=== PATIENT | male | born 1935 | race Caucasian/White ===

== ENCOUNTER → 2020-01-05 11:29 | Outpatient (BNV) | payer MEDICARE, SELFPAY | PROVIDERS: PCP Internal Medicine; Visit Provider Internal Medicine | DX: Z85.048 Personal history of other malignant neoplasm of rectum, rectosigmoid junction, and anus (principal) | CPT/HCPCS: 99212; 99213; 99214; G2211 ==

== ENCOUNTER 2020-01-20 10:00 | Outpatient (REF) | payer MEDICARE, SELFPAY ==
--- NOTE | 2020-01-13 11:00 | MHC.HEMONC ---
[facility] @ [phone]( spoke w Yogi Nassar). Sig: Drink 1 full bottle before bed on Saturday, 01/18, and drink the 2nd bottle on Friday 01/[address] scan, to be completed by 9am. This was per Lamont in the CT Department. Pt has CT of Abd/Pelvis and CT of Chest scheduled on Saturday01/20/20 at 10 am. Pt has been notified of Rx completed, prep instructions and appt time. He agrees to this plan of care.
--- NOTE | 2020-01-20 10:02 | CT_ITS ---
EXAMINATION: CT CHEST, ABDOMEN AND PELVIS WITH IV CONTRAST CLINICAL INFORMATION: Rectal cancer. Surveillance. COMPARISON: Previous chest CT scan most recent November 2016, chest x-ray November 2018 and abdominal and pelvic CT scans most recent December 2018 TECHNIQUE: Axial images through the chest, abdomen and pelvis following oral and 85 mL Omnipaque 350 intravenous contrast. Patient dose 9 4 6 mgy/cm. This CT examination was performed using dose optimization techniques as appropriate, variously including the following: *Automated exposure control *Adjustment of mA and/or kV according to patient size (this includes techniques or standardized protocols for targeted exams where dose is matched to indication/reason for exam; i.e. extremities or head) *Use of iterative reconstruction technique FINDINGS: Chest: There is evidence of mild paraseptal emphysema. There is a 3 mm calcified left upper lobe nodule axial image 59 series 5 this is stable. There are small clustered peribronchial nodules and increased interstitial markings in the peripheral or subpleural right lower lobe, for example axial image 325 series 5, that is stable. No new pulmonary nodules are seen. There is a right thyroid nodule that is stable. There are no enlarged hilar or mediastinal lymph nodes. The heart does not appear enlarged. There is no coronary artery calcification. There is no pericardial effusion. The thoracic aorta is normal in caliber. There is no pleural effusion or pleural thickening. No chest wall mass or enlarged axillary lymph nodes are seen. Abdomen and pelvis: There are calcifications in the liver and spleen suggestive of old granulomatous disease. No focal lesion is seen. There the gallbladder is normal. There is no biliary duct dilatation. The pancreas is unremarkable. The adrenal glands are unremarkable. The right kidney is normal appearing. There is new moderate left hydronephrosis and left ureteral dilatation down to the bladder. The bladder wall appears slightly thickened and trabeculated. There is increased soft tissue in the presacral space. This appears unchanged from previous exams. There is a left lower quadrant colostomy. There is diverticulosis of the colon. Small and large bowel is otherwise unremarkable. The appendix is unremarkable. The stomach is unremarkable. No ascites or adenopathy is seen. There is evidence of atherosclerotic disease. No aneurysm is seen. There are old right lower rib fractures. There are degenerative changes of the spine. There are degenerative changes of the hip joints. There are degenerative changes at the left shoulder joint. CT/CT abdomen pelvis w con IMPRESSION: Chest: Small stable pulmonary nodules. Stable right thyroid nodule. No evidence of metastatic disease. Abdomen and pelvis: Evidence of old granulomatous disease in the liver and spleen. New moderate left hydronephrosis and ureteral dilatation. No stone or mass seen. Slightly thickened trabeculated bladder wall. Stable postsurgical changes in the presacral space. Left lower quadrant colostomy. Diverticulosis.
[2020-01-20] MEDS: iohexoL 350 MG/ML 100 ML INFUS..BTL 85 ML IV (10:58)
[2020-01-20] MEDS: Barium Sulfate Oral (Berry) 450 ML ORAL.SUSP 900 ML PO (11:00)
== END 2020-01-20 10:01 | disposition home or self-care (01) ==
LOC: HO.CT 10:00
PROVIDERS: PCP Internal Medicine; Visit Provider Internal Medicine
DX: C20 Malignant neoplasm of rectum (principal)
CPT/HCPCS: 71260; 74177; Q9967

== ENCOUNTER → 2020-08-24 09:44 | Outpatient (BNVA) | payer MEDICARE, SELFPAY | PROVIDERS: PCP Internal Medicine; Visit Provider Urology | DX: R33.9 Retention of urine, unspecified (principal) | CPT/HCPCS: 51798; 99212 ==

== ENCOUNTER 2020-11-19 09:35 | Outpatient (REF) | payer MEDICARE, SELFPAY ==
[2020-11-19 10:09] LABS: MANUAL DIFF FLAG NO
[2020-11-19 10:41] LABS: Basophils Absolute Auto 0.1 X10*3/uL (0.0-0.2); Eosinophils Absolute Auto 0.3 X10*3/uL (0.0-0.4); Eosinophils Percent Auto 4.1 % (0-4); Hematocrit 44.5 % (42-52); Hemoglobin 14.3 g/dl (14.0-18.0); Imm Gran Abs Auto 0.02 X10*3/uL (0.00-0.03); Imm Gran Pct Auto 0.3 % (0.0-0.4); Lymphocytes Absolute Auto 1.6 X10*3/uL (1.2-4.9); Lymphocytes Percent Auto 22.3 % (20-40); Mean Corpuscular HGB Conc 32.1 g/dl (31.0-36.0); Mean Corpuscular Hemoglobin 29.2 pg (27.0-33.0); Mean Corpuscular Volume 90.8 fL (80-98); Mean Platelet Volume 10.4 fL (9.4-12.4); Monocytes Absolute Auto 0.6 X10*3/uL (0.1-1.2); Monocytes Percent Auto 8.6 % (2-11); Neutrophils Absolute Auto 4.7 X10*3/uL (2.0-8.3); Neutrophils Percent Auto 63.7 % (45-73); Platelet Count 284 X10*3/uL (160-400); Red Cell Distribution Width 13.2 % (11.0-16.0); White Blood Count 7.4 X10*3/uL (4.8-10.8)
[2020-11-19 10:42] LABS: Alanine Aminotransferase 12 U/L (0-40); Albumin Level 4.4 g/dL (3.5-5.0); Alkaline Phosphatase 77 U/L (39-117); Anion Gap 15 (12-20); Aspartate Amino Transferase 14 U/L (5-37); Bilirubin Total 0.8 mg/dL (0.0-1.0); Blood Urea Nitrogen 21 mg/dL (9-16); Calcium 9.3 mg/dL (8.4-10.2); Carbon Dioxide 25 mmol/L (22-29); Chloride 105 mmol/L (96-108); Cholesterol 162 mg/dL; Estimated Glomerular Filt Rate > 60; Glucose Random 108 mg/dL (60-115); HDL Cholesterol 33 mg/dL; LDL Cholesterol Calculated 102 mg/dl; Potassium 4.1 mmol/L (3.3-5.1); Sodium 141 mmol/L (135-145); Total Protein 7.6 g/dL (6.5-8.0); Triglycerides 139 mg/dL
[2020-11-19 11:04] LABS: Prostate Specific Antigen 0.41 ng/mL (<0.05-4.0); Thyroid Stimulating Hormone 1.36 uIU/mL (0.32-4.0)
== END 2020-11-19 09:36 | disposition home or self-care (01) ==
LOC: HO.LAB 09:35
PROVIDERS: PCP Internal Medicine; Visit Provider Internal Medicine
DX: Z00.00 Encounter for general adult medical examination without abnormal findings (principal); Z12.5 Encounter for screening for malignant neoplasm of prostate; E78.00 Pure hypercholesterolemia, unspecified; I10 Essential (primary) hypertension; N40.1 Benign prostatic hyperplasia with lower urinary tract symptoms; Z93.3 Colostomy status
CPT/HCPCS: 36415; 80053; 80061; 84153; 84443; 85025

== ENCOUNTER 2021-01-31 12:41 | Outpatient (REF) | payer MEDICARE, SELFPAY ==
--- NOTE | ~2021-01-31 | CT_ITS ---
EXAMINATION: CT ABDOMEN AND PELVIS WITH CONTRAST CLINICAL INFORMATION: Rectal cancer. Increased bloody discharge COMPARISON: Previous CT of the abdomen and pelvis most recent December 2019 TECHNIQUE: Multidetector volumetric images were obtained from the superior aspect of the liver through the pubic symphysis following administration 85 mL of Omnipaque 350 intravenous contrast. Sagittal and coronal reformatted images were obtained on the technologist's workstation. Oral contrast: Yes This CT examination was performed using dose optimization techniques as appropriate, variously including the following: *Automated exposure control *Adjustment of mA and/or kV according to patient size (this includes techniques or standardized protocols for targeted exams where dose is matched to indication/reason for exam; i.e. extremities or head) *Use of iterative reconstruction technique DLP: 537 mGy-cm FINDINGS: LUNG BASES: The visualized lung bases are unremarkable. LIVER, GALLBLADDER, AND BILIARY TREE: The liver is normal in size, shape, and attenuation. There are small calcifications in the liver that are stable and probably related to old granulomatous disease. No other focal hepatic lesion or biliary ductal dilatation is present. The gallbladder is unremarkable with no evidence of radiopaque gallstones, gallbladder wall thickening, or obvious pericholecystic inflammatory changes. PANCREAS: Unremarkable. SPLEEN: There are small calcifications in the spleen probably related to old granulomatous disease that are stable. ADRENAL GLANDS: Unremarkable. KIDNEYS AND URETERS: There is left hydronephrosis and left ureteral dilatation down to the bladder. This is unchanged from previous exam. The kidneys are otherwise unremarkable. BLADDER: Unremarkable. GASTROINTESTINAL TRACT: There is a left lower quadrant and colostomy. There is diverticulosis of the colon. There is stool the colon suggestive of constipation. Small and large bowel is otherwise unremarkable. The appendix is unremarkable. The stomach is unremarkable. There is increased soft tissue seen in the presacral space. This is inseparable from the prostate gland. This has a new low-attenuation cystic area with thick irregular enhancing wall. This area measures 2 x 3 cm. Differential would include necrotic tumor and abscess. ABDOMINAL WALL: No significant hernia is appreciated. LYMPH NODES: Normal. VASCULAR: There is evidence of atherosclerotic disease. No aneurysm is seen. PELVIC VISCERA: The soft tissue mass in the presacral space in the region of the rectum is inseparable from the prostate gland. 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 There are degenerative changes of the spine. There or old bilateral rib fractures. CT/CT abdomen pelvis w con IMPRESSION: Interval increase in abnormal soft tissue in the presacral space and new 2 x 3 cm cystic area with thick irregular enhancing wall. Differential would include necrotic tumor and abscess. Left lower quadrant end colostomy. Diverticulosis and constipation. Severe left hydronephrosis similar to previous exam. Numerous small liver and spleen calcifications probably related to old granulomatous disease. Fleischner guidelines were followed.
[2021-01-31] MEDS: iohexoL 350 MG/ML 100 ML INFUS..BTL IV (15:18)
[2021-01-31] MEDS: Barium Sulfate Oral (Vanilla) 450 ML ORAL.SUSP 900 ML PO (15:19)
== END 2021-01-31 12:42 | disposition home or self-care (01) ==
LOC: HO.CT 12:41
PROVIDERS: PCP Internal Medicine; Visit Provider Internal Medicine
DX: C20 Malignant neoplasm of rectum (principal)
CPT/HCPCS: 74177; Q9967

== ENCOUNTER → 2021-02-01 15:51 | Outpatient (BNVA) | payer MEDICARE, SELFPAY | PROVIDERS: PCP Internal Medicine; Visit Provider Surgery | DX: M79.89 Other specified soft tissue disorders (principal) | CPT/HCPCS: 99202 ==

== ENCOUNTER → 2021-04-06 11:39 | Outpatient (BNVA) | payer MEDICARE, SELFPAY | PROVIDERS: PCP Internal Medicine; Visit Provider Urology | DX: R33.9 Retention of urine, unspecified (principal); N31.9 Neuromuscular dysfunction of bladder, unspecified | CPT/HCPCS: 51798; 99212 ==

== ENCOUNTER 2021-05-15 12:07 | Day surgery (SDC) | payer MEDICARE, SELFPAY ==
--- NOTE | ~2021-05-15 | CT_ITS ---
PROCEDURE: CT GUIDED ASPIRATION, FINE NEEDLE, WITH IMAGE GUIDANCE CLINICAL INFORMATION: Rectal cancer. Presacral soft tissue mass. COMPARISON: Previous CT of the abdomen and pelvis January 2021 TECHNIQUE: Procedure and risks and benefits including bleeding and infection were discussed with the patient and informed consent was obtained. The patient was positioned in the left decubitus position. Limited axial images through the pelvis were performed. The left buttock was prepped and draped in the usual sterile fashion. The skin and soft tissues were anesthetized with 1% lidocaine plain. Using a coaxial system, access to the abnormal soft tissue in the presacral space was obtained. The small central cystic area was targeted. Two 22-gauge FNA specimens were obtained. Scant bloody fluid was aspirated. Specimen was sent for cytology and microbiology studies. The patient received Versed 0.5 mg and fentanyl 25 mcg intravenously during the procedure. Total sedation time was [address] examination was performed using dose optimization techniques as appropriate, variously including the following: *Automated exposure control *Adjustment of mA and/or kV according to patient size (this includes techniques or standardized protocols for targeted exams where dose is matched to indication/reason for exam; i.e. extremities or head) *Use of iterative reconstruction technique DLP: 152 mGy-cm FINDINGS: There is abnormal soft tissue in the presacral space. This contains a small central cystic low-attenuation area. This is similar to the 01/31/[address]/CT guided FNA IMPRESSION: CT-guided presacral soft tissue mass fine-needle aspiration.
[2021-05-15 12:29] VITALS: BMI 25.1
[2021-05-15 12:45] LABS: MANUAL DIFF FLAG NO
[2021-05-15 13:00] LABS: INTERNATIONAL NORM RATIO 1.1 (0.9-1.1); Prothrombin Time 12.5 SEC (9.9-13.0)
[2021-05-15 13:08] LABS: Basophils Absolute Auto 0.1 X10*3/uL (0.0-0.2); Basophils Percent Auto 0.6 % (0-2); Eosinophils Absolute Auto 0.1 X10*3/uL (0.0-0.4); Hematocrit 41.5 % (42.0-52.0); Imm Gran Abs Auto 0.03 X10*3/uL (0.00-0.03); Imm Gran Pct Auto 0.3 % (0.0-0.4); Lymphocytes Absolute Auto 1.4 X10*3/uL (1.2-4.9); Lymphocytes Percent Auto 14.2 % (20-40); Mean Corpuscular HGB Conc 31.3 g/dl (31.0-36.0); Mean Corpuscular Hemoglobin 27.7 pg (27.0-33.0); Mean Corpuscular Volume 88.5 fL (80.0-98.0); Monocytes Absolute Auto 0.6 X10*3/uL (0.1-1.2); Neutrophils Absolute Auto 7.7 x10*3/uL (2.0-8.3); Neutrophils Percent Auto 77.9 % (45-73); Platelet Count 335 X10*3/uL (160-400); Red Blood Count 4.69 X10*6/uL (4.60-5.80); Red Cell Distribution Width 13.8 % (11.0-16.0); White Blood Count 9.8 X10*3/uL (4.8-10.8)
[2021-05-15] MEDS: iohexoL 350 MG/ML 100 ML INFUS..BTL 40 ML IV (14:55)
--- NOTE | 2021-05-15 14:56 | HO.RADPN ---
RADIOLOGY Narrative Narrative: Prescaral space aspiration using coaxial system. Specimen sent for cytology and culture.
[2021-05-15 15:00] VITALS: BP 118/50; PULSE 66; RESP 19; O2SAT 99
[2021-05-15 15:32] VITALS: BP 96/34; PULSE 69; RESP 18; O2SAT 97
[2021-05-15 15:46] VITALS: BP 124/47; PULSE 68; RESP 18; TEMP 36.7; O2SAT 97
[2021-05-15 15:53] VITALS: BP 126/50; PULSE 69; RESP 18; O2SAT 97
== END 2021-05-15 15:59 | disposition home or self-care (01) ==
PROVIDERS: Radiology Diagnostic Radiology; PCP Internal Medicine; Visit Provider Internal Medicine
DX: M79.89 Other specified soft tissue disorders (principal); Z85.048 Personal history of other malignant neoplasm of rectum, rectosigmoid junction, and anus; Z92.3 Personal history of irradiation; Z90.49 Acquired absence of other specified parts of digestive tract; Z85.820 Personal history of malignant melanoma of skin; N13.30 Unspecified hydronephrosis; Z79.899 Other long term (current) drug therapy
CPT/HCPCS: 10009; 36415; 85025; 85610; 85730; 87071; 87073; 87205; 88173; 88305; 99152; J2250; J3010; Q9967

== ENCOUNTER → 2021-05-22 13:11 | Outpatient (BNVA) | payer MEDICARE, SELFPAY | PROVIDERS: PCP Internal Medicine; Referring Provider Internal Medicine; Visit Provider Surgery | DX: M79.89 Other specified soft tissue disorders (principal) | CPT/HCPCS: 99212 ==

== ENCOUNTER → 2021-07-03 15:45 | Outpatient (BNVA) | payer MEDICARE, SELFPAY | PROVIDERS: PCP Internal Medicine; Referring Provider Internal Medicine; Visit Provider Surgery | DX: M79.89 Other specified soft tissue disorders (principal) | CPT/HCPCS: 99212 ==

== ENCOUNTER 2021-12-22 11:23 | Outpatient (REF) | payer MEDICARE, SELFPAY ==
[2021-12-22 11:41] LABS: MANUAL DIFF FLAG NO
[2021-12-22 12:15] LABS: Basophils Percent Auto 0.4 % (0-2); Eosinophils Absolute Auto 0.1 X10*3/uL (0.0-0.4); Eosinophils Percent Auto 1.4 % (0-4); Hematocrit 39.4 % (42.0-52.0); Hemoglobin 12.3 g/dl (14.0-18.0); Imm Gran Abs Auto 0.02 X10*3/uL (0.00-0.03); Imm Gran Pct Auto 0.4 % (0.0-0.4); Lymphocytes Absolute Auto 1.2 X10*3/uL (1.2-4.9); Lymphocytes Percent Auto 21.1 % (20-40); Mean Corpuscular HGB Conc 31.2 g/dl (31.0-36.0); Mean Corpuscular Hemoglobin 26.9 pg (27.0-33.0); Mean Platelet Volume 10.3 fL (9.4-12.4); Monocytes Absolute Auto 0.5 X10*3/uL (0.1-1.2); Monocytes Percent Auto 9.2 % (2-11); Neutrophils Absolute Auto 3.8 x10*3/uL (2.0-8.3); Neutrophils Percent Auto 67.5 % (45-73); Platelet Count 196 X10*3/uL (160-400); Red Blood Count 4.58 X10*6/uL (4.60-5.80); Red Cell Distribution Width 13.7 % (11.0-16.0); White Blood Count 5.6 X10*3/uL (4.8-10.8)
[2021-12-22 12:45] LABS: Alanine Aminotransferase 21 U/L (0-40); Albumin Level 3.7 g/dL (3.5-5.0); Alkaline Phosphatase 58 U/L (39-117); Anion Gap 19 (12-20); Aspartate Amino Transferase 34 U/L (5-37); Bilirubin Total 0.4 mg/dL (0.0-1.0); Blood Urea Nitrogen 22 mg/dL (9-16); Calcium 8.3 mg/dL (8.4-10.2); Carbon Dioxide 23 mmol/L (22-29); Chloride 105 mmol/L (96-108); Cholesterol 125 mg/dL; Estimated Glomerular Filt Rate > 60; Glucose Random 103 mg/dL (60-115); HDL Cholesterol 26 mg/dL; LDL Cholesterol Calculated 71 mg/dl; Potassium 3.7 mmol/L (3.3-5.1); Sodium 143 mmol/L (135-145); Triglycerides 144 mg/dL
[2021-12-22 13:22] LABS: Vitamin B12 1348 pg/mL (200-900)
== END 2021-12-22 11:24 | disposition home or self-care (01) ==
LOC: HO.LAB 11:23
PROVIDERS: PCP Internal Medicine; Visit Provider Internal Medicine
DX: Z00.00 Encounter for general adult medical examination without abnormal findings (principal); E78.00 Pure hypercholesterolemia, unspecified; H40.50X0 Glaucoma secondary to other eye disorders, unspecified eye, stage unspecified; N40.1 Benign prostatic hyperplasia with lower urinary tract symptoms; Z93.3 Colostomy status
CPT/HCPCS: 36415; 80053; 80061; 82607; 85025

== ENCOUNTER 2022-06-16 09:17 | Outpatient (REF) | payer MEDICARE, SELFPAY ==
[2022-06-16 09:28] LABS: MANUAL DIFF FLAG NO
[2022-06-16 10:43] LABS: Basophils Absolute Auto 0.1 X10*3/uL (0.0-0.2); Eosinophils Absolute Auto 0.4 X10*3/uL (0.0-0.4); Eosinophils Percent Auto 3.6 % (0-4); Hematocrit 37.6 % (42.0-52.0); Hemoglobin 11.8 g/dl (14.0-18.0); Imm Gran Abs Auto 0.04 X10*3/uL (0.00-0.03); Imm Gran Pct Auto 0.4 % (0.0-0.4); Lymphocytes Absolute Auto 2.5 X10*3/uL (1.2-4.9); Lymphocytes Percent Auto 24.7 % (20-40); Mean Corpuscular HGB Conc 31.4 g/dl (31.0-36.0); Mean Corpuscular Hemoglobin 28.3 pg (27.0-33.0); Mean Corpuscular Volume 90.2 fL (80.0-98.0); Mean Platelet Volume 10.4 fL (9.4-12.4); Monocytes Absolute Auto 0.7 X10*3/uL (0.1-1.2); Monocytes Percent Auto 7.5 % (2-11); Neutrophils Absolute Auto 6.2 x10*3/uL (2.0-8.3); Neutrophils Percent Auto 62.8 % (45-73); Platelet Count 327 X10*3/uL (160-400); Red Blood Count 4.17 X10*6/uL (4.60-5.80); Red Cell Distribution Width 13.9 % (11.0-16.0); White Blood Count 9.9 X10*3/uL (4.8-10.8)
[2022-06-16 11:10] LABS: Blood Urea Nitrogen 32 mg/dL (9-16); Estimated Glomerular Filt Rate 47
[2022-06-16 11:18] LABS: Alanine Aminotransferase 16 U/L (0-40); Alkaline Phosphatase 68 U/L (39-117); Anion Gap 17 (12-20); Aspartate Amino Transferase 14 U/L (5-37); Bilirubin Total 0.6 mg/dL (0.0-1.0); Blood Urea Nitrogen 31 mg/dL (9-16); Calcium 9.2 mg/dL (8.4-10.2); Carbon Dioxide 24 mmol/L (22-29); Chloride 107 mmol/L (96-108); Cholesterol 134 mg/dL; Estimated Glomerular Filt Rate 47; Glucose Random 107 mg/dL (60-115); HDL Cholesterol 35 mg/dL; LDL Cholesterol Calculated 78 mg/dl; Potassium 4.5 mmol/L (3.3-5.1); Sodium 143 mmol/L (135-145); Total Protein 7.1 g/dL (6.5-8.0); Triglycerides 108 mg/dL
[2022-06-16 11:49] LABS: Ferritin 72 ng/mL (20-250); Thyroid Stimulating Hormone 1.75 uIU/mL (0.32-4.0); Vitamin B12 623 pg/mL (200-900)
== END 2022-06-16 09:18 | disposition home or self-care (01) ==
LOC: HO.LAB 09:17
PROVIDERS: Internal Medicine; Visit Provider Internal Medicine
DX: C20 Malignant neoplasm of rectum (principal); D64.89 Other specified anemias; D69.6 Thrombocytopenia, unspecified; E78.00 Pure hypercholesterolemia, unspecified; N31.8 Other neuromuscular dysfunction of bladder; N40.1 Benign prostatic hyperplasia with lower urinary tract symptoms; Z93.3 Colostomy status
CPT/HCPCS: 36415; 80053; 80061; 82565; 82607; 82728; 82746; 84443; 84520; 85025

== ENCOUNTER 2022-06-27 11:01 | Outpatient (REF) | payer MEDICARE, SELFPAY ==
--- NOTE | ~2022-06-27 | CT_ITS ---
EXAMINATION: CT ABDOMEN AND PELVIS WITH CONTRAST CLINICAL INFORMATION: Rectal cancer. COMPARISON: None available. TECHNIQUE: Multidetector volumetric images were obtained from the superior aspect of the liver through the pubic symphysis following administration 85 mL of Omnipaque 350 intravenous contrast. Sagittal and coronal reformatted images were obtained on the technologist's workstation. Oral contrast: No This CT examination was performed using dose optimization techniques as appropriate, variously including the following: *Automated exposure control *Adjustment of mA and/or kV according to patient size (this includes techniques or standardized protocols for targeted exams where dose is matched to indication/reason for exam; i.e. extremities or head) *Use of iterative reconstruction technique DLP: 580 mGy-cm FINDINGS: LUNG BASES: The lung bases are clear. Heart size is normal. LIVER, GALLBLADDER, AND BILIARY TREE: The liver is normal in size, shape, and attenuation. There are multiple calcifications seen throughout the liver. No intrahepatic ductal dilatation or solid lesion seen. The gallbladder is unremarkable with no evidence of radiopaque gallstones, gallbladder wall thickening, or obvious pericholecystic inflammatory changes. PANCREAS: Unremarkable. SPLEEN: The spleen size is normal with homogeneous density. There are scattered calcifications. ADRENAL GLANDS: Unremarkable. KIDNEYS AND URETERS: The kidneys are normal in size, shape, and attenuation. There is severe bilateral hydroureteronephrosis extending to the level of hydronephrosis. The right hydroureteronephrosis is new since previous study. BLADDER: The bladder is mildly distended. GASTROINTESTINAL TRACT: There is scattered stool, diverticuli and gas seen throughout the colon without any significant distention. The small bowel loops are normal caliber. Appendix is normal caliber. ABDOMINAL WALL: There is a left lower quadrant colostomy. No evidence of hernia. LYMPH NODES: Normal. VASCULAR: Unremarkable. PELVIC VISCERA: There is presacral soft tissue mass similar to previous study but decreased in size. Central hypodensity seen on the previous study has reduced in size. OSSEOUS STRUCTURES: There are degenerative disc changes throughout lumbar spine and right hip and mild degenerative changes left hip are noted. No aggressive lytic or sclerotic process seen. CT/CT abdomen pelvis w IV con IMPRESSION: Severe bilateral hydroureteronephrosis likely from bladder outlet obstruction. The right hydroureteronephrosis is new since the previous study. There is moderate presacral soft tissue which has decreased in size from previous study likely granulation tissue post surgery. No change in left lower quadrant colostomy with moderate constipation and colonic diverticulosis. Granulomatous calcifications in the liver and spleen. Fleischner guidelines were followed.
[2022-06-27] MEDS: iohexoL 350 MG/ML 100 ML INFUS..BTL IV (12:01)
== END 2022-06-27 11:02 | disposition home or self-care (01) ==
LOC: HO.CT 11:01
PROVIDERS: PCP Internal Medicine; Visit Provider Internal Medicine
DX: C20 Malignant neoplasm of rectum (principal)
CPT/HCPCS: 74177; Q9967

== ENCOUNTER 2022-12-21 09:31 | Outpatient (REF) | payer MEDICARE, SELFPAY ==
[2022-12-21 10:47] LABS: Alanine Aminotransferase 12 U/L (0-40); Albumin Level 3.9 g/dL (3.5-5.0); Alkaline Phosphatase 72 U/L (39-117); Anion Gap 16 (12-20); Aspartate Amino Transferase 13 U/L (5-37); Bilirubin Total 0.5 mg/dL (0.0-1.0); Blood Urea Nitrogen 34 mg/dL (9-16); Calcium 9.6 mg/dL (8.4-10.2); Carbon Dioxide 23 mmol/L (22-29); Chloride 105 mmol/L (96-108); Estimated Glomerular Filt Rate > 60; Glucose Random 108 mg/dL (60-115); Potassium 3.6 mmol/L (3.3-5.1); Sodium 140 mmol/L (135-145); Total Protein 7.5 g/dL (6.5-8.0)
== END 2022-12-21 09:32 | disposition home or self-care (01) ==
LOC: HO.LAB 09:31
PROVIDERS: PCP Internal Medicine; Visit Provider Internal Medicine
DX: E78.00 Pure hypercholesterolemia, unspecified (principal); N18.9 Chronic kidney disease, unspecified; N40.1 Benign prostatic hyperplasia with lower urinary tract symptoms; Z85.048 Personal history of other malignant neoplasm of rectum, rectosigmoid junction, and anus
CPT/HCPCS: 36415; 80053

== ENCOUNTER 2023-05-03 14:05 | Outpatient (AMB) | payer MEDICARE, SELFPAY ==
--- NOTE | 2023-05-03 14:19 | A.OFFVIS_ITS ---
Intake Intake Visit Reasons: rectal cancer Intake Note: Former Patient of Dr Wong, presents today to established with Dr Atwood for the treatment for Incomplete Bladder Emptying/Pt has Rectal Cancer: Meds- Finasteride & Tamsulosin Allergies to Antibiotic- No Known Allergies Blood Thinner- None Unable to void, Post Void Residual: 105 mL Service Manager Required: No Accompanied by: Self / Same As Patient Allergies No Known Allergies [No Known Allergies*] Allergy (Verified 05/03/23 14:39) Medication List - Last Reconciled 05/03/23 by Quinn Griffith MD brinzolamide-brimonidine 1-0.2 % (Simbrinza) 1 drp ophthalmic (eye) BID dorzolamide 2% (Trusopt) 1 drp ophthalmic (eye) TID finasteride 5 mg PO DAILY 30 days latanoprost 0.005% (Xalatan) 1 drp ophthalmic (eye) BEDTIME multivitamin 1 tab PO DAILY pravastatin 1 tab PO DAILY tamsulosin (Flomax) 0.4 mg PO BEDTIME 30 days timolol maleate 0.5% (Timoptic) 1 drp ophthalmic (eye) BID HPI HPI Comments History of Present Illness Details Edgar is an 88-year-old male who has been followed by urology due to neurogenic bladder secondary to radiation and surgical treatment for rectal cancer. The patient has been followed by Dr. Wong in the past. The patient is followed by Oncology due to rectal carcinoma. The patient was diagnosed with adenocarcinoma of the rectum in 2016 and completed concurrent radiation with Xeloda 825mg/m2 from 08/17/15 and completed on 09/28/15. s/p Abdominoperineal resection on 01/30/16, pathology no residual adenocarcinoma identified, chronic inflammation and fibrosis consistent with treatment effect, ALT 3 lymph nodes were benign. The patient wears diapers daily. Denies pain or dysuria. He states he is unable to give a urine specimen in the office or at home because he can not void and only leaks into the pad, bladder scan PVR 105 mL. I reviewed testing CT abdomen and pelvis with contrast--07/14/2022 bilateral hydronephrosis hydroureter. Right hydronephrosis hydroureter new in comparison to previous studies. Labs: BUN creatinine--09/19/2022--25/1.01; 03/25/2023--26/1.15 05/03/23--PLAN TAMSULOSIN 0.4 MG DAILY Proscar 5 mg daily Follow-up in 4 months, Renal ultrasound prior [facility] Medical History Soft tissue mass Incomplete emptying of bladder Dysuria Pyuria H/O urinary retention Rectal adenocarcinoma Melanoma Fibroma Skin cancer Fracture of right ankle Glaucoma Surgical History History of surgery Hx of abdominoplasty Hx of tonsillectomy Hx of colonoscopy Family History Sister Lung cancer Maternal Aunt Breast cancer Mother Breast cancer Social History Household Members: None Housing: House Are you a primary primary care coordinator to a significant other at home: No Do you presently have visiting nurse or other home services: No Alcohol intake: former Patient Tobacco Use Status: Never used Tobacco Cigarette Packs Per Day: 3 service: No Current occupational status: retired Review of Systems Const All systems reviewed & are unremarkable except as noted in HPI and below Reports no additional complaints Eyes Reports no additional complaints ENT Reports no additional complaints Card Denies dyspnea Resp Denies cough and Denies dyspnea GI Reports no additional complaints Musc Reports no additional complaints Skin/Breast Denies rash and Denies unusual bruising Neuro Reports no additional complaints Psych Reports no additional complaints Endo Reports no additional complaints Caesar/Lymph Reports no additional complaints Aller/Immun Reports no additional complaints Physical Exam Const General: healthy appearing, no acute distress and well developed Orientation/consciousness: patient oriented x3 HEENT Head: Yes normocephalic and Yes atraumatic Eyes Conjunctivae: conjunctivae normal Neck Neck: Yes normal visual inspection Chest Chest palpation & inspection: normal inspection of the chest Resp Effort & Inspection: normal respiratory effort Cardio Rate: regular rate GI Other: Colostomy left lower quadrant Palpation (GI): Soft to palpation Skin General skin exam: no rashes or lesions noted Neuro General: patient oriented x3 Extrem General: No pedal edema Psych Appearance: grossly normal Affect: normal affect Results Reviewed Results Reviewed: Date of Service: 06/27/22 EXAMINATION: CT ABDOMEN AND PELVIS WITH CONTRAST CLINICAL INFORMATION: Rectal cancer. COMPARISON: None available. TECHNIQUE: Multidetector volumetric images were obtained from the superior aspect of the liver through the pubic symphysis following administration 85 mL of Omnipaque 350 intravenous contrast. Sagittal and coronal reformatted images were obtained on the technologist's workstation. Oral contrast: No This CT examination was performed using dose optimization techniques as appropriate, variously including the following: *Automated exposure control *Adjustment of mA and/or kV according to patient size (this includes techniques or standardized protocols for targeted exams where dose is matched to indication/reason for exam; i.e. extremities or head) *Use of iterative reconstruction technique DLP: 580 mGy-cm FINDINGS: LUNG BASES: The lung bases are clear. Heart size is normal. LIVER, GALLBLADDER, AND BILIARY TREE: The liver is normal in size, shape, and attenuation. There are multiple calcifications seen throughout the liver. No intrahepatic ductal dilatation or solid lesion seen. The gallbladder is unremarkable with no evidence of radiopaque gallstones, gallbladder wall thickening, or obvious pericholecystic inflammatory changes. PANCREAS: Unremarkable. SPLEEN: The spleen size is normal with homogeneous density. There are scattered calcifications. ADRENAL GLANDS: Unremarkable. KIDNEYS AND URETERS: The kidneys are normal in size, shape, and attenuation. There is severe bilateral hydroureteronephrosis extending to the level of hydronephrosis. The right hydroureteronephrosis is new since previous study. BLADDER: The bladder is mildly distended. GASTROINTESTINAL TRACT: There is scattered stool, diverticuli and gas seen throughout the colon without any significant distention. The small bowel loops are normal caliber. Appendix is normal caliber. ABDOMINAL WALL: There is a left lower quadrant colostomy. No evidence of hernia. LYMPH NODES: Normal. VASCULAR: Unremarkable. PELVIC VISCERA: There is presacral soft tissue mass similar to previous study but decreased in size. Central hypodensity seen on the previous study has reduced in size. OSSEOUS STRUCTURES: There are degenerative disc changes throughout lumbar spine and right hip and mild degenerative changes left hip are noted. No aggressive lytic or sclerotic process seen. IMPRESSION: Severe bilateral hydroureteronephrosis likely from bladder outlet obstruction. The right hydroureteronephrosis is new since the previous study. There is moderate presacral soft tissue which has decreased in size from previous study likely granulation tissue post surgery. No change in left lower quadrant colostomy with moderate constipation and colonic diverticulosis. Granulomatous calcifications in the liver and spleen. Assessment & Plan Assessment & Plan (1) Incomplete emptying of bladder: Code(s): R33.9 - Retention of urine, unspecified (2) Hypotonic neurogenic bladder: Comment: Prior rectal surgery with presumed nerve compromise Code(s): N31.9 - Neuromuscular dysfunction of bladder, unspecified (3) Bilateral hydronephrosis: Code(s): N13.30 - Unspecified hydronephrosis (4) Hydroureter: Code(s): N13.4 - Hydroureter (5) Rectal adenocarcinoma: Code(s): C20 - Malignant neoplasm of rectum Plan TAMSULOSIN 0.4 MG DAILY Proscar 5 mg daily Follow-up in 4 months, Renal ultrasound prior Orders: Orders US renal BI 10 Weeks N13.30 - Unspecified hydronephrosis, N13.4 - Hydroureter Medications: Refilled finasteride 5 mg PO DAILY 90 tabs 3RF 30 days tamsulosin (Flomax) 0.4 mg PO BEDTIME 90 caps 3RF 30 days Patient Instructions: The patient had an opportunity to ask questions regarding treatment plan. All questions were answered. Imaging, Laboratory studies and physical exam results were discussed and reviewed in detail. No major barriers to understanding were identified. The patient expressed understanding and agreement with the above treatment plan. The patient is aware they should contact our office by phone for worsening of their current condition or the appearance of new symptoms. Compliance is encouraged with any medications and followup testing that is ordered. It is a privilege to be allowed the opportunity to participate in the urologic care of your patient. If you have any questions or concerns regarding treatment for the above conditions please do not hesitate to contact me. The office telephone contact is [phone]. This note is constructed in part using voice recognition software. While every effort has been made to ensure accuracy securities vault supervisor errors may have been included. Yours sincerely, Quinn Griffith MD Coding Level of Care Code Est Pt Level 4 (74155) Diagnoses Incomplete emptying of bladder R33.9 Hypotonic neurogenic bladder N31.9 Bilateral hydronephrosis N13.30 Hydroureter N13.4 Rectal adenocarcinoma C20
== END 2023-05-03 15:30 | disposition home or self-care (01) ==
PROVIDERS: PCP Internal Medicine; Visit Provider Urology
DX: R33.9 Retention of urine, unspecified (principal); N31.9 Neuromuscular dysfunction of bladder, unspecified; N13.30 Unspecified hydronephrosis; N13.4 Hydroureter; C20 Malignant neoplasm of rectum
CPT/HCPCS: 99214

== ENCOUNTER → 2023-05-03 14:05 | Outpatient (BNVA) | payer MEDICARE, SELFPAY | PROVIDERS: PCP Internal Medicine; Visit Provider Urology | DX: R33.9 Retention of urine, unspecified (principal); N31.9 Neuromuscular dysfunction of bladder, unspecified; N13.30 Unspecified hydronephrosis; N13.4 Hydroureter; C20 Malignant neoplasm of rectum | CPT/HCPCS: 99212 ==

== ENCOUNTER 2023-06-18 11:00 | Outpatient (REF) | payer MEDICARE, SELFPAY ==
[2023-06-18 11:14] LABS: MANUAL DIFF FLAG NO
[2023-06-18 12:47] LABS: Basophils Absolute Auto 0.1 X10*3/uL (0.0-0.2); Basophils Percent Auto 0.7 % (0-2); Eosinophils Absolute Auto 0.2 X10*3/uL (0.0-0.4); Eosinophils Percent Auto 1.8 % (0-4); Hematocrit 38.7 % (42.0-52.0); Hemoglobin 12.1 g/dl (14.0-18.0); Imm Gran Abs Auto 0.04 X10*3/uL (0.00-0.03); Imm Gran Pct Auto 0.4 % (0.0-0.4); Lymphocytes Absolute Auto 1.9 X10*3/uL (1.2-4.9); Lymphocytes Percent Auto 19.6 % (20-40); Mean Corpuscular HGB Conc 31.3 g/dl (31.0-36.0); Mean Corpuscular Hemoglobin 27.8 pg (27.0-33.0); Mean Corpuscular Volume 88.8 fL (80.0-98.0); Mean Platelet Volume 10.5 fL (9.4-12.4); Monocytes Absolute Auto 0.6 X10*3/uL (0.1-1.2); Monocytes Percent Auto 6.2 % (2-11); Neutrophils Absolute Auto 6.7 x10*3/uL (2.0-8.3); Neutrophils Percent Auto 71.3 % (45-73); Platelet Count 304 X10*3/uL (160-400); Red Blood Count 4.36 X10*6/uL (4.60-5.80); Red Cell Distribution Width 14.4 % (11.0-16.0); White Blood Count 9.4 X10*3/uL (4.8-10.8)
[2023-06-18 13:04] LABS: Alanine Aminotransferase 13 U/L (0-40); Alkaline Phosphatase 77 U/L (39-117); Anion Gap 15 (12-20); Aspartate Amino Transferase 15 U/L (5-37); Bilirubin Total 0.4 mg/dL (0.0-1.0); Blood Urea Nitrogen 30 mg/dL (9-16); Calcium 9.7 mg/dL (8.4-10.2); Carbon Dioxide 25 mmol/L (22-29); Chloride 107 mmol/L (96-108); Cholesterol 125 mg/dL (<200); Estimated Glomerular Filt Rate > 60; Glucose Random 106 mg/dL (60-115); HDL Cholesterol 35 mg/dL (>40); LDL Cholesterol Calculated 74 mg/dL (<100); Potassium 3.8 mmol/L (3.3-5.1); Sodium 143 mmol/L (135-145); Total Protein 7.7 g/dL (6.5-8.0); Triglycerides 84 mg/dL (<150)
[2023-06-18 13:34] LABS: Prostate Specific Antigen 0.89 ng/mL (<0.05-4.0)
== END 2023-06-18 11:01 | disposition home or self-care (01) ==
LOC: HO.LAB 11:00
PROVIDERS: PCP Internal Medicine; Visit Provider Internal Medicine
DX: E78.00 Pure hypercholesterolemia, unspecified (principal); I10 Essential (primary) hypertension; N40.1 Benign prostatic hyperplasia with lower urinary tract symptoms; Z85.048 Personal history of other malignant neoplasm of rectum, rectosigmoid junction, and anus; Z12.5 Encounter for screening for malignant neoplasm of prostate
CPT/HCPCS: 36415; 80053; 80061; 84153; 85025

== ENCOUNTER 2023-06-28 15:59 | Outpatient (REF) | payer MEDICARE, SELFPAY ==
--- NOTE | ~2023-06-28 | US_ITS ---
EXAMINATION: US VENOUS ULTRASOUND WITH DOPPLER LOWER EXTREMITY, BILATERAL CLINICAL INFORMATION: Swelling COMPARISON: None available. TECHNIQUE: Ultrasound of the deep veins is performed from the hip to the calf with compression sonography and color and pulse Doppler assessment. Spectral analysis with color-flow imaging is performed. FINDINGS: RIGHT: There is normal venous compression and respiratory variation and augmented flow. The visualized common femoral vein, superficial femoral vein, profunda femoral vein, popliteal vein, and the trifurcation region shows no evidence of deep venous thrombosis. There is no significant popliteal fossa cyst. LEFT: There is nonocclusive thrombus seen in the popliteal vein. There is nonocclusive thrombus seen in the left superficial femoral vein in the mid and upper thigh. The left common femoral, profunda, distal superficial femoral veins are patent. Visualized tibioperoneal trunk and posterior tibial and peroneal veins in the calf are patent. There is no Carter's cyst. US/US venous duplex LE BI IMPRESSION: No DVT demonstrated in the right lower extremity. DVT in the left superficial femoral and popliteal veins.
== END 2023-06-28 16:00 | disposition home or self-care (01) ==
LOC: HO.US 15:59
PROVIDERS: PCP Internal Medicine; Visit Provider Internal Medicine
DX: Z13.89 Encounter for screening for other disorder (principal)
CPT/HCPCS: 93970

== ENCOUNTER 2023-06-28 16:55 | Emergency (ER) | payer MEDICARE, SELFPAY ==
[2023-06-28 17:24] VITALS: BP 104/52; PULSE 67; RESP 16; TEMP 37.1; O2SAT 98; BMI 24.4
--- NOTE | 2023-06-28 17:24 | ED.GENADULT ---
HPI - General Adult General Chief complaint: Extremity Problem Stated complaint: DVT Time Seen by Provider: 06/28/23 20:05 Source: patient and family (patient's daughter) Mode of arrival: wheelchair Limitations: no limitations History of Present Illness HPI narrative: Patient is an 88 year old assigned male at with a history of rectal adenocarcinoma presenting to the emergency department today with a left leg DVT. Patient states that his left leg has been swollen and painful lately, his doctor got an US, and sent him here. Patient denies any dizziness, lightheadedness, abdominal pain, nausea, vomiting, fever, chills, blurry vision, double vision, loss of vision, chest pain, difficulty breathing, shortness of breath, back pain, night sweats, pain with urination, increased urinary frequency, increased urinary urgency, blood in his urine or stool, syncope or a near syncopal episode, recent trauma or falls, bowel incontinence, bladder incontinence, bowel retention, bladder retention, or any other complaints at this time. Onset (ago): day(s) Location: left and lower extremity Relieving factors: none Exacerbating factors: none Associated symptoms: denies other symptoms Treatments prior to arrival: none Related Data Home Medications ?Medication ?Instructions ?Recorded ?Confirmed dorzolamide 2 % eye drops (Trusopt) 1 drp ophthalmic (eye) TID 01/05/20 05/03/23 latanoprost 0.005 % eye drops 1 drp ophthalmic (eye) BEDTIME 01/05/20 05/03/23 (Xalatan) multivitamin 1 tab PO DAILY 01/05/20 05/03/23 pravastatin 40 mg tablet 1 tab PO DAILY 01/05/20 05/03/23 brinzolamide 1 %-brimonidine 0.2 % 1 drp ophthalmic (eye) BID 08/24/20 05/03/23 eye drops,suspension (Simbrinza) timolol maleate 0.5 % eye drops 1 drp ophthalmic (eye) BID 08/24/20 05/03/23 (Timoptic) Previous Rx's ?Medication ?Instructions ?Recorded finasteride 5 mg tablet 5 mg PO DAILY 30 days #90 tabs 05/03/23 tamsulosin 0.4 mg capsule (Flomax) 0.4 mg PO BEDTIME 30 days #90 caps 03/08/24 apixaban 5 mg (74 tabs) tablets in 5 mg PO BID #74 ea 06/28/23 a dose pack (Eliquis DVT-PE Treat 30D Start) Allergies Allergy/AdvReac Type Severity Reaction Status Date / Time No Known Allergies Allergy Verified 06/28/23 17:26 [No Known Allergies*] Review of Systems Constitutional: Constitutional: Reports no additional constitutional complaints, Denies chills, Denies fever(s) and Denies night sweats Eyes: Eyes: Reports no additional eye complaints, Denies blurry vision, Denies change in vision, Denies diplopia, Denies eye discharge, Denies loss of vision and Denies eye pain ENT: Denies dizziness Cardiovascular: Cardiovascular: Reports no additional cardiovascular complaints, Denies chest pain, Denies lightheadedness, Denies Loss of Consciousness and Denies dyspnea Respiratory: Respiratory: Reports no additional respiratory complaints and Denies dyspnea Gastrointestinal: Gastrointestinal: Reports no additional gastrointestinal complaints, Denies abdominal pain, Denies melena, Denies hematochezia, Denies change in bowel habits and Denies change in stool character Comments: left sided buttock mass - intermittent bleeding Genitourinary: Genitourinary: Reports no additional male genitourinary complaints, Denies hematuria, Denies oliguria, Denies difficulty urinating, Denies dysuria, Denies urinary frequency, Denies urinary hesitancy, Denies urinary incontinence and Denies urinary urgency Musculoskeletal: Musculoskeletal: Reports no additional musculoskeletal complaints, Denies numbness and Denies tingling Comments: left lower extremity swelling Neurologic: Denies dizziness, Denies loss of vision, Denies numbness and Denies tingling Psychiatric: Psychiatric: Reports no additional psychiatric complaints Endocrine: Endocrine: Reports no additional endocrine complaints Hematologic/Lymphatic: Hematologic/Lymphatic: Reports no additional hematologic/lymphatic complaints Allergic/Immunologic: Allergic/Immunologic: Reports no additional allergic/immunologic complaints PMFSH Past Medical History Attestation statement: The following information was validated with the patient. Source: old records reviewed and nursing notes reviewed Medical History Soft tissue mass Incomplete emptying of bladder Dysuria Pyuria H/O urinary retention Rectal adenocarcinoma Melanoma Fibroma Skin cancer Fracture of right ankle Glaucoma Surgical History History of surgery Hx of abdominoplasty Hx of tonsillectomy Hx of colonoscopy Family History Family History Sister Lung cancer Maternal Aunt Breast cancer Mother Breast cancer Social History Social History Household Members: None Housing: House Are you a primary child care center administrator to a significant other at home: No Do you presently have visiting nurse or other home services: No Alcohol intake: former Patient Tobacco Use Status: Never used Tobacco Cigarette Packs Per Day: 3 Smoked in Last 30 Days: No Use of substances other than those prescribed or required for medical reasons: No Advance Directives: No Advance Directives Information Provided: No service: No Current occupational status: retired Physical Exam ED Vital Signs: Vital Signs - 24 hr 06/28/23 17:24 06/28/23 20:46 Temperature 98.8 F 96.3 F L Pulse Rate 67 75 Respiratory Rate 16 16 Blood Pressure 104/52 L 110/65 Pulse Oximetry 98 96 Oxygen Delivery Method Room Air Room Air BMI result Body Mass Index 24.4 Const General: cooperative, no acute distress, alert and awake Nutritional Appearance: well nourished Orientation/consciousness: patient oriented x3 Limitations: no limitations HENMT Head: Yes normal to inspection and Yes atraumatic Ears: hearing grossly normal bilaterally and external ears normal General nose exam: Normal external nose present, no nasal discharge noted and no epistaxis Face and sinus: Yes normal facial exam, No abrasion and No laceration Mouth: Normal oral and palatal mucosa present, no drooling and no muffled voice Eyes General: appearance normal, both eyes and all related structures Periorbital: periorbital findings normal Eyelids: Yes eyelids normal Conjunctivae: conjunctivae normal Pupils: Equal, round and reactive pupils present EOM: EOMs intact bilaterally Neck Neck: Yes normal visual inspection, Yes full ROM and Yes no lymphadenopathy Chest Chest palpation & inspection: normal inspection of the chest Resp Effort & Inspection: normal respiratory effort and able to speak in complete sentences GI Rectal Exam - Male: Yes other (large left sided buttock mass with friable tissue - easily bleeds) Neuro General: patient oriented x3 and moves all extremities Cranial nerves: Yes Equal, round and reactive pupils present Cognition (Neuro): normal cognition Motor exam (neuro): 5/5 motor strength present throughout Sensory Exam: Normal double simultaneous stimulation for sensation Coordination: [id number] test normal Extrem Other: swelling present to the left lower extremity General: Yes full ROM and Yes capillary refill normal Psych Appearance: grossly normal Mental Status: mental status grossly normal Affect: normal affect Attitude: cooperative Thought process: Normal thought process present Thought content: Normal thought content present Insight: Good insight present (Psych) Course Course Course Narrative: This is a rapid medical exam performed by Richard Ritter NP: Additional HPI, ROS, PE not included below will be deferred to primary provider. Patient is an 88-year-old male with history of stage T3N0 rectal adenocarcinoma presenting to the emergency department from outpatient radiology. Patient had a LLE ultrasound for discoloration to his leg. Radiologist called ED, U/S positive for DVT to superficial femoral and popliteal veins. He denies any chest pain, palpitations, or dyspnea. Plan: labs, ?CTA Medications Administered Discontinued Medications Generic Name Dose Route Start Last Admin Trade Name Freq PRN Reason Stop Dose Admin Apixaban 10 mg 06/28/23 20:12 06/28/23 20:38 Apixaban 5 Mg Tablet PO 06/28/23 20:13 10 mg ONCE ONE Administration Medical Decision Making Medical Decision Making MDM Narrative: Patient is an 88 year old assigned male at with a history of renal adenocarcinoma presenting to the emergency department today with left lower leg swelling secondary to a blood clot. Patient's physical exam was as noted in the physical exam portion of this note. Patient's blood work was unremarkable. Patient's left lower extremity US showed a DVT. I explained my physical exam findings as well as all test results to the patient and the patient's daughter. I answered all questions asked by the patient and the patient's daughter. Patient expressed concern about his buttock mass continuing to bleed intermittently. Patient states that he has seen surgery multiple times for it and nobody has ever offered to do anything about it. I applied dermabond to an area for friable skin that was bleeding on the mass. I recommended the patient take his anti-coagulant medication as prescribed given his DVT and recommended he follow back up with the general surgeons office to discuss the soft tissue buttock mass. I stressed the importance of the patient taking his medication as prescribed. I stressed the importance of the patient following up with his primary care provider and general surgeon. I stressed the importance of the patient returning to the emergency department immediately if his symptoms were to worsen or if he were to develop any dizziness, shortness of breath, difficulty breathing, chest pain, blurry vision, loss of vision, nausea, vomiting, abdominal pain, fever, chills, back pain, or any other complaints. Patient and the patient's daughter verbalized agreement and understanding with this treatment plan and discharge. Differential Diagnosis Differential Diagnoses: The differential diagnosis associated with the presentation includes Soft tissue mass of the left buttock DVT Admission/Observation Consideration of admission/observation: Escalation of care including admission/observation considered Patient would have been admitted to the hospital had [his/her/their] work up had any findings where hospital admission was appropriate and his clinical presentation warranted hospital admission. Lab Data MDM Lab Attestation statement: I reviewed the patient's lab results. My interpretation of these studies and their corresponding values is that they are grossly normal. 06/28/23 17:57 06/28/23 17:57 Labs: Lab Results 06/28/23 Range/Units 17:57 WBC 8.0 (4.8-10.8) X10*3/uL RBC 4.20 L (4.60-5.80) X10*6/uL Hgb 11.7 L (14.0-18.0) g/dl Hct 36.4 L (42.0-52.0) % MCV 86.7 (80.0-98.0) fL MCH 27.9 (27.0-33.0) pg MCHC 32.1 (31.0-36.0) g/dl RDW 14.4 (11.0-16.0) % Plt Count 247 (160-400) X10*3/uL MPV 10.1 (9.4-12.4) fL Immature Gran % (Auto) 0.3 (0.0-0.4) % Neut % (Auto) 67.8 (45-73) % Lymph % (Auto) 19.3 L (20-40) % [place] % (Auto) 8.1 (2-11) % Eos % (Auto) 3.5 (0-4) % Baso % (Auto) 1.0 (0-2) % Lymph # (Auto) 1.5 (1.2-4.9) X10*3/uL [place] # (Auto) 0.7 (0.1-1.2) X10*3/uL Eos # (Auto) 0.3 (0.0-0.4) X10*3/uL Baso # (Auto) 0.1 (0.0-0.2) X10*3/uL Abs Immat Gran (auto) 0.02 (0.00-0.03) X10*3/uL Absolute Neuts (auto) 5.4 (2.0-8.3) x10*3/uL Absolute Nucleated RBC 0.000 (0.0-0.012) X10*3/uL Nucleated RBC % (auto) 0.0 (0.0-0.2) /100WBC PT 12.3 (11.1-13.3) SEC INR 1.0 (0.9-1.1) Sodium 139 (135-145) mmol/L Potassium 4.2 (3.3-5.1) mmol/L Chloride 105 (96-108) mmol/L Carbon Dioxide 25 (22-29) mmol/L Anion Gap 13 (12-20) BUN 31 H (9-16) mg/dL Creatinine 1.13 (0.5-1.4) mg/dL Estim Creat Clear Calc 47.5 Estimated GFR > 60 Random Glucose 117 H (60-115) mg/dL Calcium 9.4 (8.4-10.2) mg/dL Total Bilirubin 0.3 (0.0-1.0) mg/dL AST 14 (5-37) U/L ALT 11 (0-40) U/L Alkaline Phosphatase 83 (39-117) U/L Total Protein 7.4 (6.5-8.0) g/dL Albumin 3.8 (3.5-5.0) g/dL Independent Interpretation I performed an independent interpretation of an: Ultrasound Interpretation: My interpretation is in agreement with the radiologist's impression of this imaging study. EXAMINATION: US VENOUS ULTRASOUND WITH DOPPLER LOWER EXTREMITY, BILATERAL CLINICAL INFORMATION: Swelling COMPARISON: None available. TECHNIQUE: Ultrasound of the deep veins is performed from the hip to the calf with compression sonography and color and pulse Doppler assessment. Spectral analysis with color-flow imaging is performed. FINDINGS: RIGHT: There is normal venous compression and respiratory variation and augmented flow. The visualized common femoral vein, superficial femoral vein, profunda femoral vein, popliteal vein, and the trifurcation region shows no evidence of deep venous thrombosis. There is no significant popliteal fossa cyst. LEFT: There is nonocclusive thrombus seen in the popliteal vein. There is nonocclusive thrombus seen in the left superficial femoral vein in the mid and upper thigh. The left common femoral, profunda, distal superficial femoral veins are patent. Visualized tibioperoneal trunk and posterior tibial and peroneal veins in the calf are patent. There is no Carter's cyst. US/US venous duplex LE BI IMPRESSION: No DVT demonstrated in the right lower extremity. DVT in the left superficial femoral and popliteal veins. Dictated By: Harmony Corley MD Signed By: Electronically signed by Harmony Corley MD 06/28/23 8462 Radiology Impression Discussion of test interpretation with radiology: I have reviewed the radiologist's reading. Independent Historian Clinical information obtained from an independent historian. History obtained from or confirmed by: Other (patient's daughter provided additional history and confirmed the history provided by the patient) Prescription Management I considered prescription management with: Other (patient started on eliquis) Critical Care Time Critical Care Time Critical Care Time: Yes Total Critical Care Time: 68 Attestation: I spent 68 minutes of Critical Care Time with this patient. This does not include time spent on separately reported billable procedures. Discharge Plan Discharge Clinical Impression: Deep vein thrombosis, Mass of soft tissue Patient Disposition: Home, Self-Care Instructions: Deep Vein Thrombosis (ED), Blood Thinners (ED) Additional Instructions: Take your medication as prescribed. Follow up with your primary care provider and follow up with a general surgeon in regards to the intermittent bleeding rectal soft tissue mass. Return to the emergency department immediately if your symptoms worsen or if you develop any dizziness, shortness of breath, difficulty breathing, chest pain, blurry vision, loss of vision, nausea, vomiting, abdominal pain, fever, chills, back pain, or any other complaints. Prescriptions: Vincent Ochoa DVT-PE Treat 30D Start 5 mg (74 tabs) tablets,dose pack 5 mg PO BID Qty: 74 0RF Rx Instructions: Take 2 tablets twice a day for 10 days, then 1 tablet twice day No Action multivitamin Tablet 1 tab PO DAILY latanoprost [Xalatan] 0.005 % drops 1 drp ophthalmic (eye) BEDTIME pravastatin 40 mg tablet 1 tab PO DAILY dorzolamide [Trusopt] 2 % Drops 1 drp OPHTHALMIC (EYE) TID timolol maleate [Timoptic] 0.5 % drops 1 drp ophthalmic (eye) BID Simbrinza 1-0.2 % drops,suspension 1 drp ophthalmic (eye) BID finasteride 5 mg tablet 5 mg PO DAILY 30 Days Qty: 90 3RF tamsulosin [Flomax] 0.4 mg capsule 0.4 mg PO BEDTIME 30 Days Qty: 90 3RF [place] [facility] [place] [facility] Group] (Call to establish and follow up with a general surgeon.) Morena Daniels MD [Primary Care Provider] - Interventions: ED Discharge Assessment Last Done: 06/28/23 20:46 Discharge Date/Time: 06/28/23 20:48 Print Language: Mongolian
[2023-06-28 18:01] LABS: MANUAL DIFF FLAG NO
[2023-06-28 18:23] LABS: Alanine Aminotransferase 11 U/L (0-40); Albumin Level 3.8 g/dL (3.5-5.0); Alkaline Phosphatase 83 U/L (39-117); Anion Gap 13 (12-20); Aspartate Amino Transferase 14 U/L (5-37); Bilirubin Total 0.3 mg/dL (0.0-1.0); Blood Urea Nitrogen 31 mg/dL (9-16); Calcium 9.4 mg/dL (8.4-10.2); Carbon Dioxide 25 mmol/L (22-29); Chloride 105 mmol/L (96-108); Creatinine Clr Calc Pharmacy 47.5; Estimated Glomerular Filt Rate > 60; Glucose Random 117 mg/dL (60-115); Potassium 4.2 mmol/L (3.3-5.1); Sodium 139 mmol/L (135-145); Total Protein 7.4 g/dL (6.5-8.0)
[2023-06-28 18:25] LABS: Prothrombin Time 12.3 SEC (11.1-13.3)
[2023-06-28 18:33] LABS: Basophils Absolute Auto 0.1 X10*3/uL (0.0-0.2); Eosinophils Absolute Auto 0.3 X10*3/uL (0.0-0.4); Eosinophils Percent Auto 3.5 % (0-4); Hematocrit 36.4 % (42.0-52.0); Hemoglobin 11.7 g/dl (14.0-18.0); Imm Gran Abs Auto 0.02 X10*3/uL (0.00-0.03); Imm Gran Pct Auto 0.3 % (0.0-0.4); Lymphocytes Absolute Auto 1.5 X10*3/uL (1.2-4.9); Lymphocytes Percent Auto 19.3 % (20-40); Mean Corpuscular HGB Conc 32.1 g/dl (31.0-36.0); Mean Corpuscular Hemoglobin 27.9 pg (27.0-33.0); Mean Corpuscular Volume 86.7 fL (80.0-98.0); Mean Platelet Volume 10.1 fL (9.4-12.4); Monocytes Absolute Auto 0.7 X10*3/uL (0.1-1.2); Monocytes Percent Auto 8.1 % (2-11); Neutrophils Absolute Auto 5.4 x10*3/uL (2.0-8.3); Neutrophils Percent Auto 67.8 % (45-73); Platelet Count 247 X10*3/uL (160-400); Red Cell Distribution Width 14.4 % (11.0-16.0)
--- NOTE | 2023-06-28 20:30 | MHC.EDTECH ---
Patient inc therfore patient changed and cleaned
[2023-06-28] MEDS: Apixaban 5 MG TABLET 10 MG PO (20:38)
[2023-06-28 20:46] VITALS: BP 110/65; PULSE 75; RESP 16; TEMP 35.7; O2SAT 96
== END 2023-06-28 20:48 | disposition home or self-care (01) ==
PROVIDERS: Registered Nurse Emergency; Emergency Provider Emergency Medicine Emergency Medical Services; PCP Internal Medicine
DX: I82.812 Embolism and thrombosis of superficial veins of left lower extremity (principal); R22.2 Localized swelling, mass and lump, trunk
CPT/HCPCS: 36415; 80053; 85025; 85610; 93970; 99283

== ENCOUNTER 2023-07-11 13:07 | Outpatient (AMB) | payer MEDICARE, SELFPAY ==
--- NOTE | 2023-07-11 13:19 | A.OFFVIS_ITS ---
Vital Signs 07/11/23 13:25 Height 5 ft 10 in Weight 170 lb 0.01 oz BMI 24.4 Intake Visit Reasons: mass @ incision, pt on blood thinners Intake Note: This patient presents for an assessment for a rectal mass, pt on blood thinners. Pt c/o; reports mass near rectum. Immigration Investigator Required: No Accompanied by: Family/Other Allergies No Known Allergies [No Known Allergies*] Allergy (Verified 07/11/23 13:25) Medication List - Last Reconciled 07/11/23 by Aden Mcbride MD apixaban (Eliquis DVT-PE Treat 30D Start) 5 mg PO BID brinzolamide-brimonidine 1-0.2 % (Simbrinza) 1 drp ophthalmic (eye) BID dorzolamide 2% (Trusopt) 1 drp ophthalmic (eye) TID finasteride 5 mg PO DAILY 30 days latanoprost 0.005% (Xalatan) 1 drp ophthalmic (eye) BEDTIME multivitamin 1 tab PO DAILY pravastatin 1 tab PO DAILY tamsulosin (Flomax) 0.4 mg PO BEDTIME 30 days timolol maleate 0.5% (Timoptic) 1 drp ophthalmic (eye) BID HPI HPI mass @ incision, pt on blood thinners: Details: 88-year-old male with a history of rectal cancer referred because of a mass on the buttock. He actually has had this mass for several years now. I had done a CT scan a year ago which had shown what appeared to be granulation tissue on the left buttock from his previous APR. He has had occasional bleeding from an area on this on the skin He had been recently started on a blood thinner because of a diagnosis of DVT. He says therefore that once in a while there would be a lot of blood from the area He was therefore referred to me by his primary care physician. He denies any pain on the area. His stoma has been functioning well. [facility] Medical History Soft tissue mass Incomplete emptying of bladder Dysuria Pyuria H/O urinary retention Rectal adenocarcinoma Melanoma Fibroma Skin cancer Fracture of right ankle Glaucoma Surgical History History of surgery Hx of abdominoplasty Hx of tonsillectomy Hx of colonoscopy Family History Sister Lung cancer Maternal Aunt Breast cancer Mother Breast cancer Social History Household Members: None Housing: House Are you a primary personal care aid to a significant other at home: No Do you presently have visiting nurse or other home services: No Alcohol intake: former Patient Tobacco Use Status: Never used Tobacco Cigarette Packs Per Day: 3 service: No Current occupational status: retired Review of Systems Const Denies chills, Denies fever(s) and Denies weight loss Card Denies chest pain at rest GI Denies abdominal pain Denies difficulty urinating Musc Reports abnormal gait and Reports muscle weakness Neuro Reports abnormal gait Physical Exam Vital Signs: BMI result Body Mass Index 24.4 Const Other: Appears very frail, uses a cane to ambulate and with the assistance General: comfortable and no acute distress Resp Effort & Inspection: normal respiratory effort Cardio Rate: regular rate GI Other: Stoma functioning well Palpation (GI): Soft to palpation, not firm, nontender and no guarding Back/Spine/Pelvis Other: Left buttock with a soft tissue mass, poorly defined, with an area that seems to be with thin skin and would easily bleed, no tenderness, no active bleeding at this time, diffuse dark discoloration on the area Assessment & Plan Assessment & Plan (1) Soft tissue mass: Code(s): M79.89 - Other specified soft tissue disorders Category: Medical Plan: He has had this on the left buttock for years now but he has had more bleeding after being started on blood thinners for DVT I will repeat his CT scan to re-evaluate this area. I explained to the family that unfortunately, we got caught between a rock and hard place as being on a blood thinner we will make him prone to bleeding on the area I will review his CT scan findings and we will discuss this with the family down the line. The appeared to understand the plan well and are comfortable with this. Aside from progressive frailty, he seems to be relatively doing well. Orders: Orders CT abdomen pelvis w IV con Today M79.89 - Other specified soft tissue disorders Coding Level of Care Code Est Pt Level 3 (11190) Diagnoses Soft tissue mass M79.89
[2023-07-11 13:25] VITALS: BMI 24.4
== END 2023-07-11 13:46 | disposition home or self-care (01) ==
PROVIDERS: PCP Internal Medicine; Visit Provider Surgery
DX: M79.89 Other specified soft tissue disorders (principal)
CPT/HCPCS: 99213

== ENCOUNTER → 2023-07-11 13:07 | Outpatient (BNVA) | payer MEDICARE, SELFPAY | PROVIDERS: PCP Internal Medicine; Visit Provider Surgery | DX: M79.89 Other specified soft tissue disorders (principal) | CPT/HCPCS: 99212 ==

== ENCOUNTER 2023-07-12 15:57 | Outpatient (REF) | payer MEDICARE, SELFPAY ==
--- NOTE | ~2023-07-12 | US_ITS ---
EXAMINATION: US RETROPERITONEAL COMPLETE (RENAL) CLINICAL INFORMATION: Unspecified hydronephrosis. COMPARISON: CT abdomen and pelvis with contrast 06/27/2022. X-ray abdomen KUB 01/30/2016. TECHNIQUE: Real-time imaging of the kidneys and bladder. FINDINGS: RIGHT KIDNEY: 15.2 x 8.0 x 6.5 cm (SAG x AP x TRV). The kidney is enlarged. Renal cortical thickness is normal. No renal calculi or focal parenchymal lesions. Severe hydroureteronephrosis LEFT KIDNEY: 15.7 x 8.9 x 6.7 cm (SAG x AP x TRV). The kidney is enlarged. Renal cortical thickness is normal. No renal calculi or focal parenchymal lesions. Severe hydroureteronephrosis BLADDER: Distended urinary bladder with prevoid volume 528 mL. The bladder wall is trabeculated. The patient was unable to void. US/US retroperitoneal comp IMPRESSION: Unchanged severe hydroureteronephrosis compared to CT 06/27/2022. Trabeculated urinary bladder.
== END 2023-07-12 15:58 | disposition home or self-care (01) ==
LOC: HO.US 15:57
PROVIDERS: PCP Internal Medicine; Visit Provider Urology
DX: N13.30 Unspecified hydronephrosis (principal); N13.4 Hydroureter
CPT/HCPCS: 76770

== ENCOUNTER 2023-08-27 15:18 | Outpatient (REF) | payer MEDICARE, SELFPAY | END 2023-08-27 15:19 | disposition home or self-care (01) | LOC: HO.US 15:18 | PROVIDERS: PCP Internal Medicine; Visit Provider Urology | DX: Z13.89 Encounter for screening for other disorder (principal) ==

== ENCOUNTER 2023-09-02 13:05 | Outpatient (AMB) | payer MEDICARE, SELFPAY ==
--- NOTE | 2023-09-02 13:02 | A.OFFVIS_ITS ---
Intake Visit Reasons: 4m/US Intake Note: Patient is present for 4M/US Urology Medication:Tamsulosin,finasteride Antibiotic Allergy:none Blood Thinner:none past PVR: 105ML'S Today's PVR:439ml's Media Reconciliation Specialist Required: No Allergies No Known Allergies [No Known Allergies*] Allergy (Verified 09/02/23 13:07) Medication List - Last Reconciled 09/02/23 by Quinn Griffith MD apixaban (Eliquis DVT-PE Treat 30D Start) 5 mg PO BID brinzolamide-brimonidine 1-0.2 % (Simbrinza) 1 drp ophthalmic (eye) BID dorzolamide 2% (Trusopt) 1 drp ophthalmic (eye) TID finasteride 5 mg PO DAILY 30 days latanoprost 0.005% (Xalatan) 1 drp ophthalmic (eye) BEDTIME multivitamin 1 tab PO DAILY pravastatin 1 tab PO DAILY tamsulosin (Flomax) 0.4 mg PO BEDTIME 30 days timolol maleate 0.5% (Timoptic) 1 drp ophthalmic (eye) BID HPI Comments Details: 09/02/23--here in follow-up post renal ultrasound to re-evaluate kidneys. Last visit 05/03/2023. 07/12/2023- Renal ultrasound was reviewed, significant bilateral hydronephrosis hydroureter, bilateral renal cortex is preserved at this time, bladder is trabeculated and distended. Prevoid volume 538 mL. In review of blood work renal function is unchanged, 06/28/2023- BUN and creatinine, 31 and 1.13. Bladder scan PVR today is 439 mL. I have discussed treatment options to learn intermittent straight catheterization the patient states he is done that in the past versus suprapubic tube catheter. The goal is to decrease pressure transmitted to the kidney from persistent distended bladder. The patient is willing to do daily ISC. Will schedule nurse visit for CIC training and repeat renal ultrasound in 4 months. 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 The patient has been followed by Dr. Wong in the past. The patient is followed by Oncology due to rectal carcinoma. The patient was diagnosed with adenocarcinoma of the rectum in 2015 and completed concurrent radiation with Xeloda 825mg/m2 from 08/17/15 and completed on 09/28/15. s/p Abdominoperineal resection on 01/30/16, pathology no residual adenocarcinoma identified, chronic inflammation and fibrosis consistent with treatment effect, ALT 3 lymph nodes were benign. The patient wears diapers daily. Denies pain or dysuria. He states he is unable to give a urine specimen in the office or at home because he can not void and only leaks into the pad, bladder scan PVR 105 mL. I reviewed testing CT abdomen and pelvis with contrast--07/14/2022 bilateral hydronephrosis hydroureter. Right hydronephrosis hydroureter new in comparison to previous studies. Labs: BUN creatinine--09/19/2022--25/1.01; 03/25/2023--/1.15 PFSH Medical History Soft tissue mass Incomplete emptying of bladder Dysuria Pyuria H/O urinary retention Rectal adenocarcinoma Melanoma Fibroma Skin cancer Fracture of right ankle Glaucoma Surgical History History of surgery Hx of abdominoplasty Hx of tonsillectomy Hx of colonoscopy Family History Sister Lung cancer Maternal Aunt Breast cancer Mother Breast cancer Social History Household Members: None Housing: House Are you a primary critical care unit manager to a significant other at home: No Do you presently have visiting nurse or other home services: No Alcohol intake: former Patient Tobacco Use Status: Never used Tobacco Cigarette Packs Per Day: 3 service: No Current occupational status: retired Review of Systems Const All systems reviewed & are unremarkable except as noted in HPI and below Reports no additional complaints Eyes Reports no additional complaints ENT Reports no additional complaints Card Reports no additional complaints Resp Reports no additional complaints GI Reports no additional complaints Reports as per HPI Musc Reports no additional complaints Skin/Breast Reports system reviewed and no additional complaints, except as documented Neuro Reports no additional complaints Psych Reports no additional complaints Endo Reports no additional complaints Caesar/Lymph Reports no additional complaints Aller/Immun Reports no additional complaints Results Reviewed Results Reviewed: Date of Service: 07/12/23 EXAMINATION: US RETROPERITONEAL COMPLETE (RENAL) CLINICAL INFORMATION: Unspecified hydronephrosis. COMPARISON: CT abdomen and pelvis with contrast 06/27/2022. X-ray abdomen KUB 01/30/2016. TECHNIQUE: Real-time imaging of the kidneys and bladder. FINDINGS: RIGHT KIDNEY: 15.2 x 8.0 x 6.5 cm (SAG x AP x TRV). The kidney is enlarged. Renal cortical thickness is normal. No renal calculi or focal parenchymal lesions. Severe hydroureteronephrosis LEFT KIDNEY: 15.7 x 8.9 x 6.7 cm (SAG x AP x TRV). The kidney is enlarged. Renal cortical thickness is normal. No renal calculi or focal parenchymal lesions. Severe hydroureteronephrosis BLADDER: Distended urinary bladder with prevoid volume 528 mL. The bladder wall is trabeculated. The patient was unable to void. IMPRESSION: Unchanged severe hydroureteronephrosis compared to CT 06/27/2022. Trabeculated urinary bladder. Date of Service: 06/27/22 EXAMINATION: CT ABDOMEN AND PELVIS WITH CONTRAST CLINICAL INFORMATION: Rectal cancer. COMPARISON: None available. TECHNIQUE: Multidetector volumetric images were obtained from the superior aspect of the liver through the pubic symphysis following administration 85 mL of Omnipaque 350 intravenous contrast. Sagittal and coronal reformatted images were obtained on the technologist's workstation. Oral contrast: No This CT examination was performed using dose optimization techniques as appropriate, variously including the following: *Automated exposure control *Adjustment of mA and/or kV according to patient size (this includes techniques or standardized protocols for targeted exams where dose is matched to indication/reason for exam; i.e. extremities or head) *Use of iterative reconstruction technique DLP: 580 mGy-cm FINDINGS: LUNG BASES: The lung bases are clear. Heart size is normal. LIVER, GALLBLADDER, AND BILIARY TREE: The liver is normal in size, shape, and attenuation. There are multiple calcifications seen throughout the liver. No intrahepatic ductal dilatation or solid lesion seen. The gallbladder is unremarkable with no evidence of radiopaque gallstones, gallbladder wall thickening, or obvious pericholecystic inflammatory changes. PANCREAS: Unremarkable. SPLEEN: The spleen size is normal with homogeneous density. There are scattered calcifications. ADRENAL GLANDS: Unremarkable. KIDNEYS AND URETERS: The kidneys are normal in size, shape, and attenuation. There is severe bilateral hydroureteronephrosis extending to the level of hydronephrosis. The right hydroureteronephrosis is new since previous study. BLADDER: The bladder is mildly distended. GASTROINTESTINAL TRACT: There is scattered stool, diverticuli and gas seen throughout the colon without any significant distention. The small bowel loops are normal caliber. Appendix is normal caliber. ABDOMINAL WALL: There is a left lower quadrant colostomy. No evidence of hernia. LYMPH NODES: Normal. VASCULAR: Unremarkable. PELVIC VISCERA: There is presacral soft tissue mass similar to previous study but decreased in size. Central hypodensity seen on the previous study has reduced in size. OSSEOUS STRUCTURES: There are degenerative disc changes throughout lumbar spine and right hip and mild degenerative changes left hip are noted. No aggressive lytic or sclerotic process seen. IMPRESSION: Severe bilateral hydroureteronephrosis likely from bladder outlet obstruction. The right hydroureteronephrosis is new since the previous study. There is moderate presacral soft tissue which has decreased in size from previous study likely granulation tissue post surgery. No change in left lower quadrant colostomy with moderate constipation and colonic diverticulosis. Granulomatous calcifications in the liver and spleen. Assessment & Plan Assessment & Plan (1) Hypotonic neurogenic bladder: Comment: Prior rectal surgery with presumed nerve compromise Code(s): N31.9 - Neuromuscular dysfunction of bladder, unspecified Category: Medical (2) Bilateral hydronephrosis: Code(s): N13.30 - Unspecified hydronephrosis Category: Medical (3) Hydroureter: Code(s): N13.4 - Hydroureter Category: Medical Plan CIC teaching- schedule with Urology nurse Cont to monitor kidneys, renal US in 4 months, fu post Orders: Orders US retroperitoneal comp 4 Months N13.30 - Unspecified hydronephrosis, N13.4 - Hydroureter, N31.9 - Neuromuscular dysfunction of bladder, unspecified Patient Instructions: The patient had an opportunity to ask questions regarding treatment plan. The patient expressed understanding and agreement with the above treatment plan. The patient is aware they should contact our office by phone for worsening of their current condition or the appearance of new symptoms. Compliance is encouraged with any medications and followup testing that is ordered. It is a privilege to be allowed the opportunity to participate in the urologic care of your patient. If you have any questions or concerns regarding treatment for the above conditions please do not hesitate to contact me. The office telephone contact is [phone]. This note is constructed in part using voice recognition software. While every effort has been made to ensure accuracy reports analyst errors may have been included. Yours sincerely, Quinn Griffith MD Coding Level of Care Code Est Pt Level 4 (26395) Diagnoses Hypotonic neurogenic bladder N31.9 Bilateral hydronephrosis N13.30 Hydroureter N13.4
== END 2023-09-02 13:35 | disposition home or self-care (01) ==
PROVIDERS: PCP Internal Medicine; Visit Provider Urology
DX: N31.9 Neuromuscular dysfunction of bladder, unspecified (principal); N13.30 Unspecified hydronephrosis; N13.4 Hydroureter
CPT/HCPCS: 99214

== ENCOUNTER → 2023-09-02 13:05 | Outpatient (BNVA) | payer MEDICARE, SELFPAY | PROVIDERS: PCP Internal Medicine; Visit Provider Urology | DX: N31.9 Neuromuscular dysfunction of bladder, unspecified (principal); N13.4 Hydroureter | CPT/HCPCS: 99212 ==

== ENCOUNTER 2023-09-12 15:14 | Outpatient (REF) | payer MEDICARE, SELFPAY ==
--- NOTE | ~2023-09-12 | CT_ITS ---
EXAMINATION: CT ABDOMEN AND PELVIS WITH CONTRAST CLINICAL INFORMATION: Abdominoperineal resection for rectal cancer with soft tissue mass in left buttock. COMPARISON: CT abdomen and pelvis 06/27/2022. TECHNIQUE: Multidetector volumetric images were obtained from the superior aspect of the liver through the pubic symphysis following administration 85 mL of Omnipaque 350 intravenous contrast. Sagittal and coronal reformatted images were obtained on the technologist's workstation. Oral contrast: No This CT examination was performed using dose optimization techniques as appropriate, variously including the following: *Automated exposure control *Adjustment of mA and/or kV according to patient size (this includes techniques or standardized protocols for targeted exams where dose is matched to indication/reason for exam; i.e. extremities or head) *Use of iterative reconstruction technique DLP: 553 mGy-cm FINDINGS: LUNG BASES: No suspicious pulmonary nodules. Aortic valve calcification. Coronary calcium. LIVER, GALLBLADDER, AND BILIARY TREE: Calcified granulomas. No suspicious liver mass. No biliary ductal dilatation. The gallbladder appears normal. PANCREAS: No pancreatic mass or pancreatic ductal dilatation appreciated. SPLEEN: Splenic granulomas. ADRENAL GLANDS: No adrenal mass. Mild thickening of the left adrenal gland is stable compared to prior. KIDNEYS AND URETERS: Bilateral cortical thinning. Severe bilateral hydroureteronephrosis without discrete obstructing lesion seen. This is likely from bladder outlet obstruction. BLADDER: Distended and trabeculated urinary bladder, likely from bladder outlet obstruction. GASTROINTESTINAL TRACT: Small bowel is normal in caliber. There is a left lower quadrant sigmoidostomy. Abdominal perineal resection. There is abnormal thickening of the presacral soft tissues similar to the previous exam. There is stable abnormal skin thickening of the gluteal cleft in left buttock which could potentially relate to radiation therapy. ABDOMINAL WALL: Left lower quadrant colostomy with parastomal hernia. LYMPH NODES: No pathologically enlarged lymph nodes. VASCULAR: No aortic aneurysm. Moderate aortoiliac atherosclerosis. PELVIC VISCERA: The prostate is mildly enlarged and inseparable from the abnormal presacral soft tissue. OSSEOUS STRUCTURES: Severe degenerative changes in both hips. Moderate degenerative changes in the spine. No destructive osseous lesions. CT/CT abdomen pelvis w IV con IMPRESSION: Abdominoperineal resection. Stable appearance of chronic soft tissue thickening in the presacral space. Stable skin thickening in the gluteal cleft and left buttock. Correlate with history of radiation therapy. Chronic bladder outlet obstruction with severe bilateral hydroureteronephrosis.
[2023-09-12] MEDS: iohexoL 350 MG/ML 100 ML INFUS..BTL 85 ML IV (15:55)
[2023-09-19 09:42] LABS: Creatinine POC 1.3 mg/dL (0.5-1.4); GFR POC 54
== END 2023-09-12 15:15 | disposition home or self-care (01) ==
LOC: HO.CT 15:14
PROVIDERS: PCP Internal Medicine; Visit Provider Surgery
DX: M79.89 Other specified soft tissue disorders (principal)
CPT/HCPCS: 74177; 82565; Q9967

== ENCOUNTER 2023-09-16 08:34 | Outpatient (REF) | payer MEDICARE, SELFPAY ==
[2023-09-17 09:11] LABS: Appearance Urine Turbid; Color Urine RED; Glucose Urine UA 100 mg/dL (Negative); Leukocyte Esterase Urine Large (3+) (Negative); Nitrite Urine Positive (Negative); PH >= 9.0 (5.0-9.0); UMIC TRIGGER UA YES; Urine Blood Large (3+) (Negative); Urine Ketones Trace mg/dL (Negative); Urine Protein 300 (3+) mg/dL (Neg-Trace)
[2023-09-17 09:22] LABS: Bacteria Urine 3+ (None Seen); Hyaline Casts Urine 0-2 /LPF (0-2); Other Crystals Urine Present; RBC Urine >20 /HPF (0-2); WBC Urine >50 /HPF (0-5)
== END 2023-09-16 08:35 | disposition home or self-care (01) ==
LOC: HO.LNP 08:34
PROVIDERS: Visit Provider Urology
DX: Z13.89 Encounter for screening for other disorder (principal)
CPT/HCPCS: 81001; 87086; 87088; 87186

== ENCOUNTER 2023-09-18 09:30 | Inpatient (IN) | payer MEDICARE, SELFPAY ==
[2023-09-18] VITALS (7 sets, daily range): BP systolic 119–148; BP diastolic 42–76; PULSE 65–94; RESP 15–21; TEMP 36.1–36.9; O2SAT 94–98; BMI 21.3
--- NOTE | ~2023-09-18 | US_ITS ---
EXAMINATION: US VENOUS ULTRASOUND WITH DOPPLER LOWER EXTREMITY, BILATERAL CLINICAL INFORMATION: History DVT. Follow-up for clearance of clot. COMPARISON: DVT ultrasound 06/28/2023 TECHNIQUE: Ultrasound of the deep veins is performed from the hip to the calf with compression sonography and color and pulse Doppler assessment. Spectral analysis with color-flow imaging is performed. FINDINGS: RIGHT: There is normal venous compression and respiratory variation and augmented flow. The visualized common femoral vein, superficial femoral vein, profunda femoral vein, popliteal vein, and the trifurcation region shows no evidence of deep venous thrombosis. There is no significant popliteal fossa cyst. LEFT: Chronic appearing nonocclusive thrombus extending from the left femoral vein through the popliteal vein. US/US venous duplex LE BI IMPRESSION: 1. 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 2. No DVT demonstrated in the right lower extremity.
--- NOTE | ~2023-09-18 | CT_ITS ---
EXAMINATION: CT ABDOMEN AND PELVIS WITHOUT CONTRAST CLINICAL INFORMATION: Right lower quadrant tenderness. Acute renal insufficiency. Urinary tract infection. History of abdominoperineal resection for rectal cancer. COMPARISON: 06/27/2022 and 09/12/2023 TECHNIQUE: Multidetector volumetric imaging was performed from the superior aspect of the liver through the pubic symphysis. Sagittal and coronal reformatted images were obtained on the technologist's workstation. This CT examination was performed using dose optimization techniques as appropriate, variously including the following: *Automated exposure control *Adjustment of mA and/or kV according to patient size (this includes techniques or standardized protocols for targeted exams where dose is matched to indication/reason for exam; i.e. extremities or head) *Use of iterative reconstruction technique DLP: 677.38 mGy-cm for the abdomen/pelvis CT after acquisition of the topogram. FINDINGS: LUNG BASES: Mild centrilobular emphysema. Chronic mild thickening of bronchial bella in the lower lobes. The micronodular opacities and likely sequela of airway inflammation, and few old calcified nodules are present as well. No focal consolidation or pleural effusion. HEPATOBILIARY: No acute findings within the liver. Several old calcified granulomas within the liver. Gallbladder has a grossly normal appearance. No dilated bile ducts. PANCREAS: No edema, pancreatic ductal dilatation or mass. SPLEEN: Normal size. A few calcified granulomas are present within the spleen. ADRENAL GLANDS: Normal. KIDNEYS AND URETERS: Chronic severe bilateral hydroureteronephrosis. There appears to be urothelial thickening of each dilated renal pelvis and ureter (as may be seen in urinary tract infection). Minimal calcific debris is seen along the posterior wall of the dilated left renal pelvis. Mild perinephric edema. However, no focal perinephric fluid collection. No obstructing renal or ureteral stones. BLADDER: The bladder wall is chronically thickened, likely representing detrusor muscle hypertrophy with or without superimposed wall thickening from cystitis. No bladder calculi. The tip of the Garcia catheter is in the region of the prostatic urethra. BOWEL AND PERITONEUM: No dilated bowel loops. The appendix is normal. Multiple diverticula of the colon without diverticulitis. Descending colostomy of the left abdominal wall, status post abdominoperineal resection and chronic presence of small parastomal hernia. The soft tissue thickening in region of absent rectum, involving presacral space anteromedial to piriformis muscles, has a stable appearance and probably represents fibrotic/granulation tissue. ABDOMINAL WALL: No acute abnormalities. VASCULATURE: There is atherosclerotic calcification of the abdominal aorta and iliac arteries without aneurysm. LYMPH NODES: No pathologic sized lymph nodes in the abdomen or pelvis. No inguinal lymphadenopathy. PELVIC VISCERA: Prostate gland appears to be chronically mildly enlarged. The gland is not clearly separable from the chronic soft tissue thickening in the presacral region. MUSCULOSKELETAL: No acute osseous abnormality. Chronic multilevel degenerative arthropathy of the lumbar spine. Severe osteoarthritis of the hips. CT/CT abdomen pelvis wo IV con IMPRESSION: * Prior abdominoperineal resection with stable appearance of chronic soft tissue thickening in the presacral space and projecting posterior to the prostate gland. This likely represents postoperative fibrosis/granulation tissue. * Findings suggestive of chronic bladder outlet obstruction. The bladder wall thickening is likely from detrusor muscle hypertrophy and severe bilateral hydronephrosis is present. The apparent urothelial thickening of the ureters and renal pelvis could be a manifestation of urinary tract infection. * Note that the tip of the Garcia catheter is in the region of the prostatic urethra. * Colonic diverticulosis without diverticulitis.
--- NOTE | ~2023-09-18 | XR_ITS ---
EXAMINATION: XR chest 1V CLINICAL INFORMATION: Reason for Exam vomiting, aspiration COMPARISON: Prior chest x-ray December 11, 2018 TECHNIQUE: Single portable frontal view. Tubes and lines: None Lungs and pleura: There is left perihilar opacities could be a patchy infiltrate, costochondral calcification, summation of shadow versus lung nodule. Heart and mediastinum: The mediastinum is within normal limits.. Bones/soft tissue: Skeletal structures included are normal for patient's age. XR/XR chest 1V IMPRESSION: * Left parahilar opacities could be a patchy infiltrate, costochondral calcification, summation of shadow versus lung nodules. Recommend correlation with follow-up low-dose chest CT, if not performed follow-up chest x-ray in one month advised. * No pleural effusion. (Referring physician staff is being called, by physician staff assistance, to be alerted of the above critical findings and recommendations.) 09/18/2023 4:03 PM
--- NOTE | ~2023-09-18 | CT_ITS ---
EXAMINATION: CT HEAD WITHOUT CONTRAST CT CERVICAL SPINE WITHOUT CONTRAST CLINICAL INFORMATION: 88-year-old male status post fall on [place] COMPARISON: None TECHNIQUE: CT of the head and cervical spine were performed without intravenous contrast. Multiplanar reformats were rendered and reviewed. This CT examination was performed using dose optimization techniques as appropriate, variously including the following: *Automated exposure control *Adjustment of mA and/or kV according to patient size (this includes techniques or standardized protocols for targeted exams where dose is matched to indication/reason for exam; i.e. extremities or head) *Use of iterative reconstruction technique DLP: 724 mGy-cm for brain and.269 mGy-cm for cervical spine. FINDINGS: CT head: No intracranial hemorrhage, large infarction, or mass lesion is seen. No extra-axial collection is appreciated. Ventricles and sulci are prominent secondary to global volume loss and there are patchy periventricular white matter changes as a sequela of microangiopathy. The visualized paranasal sinuses and mastoid air cells are clear. CT cervical spine: There is straightening of cervical lordosis with multilevel degenerative changes, including narrowing of C5-C6 and C6-C7 intervertebral disc spaces and marginal spurring and grade 1 posterior listhesis of C5 over C6. The craniocervical junction is normal. The vertebral body heights are maintained. No cervical spine fracture is seen. The paraspinal soft tissues are within normal limits. The partially imaged lung apices are clear. CT/CT cervical spine wo IV con IMPRESSION: CT HEAD: No acute intracranial finding. Sequela of microangiopathy and global volume loss CT CERVICAL SPINE: 1. No cervical spine fracture or traumatic malalignment identified. 2. Multilevel degenerative changes.
--- NOTE | ~2023-09-18 | CT_ITS ---
EXAMINATION: CT HEAD WITHOUT CONTRAST CT CERVICAL SPINE WITHOUT CONTRAST CLINICAL INFORMATION: 88-year-old male status post fall on [place] COMPARISON: None TECHNIQUE: CT of the head and cervical spine were performed without intravenous contrast. Multiplanar reformats were rendered and reviewed. This CT examination was performed using dose optimization techniques as appropriate, variously including the following: *Automated exposure control *Adjustment of mA and/or kV according to patient size (this includes techniques or standardized protocols for targeted exams where dose is matched to indication/reason for exam; i.e. extremities or head) *Use of iterative reconstruction technique DLP: 724 mGy-cm for brain and.269 mGy-cm for cervical spine. FINDINGS: CT head: No intracranial hemorrhage, large infarction, or mass lesion is seen. No extra-axial collection is appreciated. Ventricles and sulci are prominent secondary to global volume loss and there are patchy periventricular white matter changes as a sequela of microangiopathy. The visualized paranasal sinuses and mastoid air cells are clear. CT cervical spine: There is straightening of cervical lordosis with multilevel degenerative changes, including narrowing of C5-C6 and C6-C7 intervertebral disc spaces and marginal spurring and grade 1 posterior listhesis of C5 over C6. The craniocervical junction is normal. The vertebral body heights are maintained. No cervical spine fracture is seen. The paraspinal soft tissues are within normal limits. The partially imaged lung apices are clear. CT/CT head/brain wo IV con IMPRESSION: CT HEAD: No acute intracranial finding. Sequela of microangiopathy and global volume loss CT CERVICAL SPINE: 1. No cervical spine fracture or traumatic malalignment identified. 2. Multilevel degenerative changes.
--- NOTE | 2023-09-18 09:44 | ECG_ITS ---
Test Reason : weakness Blood Pressure : / mmHG Vent. Rate : 087 BPM Atrial Rate : 087 BPM P-R Int : 132 ms QRS Dur : 092 ms QT Int : 350 ms P-R-T Axes : 056 -04 -69 degrees QTc Int : 421 ms Artifact in tracing Sinus rhythm with Premature atrial complexes Nonspecific ST and T wave abnormality Abnormal ECG When compared with ECG of 30-NOV-2015 15:08, Premature atrial complexes are now Present T wave inversion now evident in Lateral leads Referred By: Elodia Gallagher Electronically Signed By:AGATA MIDDLETON
--- NOTE | 2023-09-18 09:56 | ECG_ITS ---
Test Reason : weakness Blood Pressure : / mmHG Vent. Rate : 092 BPM Atrial Rate : 092 BPM P-R Int : 132 ms QRS Dur : 090 ms QT Int : 354 ms P-R-T Axes : 072 -07 -64 degrees QTc Int : 437 ms Normal sinus rhythm Nonspecific ST and T wave abnormality Abnormal ECG When compared with ECG of 18-SEP-2023 09:48, Premature atrial complexes are no longer Present Lateral ST changes less prominent Referred By: Markie Roper Electronically Signed By:AGATA MIDDLETON
--- NOTE | 2023-09-18 10:03 | ED_ITS ---
HPI - Male Genitourinary General Chief complaint: Urogenital-Male Stated complaint: CALLED W/+URINE CULTURE RESULTS,WEAK,?UTI PER EMS Time Seen by Provider: 09/18/23 09:43 Source: patient, family, EMS and old records reviewed Mode of arrival: EMS Limitations: no limitations History of Present Illness ED Provider: Ekaterina Gallagher PA-C HPI Narrative: 88-year-old male with a rectal adenocarcinoma, hx colostomy, hx LLE DVT June 2023 on Eliquis, glaucoma, history of neurogenic bladder due to radiation tx of rectal cancer who recently started to straight cath at home presents to the ER for evaluation of weakness, lethargy, in the setting of a positive urinalysis done yesterday in the office. Patient lives at home alone. He started feeling weak and unwell yesterday. At 4am he fell when he tried to get out of his recliner and was on the floor for 4 hours before family found him. He denies hitting his head or losing consciousness. He states he was too weak to get up off of the floor. He denies headache or neck pain today. Family reports last night he was vomiting while lying flat. He was coughing. He reports some mild ongoing nausea and some right-sided abdominal pain. Denies any chest pain or shortness of breath. He states since he started straight cathing himself he has been having pain and difficulty doing so. He states he was instructed to self- catheterize once per day to empty the bladder. He has been incontinent. No fevers at home. MD Complaint: other (Difficulty urinating) Onset (ago): day(s) (1) Duration: progressively worsening Location: abdomen Severity: moderate Quality: aching Relieving factors: rest Exacerbating factors: urination, palpation and movement Context: other (Newly requiring straight catheterization) Associated symptoms: Reports urinary retention, nausea/vomiting and incontinence Related Data Home Medications ?Medication ?Instructions ?Recorded ?Confirmed latanoprost 0.005 % eye drops 1 drp ophthalmic (eye) BEDTIME 01/05/20 09/18/23 (Xalatan) pravastatin 40 mg tablet 1 tab PO DAILY 01/05/20 09/18/23 brinzolamide 1 %-brimonidine 0.2 % 1 drp ophthalmic (eye) BID 08/24/20 09/18/23 eye drops,suspension (Simbrinza) timolol maleate 0.5 % eye drops 1 drp ophthalmic (eye) BID 09/18/23 09/18/23 Previous Rx's ?Medication ?Instructions ?Recorded finasteride 5 mg tablet 5 mg PO DAILY 30 days #90 tabs 05/03/23 tamsulosin 0.4 mg capsule (Flomax) 0.4 mg PO BEDTIME 30 days #90 caps 05/03/23 apixaban 5 mg (74 tabs) tablets in 5 mg PO BID #74 ea 06/28/23 a dose pack (Eliquis DVT-PE Treat 30D Start) Allergies Allergy/AdvReac Type Severity Reaction Status Date / Time No Known Allergies Allergy Verified 09/18/23 09:56 [No Known Allergies*] Review of Systems 2 Review of Systems: Yes all other systems are reviewed and are negative [facility] Past Medical History Medical History Soft tissue mass Incomplete emptying of bladder Dysuria Pyuria H/O urinary retention Rectal adenocarcinoma Melanoma Fibroma Skin cancer Fracture of right ankle Glaucoma Surgical History History of surgery Hx of abdominoplasty Hx of tonsillectomy Hx of colonoscopy Family History Family History Sister Lung cancer Maternal Aunt Breast cancer Mother Breast cancer Social History Social History Household Members: None Housing: House Are you a primary residential child care counselor to a significant other at home: No Do you presently have visiting nurse or other home services: No Alcohol intake: former Patient Tobacco Use Status: Never used Tobacco Cigarette Packs Per Day: 3 Advance Directives: No Advance Directives Information Provided: Yes Do you have a plan to hurt others: No Plan service: No Current occupational status: retired Physical Exam 2 Vital Signs: Vital Signs: Last Vital Signs Temp 97.4 F 09/18/23 14:00 Pulse 65 09/18/23 14:00 Resp 15 09/18/23 14:00 BP 137/69 09/18/23 14:00 Pulse Ox 98 09/18/23 14:00 O2 Del Method Room Air 09/18/23 14:00 BMI result Body Mass Index 21.3 Appearance: Alert, elderly male, appears choncially ill. Oriented X3. No acute distress. Head: normocephalic, atraumatic. temporal wasting Eyes: Pupils equal, round and reactive to light. ENT: Pharynx normal. No tonsillar swelling or exudate. Neck: Normal inspection. Neck supple. CVS: Normal heart rate and rhythm. Pulses normal. Respiratory: No respiratory distress. Breath sounds normal. Abdomen: colostomy bag in place. Soft with RLQ tenderness w/ guarding. normal +BS x4 Skin: Skin warm and dry. Normal skin color. Normal skin turgor. No rashes. Extremities: No lower extremity edema. No joint swelling. Neuro/psych: Oriented X 3. Strength equal and symmetrical throughout, globally weak, nonfocal. CN II-XII intact. Normal speech and cognition. Medications Administered Discontinued Medications Generic Name Dose Route Start Last Admin Trade Name Freq PRN Reason Stop Dose Admin Ceftriaxone Sodium 1 gm/ 50 mls @ 100 mls/hr 09/18/23 09:44 09/18/23 11:57 Sodium Chloride IV 09/18/23 10:13 Infused ONCE ONE Infusion Sodium Chloride 1,000 mls @ 999 mls/hr 09/18/23 09:45 09/18/23 11:15 Ns IV 09/18/23 10:45 Infused .Q1H1M LUIS ENRIQUE Infusion Sodium Chloride 1,000 mls @ 999 mls/hr 09/18/23 11:00 09/18/23 13:45 Ns IV 09/18/23 12:00 Infused .Q1H1M LUIS ENRIQUE Infusion Medical Decision Making Medical Decision Making MDM Narrative: 88-year-old male with a history of neurogenic bladder due to rectal adenocarcinoma treatments in the past, recently starting to straight cath himself at home, history of DVT on Eliquis who presents to the ER from home for evaluation of generalized weakness, nausea, vomiting, status post fall yesterday, urinary incontinence. He had a urinalysis done on the that was positive. His PCP called in antibiotics and there is also pick them up today. Daughter found him to be declining at home so she called 911. On arrival to the ER patient is afebrile. He is hemodynamically stable. His UA from the was reviewed, his urine culture is now growing Proteus species greater than 100,000 CFU. IV Rocephin has been ordered. IV fluids have been ordered. Lab workup is showing a leukocytosis of 15,000. lactic acid is 2.8. He also has a new NATE with a BUN/Cr 2.85 from a baseline of 31/1.[address] scan of his abdomen was done evaluate his right lower quadrant tenderness and to to rule out obstructive uropathy. 2 L of IV fluid was given. CT scan reviewed, findings of chronic bladder outlet obstruction were seen along with urothelial thickening of the ureters and renal pelvis likely due to UTI. Differential Diagnosis Differential Diagnoses: The differential diagnosis associated with the presentation includes Sepsis secondary to UTI, obstructive uropathy, acute appendicitis, kidney stone, colitis with abscess Admission/Observation Consideration of admission/observation: Escalation of care including admission/observation considered Consult Healthcare Provider Management of the patient was discussed with: Hospitalist Lab Data MDM Lab Attestation statement: I reviewed the patient's lab results. Leukocytosis, NTAE, hyperkalemia, hyponatremia, metabolic acidosis 09/18/23 10:11 09/18/23 13:37 Labs: Lab Results 09/18/23 09/18/23 09/18/23 Range/Units 10:11 10:39 11:53 WBC 15.1 H (4.8-10.8) X10*3/uL RBC 5.34 D (4.60-5.80) X10*6/uL Hgb 14.6 D (14.0-18.0) g/dl Hct 43.3 (42.0-52.0) % MCV 81.1 (80.0-98.0) fL MCH 27.3 (27.0-33.0) pg MCHC 33.7 (31.0-36.0) g/dl RDW 14.6 (11.0-16.0) % Plt Count 270 (160-400) X10*3/uL MPV 10.0 (9.4-12.4) fL Immature Gran % (Auto) 0.6 H (0.0-0.4) % Neut % (Auto) 87.2 H (45-73) % Lymph % (Auto) 3.7 L (20-40) % [place] % (Auto) 8.3 (2-11) % Eos % (Auto) 0.0 (0-4) % Baso % (Auto) 0.2 (0-2) % Lymph # (Auto) 0.6 L (1.2-4.9) X10*3/uL [place] # (Auto) 1.3 H (0.1-1.2) X10*3/uL Eos # (Auto) 0.0 (0.0-0.4) X10*3/uL Baso # (Auto) 0.0 (0.0-0.2) X10*3/uL Abs Immat Gran (auto) 0.09 H (0.00-0.03) X10*3/uL Absolute Neuts (auto) 13.2 H (2.0-8.3) x10*3/uL Absolute Nucleated RBC 0.000 (0.0-0.012) X10*3/uL Nucleated RBC % (auto) 0.0 (0.0-0.2) /100WBC VBG pH (7.32-7.43) VBG pCO2 mmHg VBG pO2 mmHg VBG HCO3 (22-26) mmol/L VBG O2 Saturation % VBG Base Excess mmol/L Sodium 133 L (135-145) mmol/L Potassium 5.4 H D (3.3-5.1) mmol/L Chloride 105 (96-108) mmol/L Carbon Dioxide 13 L (22-29) mmol/L Anion Gap 20 (12-20) BUN 80 H (9-16) mg/dL Creatinine 2.85 H (0.5-1.4) mg/dL Estim Creat Clear Calc 17.8 Estimated GFR 21 Random Glucose 175 H (60-115) mg/dL Lactic Acid 2.8 H* (0.5-2.0) mmol/L Lactic Acid F/U @ 2Hr (0.5-2.0) mmol/L Calcium 9.1 (8.4-10.2) mg/dL Magnesium 2.6 (1.6-2.6) mg/dL Total Bilirubin 1.1 H (0.0-1.0) mg/dL Direct Bilirubin 0.2 (0.0-0.5) mg/dL AST 26 (5-37) U/L ALT 14 (0-40) U/L Alkaline Phosphatase 100 (39-117) U/L Total Creatine Kinase 94 (38-174) U/L Total Protein 7.9 (6.5-8.0) g/dL Albumin 3.4 L (3.5-5.0) g/dL Urine Color RED Urine Appearance Turbid Urine pH 8.5 (5.0-9.0) Ur Specific [place] 1.015 (1.005-1.025) Urine Protein 300 (3+) H (Neg-Trace) mg/dL Urine Glucose (UA) Negative (Negative) mg/dL Urine Ketones Trace (Negative) mg/dL Urine Blood Large (3+) H (Negative) Urine Nitrite Positive H (Negative) Ur Leukocyte Esterase Large (3+) H (Negative) Urine RBC >20 H (0-2) /HPF Urine WBC >50 H (0-5) /HPF Ur Squamous Epith Cells 11-20 (0-2) /HPF Urine Bacteria 4+ (None Seen) Hyaline Casts >20 (0-2) /LPF 09/18/23 09/18/23 Range/Units 13:37 13:39 WBC (4.8-10.8) X10*3/uL RBC (4.60-5.80) X10*6/uL Hgb (14.0-18.0) g/dl Hct (42.0-52.0) % MCV (80.0-98.0) fL MCH (27.0-33.0) pg MCHC (31.0-36.0) g/dl RDW (11.0-16.0) % Plt Count (160-400) X10*3/uL MPV (9.4-12.4) fL Immature Gran % (Auto) (0.0-0.4) % Neut % (Auto) (45-73) % Lymph % (Auto) (20-40) % [place] % (Auto) (2-11) % Eos % (Auto) (0-4) % Baso % (Auto) (0-2) % Lymph # (Auto) (1.2-4.9) X10*3/uL [place] # (Auto) (0.1-1.2) X10*3/uL Eos # (Auto) (0.0-0.4) X10*3/uL Baso # (Auto) (0.0-0.2) X10*3/uL Abs Immat Gran (auto) (0.00-0.03) X10*3/uL Absolute Neuts (auto) (2.0-8.3) x10*3/uL Absolute Nucleated RBC (0.0-0.012) X10*3/uL Nucleated RBC % (auto) (0.0-0.2) /100WBC VBG pH 7.36 (7.32-7.43) VBG pCO2 29 mmHg VBG pO2 39 mmHg VBG HCO3 16 L (22-26) mmol/L VBG O2 Saturation 55.0 % VBG Base Excess -7.2 mmol/L Sodium 139 (135-145) mmol/L Potassium 4.0 D (3.3-5.1) mmol/L Chloride 109 H (96-108) mmol/L Carbon Dioxide 17 L (22-29) mmol/L Anion Gap 17 (12-20) BUN 73 H (9-16) mg/dL Creatinine 2.48 H (0.5-1.4) mg/dL Estim Creat Clear Calc 20.5 Estimated GFR 25 Random Glucose 143 H (60-115) mg/dL Lactic Acid (0.5-2.0) mmol/L Lactic Acid F/U @ 2Hr 1.6 (0.5-2.0) mmol/L Calcium 8.5 D (8.4-10.2) mg/dL Magnesium (1.6-2.6) mg/dL Total Bilirubin (0.0-1.0) mg/dL Direct Bilirubin (0.0-0.5) mg/dL AST (5-37) U/L ALT (0-40) U/L Alkaline Phosphatase (39-117) U/L Total Creatine Kinase (38-174) U/L Total Protein (6.5-8.0) g/dL Albumin (3.5-5.0) g/dL Urine Color Urine Appearance Urine pH (5.0-9.0) Ur Specific [place] (1.005-1.025) Urine Protein (Neg-Trace) mg/dL Urine Glucose (UA) (Negative) mg/dL Urine Ketones (Negative) mg/dL Urine Blood (Negative) Urine Nitrite (Negative) Ur Leukocyte Esterase (Negative) Urine RBC (0-2) /HPF Urine WBC (0-5) /HPF Ur Squamous Epith Cells (0-2) /HPF Urine Bacteria (None Seen) Hyaline Casts (0-2) /LPF Independent Interpretation I performed an independent interpretation of an: CT Scan Interpretation: CT without obstructing kidney stone but severe bilateral hydroureteronephrosis present Radiology Impression Discussion of test interpretation with radiology: I have reviewed the radiologist's reading. Radiologist Impression: EXAMINATION: CT ABDOMEN AND PELVIS WITHOUT CONTRAST CLINICAL INFORMATION: Right lower quadrant tenderness. Acute renal insufficiency. Urinary tract infection. History of abdominoperineal resection for rectal cancer. COMPARISON: 06/27/2022 and 09/12/2023 TECHNIQUE: Multidetector volumetric imaging was performed from the superior aspect of the liver through the pubic symphysis. Sagittal and coronal reformatted images were obtained on the technologist's workstation. This CT examination was performed using dose optimization techniques as appropriate, variously including the following: *Automated exposure control *Adjustment of mA and/or kV according to patient size (this includes techniques or standardized protocols for targeted exams where dose is matched to indication/reason for exam; i.e. extremities or head) *Use of iterative reconstruction technique DLP: 677.38 mGy-cm for the abdomen/pelvis CT after acquisition of the topogram. FINDINGS: LUNG BASES: Mild centrilobular emphysema. Chronic mild thickening of bronchial bella in the lower lobes. The micronodular opacities and likely sequela of airway inflammation, and few old calcified nodules are present as well. No focal consolidation or pleural effusion. HEPATOBILIARY: No acute findings within the liver. Several old calcified granulomas within the liver. Gallbladder has a grossly normal appearance. No dilated bile ducts. PANCREAS: No edema, pancreatic ductal dilatation or mass. SPLEEN: Normal size. A few calcified granulomas are present within the spleen. ADRENAL GLANDS: Normal. KIDNEYS AND URETERS: Chronic severe bilateral hydroureteronephrosis. There appears to be urothelial thickening of each dilated renal pelvis and ureter (as may be seen in urinary tract infection). Minimal calcific debris is seen along the posterior wall of the dilated left renal pelvis. Mild perinephric edema. However, no focal perinephric fluid collection. No obstructing renal or ureteral stones. BLADDER: The bladder wall is chronically thickened, likely representing detrusor muscle hypertrophy with or without superimposed wall thickening from cystitis. No bladder calculi. The tip of the Garcia catheter is in the region of the prostatic urethra. BOWEL AND PERITONEUM: No dilated bowel loops. The appendix is normal. Multiple diverticula of the colon without diverticulitis. Descending colostomy of the left abdominal wall, status post abdominoperineal resection and chronic presence of small parastomal hernia. The soft tissue thickening in region of absent rectum, involving presacral space anteromedial to piriformis muscles, has a stable appearance and probably represents fibrotic/granulation tissue. ABDOMINAL WALL: No acute abnormalities. VASCULATURE: There is atherosclerotic calcification of the abdominal aorta and iliac arteries without aneurysm. LYMPH NODES: No pathologic sized lymph nodes in the abdomen or pelvis. No inguinal lymphadenopathy. PELVIC VISCERA: Prostate gland appears to be chronically mildly enlarged. The gland is not clearly separable from the chronic soft tissue thickening in the presacral region. MUSCULOSKELETAL: No acute osseous abnormality. Chronic multilevel degenerative arthropathy of the lumbar spine. Severe osteoarthritis of the hips. CT/CT abdomen pelvis wo IV con IMPRESSION: * Prior abdominoperineal resection with stable appearance of chronic soft tissue thickening in the presacral space and projecting posterior to the prostate gland. This likely represents postoperative fibrosis/granulation tissue. * Findings suggestive of chronic bladder outlet obstruction. The bladder wall thickening is likely from detrusor muscle hypertrophy and severe bilateral hydronephrosis is present. The apparent urothelial thickening of the ureters and renal pelvis could be a manifestation of urinary tract infection. * Note that the tip of the Garcia catheter is in the region of the prostatic urethra. * Colonic diverticulosis without diverticulitis. Independent Historian Clinical information obtained from an independent historian. History obtained from or confirmed by: EMS and Other (adult daughter) External Record Review External record reviewed: Office record, Outpatient record, Prior outpatient labs and Prior outpatient radiology Prescription Management I considered prescription management with: Antibiotic Chronic Conditions Patient?s care impacted by: Other (Neurogenic bladder, rectal adenocarcinoma status post treatment with chemoradiation) Critical Care Time Critical Care Time Critical Care Time: Yes Total Critical Care Time: 50 Attestation: I have personally provided critical care time exclusive of time spent on separately billable procedures. Time includes review of lab data, radiology results, discussion with consultants, and monitoring for potential decompensation. Intervention performed as documented. Discharge Plan Discharge Clinical Impression: NATE (acute kidney injury) Urinary tract infection Qualifiers: Urinary tract infection type: site unspecified Hematuria presence: with hematuria Qualified Code(s): N39.0 - Urinary tract infection, site not specified Patient Disposition: Admitted As Inpatient Print Language: Burkinan
[2023-09-18] MEDS: 0.9 % Sodium Chloride 1,000 ML 999 ML IV ×2 (10:14→11:52)
[2023-09-18 10:16] LABS: MANUAL DIFF FLAG NO
[2023-09-18 10:17] LABS: Basophils Percent Auto 0.2 % (0-2); Hematocrit 43.3 % (42.0-52.0); Hemoglobin 14.6 g/dl (14.0-18.0); Imm Gran Abs Auto 0.09 X10*3/uL (0.00-0.03); Imm Gran Pct Auto 0.6 % (0.0-0.4); Lymphocytes Absolute Auto 0.6 X10*3/uL (1.2-4.9); Lymphocytes Percent Auto 3.7 % (20-40); Mean Corpuscular HGB Conc 33.7 g/dl (31.0-36.0); Mean Corpuscular Hemoglobin 27.3 pg (27.0-33.0); Mean Corpuscular Volume 81.1 fL (80.0-98.0); Monocytes Absolute Auto 1.3 X10*3/uL (0.1-1.2); Monocytes Percent Auto 8.3 % (2-11); Neutrophils Absolute Auto 13.2 x10*3/uL (2.0-8.3); Neutrophils Percent Auto 87.2 % (45-73); Platelet Count 270 X10*3/uL (160-400); Red Blood Count 5.34 X10*6/uL (4.60-5.80); Red Cell Distribution Width 14.6 % (11.0-16.0); White Blood Count 15.1 X10*3/uL (4.8-10.8)
[2023-09-18 10:34] LABS: Alanine Aminotransferase 14 U/L (0-40); Albumin Level 3.4 g/dL (3.5-5.0); Alkaline Phosphatase 100 U/L (39-117); Anion Gap 20 (12-20); Aspartate Amino Transferase 26 U/L (5-37); Bilirubin Direct 0.2 mg/dL (0.0-0.5); Bilirubin Total 1.1 mg/dL (0.0-1.0); Blood Urea Nitrogen 80 mg/dL (9-16); Calcium 9.1 mg/dL (8.4-10.2); Carbon Dioxide 13 mmol/L (22-29); Chloride 105 mmol/L (96-108); Creatinine Clr Calc Pharmacy 17.8; Estimated Glomerular Filt Rate 21; Glucose Random 175 mg/dL (60-115); Magnesium 2.6 mg/dL (1.6-2.6); Potassium 5.4 mmol/L (3.3-5.1); Sodium 133 mmol/L (135-145); Total Protein 7.9 g/dL (6.5-8.0)
[2023-09-18] MEDS: cefTRIAXone sodium 1 GM in 0.9 % Sodium Chloride 50 ML IV (10:47)
[2023-09-18 11:06] LABS: Lactic Acid 2.8 mmol/L (0.5-2.0)
--- NOTE | 2023-09-18 11:15 | PC.NURSE ---
patient reporting pain w/ urination, burning. was called to come in d/t uti. IV established, labs obtained and sent. iv fluids/antibiotics infusing
--- NOTE | 2023-09-18 12:00 | PC.NURSE ---
bladder scan done on patient showing >200 mL of urine in bladder. straight cath obtained - 500mL foul smelling, red urine. patient tolerated procedure well. second bag ns infusing at this time. call canales within reach.
[2023-09-18 12:11] LABS: Appearance Urine Turbid; Glucose Urine UA Negative (Negative); Leukocyte Esterase Urine Large (3+) (Negative); Nitrite Urine Positive (Negative); PH 8.5 (5.0-9.0); Specific Gravity - Urine 1.015 (1.005-1.025); UMIC TRIGGER UACC YES; Urine Blood Large (3+) (Negative); Urine Ketones Trace mg/dL (Negative); Urine Protein 300 (3+) mg/dL (Neg-Trace)
[2023-09-18 12:19] LABS: Color Urine RED
[2023-09-18 12:32] LABS: Bacteria Urine 4+ (None Seen); Hyaline Casts Urine >20 /LPF (0-2); RBC Urine >20 /HPF (0-2); UACC Culture Trigger YES; WBC Urine >50 /HPF (0-5)
[2023-09-18 12:49] LABS: Reflex Lactate? Lactic Acid Added
[2023-09-18 13:47] LABS: Venous Blood Gas Refer to POC result
[2023-09-18 13:47] LABS: VBG Base Excess -7.2 mmol/L; VBG HCO3 16 mmol/L (22-26); VBG pCO2 29 mmHg; VBG pH 7.36 (7.32-7.43); VBG pO2 39 mmHg
[2023-09-18 13:58] LABS: ~Lactic Acid-LAB USE ONLY 1.6 mmol/L (0.5-2.0)
[2023-09-18 14:00] LABS: Blood Urea Nitrogen 73 mg/dL (9-16); Calcium 8.5 mg/dL (8.4-10.2); Creatinine Clr Calc Pharmacy 20.5; Estimated Glomerular Filt Rate 25; Glucose Random 143 mg/dL (60-115)
[2023-09-18 14:18] LABS: Anion Gap 17 (12-20); Carbon Dioxide 17 mmol/L (22-29); Chloride 109 mmol/L (96-108); Sodium 139 mmol/L (135-145)
--- NOTE | 2023-09-18 14:35 | PHA.MEDREC ---
Addendum entered by Emily Walsh RPh 09/18/23 15:08: reviewed by [facility] Original Note: Pharmacy Consult ? Medication Reconciliation Pharmacy has completed the medication reconciliation. Spoke to patients Family at bedside to confirm med list. Family states patient has bacrtrim 1 bid however he hasn't started yet.
--- NOTE | 2023-09-18 16:06 | P.HPHOSP_ITS ---
History of Present Illness Date of Service: 09/18/23 Chief Complaint: UTI, weaknes, confusion An 88-year-old male with a history of rectal cancer, chronic urinary retention, and a recent deep vein thrombosis (DVT) on Eliquis, lives alone, receives Meals on Wheels, and gets assistance from his daughter. The patient was referred to the Emergency Department (ED) by his primary care physician (PCP). He has been experiencing increasing urinary retention lately and has been self- catheterizing. Over the last several days, he has become increasingly weaker and confused. Yesterday, he fell while trying to get up from his recliner and was on the floor for no less than four hours until his meal deliverer found him. His daughter contacted the PCP's office, and a urinalysis (UA) was requested. Today, the daughter was called about the UA results and was informed that antibiotics were to be prescribed for home use. However, she indicated that the patient's condition had worsened, with pain and blood during urination. On that note, he was referred to the emergency department for further evaluation. The UA dated 09/15 indicated the presence of Proteus species, and he has been prescribed Ceftriaxone. Of note, the daughter also mentioned that he hasn't taken Eliquis for two days as he has not been eating and has been hardly drinking. Further testing show NATE on CKD, CT show bladder outlet obstruction Review of Systems 2 Review of Systems: oriented to self, aware of being in the hospital, denies fever, or chilss, no flank pain. Yes all other systems are reviewed and are negative [facility] Medical History Soft tissue mass Incomplete emptying of bladder Dysuria Pyuria H/O urinary retention Rectal adenocarcinoma Melanoma Fibroma Skin cancer Fracture of right ankle Glaucoma Family History Sister Lung cancer Maternal Aunt Breast cancer Mother Breast cancer Surgical History History of surgery Hx of abdominoplasty Hx of tonsillectomy Hx of colonoscopy Social History Household Members: None Housing: House Are you a primary out of school hours care worker to a significant other at home: No Do you presently have visiting nurse or other home services: No Alcohol intake: former Patient Tobacco Use Status: Never used Tobacco Cigarette Packs Per Day: 3 Advance Directives: No Advance Directives Information Provided: Yes Do you have a plan to hurt others: No Plan service: No Current occupational status: retired Meds Allergies Allergy/AdvReac Type Severity Reaction Status Date / Time No Known Allergies Allergy Verified 09/18/23 09:56 [No Known Allergies*] Home Medications ?Medication ?Instructions ?Recorded ?Confirmed ?Last Taken ?Type latanoprost 0.005 % eye drops 1 drp ophthalmic (eye) BEDTIME 01/05/20 09/18/23 09/16/23 History (Xalatan) pravastatin 40 mg tablet 1 tab PO DAILY 01/05/20 09/18/23 09/16/23 History brinzolamide 1 %-brimonidine 0.2 % 1 drp ophthalmic (eye) BID 08/24/20 09/18/23 09/16/23 History eye drops,suspension (Simbrinza) timolol maleate 0.5 % eye drops 1 drp ophthalmic (eye) BID 09/18/23 09/18/23 09/16/23 History Physical Exam 2 Vital Signs and Narrative: Vital Signs: Last Vital Signs Temp 97.4 F 09/18/23 14:00 Pulse 65 09/18/23 14:00 Resp 15 09/18/23 14:00 BP 137/69 09/18/23 14:00 Pulse Ox 98 09/18/23 14:00 O2 Del Method Room Air 09/18/23 14:00 BMI result Body Mass Index 21.3 Constitutional: Alert, in no distress, overweight. Mental Status: Oriented to person, place and time. Eyes: Pupils are equal, round and reactive to light. Ear, Nose and Throat: Oropharynx clear, mucous membranes moist. Ears and nose without eformities. Trachea midline. Respiratory: Clear to auscultation. No wheezing, rales or rhonchi. Cardiovascular: S1 S2 regular. No murmurs, rubs or gallops. Gastrointestinal: Abdomen soft, non-tender, non-distended. Normal bowel sounds.? Neurologic: Cranial nerves II-XII grossly intact. No focal neurological deficits. Moves all extremities spontaneously.? Skin: No rashes or lesions.? Musculoskeletal: No cyanosis or clubbing. Psychiatric: Normal mood and affect? Const: Other: Constitutional: Alert, in no distress Mental Status: Oriented to person, place and time. Eyes: Pupils are equal, round and reactive to light. Ear, Nose and Throat: Oropharynx clear, mucous membranes moist. Ears and nose without deformities. Trachea midline. Respiratory: Clear to auscultation. No wheezing, rales or rhonchi. Cardiovascular: S1 S2 regular. No murmurs, rubs or gallops. Gastrointestinal: Abdomen soft, non-tender, non-distended. Normal bowel sounds.? Neurologic: Cranial nerves II-XII grossly intact. No focal neurological deficits. Moves all extremities spontaneously.? Musculoskeletal: No cyanosis or clubbing. Psychiatric: Normal mood and affect? Skin: No rashes or lesions.? Results Labs 09/18/23 10:11 09/18/23 13:37 Labs: Laboratory Results - last 24 hr 09/18/23 09/18/23 09/18/23 10:11 10:39 11:53 MCV 81.1 MCH 27.3 MCHC 33.7 RDW 14.6 Plt Count 270 MPV 10.0 Immature Gran % (Auto) 0.6 H Neut % (Auto) 87.2 H Lymph % (Auto) 3.7 L [place] % (Auto) 8.3 Eos % (Auto) 0.0 Baso % (Auto) 0.2 Lymph # (Auto) 0.6 L [place] # (Auto) 1.3 H Eos # (Auto) 0.0 Baso # (Auto) 0.0 Abs Immat Gran (auto) 0.09 H Absolute Neuts (auto) 13.2 H Absolute Nucleated RBC 0.000 Nucleated RBC % (auto) 0.0 VBG pH VBG pCO2 VBG pO2 VBG HCO3 VBG O2 Saturation VBG Base Excess Anion Gap 20 Estim Creat Clear Calc 17.8 Estimated GFR 21 Random Glucose 175 H Lactic Acid 2.8 H* Lactic Acid F/U @ 2Hr Calcium 9.1 Magnesium 2.6 Total Bilirubin 1.1 H Direct Bilirubin 0.2 AST 26 ALT 14 Alkaline Phosphatase 100 Total Creatine Kinase 94 Total Protein 7.9 Albumin 3.4 L Urine Color RED Urine Appearance Turbid Urine pH 8.5 Ur Specific [place] 1.015 Urine Protein 300 (3+) H Urine Glucose (UA) Negative Urine Ketones Trace Urine Blood Large (3+) H Urine Nitrite Positive H Ur Leukocyte Esterase Large (3+) H Urine RBC >20 H Urine WBC >50 H Ur Squamous Epith Cells 11-20 Urine Bacteria 4+ Hyaline Casts >20 09/18/23 09/18/23 13:37 13:39 MCV MCH MCHC RDW Plt Count MPV Immature Gran % (Auto) Neut % (Auto) Lymph % (Auto) [place] % (Auto) Eos % (Auto) Baso % (Auto) Lymph # (Auto) [place] # (Auto) Eos # (Auto) Baso # (Auto) Abs Immat Gran (auto) Absolute Neuts (auto) Absolute Nucleated RBC Nucleated RBC % (auto) VBG pH 7.36 VBG pCO2 29 VBG pO2 39 VBG HCO3 16 L VBG O2 Saturation 55.0 VBG Base Excess -7.2 Anion Gap 17 Estim Creat Clear Calc 20.5 Estimated GFR 25 Random Glucose 143 H Lactic Acid Lactic Acid F/U @ 2Hr 1.6 Calcium 8.5 D Magnesium Total Bilirubin Direct Bilirubin AST ALT Alkaline Phosphatase Total Creatine Kinase Total Protein Albumin Urine Color Urine Appearance Urine pH Ur Specific [place] Urine Protein Urine Glucose (UA) Urine Ketones Urine Blood Urine Nitrite Ur Leukocyte Esterase Urine RBC Urine WBC Ur Squamous Epith Cells Urine Bacteria Hyaline Casts Imaging Radiologist's Impressions: Impressions Head CT 09/18/23 11:10 IMPRESSION: CT HEAD: No acute intracranial finding. Sequela of microangiopathy and global volume loss CT CERVICAL SPINE: 1. No cervical spine fracture or traumatic malalignment identified. 2. Multilevel degenerative changes. Abdomen/Pelvis CT 09/18/23 11:11 IMPRESSION: * Prior abdominoperineal resection with stable appearance of chronic soft tissue thickening in the presacral space and projecting posterior to the prostate gland. This likely represents postoperative fibrosis/granulation tissue. * Findings suggestive of chronic bladder outlet obstruction. The bladder wall thickening is likely from detrusor muscle hypertrophy and severe bilateral hydronephrosis is present. The apparent urothelial thickening of the ureters and renal pelvis could be a manifestation of urinary tract infection. * Note that the tip of the Crews catheter is in the region of the prostatic urethra. * Colonic diverticulosis without diverticulitis. Cervical Spine CT 09/18/23 11:11 IMPRESSION: CT HEAD: No acute intracranial finding. Sequela of microangiopathy and global volume loss CT CERVICAL SPINE: 1. No cervical spine fracture or traumatic malalignment identified. 2. Multilevel degenerative changes. Assessment and Plan (1) NATE (acute kidney injury): Status: Acute (2) Urinary tract infection: Qualifiers: Hematuria presence: with hematuria Urinary tract infection type: site unspecified Qualified Code(s): N39.0 - Urinary tract infection, site not specified; R31.9 - Hematuria, unspecified Status: Acute Plan An 88-year-old male with a history of rectal cancer, chronic urinary retention, and a recent deep vein thrombosis (DVT) on Eliquis here with UTI, NATE, recent fall UTI d/t proteus, in setting of bladder outlet obstruction and straight cath -continue Ceftriaxone, follow sensitivity Metabolic encephalopathy d/t above, seems improving already 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 wound care and surgery consult Fall--head CT, Cervical spine CT Ok, PT eval before DC, fall precaution DVT prophyaxis: device d/t hematuria, if hematuria not signficant restart eliquis regular diet Admission for at least 2 midnights for UTI with metabolic encephalopath, NATE neeeding IVF and repeat labs Quality Stroke Does the patient have a stroke diagnosis?: No VTE Prior VTE?: No VTE Risk Level:: Medical - moderate - high VTE Device Contraindication: N/A - Device Ordered VTE Drug Contraindication: Treatment Not Tolerated (Active hematuria)
[2023-09-18] MEDS: 0.9 % Sodium Chloride Flush 3 ML SYRINGE IVFLUSH (22:19)
[2023-09-18] MEDS: Lactated Ringers 1,000 ML 125 ML IVCONT (22:49)
--- NOTE | 2023-09-18 23:20 | HO.SKINPHOTO ---
Location: DTI bilateral buttocks, pressure injury left buttock. Category: Stage: Length: Width: Depth: cm Location: Category: Stage: Length: Width: Depth: cm Location: Category: Stage: Length: Width: Depth: cm Location: Category: Stage: Length: Width: Depth: cm Location: Category: Stage: Length: Width: Depth: cm Location: Category: Stage: Length: Width: Depth: cm
[2023-09-18 23:28] LABS: Hematocrit 39.9 % (42.0-52.0); Hemoglobin 13.3 g/dl (14.0-18.0); Mean Corpuscular HGB Conc 33.3 g/dl (31.0-36.0); Mean Corpuscular Hemoglobin 27.3 pg (27.0-33.0); Mean Corpuscular Volume 81.8 fL (80.0-98.0); Mean Platelet Volume 10.1 fL (9.4-12.4); Platelet Count 252 X10*3/uL (160-400); Red Blood Count 4.88 X10*6/uL (4.60-5.80); Red Cell Distribution Width 14.6 % (11.0-16.0)
--- NOTE | 2023-09-19 00:09 | PC.NURSE ---
FC advanced per DR Perez request since abd CT stated tip of crews is present inside urethra. Better urine flow noted after, also patient states id does not hurt anymore when he coughs. Urine continues to be bloody.
[2023-09-19] MEDS: vancomycin HCL 1,000 MG, vancomycin HCL 750 MG in 0.9 % Sodium Chloride 500 ML 267.5 MG IV (01:34)
--- NOTE | 2023-09-19 05:58 | PC.NURSE ---
blood concentration in urine appears to be a lot thinner than at beginning of shift. good urine output 1100 ml.
--- NOTE | 2023-09-19 07:01 | PHA.PROG ---
Addendum entered by Keli Pack RPh 09/19/23 08:44: Changed dose to 750mg Q24H with predicted AUC of 503mg/L, trough of 16.9mg/L. Next level to be drawn 09/19 @2100 Original Note: Admission Date/Time: September 18, 2023 16:49 Indication: Bacteremia Weight in k.3 kg Adjusted body weight in Kg: Jackson body weight in Kg: Obesity Dosing Indication % IBW: Serum Creatinine - Last 168 Hours 09/18/23 09/18/23 10:11 13:37 Creatinine 2.85 H 2.48 H Estimated CrCl and GFR - Last 168 Hours 09/18/23 09/18/23 10:11 13:37 Estim Creat Clear Calc 17.8 20.5 Estimated GFR 21 25 Vancomycin Loading Dose: 1750 mg Current Vancomycin Dosing Regimen: 500 mg Q24H Vancomycin Monitoring using AUC goal of 400 - 600 range with trough as surrogate marker: AUC of 455 mg/L and Trough 16.5 mg/L Date and Time for next Vancomycin Level to be drawn: 09/18 @2100 Pharmacist Comments on Vancomycin Plan: Patient received a loading dose last night at 0134. Will start the regimen at 2300 tonight so we can get a level at 2100 going forward. Vancomycin dosing will take advantage of [employer] as a clinical decision support tool that uses Bayesian modeling to calculate individual patient's pharmacokinetic parameters and forecast the patient's drug concentration time course with the target goal AUC 24 range of 400 - 600 mg/L/hr.
[2023-09-19 07:07] LABS: Alanine Aminotransferase 32 U/L (0-40); Albumin Level 2.8 g/dL (3.5-5.0); Alkaline Phosphatase 85 U/L (39-117); Anion Gap 17 (12-20); Aspartate Amino Transferase 37 U/L (5-37); Bilirubin Total 0.7 mg/dL (0.0-1.0); Blood Urea Nitrogen 64 mg/dL (9-16); Calcium 8.7 mg/dL (8.4-10.2); Carbon Dioxide 16 mmol/L (22-29); Chloride 110 mmol/L (96-108); Creatinine Clr Calc Pharmacy 29.6; Estimated Glomerular Filt Rate 38; Glucose Random 119 mg/dL (60-115); Potassium 3.8 mmol/L (3.3-5.1); Sodium 139 mmol/L (135-145); Total Protein 6.1 g/dL (6.5-8.0)
[2023-09-19 08:00] VITALS: BP 121/60; PULSE 85; RESP 18; TEMP 36.8; O2SAT 96
--- NOTE | 2023-09-19 08:01 | P.CONGS_ITS ---
History of Present Illness Consult details Consult date: 09/19/23 Narrative: 88-year-old male admitted for UTI, status post fall at home, referred because of pressure ulcers He is well known to me. He had undergone abdominal perineal resection after neoadjuvant chemotherapy and radiation for rectal cancer in 2016. He continues to see me in the office periodically. He does have chronic changes on the buttocks likely from pressure as he now is not very mobile and sits down most of the time . There is no significant drainage from the area. He has neurogenic bladder as well and therefore suffers from urinary retention. He has been self catheterizing apparently had some blood in the urine as well. He had fallen at home and appeared to be on the floor for more than 4 hours before being discovered by a caregiver. He currently says he is ?okay?. He has really communicative although appears very frail. Review of Systems 2 Constitutional: Constitutional: Denies chills and Denies fever(s) Cardiovascular: Cardiovascular: Denies chest pain at rest Respiratory: Respiratory: Denies cough Gastrointestinal: Gastrointestinal: Denies abdominal pain Comments: Has colostomy, functioning well Musculoskeletal: Musculoskeletal: Reports myalgias, Reports limited range of motion and Reports muscle weakness PMFSH Past Medical History Medical History (Updated 09/24/23 @ 14:17 by Inna Little MD) Pressure ulcer of back Soft tissue mass Incomplete emptying of bladder Dysuria Pyuria H/O urinary retention Rectal adenocarcinoma Melanoma Fibroma Skin cancer Fracture of right ankle Glaucoma Family History Family History Sister Lung cancer Maternal Aunt Breast cancer Mother Breast cancer Surgical History Surgical History History of surgery Hx of abdominoplasty Hx of tonsillectomy Hx of colonoscopy Social History Social History Household Members: None Housing: House Are you a primary critical care technician to a significant other at home: No Do you presently have visiting nurse or other home services: No Alcohol intake: former Patient Tobacco Use Status: Former Tobacco user Cigarette Packs Per Day: 3 service: No Current occupational status: retired Meds Allergies Allergy/AdvReac Type Severity Reaction Status Date / Time No Known Allergies Allergy Verified 09/18/23 09:56 [No Known Allergies*] Active Medications: Current Medications Acetaminophen (Acetaminophen 325 Mg Tablet) 650 mg PO Q6H PRN PRN Reason: Pain, Mild (Pain Scale 1-3), fever or headache Calcium Carbonate (Calcium Carbonate 750 Mg Tab.Chew) 750 mg PO Q4H PRN PRN Reason: Heartburn Finasteride (Finasteride 5 Mg Tablet) 5 mg PO DAILY [facility] Ceftriaxone Sodium 1 gm/ (Sodium Chloride) 50 mls @ 100 mls/hr IV Q24H [facility] Lactated Ringer's (Lr) 1,000 mls @ 125 mls/hr IVCONT .Q8H [facility] Last Admin: 09/19/23 07:25 Dose: Not Given Vancomycin HCl 500 mg/ Sodium (Chloride) 110 mls @ 110 mls/hr IV Q24H [facility] Latanoprost (Latanoprost 0.005 % Ophth Belkis 2.5 Ml Drops) 1 drop EYE-BOTH BEDTIME [facility] Last Admin: 09/18/23 22:02 Dose: Not Given Magnesium Hydroxide (Milk Of Magnesia 30 Ml Oral.Susp) 30 ml PO DAILY PRN PRN Reason: Constipation Melatonin (Melatonin 3 Mg Tablet) 6 mg PO BEDTIME PRN PRN Reason: Insomnia Non-Formulary Medication (Brinzolamide-Brimonidine [Simbrinza]) 1 drop EYE-BOTH BID [facility] Pravastatin Sodium (Pravastatin Sodium 40 Mg Tablet) 40 mg PO DAILY [facility] Sodium Chloride (0.9 % Sodium Chloride Flush 3 Ml Syringe) 3 ml IVFLUSH QSHIFT [facility] Last Admin: 09/19/23 07:25 Dose: Not Given Tamsulosin HCl (Tamsulosin Hcl 0.4 Mg Capsule) 0.4 mg PO BEDTIME [facility] Last Admin: 09/18/23 22:02 Dose: Not Given Timolol Maleate (Timolol Maleate 0.5 % Oph Belkis 5 Ml Drbtl) 1 drop [facility]-BOTH BID [facility] Last Admin: 09/18/23 22:02 Dose: Not Given Home Medications ?Medication ?Instructions ?Recorded ?Confirmed ?Last Taken ?Type latanoprost 0.005 % eye drops 1 drp ophthalmic (eye) BEDTIME 01/05/20 09/18/23 09/16/23 History (Xalatan) pravastatin 40 mg tablet 1 tab PO DAILY 01/05/20 09/18/23 09/16/23 History brinzolamide 1 %-brimonidine 0.2 % 1 drp ophthalmic (eye) BID 08/24/20 09/18/23 09/16/23 History eye drops,suspension (Simbrinza) timolol maleate 0.5 % eye drops 1 drp ophthalmic (eye) BID 09/18/23 09/18/23 09/16/23 History Physical Exam 2 Vital Signs: Vital Signs: Last Vital Signs Temp 96.9 F 09/18/23 23:29 Pulse 88 09/18/23 23:29 Resp 16 09/18/23 23:29 BP 119/58 L 09/18/23 23:29 Pulse Ox 98 09/18/23 23:29 O2 Del Method Room Air 09/18/23 23:29 BMI result Body Mass Index 21.3 Const: Other: Frail looking General: no acute distress Resp: Effort & Inspection: normal respiratory effort Cardio: Rate: regular rate GI: Other: Colostomy in place, functioning Palpation (GI): Soft to palpation, not firm and nontender Back/Spine/Pelvis: Other: Discoloration in both buttocks likely from chronic pressure, no collection, no significant skin breakdown, no purulent fluid, no cellulitis, no necrotic tissue Results Labs 09/25/23 05:42 09/25/23 05:42 Labs: Abnormal lab results 09/18/23 09/18/23 09/18/23 Range/Units 10:11 10:39 11:53 WBC 15.1 H (4.8-10.8) X10*3/uL Hgb (14.0-18.0) g/dl Hct (42.0-52.0) % Immature Gran % (Auto) 0.6 H (0.0-0.4) % Neut % (Auto) 87.2 H (45-73) % Lymph % (Auto) 3.7 L (20-40) % Lymph # (Auto) 0.6 L (1.2-4.9) X10*3/uL [place] # (Auto) 1.3 H (0.1-1.2) X10*3/uL Abs Immat Gran (auto) 0.09 H (0.00-0.03) X10*3/uL Absolute Neuts (auto) 13.2 H (2.0-8.3) x10*3/uL VBG HCO3 (22-26) mmol/L Sodium 133 L (135-145) mmol/L Potassium 5.4 H D (3.3-5.1) mmol/L Chloride (96-108) mmol/L Carbon Dioxide 13 L (22-29) mmol/L BUN 80 H (9-16) mg/dL Creatinine 2.85 H (0.5-1.4) mg/dL Random Glucose 175 H (60-115) mg/dL Lactic Acid 2.8 H* (0.5-2.0) mmol/L Total Bilirubin 1.1 H (0.0-1.0) mg/dL Total Protein (6.5-8.0) g/dL Albumin 3.4 L (3.5-5.0) g/dL Urine Protein 300 (3+) H (Neg-Trace) mg/dL Urine Blood Large (3+) H (Negative) Urine Nitrite Positive H (Negative) Ur Leukocyte Esterase Large (3+) H (Negative) Urine RBC >20 H (0-2) /HPF Urine WBC >50 H (0-5) /HPF 09/18/23 09/18/23 09/18/23 Range/Units 13:37 13:39 23:08 WBC 12.0 H (4.8-10.8) X10*3/uL Hgb 13.3 L (14.0-18.0) g/dl Hct 39.9 L (42.0-52.0) % Immature Gran % (Auto) (0.0-0.4) % Neut % (Auto) (45-73) % Lymph % (Auto) (20-40) % Lymph # (Auto) (1.2-4.9) X10*3/uL [place] # (Auto) (0.1-1.2) X10*3/uL Abs Immat Gran (auto) (0.00-0.03) X10*3/uL Absolute Neuts (auto) (2.0-8.3) x10*3/uL VBG HCO3 16 L (22-26) mmol/L Sodium (135-145) mmol/L Potassium (3.3-5.1) mmol/L Chloride 109 H (96-108) mmol/L Carbon Dioxide 17 L (22-29) mmol/L BUN 73 H (9-16) mg/dL Creatinine 2.48 H (0.5-1.4) mg/dL Random Glucose 143 H (60-115) mg/dL Lactic Acid (0.5-2.0) mmol/L Total Bilirubin (0.0-1.0) mg/dL Total Protein (6.5-8.0) g/dL Albumin (3.5-5.0) g/dL Urine Protein (Neg-Trace) mg/dL Urine Blood (Negative) Urine Nitrite (Negative) Ur Leukocyte Esterase (Negative) Urine RBC (0-2) /HPF Urine WBC (0-5) /HPF // Range/Units 06:03 WBC (4.8-10.8) X10*3/uL Hgb (14.0-18.0) g/dl Hct (42.0-52.0) % Immature Gran % (Auto) (0.0-0.4) % Neut % (Auto) (45-73) % Lymph % (Auto) (20-40) % Lymph # (Auto) (1.2-4.9) X10*3/uL [place] # (Auto) (0.1-1.2) X10*3/uL Abs Immat Gran (auto) (0.00-0.03) X10*3/uL Absolute Neuts (auto) (2.0-8.3) x10*3/uL VBG HCO3 (22-26) mmol/L Sodium (135-145) mmol/L Potassium (3.3-5.1) mmol/L Chloride 110 H (96-108) mmol/L Carbon Dioxide 16 L (22-29) mmol/L BUN 64 H (9-16) mg/dL Creatinine 1.72 H (0.5-1.4) mg/dL Random Glucose 119 H (60-115) mg/dL Lactic Acid (0.5-2.0) mmol/L Total Bilirubin (0.0-1.0) mg/dL Total Protein 6.1 L (6.5-8.0) g/dL Albumin 2.8 L (3.5-5.0) g/dL Urine Protein (Neg-Trace) mg/dL Urine Blood (Negative) Urine Nitrite (Negative) Ur Leukocyte Esterase (Negative) Urine RBC (0-2) /HPF Urine WBC (0-5) /HPF Short CBC 09/18/23 09/18/23 Range/Units 10:11 23:08 WBC 15.1 H 12.0 H (4.8-10.8) X10*3/uL Hgb 14.6 D 13.3 L (14.0-18.0) g/dl Hct 43.3 39.9 L (42.0-52.0) % Plt Count 270 252 (160-400) X10*3/uL BMP 09/18/23 09/18/23 09/19/23 10:11 13:37 06:03 Sodium 133 L 139 139 Potassium 5.4 H D 4.0 D 3.8 Chloride 105 109 H 110 H Carbon Dioxide 13 L 17 L 16 L BUN 80 H 73 H 64 H Creatinine 2.85 H 2.48 H 1.72 H Calcium 9.1 8.5 D 8.7 Cardiac Enzymes 09/18/23 Range/Units 10:11 Total Creatine Kinase 94 (38-174) U/L Liver Function 09/18/23 09/19/23 Range/Units 10:11 06:03 Total Bilirubin 1.1 H 0.7 (0.0-1.0) mg/dL Direct Bilirubin 0.2 (0.0-0.5) mg/dL AST 26 37 (5-37) U/L ALT 14 32 (0-40) U/L Alkaline Phosphatase 100 85 (39-117) U/L Albumin 3.4 L 2.8 L (3.5-5.0) g/dL Urine 09/18/23 Range/Units 11:53 Urine Color RED Urine Appearance Turbid Urine pH 8.5 (5.0-9.0) Ur Specific Orange 1.015 (1.005-1.025) Urine Protein 300 (3+) H (Neg-Trace) mg/dL Urine Glucose (UA) Negative (Negative) mg/dL All other labs normal. Assessment and Plan (1) Pressure ulcer of back: Status: Acute He has this diffuse dark discoloration on the buttocks likely from chronic pressure due to his immobility. There is no significant necrosis or gangrene. There is no open wound.. Currently there is does not appear to be any need for debridement or any other surgical intervention at this time I have instructed his nurse ensure that his position gets changed every 2 hours as he is fairly immobile and frail. His urine is bloody at this time as well. He is being treated for a UTI. The rest of his care be as per the hospitalist service. Procedures Date of Service Date of Service: 09/25/23
[2023-09-19] MEDS: Lactated Ringers 1,000 ML 125 ML IVCONT ×2 (08:22→16:40)
[2023-09-19] MEDS: Finasteride 5 MG TABLET PO (08:22)
[2023-09-19] MEDS: Pravastatin Sodium 40 MG TABLET PO (08:22)
[2023-09-19] MEDS: cefTRIAXone sodium 1 GM in 0.9 % Sodium Chloride 50 ML IV (10:57)
[2023-09-19] MEDS: Brimonidine Tartrate 0.2% Oph 5 ML BOTTLE 1 DROP EYE-BOTH ×2 (10:57→19:37)
[2023-09-19] MEDS: Dorzolamide HCl 2 % Ophth Sol 10 ML DRPBTL 1 DROP EYE-BOTH ×2 (10:57→19:37)
--- NOTE | 2023-09-19 11:35 | P.PNIM_ITS ---
Subjective Subjective Date of Service: 09/19/23 Interval History: Seen and evaluated this morning More alert and interactive denies fever or chills having hematuria NATE improing no other overnight events Review of Systems Review of Systems: Yes all other systems are reviewed and are negative Physical Exam 2 Vital Signs: Vital Signs: Last Vital Signs Temp 98.2 F 09/19/23 08:00 Pulse 85 09/19/23 08:00 Resp 18 09/19/23 08:00 BP 121/60 09/19/23 08:00 Pulse Ox 96 09/19/23 08:00 O2 Del Method Room Air 09/19/23 08:00 BMI result Body Mass Index 21.3 Const: Other: Constitutional : Awake, interactive, not in distress Neck : Normal inspection, Supple Cardiovascular : RRR, no JVP, no lower extremity edema Respiratory : good bilateral air entry, no crackles, wheezes or rhonchi Gastrointestinal: soft, lax, Normal bowel sounds, Non tender Skin : Warm, Dry, buttock stage 1 pressure wound Neurological : Alert & oriented x3, No focal deficit , CN 2-12 within normal Objective Data Active Medications Acetaminophen (Acetaminophen 325 Mg Tablet) 650 mg PO Q6H PRN PRN Reason: Pain, Mild (Pain Scale 1-3), fever or headache Brimonidine Tartrate (Brimonidine Tartrate 0.2% Oph 5 Ml Bottle) 1 drop EYE- BOTH BID [facility] Last Admin: 09/19/23 10:57 Dose: 1 drop Documented By: COTEMA Calcium Carbonate (Calcium Carbonate 750 Mg Tab.Chew) 750 mg PO Q4H PRN PRN Reason: Heartburn Dorzolamide HCl (Dorzolamide Hcl 2 % Ophth Belkis 10 Ml Drpbtl) 1 drop EYE-BOTH BID [facility] Last Admin: 09/19/23 10:57 Dose: 1 drop Documented By: COTEMA Finasteride (Finasteride 5 Mg Tablet) 5 mg PO DAILY [facility] Last Admin: 09/19/23 08:22 Dose: 5 mg Documented By: RICKYEMA Ceftriaxone Sodium 1 gm/ (Sodium Chloride) 50 mls @ 100 mls/hr IV Q24H [facility] Last Admin: 09/19/23 10:57 Dose: 100 mls/hr Documented By: COTEMA Lactated Ringer's (Lr) 1,000 mls @ 125 mls/hr IVCONT .Q8H [facility] Last Admin: 09/19/23 08:22 Dose: 125 mls/hr Documented By: EZEQUIEL Vancomycin HCl 750 mg/ Sodium (Chloride) 265 mls @ 265 mls/hr IV Q24H [facility] Latanoprost (Latanoprost 0.005 % Ophth Belkis 2.5 Ml Drops) 1 drop EYE-BOTH BEDTIME [facility] Last Admin: 09/18/23 22:02 Dose: Not Given Documented By: NNAMDI Non-Admin Reason: not available Magnesium Hydroxide (Milk Of Magnesia 30 Ml Oral.Susp) 30 ml PO DAILY PRN PRN Reason: Constipation Melatonin (Melatonin 3 Mg Tablet) 6 mg PO BEDTIME PRN PRN Reason: Insomnia Pharmacy Consult (Consult Rx Vancomycin Dosing) 1 each MISCELLANE DAILY PRN PRN Reason: Consult order Pravastatin Sodium (Pravastatin Sodium 40 Mg Tablet) 40 mg PO DAILY [facility] Last Admin: 09/19/23 08:22 Dose: 40 mg Documented By: EZEQUIEL Sodium Chloride (0.9 % Sodium Chloride Flush 3 Ml Syringe) 3 ml IVFLUSH QSHIFT [facility] Last Admin: 09/19/23 07:25 Dose: Not Given Documented By: EZEQUIEL Non-Admin Reason: IV Running Tamsulosin HCl (Tamsulosin Hcl 0.4 Mg Capsule) 0.4 mg PO BEDTIME [facility] Last Admin: 09/18/23 22:02 Dose: Not Given Documented By: NNAMDI Non-Admin Reason: pt in ed Timolol Maleate (Timolol Maleate 0.5 % Oph Belkis 5 Ml Drbtl) 1 drop EYE-BOTH BID [facility] Last Admin: 09/18/23 22:02 Dose: Not Given Labs 09/18/23 23:08 09/19/23 06:03 Labs: Laboratory Results - last 24 hr 09/18/23 09/18/23 09/18/23 11:53 13:37 13:39 MCV MCH MCHC RDW Plt Count MPV Absolute Nucleated RBC Nucleated RBC % (auto) Hold Purple Top VBG pH 7.36 VBG pCO2 29 VBG pO2 39 VBG HCO3 16 L VBG O2 Saturation 55.0 VBG Base Excess -7.2 Anion Gap 17 Estim Creat Clear Calc 20.5 Estimated GFR 25 Random Glucose 143 H Lactic Acid F/U @ 2Hr 1.6 Calcium 8.5 D Total Bilirubin AST ALT Alkaline Phosphatase Total Protein Albumin Urine Color RED Urine Appearance Turbid Urine pH 8.5 Ur Specific Matthews 1.015 Urine Protein 300 (3+) H Urine Glucose (UA) Negative Urine Ketones Trace Urine Blood Large (3+) H Urine Nitrite Positive H Ur Leukocyte Esterase Large (3+) H Urine RBC >20 H Urine WBC >50 H Ur Squamous Epith Cells 11-20 Urine Bacteria 4+ Hyaline Casts >20 Blood Type Antibody Screen 09/18/23 09/19/23 23:08 06:03 MCV 81.8 MCH 27.3 MCHC 33.3 RDW 14.6 Plt Count 252 MPV 10.1 Absolute Nucleated RBC 0.000 Nucleated RBC % (auto) 0.0 Hold Purple Top SEE NOTE VBG pH VBG pCO2 VBG pO2 VBG HCO3 VBG O2 Saturation VBG Base Excess Anion Gap 17 Estim Creat Clear Calc 29.6 Estimated GFR 38 Random Glucose 119 H Lactic Acid F/U @ 2Hr Calcium 8.7 Total Bilirubin 0.7 AST 37 ALT 32 Alkaline Phosphatase 85 Total Protein 6.1 L Albumin 2.8 L Urine Color Urine Appearance Urine pH Ur Specific [place] Urine Protein Urine Glucose (UA) Urine Ketones Urine Blood Urine Nitrite Ur Leukocyte Esterase Urine RBC Urine WBC Ur Squamous Epith Cells Urine Bacteria Hyaline Casts Blood Type O Positive Antibody Screen NEGATIVE Microbiology Microbiology Results: Microbiology 09/18/23 10:39 Blood Culture - Preliminary Blood - Venous Gram negative cristina 09/18/23 10:11 Blood Culture - Preliminary Blood - Venous Gram negative cristina Prelim: GPC Gram Stain only Assessment and Plan (1) NATE (acute kidney injury): Status: Acute (2) Urinary tract infection: Status: Acute (3) Bacteremia: Status: Acute (4) Hematuria: Status: Acute Plan An 88-year-old male with a history of rectal cancer, chronic urinary retention, and a recent deep vein thrombosis (DVT) on Eliquis here with UTI, NATE, recent fall Bacteremia GPC and GNR likely 2/2 UTI complicated with acute toxic metabolic encephalopathy in setting of bladder outlet obstruction and straight cath encephalopathy improving continue Ceftriaxone and Vancomycin repeat blood cultrues follow sensitivity Vancomycin trough NATE on CKD3 complicated with Metabolic acidosis Improving with IVF hold nephrotoxic follow BMP Hold on PO bicarb for now Acute lactic acidosis not due to sepsis, d/t dehydration and renal failure, resolved Hematuria, acute possibly d/t cystitis, monitor, hold eliquis for now Urology to eval for possible CBI need h/o DVT hold eliquis for hematuria pending Urology evaluation HLD--statin BPH--finesteride, Flomax Glaucome --eye drops Stage 1 Pressure wound d/t imobility, surgery input appreciated, wound care and rotation Fall--head CT, Cervical spine CT Ok, PT eval, fall precaution DVT prophyaxis: SCDs d/t hematuria, if hematuria not signficant restart eliquis Needs overnight hospital stay for treatment of bacteremia pending final blood cultures, UTI with metabolic encephalopath, NATE neeeding IVF and specialist evaluation Quality Stroke Does the patient have a stroke diagnosis?: No VTE Prior VTE?: No VTE Risk Level:: Medical - moderate - high VTE Device Contraindication: N/A - Device Ordered VTE Drug Contraindication: Treatment Not Tolerated
[2023-09-19] MEDS: timoloL maleate 0.5 % Oph Sol 5 ML DRBTL 1 DROP EYE-BOTH ×2 (12:20→19:38)
[2023-09-19 13:53] VITALS: BP 121/58; PULSE 83; O2SAT 97
[2023-09-19 15:01] VITALS: BP 123/60; PULSE 75; RESP 16; TEMP 37; O2SAT 97
--- NOTE | 2023-09-19 16:19 | MHC.CM.PN ---
PT REPORTS HE LIVES ALONE BUT HIS DAUGHTER AND DAUGHTER IN LAW ASSIST PRN PT HAS A WALKER AND A CANE, HE SAYS HE USES THE CANE PRIMARILY PT HAS NO FORMAL SERVICES PT WOULD LIKE TO SPEAK WITH HIS DAUGHTER ABOUT A HCP BEFORE COMPLETING ONE PCP: LESLIE MACIAS IMM DELIVERED DCP: HOME [facility] FAM[facility] TO TRANSPORT
[2023-09-19] MEDS: Magnesium Hydrox/Alum Hydrox 30 ML ORAL.SUSP PO (18:40)
[2023-09-19] MEDS: Tamsulosin HCL 0.4 MG CAPSULE PO (19:37)
[2023-09-19] MEDS: Latanoprost 0.005 % Ophth Sol 2.5 ML DROPS 1 DROP EYE-BOTH (19:37)
[2023-09-19] MEDS: vancomycin HCL 750 MG in 0.9 % Sodium Chloride 250 ML 265 MG IV (22:12)
[2023-09-19] MEDS: 0.9 % Sodium Chloride Flush 3 ML SYRINGE IVFLUSH (22:13)
[2023-09-19 23:47] VITALS: BP 112/56; PULSE 77; RESP 18; TEMP 36.4; O2SAT 96
[2023-09-20] MEDS: Lactated Ringers 1,000 ML 125 ML IVCONT ×2 (01:05→10:29)
[2023-09-20 06:38] LABS: Hematocrit 32.2 % (42.0-52.0); Hemoglobin 10.7 g/dl (14.0-18.0); Mean Corpuscular HGB Conc 33.2 g/dl (31.0-36.0); Mean Corpuscular Hemoglobin 27.2 pg (27.0-33.0); Mean Corpuscular Volume 81.7 fL (80.0-98.0); Mean Platelet Volume 10.4 fL (9.4-12.4); Platelet Count 194 X10*3/uL (160-400); Red Blood Count 3.94 X10*6/uL (4.60-5.80); Red Cell Distribution Width 14.5 % (11.0-16.0); White Blood Count 8.3 X10*3/uL (4.8-10.8)
[2023-09-20 06:54] LABS: Anion Gap 10 (12-20); Blood Urea Nitrogen 48 mg/dL (9-16); Calcium 8.1 mg/dL (8.4-10.2); Carbon Dioxide 19 mmol/L (22-29); Chloride 110 mmol/L (96-108); Creatinine Clr Calc Pharmacy 42.8; Estimated Glomerular Filt Rate 58; Glucose Random 104 mg/dL (60-115); Potassium 3.4 mmol/L (3.3-5.1); Sodium 136 mmol/L (135-145)
[2023-09-20 08:00] VITALS: BP 119/56; PULSE 71; RESP 19; TEMP 36.4; O2SAT 96
[2023-09-20] MEDS: timoloL maleate 0.5 % Oph Sol 5 ML DRBTL 1 DROP EYE-BOTH ×2 (08:17→19:51)
[2023-09-20] MEDS: Pravastatin Sodium 40 MG TABLET PO (08:17)
[2023-09-20] MEDS: Finasteride 5 MG TABLET PO (08:17)
[2023-09-20] MEDS: Dorzolamide HCl 2 % Ophth Sol 10 ML DRPBTL 1 DROP EYE-BOTH ×2 (08:18→19:52)
[2023-09-20] MEDS: Brimonidine Tartrate 0.2% Oph 5 ML BOTTLE 1 DROP EYE-BOTH ×2 (08:18→19:51)
[2023-09-20 09:05] VITALS: BMI 21.3
--- NOTE | 2023-09-20 09:16 | MHC.CLN ---
NUTRITION CONSULT FOR PRESSURE INJURY. DIET=REGULAR. ENSURE TID PROVIDES 1050 KCALS, 60 G PROTEIN. PATIENT WITH INCREASED NUTRITION NEEDS DUE TO DTI TO BILATERAL BUTTOCKS. SUPPLEMENT TO PROMOTE WOUND HEALING. INTAKE VARIES, 0-100%. FOLLOW FOR INTAKE AND SKIN INTEGRITY. SEE CLINICAL NUTRITION ASSESSMENT 09/20/23.
[2023-09-20] MEDS: cefTRIAXone sodium 1 GM in 0.9 % Sodium Chloride 50 ML IV (10:29)
--- NOTE | 2023-09-20 10:48 | HO.PM.IMPN ---
Subjective Subjective Date of Service: 09/20/23 Interval History: Seen and evaluated this morning alert and interactive improving hematuria NATE improing no other overnight events Review of Systems Review of Systems: Yes all other systems are reviewed and are negative Physical Exam Vital Signs: Vital Signs: Last Vital Signs Temp 97.6 F 09/20/23 08:00 Pulse 71 09/20/23 08:00 Resp 19 09/20/23 08:00 BP 119/56 L 09/20/23 08:00 Pulse Ox 96 09/20/23 08:00 O2 Del Method Room Air 09/20/23 08:00 BMI result Body Mass Index 21.3 Const: Other: Constitutional : Awake, interactive, not in distress Neck : Normal inspection, Supple Cardiovascular : RRR, no JVP, no lower extremity edema Respiratory : good bilateral air entry, no crackles, wheezes or rhonchi Gastrointestinal: soft, lax, Normal bowel sounds, Non tender Skin : Warm, Dry, buttock stage 1 pressure wound Neurological : Alert & oriented x3, No focal deficit Objective Data Active Medications Acetaminophen (Acetaminophen 325 Mg Tablet) 650 mg PO Q6H PRN PRN Reason: Pain, Mild (Pain Scale 1-3), fever or headache Al Hydroxide/Mg Hydroxide (Magnesium Hydrox/Alum Hydrox 30 Ml Oral.Susp) 30 ml PO Q4H PRN PRN Reason: Dyspepsia Last Admin: 09/19/23 18:40 Dose: 30 ml Documented By: EZEQUIEL Brimonidine Tartrate (Brimonidine Tartrate 0.2% Oph 5 Ml Bottle) 1 drop EYE-BOTH BID [facility] Last Admin: 09/20/23 08:18 Dose: 1 drop Documented By: JR Calcium Carbonate (Calcium Carbonate 750 Mg Tab.Chew) 750 mg PO Q4H PRN PRN Reason: Heartburn Dorzolamide HCl (Dorzolamide Hcl 2 % Ophth Belkis 10 Ml Drpbtl) 1 drop EYE-BOTH BID [facility] Last Admin: 09/20/23 08:18 Dose: 1 drop Documented By: JR Finasteride (Finasteride 5 Mg Tablet) 5 mg PO DAILY [facility] Last Admin: 09/20/23 08:17 Dose: 5 mg Documented By: JR Ceftriaxone Sodium 1 gm/ (Sodium Chloride) 50 mls @ 100 mls/hr IV Q24H [facility] Last Admin: 09/20/23 10:29 Dose: 100 mls/hr Documented By: JR Lactated Ringer's (Lr) 1,000 mls @ 125 mls/hr IVCONT .Q8H [facility] Last Admin: 09/20/23 10:29 Dose: 125 mls/hr Documented By: JR Vancomycin HCl 750 mg/ Sodium (Chloride) 265 mls @ 265 mls/hr IV Q24H [facility] Last Infusion: 09/19/23 23:12 Dose: Infused Documented By: KAROL Latanoprost (Latanoprost 0.005 % Ophth Belkis 2.5 Ml Drops) 1 drop EYE-BOTH BEDTIME [facility] Last Admin: 09/19/23 19:37 Dose: 1 drop Documented By: KAROL Magnesium Hydroxide (Milk Of Magnesia 30 Ml Oral.Susp) 30 ml PO DAILY PRN PRN Reason: Constipation Melatonin (Melatonin 3 Mg Tablet) 6 mg PO BEDTIME PRN PRN Reason: Insomnia Pharmacy Consult (Consult Rx Vancomycin Dosing) 1 each MISCELLANE DAILY PRN PRN Reason: Consult order Pravastatin Sodium (Pravastatin Sodium 40 Mg Tablet) 40 mg PO DAILY [facility] Last Admin: 09/20/23 08:17 Dose: 40 mg Documented By: JR Sodium Chloride (0.9 % Sodium Chloride Flush 3 Ml Syringe) 3 ml IVFLUSH QSHIFT [facility] Last Admin: 09/20/23 09:28 Dose: Not Given Documented By: JR Non-Admin Reason: IV Running Tamsulosin HCl (Tamsulosin Hcl 0.4 Mg Capsule) 0.4 mg PO BEDTIME [facility] Last Admin: 09/19/23 19:37 Dose: 0.4 mg Documented By: KAROL Timolol Maleate (Timolol Maleate 0.5 % Oph Belkis 5 Ml Drbtl) 1 drop EYE-BOTH BID [facility] Last Admin: 09/20/23 08:17 Dose: 1 drop Documented By: JR Labs 09/20/23 05:28 09/20/23 05:28 Labs: Laboratory Results - last 24 hr 09/20/23 05:28 MCV 81.7 MCH 27.2 MCHC 33.2 RDW 14.5 Plt Count 194 MPV 10.4 Absolute Nucleated RBC 0.000 Nucleated RBC % (auto) 0.0 Anion Gap 10 L Estim Creat Clear Calc 42.8 Estimated GFR 58 Random Glucose 104 Calcium 8.1 L D Microbiology Microbiology Results: Microbiology 09/18/23 10:39 Blood Culture - Final Blood - Venous Proteus mirabilis 09/18/23 10:11 Blood Culture - Preliminary Blood - Venous Proteus mirabilis Prelim: GPC Gram Stain only Assessment and Plan (1) Hematuria: Status: Acute (2) Bacteremia: Status: Acute Plan An 88-year-old male with a history of rectal cancer, chronic urinary retention, and a recent deep vein thrombosis (DVT) on Eliquis here with UTI, NATE, recent fall Bacteremia GPC and GNR likely 2/2 UTI complicated with acute toxic metabolic encephalopathy in setting of bladder outlet obstruction and straight cath usage encephalopathy improving continue Ceftriaxone and Vancomycin repeat blood cultrues pending follow sensitivity Vancomycin trough NATE on CKD3 complicated with Metabolic acidosis Improving with IVF hold nephrotoxic follow BMP Hold on PO bicarb for now Acute lactic acidosis not due to sepsis, d/t dehydration and renal failure, resolved Hematuria, acute possibly d/t cystitis, monitor, hold eliquis for now Urology to place SPC tomorrow h/o DVT hold eliquis for hematuria pending Urology evaluation HLD--statin BPH--finesteride, Flomax Glaucome --eye drops Stage 1 Pressure wound d/t imobility, surgery input appreciated, wound care and rotation Fall--head CT, Cervical spine CT Ok, PT eval, fall precaution DVT prophyaxis: SCDs d/t hematuria Needs overnight hospital stay for treatment of bacteremia pending final blood cultures, UTI with metabolic encephalopath, NATE neeeding IVF and intervention tomorrow Quality Stroke Does the patient have a stroke diagnosis?: No VTE Prior VTE?: No VTE Risk Level:: Medical - moderate - high VTE Device Contraindication: N/A - Device Ordered VTE Drug Contraindication: Treatment Not Tolerated
--- NOTE | 2023-09-20 11:04 | MHC.CM.PN ---
Addendum entered by Fior Coronel 09/20/23 14:59: [facility] ACCEPTING REFERRAL AND AWARE THEY SHOULD CONTACT PTS DAUGHTER FOR SOC Original Note: CM MET WITH PT AND DAUGHTER AT BEDSIDE THEY REPORT THE PT IS NOT INTERESTED IN STR THEY WOULD LIKE A [facility] AND [facility] REFERRAL AND UNDERSTAND ANY [facility] SERVICES WOULD NOT START UPON DC AND THERE IS NO GUARANTEE HE WOULD BE ELIGIBLE. PTS DAUGHTER REPORTS HE HAS ONLY HAD [facility] SERVICES ONCE IN THE PAST AND THEY HAVE NO PREFERENCE REGARDING AGENCIES. PTS DAUGHTER ASKS THAT THEY CONTACT HER ABOUT ASSESSMENT AND SOC DATES PT WILL DC HOME WITH [facility] AND [facility] REFERRALS DAUGHTER TO TRANSPORT
[2023-09-20 12:21] VITALS: BP 119/56; PULSE 71; O2SAT 96
--- NOTE | 2023-09-20 14:49 | P.CNUR_ITS ---
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 and contributed to neurogenic bladder Recommend suprapubic tube placement Discussed patient Will be planned for Saturday Review of Systems 2 Constitutional: Constitutional: Reports as per HPI and Reports no additional constitutional complaints Cardiovascular: Cardiovascular: Reports as per HPI and Reports no additional cardiovascular complaints Respiratory: Respiratory: Reports as per HPI and Reports no additional respiratory complaints Gastrointestinal: Gastrointestinal: Reports as per HPI and Reports no additional gastrointestinal complaints Genitourinary: Genitourinary: Reports as per HPI Musculoskeletal: Musculoskeletal: Reports no additional musculoskeletal complaints and Reports as per HPI Neurologic: Reports system reviewed and no additional complaints, except as documented and Reports as per HPI PMFSH Past Medical History Medical History Pressure ulcer of back Soft tissue mass Incomplete emptying of bladder Dysuria Pyuria H/O urinary retention Rectal adenocarcinoma Melanoma Fibroma Skin cancer Fracture of right ankle Glaucoma Family History Family History Sister Lung cancer Maternal Aunt Breast cancer Mother Breast cancer Surgical History Surgical History History of surgery Hx of abdominoplasty Hx of tonsillectomy Hx of colonoscopy Social History Social History Household Members: None Housing: House Are you a primary resident care supervisor to a significant other at home: No Do you presently have visiting nurse or other home services: No Alcohol intake: former Patient Tobacco Use Status: Never used Tobacco Cigarette Packs Per Day: 3 Use of substances other than those prescribed or required for medical reasons: No Currently Displaying Signs/Symptoms of Drug Intoxication Withdrawal: No Have you been hit, kicked, punched, or otherwise hurt by someone within the past year? If so, by whom?: No Do you feel safe in your current relationship?: No Current Relationship Is there a partner from a previous relationship who is making you feel unsafe now?: No Are you made to feel afraid or neglected: No Advance Directives: No Advance Directives Information Provided: Yes Do you have a plan to hurt others: No Plan Recently lost weight without trying: No Nutrition Risks: No Nutritional Risk Poor oral hygiene: No service: No Current occupational status: retired Meds Allergies Allergy/AdvReac Type Severity Reaction Status Date / Time No Known Allergies Allergy Verified 09/18/23 09:56 [No Known Allergies*] Active Medications: Current Medications Acetaminophen (Acetaminophen 325 Mg Tablet) 650 mg PO Q6H PRN PRN Reason: Pain, Mild (Pain Scale 1-3), fever or headache Al Hydroxide/Mg Hydroxide (Magnesium Hydrox/Alum Hydrox 30 Ml Oral.Susp) 30 ml PO Q4H PRN PRN Reason: Dyspepsia Last Admin: 09/19/23 18:40 Dose: 30 ml Brimonidine Tartrate (Brimonidine Tartrate 0.2% Oph 5 Ml Bottle) 1 drop EYE- BOTH BID [facility] Last Admin: 09/20/23 08:18 Dose: 1 drop Calcium Carbonate (Calcium Carbonate 750 Mg Tab.Chew) 750 mg PO Q4H PRN PRN Reason: Heartburn Dorzolamide HCl (Dorzolamide Hcl 2 % Ophth Belkis 10 Ml Drpbtl) 1 drop EYE-BOTH BID [facility] Last Admin: 09/20/23 08:18 Dose: 1 drop Finasteride (Finasteride 5 Mg Tablet) 5 mg PO DAILY [facility] Last Admin: 09/20/23 08:17 Dose: 5 mg Ceftriaxone Sodium 1 gm/ (Sodium Chloride) 50 mls @ 100 mls/hr IV Q24H [facility] Last Infusion: 09/20/23 11:04 Dose: Infused Vancomycin HCl 750 mg/ Sodium (Chloride) 265 mls @ 265 mls/hr IV Q24H [facility] Last Infusion: 09/19/23 23:12 Dose: Infused Latanoprost (Latanoprost 0.005 % Ophth Belkis 2.5 Ml Drops) 1 drop EYE-BOTH BEDTIME [facility] Last Admin: 09/19/23 19:37 Dose: 1 drop Magnesium Hydroxide (Milk Of Magnesia 30 Ml Oral.Susp) 30 ml PO DAILY PRN PRN Reason: Constipation Melatonin (Melatonin 3 Mg Tablet) 6 mg PO BEDTIME PRN PRN Reason: Insomnia Pharmacy Consult (Consult Rx Vancomycin Dosing) 1 each MISCELLANE DAILY PRN PRN Reason: Consult order Pravastatin Sodium (Pravastatin Sodium 40 Mg Tablet) 40 mg PO DAILY [facility] Last Admin: 09/20/23 08:17 Dose: 40 mg Sodium Chloride (0.9 % Sodium Chloride Flush 3 Ml Syringe) 3 ml IVFLUSH QSHIFT [facility] Last Admin: 09/20/23 09:28 Dose: Not Given Tamsulosin HCl (Tamsulosin Hcl 0.4 Mg Capsule) 0.4 mg PO BEDTIME [facility] Last Admin: 09/19/23 19:37 Dose: 0.4 mg Timolol Maleate (Timolol Maleate 0.5 % Oph Belkis 5 Ml Drbtl) 1 drop EYE-BOTH BID [facility] Last Admin: 09/20/23 08:17 Dose: 1 drop Home Medications ?Medication ?Instructions ?Recorded ?Confirmed ?Last Taken ?Type latanoprost 0.005 % eye drops 1 drp ophthalmic (eye) BEDTIME 01/05/20 09/18/23 09/16/23 History (Xalatan) pravastatin 40 mg tablet 1 tab PO DAILY 01/05/20 09/18/23 09/16/23 History brinzolamide 1 %-brimonidine 0.2 % 1 drp ophthalmic (eye) BID 08/24/20 09/18/23 09/16/23 History eye drops,suspension (Simbrinza) timolol maleate 0.5 % eye drops 1 drp ophthalmic (eye) BID 09/18/23 09/18/23 09/16/23 History Physical Exam 2 Vital Signs: Vital Signs: Last Vital Signs Temp 97.6 F 09/20/23 08:00 Pulse 71 09/20/23 12:21 Resp 19 09/20/23 08:00 BP 119/56 L 09/20/23 12:21 Pulse Ox 96 09/20/23 12:21 O2 Del Method Room Air 09/20/23 08:00 BMI result Body Mass Index 21.3 Const: General: cooperative, healthy appearing, comfortable and no acute distress Orientation/consciousness: patient oriented x3 HEENT: Face and sinus: Yes normal facial exam Mouth: moist mucous membranes Neck: Neck: Yes normal visual inspection, Yes full ROM and Yes trachea midline Chest: Chest palpation & inspection: normal inspection of the chest Resp: Effort & Inspection: normal respiratory effort, able to speak in complete sentences and no respiratory distress GI: Inspection: Yes normal to inspection Back/Spine/Pelvis: Cervical Spine: normal cervical lordosis Thoracic/Lumbar Spine: thoracic and lumbar spine normal to inspection Skin: General skin exam: no rashes or lesions noted Neuro: General: patient oriented x3, tone normal and moves all extremities Extrem: General: Yes normal to inspection and Yes capillary refill normal Results Labs 09/20/23 05:28 09/20/23 05:28 Labs: Abnormal lab results 09/20/23 Range/Units 05:28 RBC 3.94 L (4.60-5.80) X10*6/uL Hgb 10.7 L (14.0-18.0) g/dl Hct 32.2 L (42.0-52.0) % Chloride 110 H (96-108) mmol/L Carbon Dioxide 19 L (22-29) mmol/L Anion Gap 10 L (12-20) BUN 48 H (9-16) mg/dL Calcium 8.1 L D (8.4-10.2) mg/dL Short CBC 09/20/23 Range/Units 05:28 WBC 8.3 (4.8-10.8) X10*3/uL Hgb 10.7 L (14.0-18.0) g/dl Hct 32.2 L (42.0-52.0) % Plt Count 194 (160-400) X10*3/uL BMP 09/20/23 05:28 Sodium 136 Potassium 3.4 Chloride 110 H Carbon Dioxide 19 L BUN 48 H Creatinine 1.19 Calcium 8.1 L D Urine 09/18/23 Range/Units 11:53 Urine Color RED Urine Appearance Turbid Urine pH 8.5 (5.0-9.0) Ur Specific [place] 1.015 (1.005-1.025) Urine Protein 300 (3+) H (Neg-Trace) mg/dL Urine Glucose (UA) Negative (Negative) mg/dL All other labs normal. Assessment and Plan (1) Hematuria: Status: Acute (2) Bilateral hydronephrosis: Status: Acute (3) Hypotonic neurogenic bladder: Status: Acute Plan Cystoscopy with suprapubic tube placement Procedures Date of Service Date of Service: 09/20/23
[2023-09-20 15:13] VITALS: BP 120/58; PULSE 78; RESP 18; TEMP 36.5; O2SAT 97
[2023-09-20] MEDS: 0.9 % Sodium Chloride Flush 3 ML SYRINGE IVFLUSH ×2 (16:19→22:23)
[2023-09-20 19:41] VITALS: BP 129/60; PULSE 80; RESP 18; TEMP 37.2; O2SAT 94
[2023-09-20] MEDS: Tamsulosin HCL 0.4 MG CAPSULE PO (19:50)
[2023-09-20] MEDS: Latanoprost 0.005 % Ophth Sol 2.5 ML DROPS 1 DROP EYE-BOTH (19:52)
[2023-09-20 21:07] LABS: Vancomycin Random 9.3 mcg/mL (15-20)
[2023-09-20] MEDS: Melatonin 3 MG TABLET 6 MG PO (22:12)
[2023-09-20] MEDS: vancomycin HCL 1,500 MG in 0.9 % Sodium Chloride 500 ML 333.33 MG IV (22:14)
[2023-09-20 23:40] VITALS: BP 134/60; PULSE 69; RESP 16; TEMP 36.3; O2SAT 96
[2023-09-21 06:33] LABS: Hematocrit 32.3 % (42.0-52.0); Hemoglobin 10.8 g/dl (14.0-18.0); Mean Corpuscular HGB Conc 33.4 g/dl (31.0-36.0); Mean Corpuscular Hemoglobin 27.1 pg (27.0-33.0); Mean Corpuscular Volume 81.2 fL (80.0-98.0); Mean Platelet Volume 10.1 fL (9.4-12.4); Platelet Count 192 X10*3/uL (160-400); Red Blood Count 3.98 X10*6/uL (4.60-5.80); Red Cell Distribution Width 14.6 % (11.0-16.0); White Blood Count 9.7 X10*3/uL (4.8-10.8)
[2023-09-21 06:50] LABS: Anion Gap 10 (12-20); Blood Urea Nitrogen 40 mg/dL (9-16); Carbon Dioxide 21 mmol/L (22-29); Chloride 109 mmol/L (96-108); Estimated Glomerular Filt Rate > 60; Glucose Random 107 mg/dL (60-115); Potassium 3.3 mmol/L (3.3-5.1); Sodium 137 mmol/L (135-145)
[2023-09-21 07:24] VITALS: BP 129/61; PULSE 71; RESP 18; TEMP 36.2; O2SAT 95
[2023-09-21] MEDS: Pravastatin Sodium 40 MG TABLET PO (08:50)
[2023-09-21] MEDS: Finasteride 5 MG TABLET PO (08:50)
[2023-09-21] MEDS: Dorzolamide HCl 2 % Ophth Sol 10 ML DRPBTL 1 DROP EYE-BOTH ×2 (08:50→22:05)
[2023-09-21] MEDS: 0.9 % Sodium Chloride Flush 3 ML SYRINGE IVFLUSH ×3 (08:51→22:06)
[2023-09-21] MEDS: timoloL maleate 0.5 % Oph Sol 5 ML DRBTL 1 DROP EYE-BOTH ×2 (08:51→22:05)
[2023-09-21] MEDS: Brimonidine Tartrate 0.2% Oph 5 ML BOTTLE 1 DROP EYE-BOTH ×2 (08:51→22:05)
[2023-09-21] MEDS: cefTRIAXone sodium 1 GM in 0.9 % Sodium Chloride 50 ML IV (10:51)
--- NOTE | 2023-09-21 12:38 | P.PNIM_ITS ---
Subjective Subjective Date of Service: 09/21/23 Interval History: Seen and evaluated this morning alert and interactive still having hematuria NATE resolved no other overnight events Review of Systems Review of Systems: Yes all other systems are reviewed and are negative Physical Exam 2 Vital Signs: Vital Signs: Last Vital Signs Temp 97.2 F 09/21/23 07:24 Pulse 71 09/21/23 07:24 Resp 18 09/21/23 07:24 BP 129/61 09/21/23 07:24 Pulse Ox 95 09/21/23 07:24 O2 Del Method Room Air 09/21/23 07:24 BMI result Body Mass Index 21.3 Const: Other: Constitutional : Awake, interactive, not in distress Neck : Normal inspection, Supple Cardiovascular : RRR, no JVP, no lower extremity edema Respiratory : good bilateral air entry, no crackles, wheezes or rhonchi Gastrointestinal: soft, lax, Normal bowel sounds, Non tender Skin : Warm, Dry, buttock stage 1 pressure wound Urology: Hematuria with no clots Neurological : Alert & oriented x3, No focal deficit Objective Data Active Medications Acetaminophen (Acetaminophen 325 Mg Tablet) 650 mg PO Q6H PRN PRN Reason: Pain, Mild (Pain Scale 1-3), fever or headache Al Hydroxide/Mg Hydroxide (Magnesium Hydrox/Alum Hydrox 30 Ml Oral.Susp) 30 ml PO Q4H PRN PRN Reason: Dyspepsia Last Admin: 09/19/23 18:40 Dose: 30 ml Documented By: EZEQUIEL Brimonidine Tartrate (Brimonidine Tartrate 0.2% Oph 5 Ml Bottle) 1 drop EYE- BOTH BID [facility] Last Admin: 09/21/23 08:51 Dose: 1 drop Documented By: JR Calcium Carbonate (Calcium Carbonate 750 Mg Tab.Chew) 750 mg PO Q4H PRN PRN Reason: Heartburn Dorzolamide HCl (Dorzolamide Hcl 2 % Ophth Belkis 10 Ml Drpbtl) 1 drop EYE-BOTH BID [facility] Last Admin: 09/21/23 08:50 Dose: 1 drop Documented By: JR Finasteride (Finasteride 5 Mg Tablet) 5 mg PO DAILY [facility] Last Admin: 09/21/23 08:50 Dose: 5 mg Documented By: JR Ceftriaxone Sodium 1 gm/ (Sodium Chloride) 50 mls @ 100 mls/hr IV Q24H [facility] Last Infusion: 09/21/23 11:48 Dose: Infused Documented By: JR Vancomycin HCl 1,500 mg/ (Sodium Chloride) 500 mls @ 333.333 mls/hr IV Q24H [facility] Last Infusion: 09/20/23 23:45 Dose: Infused Documented By: KAROL Latanoprost (Latanoprost 0.005 % Ophth Belkis 2.5 Ml Drops) 1 drop EYE-BOTH BEDTIME [facility] Last Admin: 09/20/23 19:52 Dose: 1 drop Documented By: KAROL Magnesium Hydroxide (Milk Of Magnesia 30 Ml Oral.Susp) 30 ml PO DAILY PRN PRN Reason: Constipation Melatonin (Melatonin 3 Mg Tablet) 6 mg PO BEDTIME PRN PRN Reason: Insomnia Last Admin: 09/20/23 22:12 Dose: 6 mg Documented By: KAROL Pharmacy Consult (Consult Rx Vancomycin Dosing) 1 each MISCELLANE DAILY PRN PRN Reason: Consult order Pravastatin Sodium (Pravastatin Sodium 40 Mg Tablet) 40 mg PO DAILY [facility] Last Admin: 09/21/23 08:50 Dose: 40 mg Documented By: JR Sodium Chloride (0.9 % Sodium Chloride Flush 3 Ml Syringe) 3 ml IVFLUSH QSHIFT [facility] Last Admin: 09/21/23 08:51 Dose: 3 ml Documented By: JR Tamsulosin HCl (Tamsulosin Hcl 0.4 Mg Capsule) 0.4 mg PO BEDTIME [facility] Last Admin: 09/20/23 19:50 Dose: 0.4 mg Documented By: KAROL Timolol Maleate (Timolol Maleate 0.5 % Oph Belkis 5 Ml Drbtl) 1 drop EYE-BOTH BID [facility] Last Admin: 09/21/23 08:51 Dose: 1 drop Documented By: JR Labs 09/21/23 05:40 09/21/23 05:40 Labs: Laboratory Results - last 24 hr 09/20/23 09/21/23 20:43 05:40 MCV 81.2 MCH 27.1 MCHC 33.4 RDW 14.6 Plt Count 192 MPV 10.1 Absolute Nucleated RBC 0.000 Nucleated RBC % (auto) 0.0 Anion Gap 10 L Estim Creat Clear Calc 51.0 Estimated GFR > 60 Random Glucose 107 Calcium 8.0 L Random Vancomycin 9.3 L Microbiology Microbiology Results: Microbiology 09/18/23 10:11 Blood Culture - Preliminary Blood - Venous Proteus mirabilis Prelim: GPC Gram Stain only 09/19/23 07:57 Blood Culture - Preliminary Blood - Venous No growth after 24 hours. 09/19/23 07:54 Blood Culture - Preliminary Blood - Venous No growth after 24 hours. Assessment and Plan (1) Hematuria: Status: Acute (2) Bacteremia: Status: Acute (3) Pressure ulcer of back: Status: Acute (4) NATE (acute kidney injury): Status: Acute Plan An 88-year-old male with a history of rectal cancer, chronic urinary retention, and a recent deep vein thrombosis (DVT) on Eliquis here with UTI, NATE, recent fall Bacteremia GPC and GNR likely 2/2 UTI complicated with acute toxic metabolic encephalopathy in setting of bladder outlet obstruction and straight cath usage encephalopathy improving continue Ceftriaxone and Vancomycin repeat blood cultrues pending , GPC could be contaminent follow sensitivity Vancomycin trough NATE on CKD3 complicated with Metabolic acidosis resolved hold nephrotoxic follow BMP Acute lactic acidosis not due to sepsis, d/t dehydration and renal failure, resolved Hematuria, acute possibly d/t cystitis, monitor, hold eliquis for now Urology to place SPC by Saturday h/o DVT hold eliquis for hematuria pending Urology evaluation HLD--statin BPH--finesteride, Flomax Glaucome --eye drops Stage 1 Pressure wound d/t imobility, surgery input appreciated, wound care and rotation Fall--head CT, Cervical spine CT Ok, PT eval, fall precaution DVT prophyaxis: SCDs d/t hematuria Needs overnight hospital stay for treatment of bacteremia pending final blood cultures, UTI with metabolic encephalopath, NATE neeeding IVF and intervention by Saturday Quality Stroke Does the patient have a stroke diagnosis?: No VTE Prior VTE?: No VTE Risk Level:: Medical - moderate - high VTE Device Contraindication: N/A - Device Ordered VTE Drug Contraindication: Treatment Not Tolerated
[2023-09-21 15:39] VITALS: BP 122/60; PULSE 70; RESP 14; TEMP 36.4; O2SAT 96
[2023-09-21 21:25] LABS: Vancomycin Random 11.7 mcg/mL (15-20)
[2023-09-21] MEDS: vancomycin HCL 1,000 MG in 0.9 % Sodium Chloride 250 ML 270 MG IV (22:04)
[2023-09-21] MEDS: Tamsulosin HCL 0.4 MG CAPSULE PO (22:04)
[2023-09-21] MEDS: Melatonin 3 MG TABLET 6 MG PO (22:04)
[2023-09-21] MEDS: Latanoprost 0.005 % Ophth Sol 2.5 ML DROPS 1 DROP EYE-BOTH (22:05)
[2023-09-21 23:19] VITALS: BP 132/76; PULSE 76; RESP 16; TEMP 37.1; O2SAT 98
[2023-09-22 07:25] VITALS: BP 123/60; PULSE 71; RESP 14; TEMP 36.9; O2SAT 95
[2023-09-22] MEDS: Pravastatin Sodium 40 MG TABLET PO (07:42)
[2023-09-22] MEDS: Finasteride 5 MG TABLET PO (07:42)
[2023-09-22] MEDS: 0.9 % Sodium Chloride Flush 3 ML SYRINGE IVFLUSH ×3 (07:43→22:31)
[2023-09-22] MEDS: Dorzolamide HCl 2 % Ophth Sol 10 ML DRPBTL 1 DROP EYE-BOTH ×2 (07:46→19:18)
[2023-09-22] MEDS: Brimonidine Tartrate 0.2% Oph 5 ML BOTTLE 1 DROP EYE-BOTH ×2 (07:47→19:18)
[2023-09-22 07:48] LABS: Creatinine Clr Calc Pharmacy 55.4; Estimated Glomerular Filt Rate > 60
[2023-09-22] MEDS: timoloL maleate 0.5 % Oph Sol 5 ML DRBTL 1 DROP EYE-BOTH ×2 (07:48→19:18)
--- NOTE | 2023-09-22 09:05 | HO.PM.IMPN ---
Subjective Subjective Date of Service: 09/22/23 Interval History: Seen and evaluated this morning still having hematuria from the crews no other overnight events Review of Systems Review of Systems: Yes all other systems are reviewed and are negative Physical Exam Vital Signs: Vital Signs: Last Vital Signs Temp 98.5 F 09/22/23 07:25 Pulse 71 09/22/23 07:25 Resp 14 09/22/23 07:25 BP 123/60 09/22/23 07:25 Pulse Ox 95 09/22/23 07:25 O2 Del Method Room Air 09/22/23 07:25 BMI result Body Mass Index 21.3 Const: Other: Constitutional : Awake, interactive, not in distress Neck : Normal inspection, Supple Cardiovascular : RRR, no JVP, no lower extremity edema Respiratory : good bilateral air entry, no crackles, wheezes or rhonchi Gastrointestinal: soft, lax, Normal bowel sounds, Non tender Skin : Warm, Dry, buttock stage 1 pressure wound Urology: Hematuria with no clots Neurological : Alert & oriented x3, No focal deficit Objective Data Active Medications Acetaminophen (Acetaminophen 325 Mg Tablet) 650 mg PO Q6H PRN PRN Reason: Pain, Mild (Pain Scale 1-3), fever or headache Al Hydroxide/Mg Hydroxide (Magnesium Hydrox/Alum Hydrox 30 Ml Oral.Susp) 30 ml PO Q4H PRN PRN Reason: Dyspepsia Last Admin: 09/19/23 18:40 Dose: 30 ml Documented By: EZEQUIEL Brimonidine Tartrate (Brimonidine Tartrate 0.2% Oph 5 Ml Bottle) 1 drop EYE-BOTH BID [facility] Last Admin: 09/22/23 07:47 Dose: 1 drop Documented By: CARLOS ENRIQUE Calcium Carbonate (Calcium Carbonate 750 Mg Tab.Chew) 750 mg PO Q4H PRN PRN Reason: Heartburn Dorzolamide HCl (Dorzolamide Hcl 2 % Ophth Belkis 10 Ml Drpbtl) 1 drop EYE-BOTH BID [facility] Last Admin: 09/22/23 07:46 Dose: 1 drop Documented By: CARLOS ENRIQUE Finasteride (Finasteride 5 Mg Tablet) 5 mg PO DAILY [facility] Last Admin: 09/22/23 07:42 Dose: 5 mg Documented By: CARLOS ENRIQUE Ceftriaxone Sodium 1 gm/ (Sodium Chloride) 50 mls @ 100 mls/hr IV Q24H [facility] Last Infusion: 09/21/23 11:48 Dose: Infused Documented By: JR Latanoprost (Latanoprost 0.005 % Ophth Belkis 2.5 Ml Drops) 1 drop EYE-BOTH BEDTIME [facility] Last Admin: 09/21/23 22:05 Dose: 1 drop Documented By: BARRIE Magnesium Hydroxide (Milk Of Magnesia 30 Ml Oral.Susp) 30 ml PO DAILY PRN PRN Reason: Constipation Melatonin (Melatonin 3 Mg Tablet) 6 mg PO BEDTIME PRN PRN Reason: Insomnia Last Admin: 09/21/23 22:04 Dose: 6 mg Documented By: BARRIE Pravastatin Sodium (Pravastatin Sodium 40 Mg Tablet) 40 mg PO DAILY [facility] Last Admin: 09/22/23 07:42 Dose: 40 mg Documented By: CARLOS ENRIQUE Sodium Chloride (0.9 % Sodium Chloride Flush 3 Ml Syringe) 3 ml IVFLUSH QSHIFT [facility] Last Admin: 09/22/23 07:43 Dose: 3 ml Documented By: CARLOS ENRIQUE Tamsulosin HCl (Tamsulosin Hcl 0.4 Mg Capsule) 0.4 mg PO BEDTIME [facility] Last Admin: 09/21/23 22:04 Dose: 0.4 mg Documented By: BARRIE Timolol Maleate (Timolol Maleate 0.5 % Oph Belkis 5 Ml Drbtl) 1 drop EYE-BOTH BID [facility] Last Admin: 09/22/23 07:48 Dose: 1 drop Documented By: CARLOS ENRIQUE Labs 09/21/23 05:40 09/22/23 05:56 Labs: Laboratory Results - last 24 hr 09/21/23 09/22/23 21:00 05:56 Hold Purple Top SEE NOTE Estim Creat Clear Calc 55.4 Estimated GFR > 60 Random Vancomycin 11.7 L Microbiology Microbiology Results: Microbiology 09/18/23 10:11 Blood Culture - Final Blood - Venous Proteus mirabilis Coag negative Staphylococcus 09/19/23 07:57 Blood Culture - Preliminary Blood - Venous No growth after 48 hours. 09/19/23 07:54 Blood Culture - Preliminary Blood - Venous No growth after 48 hours. Assessment and Plan (1) Hematuria: Status: Acute (2) Bacteremia: Status: Acute (3) Pressure ulcer of back: Status: Acute Plan An 88-year-old male with a history of rectal cancer, chronic urinary retention, and a recent deep vein thrombosis (DVT) on Eliquis here with UTI, NATE, recent fall Proteus Bacteremia 2/2 UTI complicated with acute toxic metabolic encephalopathy in setting of bladder outlet obstruction and straight cath usage encephalopathy improved continue Ceftriaxone DC Vancomycin , Coag -ve staph, contaminent repeat blood cultrues negative follow sensitivity NATE on CKD3 complicated with Metabolic acidosis resolved hold nephrotoxic follow BMP Acute lactic acidosis not due to sepsis, d/t dehydration and renal failure, resolved Hematuria, acute possibly d/t cystitis, monitor, hold eliquis for now Urology to do cystoscopy place SPC by Saturday NPO post midnight h/o DVT hold eliquis for hematuria pending Urology evaluation HLD--statin BPH--finesteride, Flomax Glaucome --eye drops Stage 1 Pressure wound d/t imobility, surgery input appreciated, wound care and rotation Fall--head CT, Cervical spine CT Ok, PT eval, fall precaution DVT prophyaxis: SCDs d/t hematuria Needs overnight hospital stay for treatment of bacteremia , UTI , with a planned urology intervention by Saturday Quality Stroke Does the patient have a stroke diagnosis?: No VTE Prior VTE?: No VTE Risk Level:: Medical - moderate - high VTE Device Contraindication: N/A - Device Ordered VTE Drug Contraindication: Treatment Not Tolerated
[2023-09-22] MEDS: cefTRIAXone sodium 1 GM in 0.9 % Sodium Chloride 50 ML IV (10:04)
[2023-09-22 15:07] VITALS: BP 110/59; PULSE 71; RESP 16; TEMP 36.4; O2SAT 96
[2023-09-22] MEDS: Latanoprost 0.005 % Ophth Sol 2.5 ML DROPS 1 DROP EYE-BOTH (19:18)
[2023-09-22] MEDS: Tamsulosin HCL 0.4 MG CAPSULE PO (20:56)
[2023-09-22] MEDS: Melatonin 3 MG TABLET 6 MG PO (20:56)
[2023-09-22 21:47] LABS: Vancomycin Random 11.3 mcg/mL (15-20)
[2023-09-23] VITALS (12 sets, daily range): BP systolic 96–127; BP diastolic 37–60; PULSE 61–84; RESP 12–20; TEMP 36.1–36.3; O2SAT 95–98
[2023-09-23 05:57] LABS: Hematocrit 34.2 % (42.0-52.0); Hemoglobin 11.6 g/dl (14.0-18.0); Mean Corpuscular HGB Conc 33.9 g/dl (31.0-36.0); Mean Corpuscular Hemoglobin 27.6 pg (27.0-33.0); Mean Corpuscular Volume 81.2 fL (80.0-98.0); Mean Platelet Volume 9.5 fL (9.4-12.4); Platelet Count 226 X10*3/uL (160-400); Red Blood Count 4.21 X10*6/uL (4.60-5.80); Red Cell Distribution Width 14.4 % (11.0-16.0); White Blood Count 12.7 X10*3/uL (4.8-10.8)
[2023-09-23 06:09] LABS: Anion Gap 13 (12-20); Blood Urea Nitrogen 30 mg/dL (9-16); Calcium 8.2 mg/dL (8.4-10.2); Carbon Dioxide 25 mmol/L (22-29); Chloride 105 mmol/L (96-108); Creatinine Clr Calc Pharmacy 57.3; Estimated Glomerular Filt Rate > 60; Glucose Random 114 mg/dL (60-115); Potassium 3.7 mmol/L (3.3-5.1); Sodium 139 mmol/L (135-145)
[2023-09-23] MEDS: 0.9 % Sodium Chloride Flush 3 ML SYRINGE IVFLUSH ×2 (08:54→22:10)
[2023-09-23] MEDS: Pravastatin Sodium 40 MG TABLET PO (08:54)
[2023-09-23] MEDS: Finasteride 5 MG TABLET PO (08:54)
[2023-09-23] MEDS: timoloL maleate 0.5 % Oph Sol 5 ML DRBTL 1 DROP EYE-BOTH ×2 (08:55→22:11)
[2023-09-23] MEDS: Brimonidine Tartrate 0.2% Oph 5 ML BOTTLE 1 DROP EYE-BOTH ×2 (08:55→22:11)
[2023-09-23] MEDS: Dorzolamide HCl 2 % Ophth Sol 10 ML DRPBTL 1 DROP EYE-BOTH ×2 (08:55→22:11)
--- NOTE | 2023-09-23 09:03 | MHC.CLN ---
F/U NPO TODAY FOR PROCEDURE. PRIOR PO 25-100%. SKIN WITH DTI BUTTOCKS. WHEN ABLE, RESUME REGULAR DIET WITH ENSURE TID. SUPPLEMENT APPROPRIATE TO PROMOTE WOUND HEALING.
--- NOTE | 2023-09-23 09:12 | P.PNIM_ITS ---
Subjective Subjective Date of Service: 09/23/23 Interval History: Seen and evaluated this morning still having hematuria from the crews plan for cystoscopy today no other overnight events Review of Systems Review of Systems: Yes all other systems are reviewed and are negative Physical Exam 2 Vital Signs: Vital Signs: Last Vital Signs Temp 96.9 F 09/23/23 08:15 Pulse 71 09/23/23 08:15 Resp 12 09/23/23 08:17 BP 111/56 L 09/23/23 08:17 Pulse Ox 98 09/23/23 08:17 O2 Del Method Room Air 09/23/23 08:17 BMI result Body Mass Index 21.3 Const: Other: Constitutional : Awake, interactive, not in distress Neck : Normal inspection, Supple Cardiovascular : RRR, no JVP, no lower extremity edema Respiratory : good bilateral air entry, no crackles, wheezes or rhonchi Gastrointestinal: soft, lax, Normal bowel sounds, Non tender Skin : Warm, Dry, buttock stage 1 pressure wound Urology: Hematuria with no clots Neurological : Alert & oriented x3, No focal deficit Objective Data Active Medications Acetaminophen (Acetaminophen 325 Mg Tablet) 650 mg PO Q6H PRN PRN Reason: Pain, Mild (Pain Scale 1-3), fever or headache Al Hydroxide/Mg Hydroxide (Magnesium Hydrox/Alum Hydrox 30 Ml Oral.Susp) 30 ml PO Q4H PRN PRN Reason: Dyspepsia Last Admin: 09/19/23 18:40 Dose: 30 ml Documented By: EZEQUIEL Brimonidine Tartrate (Brimonidine Tartrate 0.2% Oph 5 Ml Bottle) 1 drop [facility]- B[facility] BID [facility] Last Admin: 09/23/23 08:55 Dose: 1 drop Documented By: NICOLÁS Calcium Carbonate (Calcium Carbonate 750 Mg Tab.Chew) 750 mg PO Q4H PRN PRN Reason: Heartburn Dorzolamide HCl (Dorzolamide Hcl 2 % Ophth Belkis 10 Ml Drpbtl) 1 drop [facility]-BOTH BID [facility] Last Admin: 09/23/23 08:55 Dose: 1 drop Documented By: NICOLÁS Finasteride (Finasteride 5 Mg Tablet) 5 mg PO DAILY [facility] Last Admin: 09/23/23 08:54 Dose: 5 mg Documented By: NICOLÁS Ceftriaxone Sodium 1 gm/ (Sodium Chloride) 50 mls @ 100 mls/hr IV Q24H [facility] Last Infusion: 09/22/23 10:39 Dose: Infused Documented By: CARLOS ENRIQUE Latanoprost (Latanoprost 0.005 % Ophth Belkis 2.5 Ml Drops) 1 drop EYE-BOTH BEDTIME [facility] Last Admin: 09/22/23 19:18 Dose: 1 drop Documented By: KAROL Magnesium Hydroxide (Milk Of Magnesia 30 Ml Oral.Susp) 30 ml PO DAILY PRN PRN Reason: Constipation Melatonin (Melatonin 3 Mg Tablet) 6 mg PO BEDTIME PRN PRN Reason: Insomnia Last Admin: 09/22/23 20:56 Dose: 6 mg Documented By: KAROL Pravastatin Sodium (Pravastatin Sodium 40 Mg Tablet) 40 mg PO DAILY [facility] Last Admin: 09/23/23 08:54 Dose: 40 mg Documented By: NICOLÁS Sodium Chloride (0.9 % Sodium Chloride Flush 3 Ml Syringe) 3 ml IVFLUSH QSHIFT [facility] Last Admin: 09/23/23 08:54 Dose: 3 ml Documented By: NICOLÁS Tamsulosin HCl (Tamsulosin Hcl 0.4 Mg Capsule) 0.4 mg PO BEDTIME [facility] Last Admin: 09/22/23 20:56 Dose: 0.4 mg Documented By: KAROL Timolol Maleate (Timolol Maleate 0.5 % Oph Belkis 5 Ml Drbtl) 1 drop [facility]-BOTH BID [facility] Last Admin: 09/23/23 08:55 Dose: 1 drop Documented By: NICOLÁS Labs 09/23/23 05:26 09/23/23 05:26 Labs: Laboratory Results - last 24 hr 09/22/23 09/23/23 21:07 05:26 MCV 81.2 MCH 27.6 MCHC 33.9 RDW 14.4 Plt Count 226 MPV 9.5 Absolute Nucleated RBC 0.000 Nucleated RBC % (auto) 0.0 Anion Gap 13 Estim Creat Clear Calc 57.3 Estimated GFR > 60 Random Glucose 114 Calcium 8.2 L Random Vancomycin 11.3 L Microbiology Microbiology Results: Microbiology 09/18/23 10:11 Blood Culture - Final Blood - Venous Proteus mirabilis Coag negative Staphylococcus Assessment and Plan (1) Hematuria: Status: Acute (2) Bacteremia: Status: Acute (3) Pressure ulcer of back: Status: Acute Plan An 88-year-old male with a history of rectal cancer, chronic urinary retention, and a recent deep vein thrombosis (DVT) on Eliquis here with UTI, NATE, recent fall Hematuria, acute possibly d/t cystitis, monitor, hold eliquis for now Urology to do cystoscopy today NPO Proteus Bacteremia 2/2 UTI complicated with acute toxic metabolic encephalopathy in setting of bladder outlet obstruction and straight cath usage encephalopathy improved continue Ceftriaxone 09/17 DC Vancomycin , Coag -ve staph, contaminent repeat blood cultrues negative follow sensitivity NATE on CKD3 complicated with Metabolic acidosis resolved hold nephrotoxic follow BMP Acute lactic acidosis not due to sepsis, d/t dehydration and renal failure, resolved h/o DVT hold eliquis for hematuria pending Urology evaluation HLD--statin BPH--finesteride, Flomax Glaucome --eye drops Stage 1 Pressure wound d/t imobility, surgery input appreciated, wound care and rotation Fall--head CT, Cervical spine CT Ok, PT eval, fall precaution DVT prophyaxis: SCDs d/t hematuria Needs overnight hospital stay for treatment of bacteremia , UTI , with a planned urology intervention Quality Stroke Does the patient have a stroke diagnosis?: No VTE Prior VTE?: No VTE Risk Level:: Medical - moderate - high VTE Device Contraindication: N/A - Device Ordered VTE Drug Contraindication: Treatment Not Tolerated
[2023-09-23] MEDS: cefTRIAXone sodium 1 GM in 0.9 % Sodium Chloride 50 ML IV (11:09)
[2023-09-23] MEDS: Lactated Ringers 1,000 ML 80 ML IVCONT (13:37)
--- NOTE | 2023-09-23 13:42 | PC.NURSE ---
Patient in preop. Current BB on patient is . Per Dr. Wong, no repeat necessary in preop.
--- NOTE | 2023-09-23 13:45 | MHC.CM.PN ---
per rounds pt is to have a cysto today dc plan remains home no services with family
--- NOTE | 2023-09-23 13:56 | P.CONAN_ITS ---
HPI - Anesthesia Eval Consult details Narrative: for cysto, suprapubic tube PMFSH Active Problems Active Problems: All Active Problems Hematuria (Acute) Bacteremia (Acute) Pressure ulcer of back (Acute) NATE (acute kidney injury) (Acute) Urinary tract infection (Acute) Hydroureter (Acute) Bilateral hydronephrosis (Acute) Hypotonic neurogenic bladder (Acute) Soft tissue mass (Acute) Rectal adenocarcinoma (Chronic) Incomplete emptying of bladder (Acute) Past Medical History Medical History Pressure ulcer of back Soft tissue mass Incomplete emptying of bladder Dysuria Pyuria H/O urinary retention Rectal adenocarcinoma Melanoma Fibroma Skin cancer Fracture of right ankle Glaucoma Family History Family History Sister Lung cancer Maternal Aunt Breast cancer Mother Breast cancer Family history of problems with anesthesia: No Surgical History Surgical History History of surgery Hx of abdominoplasty Hx of tonsillectomy Hx of colonoscopy History of Problems with Anesthesia: No Social History Social History Household Members: None Housing: House Are you a primary point of care technician to a significant other at home: No Do you presently have visiting nurse or other home services: No Alcohol intake: former Patient Tobacco Use Status: Former Tobacco user Cigarette Packs Per Day: 3 Use of substances other than those prescribed or required for medical reasons: No Currently Displaying Signs/Symptoms of Drug Intoxication Withdrawal: No Have you been hit, kicked, punched, or otherwise hurt by someone within the past year? If so, by whom?: No Do you feel safe in your current relationship?: No Current Relationship Is there a partner from a previous relationship who is making you feel unsafe now?: No Are you made to feel afraid or neglected: No Are you DNR?: No Advance Directives: No Advance Directives Information Provided: Yes Advance Directives on File: No Do you have a plan to hurt others: No Plan Recently lost weight without trying: No Nutrition Risks: No Nutritional Risk Poor oral hygiene: No service: No Current occupational status: retired Meds Allergies Allergy/AdvReac Type Severity Reaction Status Date / Time No Known Allergies Allergy Verified 09/18/23 09:56 [No Known Allergies*] Active Medications: Current Medications Acetaminophen (Acetaminophen 325 Mg Tablet) 650 mg PO Q6H PRN PRN Reason: Pain, Mild (Pain Scale 1-3), fever or headache Al Hydroxide/Mg Hydroxide (Magnesium Hydrox/Alum Hydrox 30 Ml Oral.Susp) 30 ml PO Q4H PRN PRN Reason: Dyspepsia Last Admin: 09/19/23 18:40 Dose: 30 ml Brimonidine Tartrate (Brimonidine Tartrate 0.2% Oph 5 Ml Bottle) 1 drop EYE- BOTH BID [facility] Last Admin: 09/23/23 08:55 Dose: 1 drop Calcium Carbonate (Calcium Carbonate 750 Mg Tab.Chew) 750 mg PO Q4H PRN PRN Reason: Heartburn Dorzolamide HCl (Dorzolamide Hcl 2 % Ophth Belkis 10 Ml Drpbtl) 1 drop EYE-BOTH BID [facility] Last Admin: 09/23/23 08:55 Dose: 1 drop Finasteride (Finasteride 5 Mg Tablet) 5 mg PO DAILY [facility] Last Admin: 09/23/23 08:54 Dose: 5 mg Ceftriaxone Sodium 1 gm/ (Sodium Chloride) 50 mls @ 100 mls/hr IV Q24H [facility] Last Infusion: 09/23/23 11:45 Dose: Infused Lactated Ringer's (Lr) 1,000 mls @ 80 mls/hr IVCONT .[id number] [facility] Last Admin: 09/23/23 13:37 Dose: 80 mls/hr Latanoprost (Latanoprost 0.005 % Ophth Belkis 2.5 Ml Drops) 1 drop EYE-BOTH BEDTIME [facility] Last Admin: 09/22/23 19:18 Dose: 1 drop Magnesium Hydroxide (Milk Of Magnesia 30 Ml Oral.Susp) 30 ml PO DAILY PRN PRN Reason: Constipation Melatonin (Melatonin 3 Mg Tablet) 6 mg PO BEDTIME PRN PRN Reason: Insomnia Last Admin: 09/22/23 20:56 Dose: 6 mg Pravastatin Sodium (Pravastatin Sodium 40 Mg Tablet) 40 mg PO DAILY [facility] Last Admin: 09/23/23 08:54 Dose: 40 mg Sodium Chloride (0.9 % Sodium Chloride Flush 3 Ml Syringe) 3 ml IVFLUSH QSHIFT [facility] Last Admin: 09/23/23 08:54 Dose: 3 ml Tamsulosin HCl (Tamsulosin Hcl 0.4 Mg Capsule) 0.4 mg PO BEDTIME [facility] Last Admin: 09/22/23 20:56 Dose: 0.4 mg Timolol Maleate (Timolol Maleate 0.5 % Oph Belkis 5 Ml Drbtl) 1 drop EYE-BOTH BID [facility] Last Admin: 09/23/23 08:55 Dose: 1 drop Home Medications ?Medication ?Instructions ?Recorded ?Confirmed ?Last Taken ?Type latanoprost 0.005 % eye drops 1 drp ophthalmic (eye) BEDTIME 01/05/20 09/18/23 09/16/23 History (Xalatan) pravastatin 40 mg tablet 1 tab PO DAILY 01/05/20 09/18/23 09/16/23 History brinzolamide 1 %-brimonidine 0.2 % 1 drp ophthalmic (eye) BID 08/24/20 09/18/23 09/16/23 History eye drops,suspension (Simbrinza) timolol maleate 0.5 % eye drops 1 drp ophthalmic (eye) BID 09/18/23 09/18/23 09/16/23 History Exam Height,Weight and Vital Signs: Height 5 ft 11 in Weight 69.3 kg Last Vital Signs Temp 96.9 F 09/23/23 13:20 Pulse 70 09/23/23 13:20 Resp 16 09/23/23 13:20 BP 96/55 L 09/23/23 13:20 Pulse Ox 96 09/23/23 13:20 O2 Del Method Room Air 09/23/23 13:20 Pertinent Lab Results Pertinent Lab Results: Laboratory Tests 09/18/23 09/18/23 09/18/23 10:11 10:39 11:53 WBC 15.1 H RBC 5.34 D Hgb 14.6 D Hct 43.3 MCV 81.1 MCH 27.3 MCHC 33.7 RDW 14.6 Plt Count 270 MPV 10.0 Immature Gran % (Auto) 0.6 H Neut % (Auto) 87.2 H Lymph % (Auto) 3.7 L [place] % (Auto) 8.3 Eos % (Auto) 0.0 Baso % (Auto) 0.2 Lymph # (Auto) 0.6 L [place] # (Auto) 1.3 H Eos # (Auto) 0.0 Baso # (Auto) 0.0 Abs Immat Gran (auto) 0.09 H Absolute Neuts (auto) 13.2 H Absolute Nucleated RBC 0.000 Nucleated RBC % (auto) 0.0 Hold Purple Top VBG pH VBG pCO2 VBG pO2 VBG HCO3 VBG O2 Saturation VBG Base Excess Sodium 133 L Potassium 5.4 H D Chloride 105 Carbon Dioxide 13 L Anion Gap 20 BUN 80 H Creatinine 2.85 H Estim Creat Clear Calc 17.8 Estimated GFR 21 Random Glucose 175 H Lactic Acid 2.8 H* Lactic Acid F/U @ 2Hr Calcium 9.1 Magnesium 2.6 Total Bilirubin 1.1 H Direct Bilirubin 0.2 AST 26 ALT 14 Alkaline Phosphatase 100 Total Creatine Kinase 94 Total Protein 7.9 Albumin 3.4 L Urine Color RED Urine Appearance Turbid Urine pH 8.5 Ur Specific [place] 1.015 Urine Protein 300 (3+) H Urine Glucose (UA) Negative Urine Ketones Trace Urine Blood Large (3+) H Urine Nitrite Positive H Ur Leukocyte Esterase Large (3+) H Urine RBC >20 H Urine WBC >50 H Ur Squamous Epith Cells 11-20 Urine Bacteria 4+ Hyaline Casts >20 Random Vancomycin Blood Type Antibody Screen 09/18/23 09/18/23 09/18/23 13:37 13:39 23:08 WBC 12.0 H RBC 4.88 Hgb 13.3 L Hct 39.9 L MCV 81.8 MCH 27.3 MCHC 33.3 RDW 14.6 Plt Count 252 MPV 10.1 Immature Gran % (Auto) Neut % (Auto) Lymph % (Auto) [place] % (Auto) Eos % (Auto) Baso % (Auto) Lymph # (Auto) [place] # (Auto) Eos # (Auto) Baso # (Auto) Abs Immat Gran (auto) Absolute Neuts (auto) Absolute Nucleated RBC 0.000 Nucleated RBC % (auto) 0.0 Hold Purple Top VBG pH 7.36 VBG pCO2 29 VBG pO2 39 VBG HCO3 16 L VBG O2 Saturation 55.0 VBG Base Excess -7.2 Sodium 139 Potassium 4.0 D Chloride 109 H Carbon Dioxide 17 L Anion Gap 17 BUN 73 H Creatinine 2.48 H Estim Creat Clear Calc 20.5 Estimated GFR 25 Random Glucose 143 H Lactic Acid Lactic Acid F/U @ 2Hr 1.6 Calcium 8.5 D Magnesium Total Bilirubin Direct Bilirubin AST ALT Alkaline Phosphatase Total Creatine Kinase Total Protein Albumin Urine Color Urine Appearance Urine pH Ur Specific [place] Urine Protein Urine Glucose (UA) Urine Ketones Urine Blood Urine Nitrite Ur Leukocyte Esterase Urine RBC Urine WBC Ur Squamous Epith Cells Urine Bacteria Hyaline Casts Random Vancomycin Blood Type O Positive Antibody Screen NEGATIVE 09/19/23 09/20/23 09/20/23 06:03 05:28 20:43 WBC 8.3 RBC 3.94 L Hgb 10.7 L Hct 32.2 L MCV 81.7 MCH 27.2 MCHC 33.2 RDW 14.5 Plt Count 194 MPV 10.4 Immature Gran % (Auto) Neut % (Auto) Lymph % (Auto) [place] % (Auto) Eos % (Auto) Baso % (Auto) Lymph # (Auto) [place] # (Auto) Eos # (Auto) Baso # (Auto) Abs Immat Gran (auto) Absolute Neuts (auto) Absolute Nucleated RBC 0.000 Nucleated RBC % (auto) 0.0 Hold Purple Top SEE NOTE VBG pH VBG pCO2 VBG pO2 VBG HCO3 VBG O2 Saturation VBG Base Excess Sodium 139 136 Potassium 3.8 3.4 Chloride 110 H 110 H Carbon Dioxide 16 L 19 L Anion Gap 17 10 L BUN 64 H 48 H Creatinine 1.72 H 1.19 Estim Creat Clear Calc 29.6 42.8 Estimated GFR 38 58 Random Glucose 119 H 104 Lactic Acid Lactic Acid F/U @ 2Hr Calcium 8.7 8.1 L D Magnesium Total Bilirubin 0.7 Direct Bilirubin AST 37 ALT 32 Alkaline Phosphatase 85 Total Creatine Kinase Total Protein 6.1 L Albumin 2.8 L Urine Color Urine Appearance Urine pH Ur Specific [place] Urine Protein Urine Glucose (UA) Urine Ketones Urine Blood Urine Nitrite Ur Leukocyte Esterase Urine RBC Urine WBC Ur Squamous Epith Cells Urine Bacteria Hyaline Casts Random Vancomycin 9.3 L Blood Type Antibody Screen 09/21/23 09/21/23 09/22/23 05:40 21:00 05:56 WBC 9.7 RBC 3.98 L Hgb 10.8 L Hct 32.3 L MCV 81.2 MCH 27.1 MCHC 33.4 RDW 14.6 Plt Count 192 MPV 10.1 Immature Gran % (Auto) Neut % (Auto) Lymph % (Auto) [place] % (Auto) Eos % (Auto) Baso % (Auto) Lymph # (Auto) [place] # (Auto) Eos # (Auto) Baso # (Auto) Abs Immat Gran (auto) Absolute Neuts (auto) Absolute Nucleated RBC 0.000 Nucleated RBC % (auto) 0.0 Hold Purple Top SEE NOTE VBG pH VBG pCO2 VBG pO2 VBG HCO3 VBG O2 Saturation VBG Base Excess Sodium 137 Potassium 3.3 Chloride 109 H Carbon Dioxide 21 L Anion Gap 10 L BUN 40 H Creatinine 1.00 0.92 Estim Creat Clear Calc 51.0 55.4 Estimated GFR > 60 > 60 Random Glucose 107 Lactic Acid Lactic Acid F/U @ 2Hr Calcium 8.0 L Magnesium Total Bilirubin Direct Bilirubin AST ALT Alkaline Phosphatase Total Creatine Kinase Total Protein Albumin Urine Color Urine Appearance Urine pH Ur Specific [place] Urine Protein Urine Glucose (UA) Urine Ketones Urine Blood Urine Nitrite Ur Leukocyte Esterase Urine RBC Urine WBC Ur Squamous Epith Cells Urine Bacteria Hyaline Casts Random Vancomycin 11.7 L Blood Type Antibody Screen 09/22/23 09/23/23 21:07 05:26 WBC 12.7 H RBC 4.21 L Hgb 11.6 L Hct 34.2 L MCV 81.2 MCH 27.6 MCHC 33.9 RDW 14.4 Plt Count 226 MPV 9.5 Immature Gran % (Auto) Neut % (Auto) Lymph % (Auto) [place] % (Auto) Eos % (Auto) Baso % (Auto) Lymph # (Auto) [place] # (Auto) Eos # (Auto) Baso # (Auto) Abs Immat Gran (auto) Absolute Neuts (auto) Absolute Nucleated RBC 0.000 Nucleated RBC % (auto) 0.0 Hold Purple Top VBG pH VBG pCO2 VBG pO2 VBG HCO3 VBG O2 Saturation VBG Base Excess Sodium 139 Potassium 3.7 Chloride 105 Carbon Dioxide 25 Anion Gap 13 BUN 30 H Creatinine 0.89 Estim Creat Clear Calc 57.3 Estimated GFR > 60 Random Glucose 114 Lactic Acid Lactic Acid F/U @ 2Hr Calcium 8.2 L Magnesium Total Bilirubin Direct Bilirubin AST ALT Alkaline Phosphatase Total Creatine Kinase Total Protein Albumin Urine Color Urine Appearance Urine pH Ur Specific [place] Urine Protein Urine Glucose (UA) Urine Ketones Urine Blood Urine Nitrite Ur Leukocyte Esterase Urine RBC Urine WBC Ur Squamous Epith Cells Urine Bacteria Hyaline Casts Random Vancomycin 11.3 L Blood Type Antibody Screen Airway Mallampati Class: II TM Dist: >3cm Neck ROM: Full Loose/Missing/Broken Teeth: Yes, Upper and Lower Heart: never had any heart problems Lungs: ok Assessment and Plan Assessment Anesthesia Assessment: Anesthesia Plan Discussed and Chart Reviewed Final Anesthetic Review Family History of Problems with Anesthesia: No History of Problems with Anesthesia: No NPO: Yes ASA Class: IV Final Preanesthetic Review: No Changes in Pt Med Stat, Meds/Allgs Chart Reviewed, Consent Obtained/Reviewed and Anes Risks/Benef Reviewed Patient Risk: High Procedure Risk: Low Anesthetic Plan Anesthetic Plan: Agree w/ Assess. and Plan and TIVA Disposition: Standard PACU
--- NOTE | 2023-09-23 14:22 | MHC.SHP ---
Pre-Procedural Eval Section A - 24 Hr Update-Section A only Date of Service: 09/23/23 The patient is an INPATIENT: Yes Changes since office visit: No Cold of Flu in the past 2 weeks, No New Medical Problems, No Changes in Medication and No Patient answered all questions The patient has been examined within 24 hours of the surgical procedure. The History & Physical has been completed within 30 days and I have reviewed it.: Yes Section B - Complete if H&P > 30 days Chief Complaint: UTI, metabolic encephalopathy, NATE, hematuria Details of Present Illness: cysto, cloty evacuation, SPT placement Relevant Social History: None Present Medications: see Short Stay Collaborative assessment Medical History: Significant History History of Previous Operations: No relevant previous surgery Allergies: Allergies Allergy/AdvReac Type Severity Reaction Status Date / Time No Known Allergies Allergy Verified 09/18/23 09:56 [No Known Allergies*] Plan I have reviewed the history and physical and performed a pertinent physical examination on my patient. No changes have occurred unless specified. Time Spent With Patient Time: Total time managing care of this patient today ____ minutes.
--- NOTE | 2023-09-23 15:15 | HO.WOUND ---
Wound Consult Attempted Arrival to bedside however patient was off unit at a procedure - will attempt assessment at future date and or time.
--- NOTE | 2023-09-23 16:03 | W.PM.OPN ---
Operative Note Operative Note Date of Service: 09/23/23 Narrative: PreOperative Diagnosis: Radiation Hematuria,?neurogenic bladder Post Operative Diagnosis:? Radiation Hematuria, neurogenic bladder Procedure:? 1. Cystoscopy 2. Fulguration of radiation induced neovascularity 2. Suprapubic tube placement Surgeon: Dr Gallo Wong Anesthesia:?Sedation plus local Indications for procedure: Hematuria in setting of neurogenic bladder Procedure: After informed consent was verified the patient was brought to the operating room and placed in a supine position.? Anesthesia was administered per protocol. The patient was placed in a modified dorsal lithotomy position and prepped and draped in a sterile fashion. A safety pause was performed confirming patient identity, procedure and antibiotics. 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 Fulguration performed on spot areas. A 22 [place] cystoscope was inserted per urethra. Bladder was examined in its entirety. No abnormalities seen. Air bubble was located at the dome of the bladder. A finder needle was inserted 2 fingerbreaths above the symphysis pubis on the abdomen into the bladder.? The needle was visualized in the bladder via cystoscopy. Local anesthetic was infiltrated subcutaneously around the needle introduction site. A small, 1cm horizontal incision was made.? A trocar introducer was advanced through the abdominal wall into the bladder under visualization. The obturator was removed and a 16 Fr crews catheter placed. 7cc was used to inflate the balloon. The external portion of the trocar was removed. Dressing was placed, the bladder was emptied, and a drainage bag was attached. The patient tolerated the procedure and was transferred in stable condition to the recovery area. Suprapubic tube will be changed in 1 month with a follow-up office visit.
--- NOTE | 2023-09-23 21:37 | PC.NURSE ---
Assumed care of patient at 19:00. Scheduled eye drops x4 requested from pharmacy.
[2023-09-23] MEDS: Tamsulosin HCL 0.4 MG CAPSULE PO (22:10)
[2023-09-23] MEDS: Latanoprost 0.005 % Ophth Sol 2.5 ML DROPS 1 DROP EYE-BOTH (22:11)
[2023-09-24] VITALS: BP 113/58; PULSE 77; RESP 18; TEMP 36.3; O2SAT 97
[2023-09-24] MEDS: Lactated Ringers 1,000 ML 80 ML IVCONT ×2 (02:33→15:59)
[2023-09-24 03:43] VITALS: BP 112/54; PULSE 73; RESP 18; TEMP 36.2; O2SAT 95
[2023-09-24 07:08] VITALS: BP 97/52; PULSE 72; RESP 14; TEMP 36.3; O2SAT 95
[2023-09-24 07:14] LABS: Anion Gap 11 (12-20); Blood Urea Nitrogen 25 mg/dL (9-16); Calcium 7.9 mg/dL (8.4-10.2); Carbon Dioxide 27 mmol/L (22-29); Chloride 103 mmol/L (96-108); Creatinine Clr Calc Pharmacy 60.7; Estimated Glomerular Filt Rate > 60; Glucose Random 98 mg/dL (60-115); Potassium 3.9 mmol/L (3.3-5.1); Sodium 137 mmol/L (135-145)
[2023-09-24 07:22] LABS: Hematocrit 34.3 % (42.0-52.0); Hemoglobin 11.1 g/dl (14.0-18.0); Mean Corpuscular HGB Conc 32.4 g/dl (31.0-36.0); Mean Corpuscular Hemoglobin 26.9 pg (27.0-33.0); Mean Corpuscular Volume 83.3 fL (80.0-98.0); Mean Platelet Volume 9.7 fL (9.4-12.4); Platelet Count 251 X10*3/uL (160-400); Red Blood Count 4.12 X10*6/uL (4.60-5.80); Red Cell Distribution Width 14.6 % (11.0-16.0); White Blood Count 11.2 X10*3/uL (4.8-10.8)
[2023-09-24] MEDS: 0.9 % Sodium Chloride 1,000 ML 999 ML IV (07:36)
[2023-09-24] MEDS: Pravastatin Sodium 40 MG TABLET PO (07:42)
[2023-09-24] MEDS: Finasteride 5 MG TABLET PO (07:42)
[2023-09-24] MEDS: Brimonidine Tartrate 0.2% Oph 5 ML BOTTLE 1 DROP EYE-BOTH ×2 (07:43→19:54)
[2023-09-24] MEDS: timoloL maleate 0.5 % Oph Sol 5 ML DRBTL 1 DROP EYE-BOTH ×2 (07:43→19:55)
[2023-09-24] MEDS: Dorzolamide HCl 2 % Ophth Sol 10 ML DRPBTL 1 DROP EYE-BOTH ×2 (07:43→19:54)
[2023-09-24] MEDS: cefTRIAXone sodium 1 GM in 0.9 % Sodium Chloride 50 ML IV (10:18)
--- NOTE | 2023-09-24 10:58 | HO.POSTANES ---
Post Anesthesia Evaluation Post Anesthesia Evaluation Date of Service: 09/23/23 Vital Signs: Vital Signs Temp Pulse Resp BP Pulse Ox O2 Del Method 09/24/23 07:08 97.3 F 72 14 97/52 L 95 Room Air 09/24/23 03:43 97.2 F 73 18 112/54 L 95 Room Air 09/24/23 00:00 97.3 F 77 18 113/58 L 97 Room Air Anesthesia: Monitored Mental Status: Awake Pain Control: Satisfactory Nausea/Vomiting: None Hydration: Adequate Anesthesia-Related Issues: No Anes. Related Issues
--- NOTE | 2023-09-24 11:29 | P.CNHO_ITS ---
Subjective - Subjective Chief complaint: Dysuria Patient: known to practice within the last 3 years Consult date: 09/24/23 Primary Care Provider: Morena Daniels MD Medical Summary: Diagnosis: Rectal cancer diagnosed in 2015 Mr. Bustos presented with a few days of painless rectal bleeding in June 2015. He had a changed in bowel habits with diarrhea, as well as hematochezia. He underwent a rectal exam by Dr. Foreman revealed, a mass palpable just proximal to the anal canal. He underwent a CT scan of the abdomen and pelvis on July 13, 2015 which revealed a rectal mass extending over 5 cm length with no associated enlarged lymph nodes. There was severe diverticulosis, enlarged prostate gland. A colonoscopy revealed a large rectal mass and biopsies were consistent with adenocarcinoma. An MRI pelvis performed July 20, 2015 revealed a rectal neoplasm extending over 5 cm in length with length distal thirds within 1.6 cm of the anal verge. Focus of nodular thickening of the left perirectal fascia and measuring 1.4 x 0.8 cm with no invasion beyond the perirectal fascia. Findings compatible with T3 lesion. Posterior and posterolateral gland of the prostate which showed decreased T2 signal. Further evaluation recommended. PET scan on 08/03/15 demonstrated intense abnormal FDG activity in the management rectal mass no additional suspicious malignant lesions noted. Prostomegaly. Completed concurrent radiation with Xeloda 825mg/m2 from 08/17/15 and completed on 09/28/15. Abdominoperineal resection on 01/30/16, pathology no residual adenocarcinoma identified. Chronic inflammation and fibrosis consistent with treatment effect, ALT 3 lymph nodes were benign. Pathological stage: ypT0 ypN0 HPI - Consult Narrative Reason for consult: History of left superficial femoral and popliteal vein DVT/hematuria Narrative: Edgar Bustos is a 88 year old male well known to Oncology Service because of prior history of rectal cancer. He was treated in 2015 with chemoradiation therapy and underwent abdominoperineal resection. He did well but developed radiation cystitis and has been under the care of Urology for some time. He was admitted on 09/18/2023 with complaints of dysuria and urinary retention. Evaluation in the ED revealed UTI with bladder outlet obstruction, bilateral hydronephrosis and acute kidney injury. He was diagnosed with left lower extremity DVT in June 2023. He presented to his PCP with bilateral leg swelling. Patient does not know the circumstances at that time. He has had a history of falls but he does not remember if he fell around June. No prior history of thromboembolism. Patient has been off anticoagulation for the last few days because of hematuria. Hematology consultation was requested to address need for anticoagulation in the face of ongoing hematuria. Review of Systems - Constitutional Reports as per HPI, Reports lack of energy, Reports malaise, Reports poor appetite, Reports weight loss - Cardiovascular Reports no additional cardiovascular complaints - Respiratory Reports no additional respiratory complaints - Gastrointestinal Reports no additional gastrointestinal complaints - Neurologic Reports no additional neurologic complaints, Reports as per HPI [facility] Medical History: Medical History (Last Reviewed 09/19/23 @ 13:55 by Kasia Dumont, PT) Dysuria Fibroma Fracture of right ankle Glaucoma H/O urinary retention Incomplete emptying of bladder Melanoma Pressure ulcer of back Pyuria Rectal adenocarcinoma Skin cancer Soft tissue mass Family History: Family History (Last Reviewed 09/18/23 @ 16:13 by Guanako Romano MD) Sister Lung cancer Maternal Aunt Breast cancer Mother Breast cancer Surgical History: Surgical History (Last Reviewed 09/19/23 @ 13:55 by Kasia Dumont, PT) History of surgery Hx of abdominoplasty Hx of colonoscopy Hx of tonsillectomy Social History: Social History (Last Reviewed 09/18/23 @ 16:13 by Guanako Romano MD) Living Situation History: Household Members: None Housing: House Are you a primary care companion to a significant other at home: No Do you presently have visiting nurse or other home services: No Tobacco History: Patient Tobacco Use Status: Former Tobacco user Cigarette Packs Per Day: 3 Occupation Assessmet: service: No Current occupational status: retired Home Medications and Allergies Current Medications: Current Medications Acetaminophen (Acetaminophen 325 Mg Tablet) 650 mg PO Q6H PRN PRN Reason: Pain, Mild (Pain Scale 1-3), fever or headache Al Hydroxide/Mg Hydroxide (Magnesium Hydrox/Alum Hydrox 30 Ml Oral.Susp) 30 ml PO Q4H PRN PRN Reason: Dyspepsia Last Admin: 09/19/23 18:40 Dose: 30 ml Brimonidine Tartrate (Brimonidine Tartrate 0.2% Oph 5 Ml Bottle) 1 drop EYE- BOTH BID [facility] Last Admin: 09/24/23 07:43 Dose: 1 drop Calcium Carbonate (Calcium Carbonate 750 Mg Tab.Chew) 750 mg PO Q4H PRN PRN Reason: Heartburn Dorzolamide HCl (Dorzolamide Hcl 2 % Ophth Belkis 10 Ml Drpbtl) 1 drop EYE-BOTH BID [facility] Last Admin: 09/24/23 07:43 Dose: 1 drop Finasteride (Finasteride 5 Mg Tablet) 5 mg PO DAILY [facility] Last Admin: 09/24/23 07:42 Dose: 5 mg Ceftriaxone Sodium 1 gm/ (Sodium Chloride) 50 mls @ 100 mls/hr IV Q24H [facility] Last Infusion: 09/24/23 11:09 Dose: Infused Lactated Ringer's (Lr) 1,000 mls @ 80 mls/hr IVCONT .[id number] [facility] Last Infusion: 09/24/23 08:52 Dose: 80 mls/hr Latanoprost (Latanoprost 0.005 % Ophth Belkis 2.5 Ml Drops) 1 drop EYE-BOTH BEDTIME [facility] Last Admin: 09/23/23 22:11 Dose: 1 drop Magnesium Hydroxide (Milk Of Magnesia 30 Ml Oral.Susp) 30 ml PO DAILY PRN PRN Reason: Constipation Melatonin (Melatonin 3 Mg Tablet) 6 mg PO BEDTIME PRN PRN Reason: Insomnia Last Admin: 09/22/23 20:56 Dose: 6 mg Pravastatin Sodium (Pravastatin Sodium 40 Mg Tablet) 40 mg PO DAILY [facility] Last Admin: 09/24/23 07:42 Dose: 40 mg Sodium Chloride (0.9 % Sodium Chloride Flush 3 Ml Syringe) 3 ml IVFLUSH QSHIFT [facility] Last Admin: 09/24/23 07:19 Dose: Not Given Tamsulosin HCl (Tamsulosin Hcl 0.4 Mg Capsule) 0.4 mg PO BEDTIME [facility] Last Admin: 09/23/23 22:10 Dose: 0.4 mg Timolol Maleate (Timolol Maleate 0.5 % Oph Belkis 5 Ml Drbtl) 1 drop EYE-BOTH BID [facility] Last Admin: 09/24/23 07:43 Dose: 1 drop Home Medications ?Medication ?Instructions ?Recorded ?Confirmed ?Type latanoprost 0.005 % eye drops 1 drp ophthalmic (eye) BEDTIME 01/05/20 09/18/23 History (Xalatan) pravastatin 40 mg tablet 1 tab PO DAILY 01/05/20 09/18/23 History brinzolamide 1 %-brimonidine 0.2 % 1 drp ophthalmic (eye) BID 08/24/20 09/18/23 History eye drops,suspension (Simbrinza) timolol maleate 0.5 % eye drops 1 drp ophthalmic (eye) BID 09/18/23 09/18/23 History Allergies Allergy/AdvReac Type Severity Reaction Status Date / Time No Known Allergies Allergy Verified 09/18/23 09:56 [No Known Allergies*] Physical Exam Vital signs: Vital Signs Temp 97.3 F 09/24/23 07:08 Pulse 72 09/24/23 07:08 Resp 14 09/24/23 07:08 BP 97/52 L 09/24/23 07:08 Pulse Ox 95 09/24/23 07:08 O2 Del Method Room Air 09/24/23 07:08 Intake & Output 09/23/23 09/24/23 09/24/23 18:59 06:59 18:59 Intake Total 50 / 1410 1360 / 1410 1452.667 / 1452.667 Output Total 1600 / 2800 1200 / 2800 Balance -1550 / -1390 160 / -1390 1452.667 / 1452.667 Urine Output (Average ml/kg/hr) 1.92 1.44 1.44 Intake: Intake, Oral Amount 360 / 360 Intake, IV Amount 50 / 1050 1000 / 1050 1452.667 / 1452.667 0.9 % Sodium Chloride 1,000 ml 1000 / 1000 @ 999 mls/hr IV .Q1H1M [facility] Rx#: [id number] cefTRIAXone sodium 1 gm In 0.9 50 / 50 50 / 50 % Sodium Chloride 50 ml @ 100 mls/hr IV Q24H [facility] Rx#: [id number] Lactated Ringers 1,000 ml @ 80 1000 / 1000 402.667 / 402.667 mls/hr IVCONT .[id number] [facility] Rx#: [id number] Output: Output, Urine Amount 500 / 900 400 / 900 Output, Urine Amount (Catheter) 1100 / 1900 800 / 1900 Suprapubic 100 / 900 800 / 900 Urethral 1000 / 1000 Other: IV Intake, Intraoperative 400 Amount NPO Yes Urine Garcia suprapubic Urine Color [place] Tinged Last Bowel Movement 09/23/23 09/24/23 Weight 69.3 kg - Constitutional Present: no acute distress, chronically ill appearing - Routine HEENT Exam Eye: Present: PERRL - Routine Neck Exam Present: supple - Routine Respiratory Exam Absent: stridor, wheezes - Routine Cardiovascular Exam Cardiovascular: Present: S1, S2 - Routine Extremities Exam Present: pulses intact, pedal edema. Absent: calf tenderness Hem/Onc Consult Result - Labs CBC & Chem 7: 09/24/23 05:32 09/24/23 05:32 Labs: Short CBC 09/24/23 Range/Units 05:32 WBC 11.2 H (4.8-10.8) X10*3/uL Hgb 11.1 L (14.0-18.0) g/dl Hct 34.3 L (42.0-52.0) % Plt Count 251 (160-400) X10*3/uL BMP 09/24/23 05:32 Sodium 137 Potassium 3.9 Chloride 103 Carbon Dioxide 27 BUN 25 H Creatinine 0.84 Calcium 7.9 L Assessment and Plan Patient Active problem list reviewed?: Yes (1) DVT (deep venous thrombosis) Status: Chronic Assessment and plan: 1. This is a 88-year-old male with remote history of rectal adenocarcinoma, diagnosed in treated in 2016 who is now admitted for UTI/sepsis, radiation cystitis and hydronephrosis. He has developed neurogenic bladder, he underwent cystoscopy with suprapubic tube placement. He can not be on anticoagulants for at least a month. He was diagnosed with left DVT, nonocclusive thrombus in the popliteal vein and left superficial femoral vein on 06/28/2023. Circumstances around this are not clear. He does have a history of falls. He lives alone, he may have been bed bound. He does have a pressure wound on his sacrum/back. He has been on anticoagulation with Eliquis for nearly 3 months. For 1st episode of DVT, 3 months of anticoagulation would be enough, no role of long- term anticoagulation for this patient especially given his age and comorbidities. I think it would be safe to discontinue anticoagulation at this time. One can also repeat a Doppler to see that there has been no progression of the clot. If there is progression or worsening clot, IVC filter can be considered. Thank you for the consultation. - Time Spent With Patient Time Spent with Patient (in minutes): 20
[2023-09-24 12:00] VITALS: BP 90/58; PULSE 72; RESP 16; TEMP 36.5; O2SAT 97
--- NOTE | 2023-09-24 12:24 | HO.PM.IMPN ---
Subjective Subjective Date of Service: 09/24/23 Interval History: Seen and evaluated this morning having hematuria from the SPC , overall less than before stable H&H no other overnight events Review of Systems Review of Systems: Yes all other systems are reviewed and are negative Physical Exam Vital Signs: Vital Signs: Last Vital Signs Temp 97.7 F 09/24/23 12:00 Pulse 72 09/24/23 12:00 Resp 16 09/24/23 12:00 BP 90/58 L 09/24/23 12:00 Pulse Ox 97 09/24/23 12:00 O2 Del Method Room Air 09/24/23 12:00 BMI result Body Mass Index 21.3 Const: Other: Constitutional : Awake, interactive, not in distress Neck : Normal inspection, Supple Cardiovascular : RRR, no JVP, no lower extremity edema Respiratory : good bilateral air entry, no crackles, wheezes or rhonchi Gastrointestinal: soft, lax, Normal bowel sounds, Non tender, colostomy bag with formed stool Skin : Warm, Dry, buttock stage 1 pressure wound Urology: Hematuria with no clots , SPC in place Neurological : Alert & oriented x3, No focal deficit Objective Data Active Medications Acetaminophen (Acetaminophen 325 Mg Tablet) 650 mg PO Q6H PRN PRN Reason: Pain, Mild (Pain Scale 1-3), fever or headache Al Hydroxide/Mg Hydroxide (Magnesium Hydrox/Alum Hydrox 30 Ml Oral.Susp) 30 ml PO Q4H PRN PRN Reason: Dyspepsia Last Admin: 09/19/23 18:40 Dose: 30 ml Documented By: EZEQUIEL Brimonidine Tartrate (Brimonidine Tartrate 0.2% Oph 5 Ml Bottle) 1 drop EYE-BOTH BID [facility] Last Admin: 09/24/23 07:43 Dose: 1 drop Documented By: NICOLÁS Calcium Carbonate (Calcium Carbonate 750 Mg Tab.Chew) 750 mg PO Q4H PRN PRN Reason: Heartburn Dorzolamide HCl (Dorzolamide Hcl 2 % Ophth Belkis 10 Ml Drpbtl) 1 drop EYE-BOTH BID [facility] Last Admin: 09/24/23 07:43 Dose: 1 drop Documented By: NICOLÁS Finasteride (Finasteride 5 Mg Tablet) 5 mg PO DAILY [facility] Last Admin: 09/24/23 07:42 Dose: 5 mg Documented By: NICOLÁS Ceftriaxone Sodium 1 gm/ (Sodium Chloride) 50 mls @ 100 mls/hr IV Q24H [facility] Last Infusion: 09/24/23 11:09 Dose: Infused Documented By: NICOLÁS Lactated Ringer's (Lr) 1,000 mls @ 80 mls/hr IVCONT .[id number] [facility] Last Infusion: 09/24/23 08:52 Dose: 80 mls/hr Documented By: NICOLÁS Latanoprost (Latanoprost 0.005 % Ophth Belkis 2.5 Ml Drops) 1 drop EYE-BOTH BEDTIME [facility] Last Admin: 09/23/23 22:11 Dose: 1 drop Documented By: HAM Magnesium Hydroxide (Milk Of Magnesia 30 Ml Oral.Susp) 30 ml PO DAILY PRN PRN Reason: Constipation Melatonin (Melatonin 3 Mg Tablet) 6 mg PO BEDTIME PRN PRN Reason: Insomnia Last Admin: 09/22/23 20:56 Dose: 6 mg Documented By: KAROL Midodrine (Midodrine Hcl 5 Mg Tablet) 5 mg PO ONCE ONE Stop: 09/24/23 12:24 Pravastatin Sodium (Pravastatin Sodium 40 Mg Tablet) 40 mg PO DAILY [facility] Last Admin: 09/24/23 07:42 Dose: 40 mg Documented By: NICOLÁS Sodium Chloride (0.9 % Sodium Chloride Flush 3 Ml Syringe) 3 ml IVFLUSH QSHIFT [facility] Last Admin: 09/24/23 07:19 Dose: Not Given Documented By: NICOLÁS Non-Admin Reason: IV Running Tamsulosin HCl (Tamsulosin Hcl 0.4 Mg Capsule) 0.4 mg PO BEDTIME [facility] Last Admin: 09/23/23 22:10 Dose: 0.4 mg Documented By: HAM Timolol Maleate (Timolol Maleate 0.5 % Oph Belkis 5 Ml Drbtl) 1 drop EYE-BOTH BID [facility] Last Admin: 09/24/23 07:43 Dose: 1 drop Documented By: NICOLÁS Labs 09/24/23 05:32 09/24/23 05:32 Labs: Laboratory Results - last 24 hr 09/24/23 05:32 MCV 83.3 MCH 26.9 L MCHC 32.4 RDW 14.6 Plt Count 251 MPV 9.7 Absolute Nucleated RBC 0.000 Nucleated RBC % (auto) 0.0 Anion Gap 11 L Estim Creat Clear Calc 60.7 Estimated GFR > 60 Random Glucose 98 Calcium 7.9 L Assessment and Plan (1) Hematuria: Status: Acute (2) NATE (acute kidney injury): Status: Acute (3) Urinary tract infection: Status: Acute (4) At risk for bleeding related to anticoagulants: Status: Acute Plan An 88-year-old male with a history of rectal cancer, chronic urinary retention, and a recent deep vein thrombosis (DVT) on Eliquis here with UTI, NATE, recent fall Hematuria, acute possibly d/t cystitis, monitor, hold eliquis for now Urology did cystoscopy with placement of SPC Patient continues to have hematuria, Urology suggest to hold blood thinners for 1 month given radiation cystitis as a cause Vascular surgery to eval for IVC filter placement Hematology to decide on parts counterman anticoagulation plan Proteus Bacteremia 2/2 UTI complicated with acute toxic metabolic encephalopathy in setting of bladder outlet obstruction and straight cath usage encephalopathy improved continue Ceftriaxone 09/17 DC Vancomycin , Coag -ve staph, contaminent repeat blood cultrues negative follow sensitivity NATE on CKD3 complicated with Metabolic acidosis resolved hold nephrotoxic follow BMP Acute lactic acidosis not due to sepsis, d/t dehydration and renal failure, resolved h/o DVT hold eliquis for hematuria pending Urology evaluation HLD--statin BPH--finesteride, Flomax Glaucome --eye drops Stage 1 Pressure wound d/t imobility, surgery input appreciated, wound care and rotation Fall--head CT, Cervical spine CT Ok, PT eval, fall precaution DVT prophyaxis: SCDs d/t hematuria Needs overnight hospital stay for treatment of bacteremia , UTI , pending hematology and rn cardiovascular icu evaluation Quality Stroke Does the patient have a stroke diagnosis?: No VTE Prior VTE?: No VTE Risk Level:: Medical - moderate - high VTE Device Contraindication: N/A - Device Ordered VTE Drug Contraindication: Treatment Not Tolerated
--- NOTE | 2023-09-24 12:31 | PC.NURSE ---
Addendum entered by Yoly Chris RN 09/24/23 16:02: Blood pressure rechecked at 1539 and is 124/56 Original Note: patient has had continuous low BP's throughout the day- BP 90/58 manually at 1200, pt asymptomatic, resting quietly in recliner with no complaints. aware, ordered PO midodrine 5mg
[2023-09-24] MEDS: Midodrine HCl 5 MG TABLET PO (12:41)
--- NOTE | 2023-09-24 13:13 | PM.CNGS ---
History of Present Illness Consult details Consult date: 09/24/23 Reason for consult: other (DVT) Narrative: Very pleasant 88-year-old gentleman with a history of rectal cancer and recent DVT who was on Eliquis presented to the emergency room with weakness and confusion. He had received a UA which demonstrated a UTI in addition to hematuria. He now presents to us for vascular evaluation. Review of Systems Review of Systems: Yes all other systems are reviewed and are negative Constitutional: Constitutional: Reports no additional constitutional complaints ENT: Reports Normal hearing present Cardiovascular: Cardiovascular: Denies chest pain, Denies chest pain at rest, Denies chest pain with activity and Denies pedal edema Respiratory: Respiratory: Denies cough Gastrointestinal: Gastrointestinal: Denies abdominal pain Musculoskeletal: Musculoskeletal: Denies abnormal gait, Denies muscle cramps and Denies radiating pain into limb Integumentary/Breasts: Skin/Breast: Denies skin ulcer and Denies wounds Neurologic: Reports Normal hearing present and Denies abnormal gait Psychiatric: Psychiatric: Reports no additional psychiatric complaints [facility] Past Medical History Medical History (Updated 09/24/23 @ 13:18 by Emanuel Stewart MD) Pressure ulcer of back Soft tissue mass Incomplete emptying of bladder Dysuria Pyuria H/O urinary retention Rectal adenocarcinoma Melanoma Fibroma Skin cancer Fracture of right ankle Glaucoma Family History Family History Sister Lung cancer Maternal Aunt Breast cancer Mother Breast cancer Surgical History Surgical History History of surgery Hx of abdominoplasty Hx of tonsillectomy Hx of colonoscopy Social History Social History Household Members: None Housing: House Are you a primary vocational childcare teacher to a significant other at home: No Do you presently have visiting nurse or other home services: No Alcohol intake: former Patient Tobacco Use Status: Former Tobacco user Cigarette Packs Per Day: 3 service: No Current occupational status: retired [employer] Allergies Allergy/AdvReac Type Severity Reaction Status Date / Time No Known Allergies Allergy Verified 09/18/23 09:56 [No Known Allergies*] Active Medications: Current Medications Acetaminophen (Acetaminophen 325 Mg Tablet) 650 mg PO Q6H PRN PRN Reason: Pain, Mild (Pain Scale 1-3), fever or headache Al Hydroxide/Mg Hydroxide (Magnesium Hydrox/Alum Hydrox 30 Ml Oral.Susp) 30 ml PO Q4H PRN PRN Reason: Dyspepsia Last Admin: 09/19/23 18:40 Dose: 30 ml Brimonidine Tartrate (Brimonidine Tartrate 0.2% Oph 5 Ml Bottle) 1 drop EYE-BOTH BID [facility] Last Admin: 09/24/23 07:43 Dose: 1 drop Calcium Carbonate (Calcium Carbonate 750 Mg Tab.Chew) 750 mg PO Q4H PRN PRN Reason: Heartburn Dorzolamide HCl (Dorzolamide Hcl 2 % Ophth Belkis 10 Ml Drpbtl) 1 drop EYE-BOTH BID [facility] Last Admin: 09/24/23 07:43 Dose: 1 drop Finasteride (Finasteride 5 Mg Tablet) 5 mg PO DAILY [facility] Last Admin: 09/24/23 07:42 Dose: 5 mg Ceftriaxone Sodium 1 gm/ (Sodium Chloride) 50 mls @ 100 mls/hr IV Q24H [facility] Last Infusion: 09/24/23 11:09 Dose: Infused Lactated Ringer's (Lr) 1,000 mls @ 80 mls/hr IVCONT .[id number] [facility] Last Infusion: 09/24/23 08:52 Dose: 80 mls/hr Latanoprost (Latanoprost 0.005 % Ophth Belkis 2.5 Ml Drops) 1 drop EYE-BOTH BEDTIME [facility] Last Admin: 09/23/23 22:11 Dose: 1 drop Magnesium Hydroxide (Milk Of Magnesia 30 Ml Oral.Susp) 30 ml PO DAILY PRN PRN Reason: Constipation Melatonin (Melatonin 3 Mg Tablet) 6 mg PO BEDTIME PRN PRN Reason: Insomnia Last Admin: 09/22/23 20:56 Dose: 6 mg Pravastatin Sodium (Pravastatin Sodium 40 Mg Tablet) 40 mg PO DAILY [facility] Last Admin: 09/24/23 07:42 Dose: 40 mg Sodium Chloride (0.9 % Sodium Chloride Flush 3 Ml Syringe) 3 ml IVFLUSH QSHIFT [facility] Last Admin: 09/24/23 07:19 Dose: Not Given Tamsulosin HCl (Tamsulosin Hcl 0.4 Mg Capsule) 0.4 mg PO BEDTIME [facility] Last Admin: 09/23/23 22:10 Dose: 0.4 mg Timolol Maleate (Timolol Maleate 0.5 % Oph Belkis 5 Ml Drbtl) 1 drop EYE-BOTH BID [facility] Last Admin: 09/24/23 07:43 Dose: 1 drop Home Medications ?Medication ?Instructions ?Recorded ?Confirmed ?Last Taken ?Type latanoprost 0.005 % eye drops 1 drp ophthalmic (eye) BEDTIME 01/05/20 09/18/23 09/16/23 History (Xalatan) pravastatin 40 mg tablet 1 tab PO DAILY 01/05/20 09/18/23 09/16/23 History brinzolamide 1 %-brimonidine 0.2 % 1 drp ophthalmic (eye) BID 08/24/20 09/18/23 09/16/23 History eye drops,suspension (Simbrinza) timolol maleate 0.5 % eye drops 1 drp ophthalmic (eye) BID 09/18/23 09/18/23 09/16/23 History Physical Exam Vital Signs: Vital Signs: Last Vital Signs Temp 97.7 F 09/24/23 12:00 Pulse 72 09/24/23 12:00 Resp 16 09/24/23 12:00 BP 90/58 L 09/24/23 12:00 Pulse Ox 97 09/24/23 12:00 O2 Del Method Room Air 09/24/23 12:00 BMI result Body Mass Index 21.3 Const: General: cooperative, healthy appearing and comfortable Orientation/consciousness: oriented to person, oriented to place and oriented to time HEENT: Head: Yes normal to inspection Neck: Neck: Yes normal visual inspection Carotids: no bruits Chest: Chest palpation & inspection: normal inspection of the chest Resp: Effort & Inspection: normal respiratory effort and able to speak in complete sentences Auscultation: clear to auscultation bilaterally, no crackles, no rales, no rhonchi and no wheezes Cardio: Rate: regular rate Rhythm: regular rhythm Heart sounds: S1 normal heart sound present and S2 normal heart sound present Bruits: no carotid bruits Peripheral pulses: Peripheral pulses 2+ throughout GI: Inspection: Yes normal to inspection Skin: Other: Sacral ulcer Wounds: no wounds Hair: normal Neuro: General: oriented to person, oriented to place and oriented to time Cranial nerves: Yes CN's II-XII intact bilaterally and Yes Normal hearing present Cognition (Neuro): normal cognition Motor exam (neuro): 5/5 motor strength present throughout Extrem: Other: venous exam: No significant superficial varicosities or spider telangiectasias, minimal edema General: No clubbing, No cyanosis and No edema Psych: Appearance: grossly normal Mental Status: mental status grossly normal Speech and movement: Normal speech and movement present Results Labs 09/24/23 05:32 09/24/23 05:32 Labs: Abnormal lab results 09/24/23 Range/Units 05:32 WBC 11.2 H (4.8-10.8) X10*3/uL RBC 4.12 L (4.60-5.80) X10*6/uL Hgb 11.1 L (14.0-18.0) g/dl Hct 34.3 L (42.0-52.0) % MCH 26.9 L (27.0-33.0) pg Anion Gap 11 L (12-20) BUN 25 H (9-16) mg/dL Calcium 7.9 L (8.4-10.2) mg/dL Short CBC 09/24/23 Range/Units 05:32 WBC 11.2 H (4.8-10.8) X10*3/uL Hgb 11.1 L (14.0-18.0) g/dl Hct 34.3 L (42.0-52.0) % Plt Count 251 (160-400) X10*3/uL BMP 09/24/23 05:32 Sodium 137 Potassium 3.9 Chloride 103 Carbon Dioxide 27 BUN 25 H Creatinine 0.84 Calcium 7.9 L Urine 09/18/23 Range/Units 11:53 Urine Color RED Urine Appearance Turbid Urine pH 8.5 (5.0-9.0) Ur Specific [place] 1.015 (1.005-1.025) Urine Protein 300 (3+) H (Neg-Trace) mg/dL Urine Glucose (UA) Negative (Negative) mg/dL All other labs normal. Assessment and Plan (1) Deep vein thrombosis: Qualifiers: DVT location: lower extremity Affected thrombotic vein of extremity: femoral Chronicity: acute Laterality: left Qualified Code(s): I82.412 - Acute embolism and thrombosis of left femoral vein Status: Inactive Plan In short patient has left lower extremity DVT. Due to his hematuria and overall status will place IVC filter. He will require an inferior vena cava filter. Risks benefits complications were discussed in detail with the patient. He understood and consented. Daughter was at bedside. Procedures Date of Service Date of Service: 09/24/23
--- NOTE | 2023-09-24 14:15 | HO.WOUND ---
Wound Consult: Initial 88yr old?Male admitted to [facility] [place] on 09/18/23 - See progress notes and H&P for detailed history.? Wound consult placed for Bilateral buttock wound POA.? Patient agreeable to assessment and photo documentation.? Chart review reveals patient was found down at home for several hours. The patient denies pain to the buttock and it is not consistent with a pressure injury as it remains blanchable. The pigmentation could be related to chronic moisture as chronic moist appears as purple pigmentation however there is little additional evidence of chronic moisture at this time however he is noted for urinary retention which may have often lead to urinary overflow. Etiology remains unclear but as it is intact and remains blanchable and patient denies pain there is not evidence of pressure injury at this time. Although he is at high risk for pressure injury development all pressure relief measure should be employed for prevention. Recommendations: 1. Turn and Reposition every 2 hours and as needed for patient comfort.? Use pillows or wedges to support off loading positions. 2. Off Load all bony prominences with use of pillows and heel boots if needed.? Apply Preventative foams where needed. ? 3. Monitor for incontinence and moisture control, use barrier creams when needed for prevention and treatment. 4. Provide adequate and supplemental nutrition.? 5. Order or Continue low air loss mattress. 6. When applicable maintain blood glucose levels per Providers order. 7. Buttocks - apply preventative sacral foam dressing peel back and assess and change every 5 days. Apply barrier cream as needed if moisture is noted to act as a barrier to friction and moisture. Re-consult wound care Nurse for wound deterioration or wound changes.
[2023-09-24 15:39] VITALS: BP 124/56; PULSE 73; RESP 14; TEMP 36.4; O2SAT 96
--- NOTE | 2023-09-24 18:38 | PC.NURSE ---
while POLE SETTER was turning/cleaning patient they noticed small amount of blood on the pad under patient, this Rn assessed pt and found a small amount of bloody drainage coming from rectum. Pt does has pressure injury to coccyx but there are no open wounds and coccyx is covered with foam dsg. Per patients' daughter, he has been having bloody discharge from his rectum since his colon surgery/ostomy placement. Patient was cleaned and repositioned, MD made aware and instructed to keep watch overnight for now.
[2023-09-24 19:15] VITALS: BP 110/56; PULSE 79; RESP 18; TEMP 36.8; O2SAT 96
[2023-09-24] MEDS: Tamsulosin HCL 0.4 MG CAPSULE PO (19:53)
[2023-09-24] MEDS: Latanoprost 0.005 % Ophth Sol 2.5 ML DROPS 1 DROP EYE-BOTH (19:54)
[2023-09-25] VITALS: BP 106/55; PULSE 70; RESP 18; TEMP 36.5; O2SAT 95
[2023-09-25 04:00] VITALS: BP 100/57; PULSE 71; RESP 18; TEMP 36.3; O2SAT 97
[2023-09-25] MEDS: Lactated Ringers 1,000 ML 80 ML IVCONT (04:04)
[2023-09-25 06:43] LABS: Hematocrit 30.2 % (42.0-52.0); Hemoglobin 9.8 g/dl (14.0-18.0); Mean Corpuscular HGB Conc 32.5 g/dl (31.0-36.0); Mean Corpuscular Hemoglobin 26.8 pg (27.0-33.0); Mean Corpuscular Volume 82.7 fL (80.0-98.0); Mean Platelet Volume 9.5 fL (9.4-12.4); Platelet Count 245 X10*3/uL (160-400); Red Blood Count 3.65 X10*6/uL (4.60-5.80); Red Cell Distribution Width 14.4 % (11.0-16.0); White Blood Count 9.6 X10*3/uL (4.8-10.8)
[2023-09-25 06:57] LABS: Anion Gap 8 (12-20); Blood Urea Nitrogen 19 mg/dL (9-16); Calcium 7.9 mg/dL (8.4-10.2); Carbon Dioxide 26 mmol/L (22-29); Chloride 105 mmol/L (96-108); Creatinine Clr Calc Pharmacy 70.8; Estimated Glomerular Filt Rate > 60; Glucose Random 97 mg/dL (60-115); Potassium 3.5 mmol/L (3.3-5.1); Sodium 135 mmol/L (135-145)
[2023-09-25 07:42] VITALS: BP 116/55; PULSE 70; RESP 17; TEMP 36.7; O2SAT 98
[2023-09-25 08:40] VITALS: BP 98/69; PULSE 74; RESP 16; TEMP 36.8; O2SAT 97
--- NOTE | 2023-09-25 09:21 | MHC.CLN ---
F/U NPO TODAY FOR IVC FILTER PLACEMENT. PRIOR PO 0-100%. SKIN WITH DTI BUTTOCKS. PER WOUND RN, NOT PRESSURE RELATED. WHEN ABLE, RESUME REGULAR DIET WITH ENSURE TID. SUPPLEMENT APPROPRIATE TO PROMOTE SKIN INTEGRITY. FOLLOW FOR DIET ADVANCEMENT, INTAKE AND SKIN INTEGRITY.
--- NOTE | 2023-09-25 10:54 | W.PM.OPN ---
Operative Note Operative Note Date of Service: 09/25/23 Narrative: Angiogram report from [facility] Preoperative diagnosis: Deep venous thrombosis Postoperative diagnosis: Same Procedure: 1. Ultrasound-guided right common femoral vein access 2. Inferior vena cavogram 3. Placement of inferior vena cava filter Surgeon:Emanuel Stewart M.D., FACS, RPVI Managed Services Sales Consultant:None Anesthesia: Local only Specimens:none Drains:none Estimated blood loss: Less than 10 ml Implant: Bard Betty retrievable vena cava filter Indications: 88-year-old gentleman who was recently diagnosed with a DVT and was anticoagulated. He presented with hematuria and increased bleeding. He now presents for vena cava filter placement. The patient has signed the informed consent after reviewing risks, complications, benefits, and alternatives previously discussed with the patient. The patient was given the opportunity to ask any additional questions or voice any concerns. All questions were answered to the patient's satisfaction. Procedure in detail: Patient was brought to the angiography suite prior to which a time-out was called for patient identification and site verification. Bilateral groins were prepped and draped in the standard surgical fashion. Under ultrasound guidance right common femoral vein was punctured with micro puncture needle and wire. Subsequently a precision 5 Faroese sheath was then placed. Glidewire Advantage wire was advanced to the level of the vena cava. Vena cavogram was then undertaken through the 5 Faroese sheath. This was a baseline study to define the variant anatomy, caval size, location and number of renal veins, and to evaluate for ileo caval thrombus. Under direct fluoroscopic guidance we exchanged out the 5 Faroese sheath for the Bard Lamb sheath. We brought the filter into position. This was then subsequently deployed. The inner cannula was then removed. Through the sheath a hand injection was performed to assess filter position. Once this was accomplished the sheath was then removed, and hemostasis was achieved with 10 minutes of direct compression. No immediate complications occurred and the patient was returned to the recovery suite with no complications Interpretation of films: 1. Ultrasound demonstrates appropriate femoral vein puncture. Image of which was saved. 2. There was no ileal caval thrombus noted 3. There are single renal veins bilaterally and the IVC is normal in caliber. There is no aberrant anatomy. 4. The filter was deployed appropriately and position below the lowest renal vein. Conclusion: 1. Successful placement of Bard Lamb IVC filter 2. Anticoagulation status: Resume regular anticoagulation as indicated 4 hours post filter placement This note is constructed using voice recognition software. While every effort has been made to ensure accuracy, cluster bore operator errors may have been included. Thank you for allowing me to participate in the care of your patient. Yours sincerely, Emanuel Stewart MD, FACS, R.P.V.I.
[2023-09-25] MEDS: cefTRIAXone sodium 1 GM in 0.9 % Sodium Chloride 50 ML IV (11:34)
[2023-09-25 12:00] VITALS: BP 91/55; PULSE 68; RESP 14; TEMP 35.9; O2SAT 97
[2023-09-25] MEDS: Lidocaine HCl 2 % Urojet 10 ML JEL.PF.APP TOPICAL (12:59)
--- NOTE | 2023-09-25 13:04 | P.DS_ITS ---
DS: Providers Provider Date of Service: 09/25/23 Date of admission: 09/18/23 16:49 Primary care physician: Morena Daniels MD Consults: 09/18/23 19:28 Consult to Wound Care Routine Reason for consultation: Pressure ulcer 09/18/23 19:37 Consult to General Surgery Routine Consulting Provider: [facility] [place] General Surgeons Reason for consultation: Pressure ulcer need debridement Has provider been notified: No 09/18/23 22:39 Consult to Urology Routine Consulting Provider: [facility] [place] Urology Services Reason for consultation: Hematuria Has provider been notified: No 09/18/23 23:16 Consult to Wound Care Routine Reason for consultation: DTI, pressure injury buttocks Has provider been notified: Yes 09/24/23 09:17 Consult to Hematology / Oncology Routine Consulting Provider: [facility] [place] Oncology/Hematology Reason for consultation: recent DVT on Eliquis with ongoing hematuria. Urology sugst to hold 1 month Consult to Vascular Surgery Routine Consulting Provider: [facility] [place] [facility] Reason for consultation: Evaluation the need of IVC filter DS: Diagnosis Discharge Diagnosis (1) Pressure ulcer of back: Status: Acute (2) DVT (deep venous thrombosis): Status: Chronic (3) At risk for bleeding related to anticoagulants: Status: Acute (4) Hematuria: Status: Acute (5) Bacteremia: Status: Acute (6) NATE (acute kidney injury): Status: Acute (7) Urinary tract infection: Status: Acute (8) Bilateral hydronephrosis: Status: Acute DS: Summary Hospital Course Hospital Course: Admission note HPI An 88-year-old male with a history of rectal cancer, chronic urinary retention, and a recent deep vein thrombosis (DVT) on Eliquis, lives alone, receives Meals on Wheels, and gets assistance from his daughter. The patient was referred to the Emergency Department (ED) by his primary care physician (PCP). He has been experiencing increasing urinary retention lately and has been self- catheterizing. Over the last several days, he has become increasingly weaker and confused. Yesterday, he fell while trying to get up from his recliner and was on the floor for no less than four hours until his meal deliverer found him. His daughter contacted the PCP's office, and a urinalysis (UA) was requested. Today, the daughter was called about the UA results and was informed that antibiotics were to be prescribed for home use. However, she indicated that the patient's condition had worsened, with pain and blood during urination. On that note, he was referred to the emergency department for further evaluation. The UA dated 09/15 indicated the presence of Proteus species, and he has been prescribed Ceftriaxone. Of note, the daughter also mentioned that he hasn't taken Eliquis for two days as he has not been eating and has been hardly drinking. 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 Urology did cystoscopy with placement of SPC given enlarged prostate and signs of neurogenic bladder with obstuctive signs (Hydroureter and bilateral hydronephrosis). Patient continues to have hematuria after placement of suprapubic cath. Urology suggest to hold blood thinners for 1 month given radiation cystitis as a cause. Vascular surgery placed IVC filter placement and Eliquis was discontinued. To be followed by VNA at home. To follow with dr Wong in 1 month to change the SPC. - Proteus Bacteremia secondary to UTI complicated with acute toxic metabolic encephalopathy in setting of bladder outlet obstruction and straight cath usage on presentation. Treated with IV antibiotics as blood and urine cultures grew sensitive Proteus. encephalopathy improved as she was treated with Vancomycin and Ceftriaxone 09/17. Narrowed only to Ceftriaxone and blood cultures grew Coag -ve staph in 1 set likely contaminent as repeat blood cultrues negative. To finish 7 more days of Ceftin on discharge to complete total of 2 weeks of antibiotics. - NATE on CKD3 complicated with Metabolic acidosis, resolved with IV fluids and hold nephrotoxic. - h/o DVT with increase risk of bleeding on blood thinners. DC Eliquis as Duplex showed LLE DVT. IVC filter was placed by dr Stewart. - Stage 1 Pressure wound d/t imobility, surgery input appreciated, wound care and rotation - Fall--head CT, Cervical spine CT Ok, PT evaluation recommended home therapy. he will get VNA upon discharge. Discharge plan Discontinue Eliquis Continue Ceftin as prescribed for 1 more week Follow with dr Wong for suprapubic catheter changing in 1 month Participate with Physical therapy at home Time Attestation Discharge Coordination Time (in mins): 42 Quality: Safe Use of Opioids Does Pt have an Active Cancer Diagnosis on the Problem List?: No Quality: Stroke Does the patient have a stroke diagnosis?: No Physical Exam Vital Signs: Vital Signs: Last Vital Signs Temp 96.6 F L 09/25/23 12:00 Pulse 68 09/25/23 12:00 Resp 14 09/25/23 12:00 BP 91/55 L 09/25/23 12:00 Pulse Ox 97 09/25/23 12:00 O2 Del Method Room Air 09/25/23 12:00 BMI result Body Mass Index 21.3 Const: Other: Constitutional : Awake, interactive, not in distress Neck : Normal inspection, Supple Cardiovascular : RRR, no JVP, no lower extremity edema Respiratory : good bilateral air entry, no crackles, wheezes or rhonchi Gastrointestinal: soft, lax, Normal bowel sounds, Non tender, colostomy bag with formed stool Skin : Warm, Dry, buttock stage 1 pressure wound Urology: improving Hematuria with no clots , SPC in place Neurological : Alert & oriented x3, No focal deficit DS: Data Data Completed and Pending Labs on day of discharge: Laboratory Results - last 24 hr 09/25/23 05:42 WBC 9.6 RBC 3.65 L Hgb 9.8 L Hct 30.2 L MCV 82.7 MCH 26.8 L MCHC 32.5 RDW 14.4 Plt Count 245 MPV 9.5 Absolute Nucleated RBC 0.000 Nucleated RBC % (auto) 0.0 Sodium 135 Potassium 3.5 Chloride 105 Carbon Dioxide 26 Anion Gap 8 L BUN 19 H Creatinine 0.72 Estim Creat Clear Calc 70.8 Estimated GFR > 60 Random Glucose 97 Calcium 7.9 L Imaging Chest x-ray: Radiologist's impression: ITS Impressions Head CT 09/18/23 11:10 IMPRESSION: CT HEAD: No acute intracranial finding. Sequela of microangiopathy and global volume loss CT CERVICAL SPINE: 1. No cervical spine fracture or traumatic malalignment identified. 2. Multilevel degenerative changes. Abdomen/Pelvis CT 09/18/23 11:11 IMPRESSION: * Prior abdominoperineal resection with stable appearance of chronic soft tissue thickening in the presacral space and projecting posterior to the prostate gland. This likely represents postoperative fibrosis/granulation tissue. * Findings suggestive of chronic bladder outlet obstruction. The bladder wall thickening is likely from detrusor muscle hypertrophy and severe bilateral hydronephrosis is present. The apparent urothelial thickening of the ureters and renal pelvis could be a manifestation of urinary tract infection. * Note that the tip of the Garcia catheter is in the region of the prostatic urethra. * Colonic diverticulosis without diverticulitis. Cervical Spine CT 09/18/23 11:11 IMPRESSION: CT HEAD: No acute intracranial finding. Sequela of microangiopathy and global volume loss CT CERVICAL SPINE: 1. No cervical spine fracture or traumatic malalignment identified. 2. Multilevel degenerative changes. Chest X-Ray 09/18/23 14:15 IMPRESSION: * Left parahilar opacities could be a patchy infiltrate, costochondral calcification, summation of shadow versus lung nodules. Recommend correlation with follow-up low-dose chest CT, if not performed follow-up chest x-ray in one month advised. * No pleural effusion. (Referring physician staff is being called, by physician staff assistance, to be alerted of the above critical findings and recommendations.) KINGA 09/18/2023 4:03 PM Venous Duplex 09/24/23 14:43 IMPRESSION: 1. 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 2. No DVT demonstrated in the right lower extremity. Discharge Plan Discharge Anticipated Discharge Date/Time: 09/25/23 14:50 Patient Disposition: Home Health Service Discharge Diagnosis: Hematuria Proteus Bacteremia DVT Referrals: Morena Daniels MD [Primary Care Provider] - 1 Week Discharge Medications: New cefuroxime axetil 500 mg tablet 500 mg PO BID Qty: 14 0RF Continued latanoprost [Xalatan] 0.005 % drops 1 drp ophthalmic (eye) BEDTIME pravastatin 40 mg tablet 1 tab PO DAILY timolol maleate 0.5 % drops 1 drp ophthalmic (eye) BID Simbrinza 1-0.2 % drops,suspension 1 drp ophthalmic (eye) BID finasteride 5 mg tablet 5 mg PO DAILY 30 Days Qty: 90 3RF tamsulosin [Flomax] 0.4 mg capsule 0.4 mg PO BEDTIME 30 Days Qty: 90 3RF Discontinued Eliquis DVT-PE Treat 30D Start 5 mg (74 tabs) tablets,dose pack 5 mg PO BID Qty: 74 0RF Rx Instructions: Take 2 tablets twice a day for 10 days, then 1 tablet twice day Discharge Orders: Discharge Order (Routine); Ordered 09/25/23 Ordered By: Akosua Guerra Diet: Advance to usual diet Activity on Discharge: As tolerated Stand Alone Forms: Patient Portal Discharge page Print Language: Cymro Activity Restrictions/Additional Instructions: Wound care; 1. Turn and Reposition every 2 hours and as needed for patient comfort.? Use pillows or wedges to support off loading positions. 2. Off Load all bony prominences with use of pillows and heel boots if needed.? Apply Preventative foams where needed. ? 3. Monitor for incontinence and moisture control, use barrier creams when needed for prevention and treatment. 4. Provide adequate and supplemental nutrition.? 5. Order or Continue low air loss mattress. 6. When applicable maintain blood glucose levels per Providers order. 7. Buttocks - apply preventative sacral foam dressing peel back and assess and change every 5 days. Apply barrier cream as needed if moisture is noted to act as a barrier to friction and moisture. Care Plan Goals: Discontinue Eliquis Continue Ceftin as prescribed for 1 more week Follow with dr Wong for suprapubic catheter changing in 1 month Participate with Physical therapy at home Health Concerns: Read below Plan of Treatment: Read below Assessment: Read below
[2023-09-25] MEDS: Midodrine HCl 5 MG TABLET PO (13:08)
--- NOTE | 2023-09-25 13:15 | P.F2F_ITS ---
Service Date Service Date: 09/25/23 Encounter Date of encounter: 09/25/23 Reasons for Services Signs and symptoms assessed: Physical deconditioning Pressure wound Reason for residential: wound care (1. Turn and Reposition every 2 hours. Use pillows or wedges to support off loading positions. 2. Off Load all bony prominences 3. Order or Continue low air loss mattress. 4.Buttocks - apply preventative sacral foam dressing peel back and assess and change every 5 days. Apply barrier cream as needed) and teach disease management Reason for physical therapy: home safety and mobility and therapeutic exercises Homebound: Leaving the home is medically contraindicated at this time without the asist of a device and/or another person due th the listed conditions above and below. Reason homebound: unsteady gait / fall risk Certification: Based on the above findings, I certify that this patient is confined to the home and needs intermittent residential care, physical therapy and/or speech therapy, or continues to need occupational therapy. The patient is under my care, and I have initiated the establishment of the plan of care. The patient will be followed by a physician who will periodically review the plan of care. Time Spent With Patient Time: Total time managing care of this patient today ____ minutes.
[2023-09-25 14:27] VITALS: BP 110/52; PULSE 75
== END 2023-09-25 16:15 | disposition home health service (06) | DRG 668 ==
LOC: HO.ED 11:06 → HO.EDOVER 16:57 → HO.S3 19:19
PROVIDERS: Internal Medicine; Physician Assistant; Surgery Vascular Surgery; Urology; Admitting Provider Internal Medicine; Emergency Provider Emergency Medicine Emergency Medical Services; PCP Internal Medicine; Visit Provider Student in an Organized Health Care Education/Training Program
PROC: 0T5B8ZZ Destruction of Bladder, Via Natural or Artificial Opening Endoscopic (ICD-10-PCS; principal; 2023-09-23 13:30)
PROC: 0T5B8ZZ Destruction of Bladder, Via Natural or Artificial Opening Endoscopic (ICD-10-PCS; CPT 51102; 2023-09-23 13:30)
PROC: 06H03DZ Insertion of Intraluminal Device into Inferior Vena Cava, Percutaneous Approach (ICD-10-PCS; principal; 2023-09-25 09:00)
DX: N13.6 Pyonephrosis (principal); G92.8 Other toxic encephalopathy; E87.21 Acute metabolic acidosis; N13.8 Other obstructive and reflux uropathy; N30.41 Irradiation cystitis with hematuria; I82.412 Acute embolism and thrombosis of left femoral vein; D68.32 Hemorrhagic disorder due to extrinsic circulating anticoagulants; N31.8 Other neuromuscular dysfunction of bladder; N17.9 Acute kidney failure, unspecified; E86.0 Dehydration; T66.XXXS Radiation sickness, unspecified, sequela; T45.515A Adverse effect of anticoagulants, initial encounter; L89.301 Pressure ulcer of unspecified buttock, stage 1; T45.516A Underdosing of anticoagulants, initial encounter; E87.5 Hyperkalemia; B96.4 Proteus (mirabilis) (morganii) as the cause of diseases classified elsewhere; E78.5 Hyperlipidemia, unspecified; N40.1 Benign prostatic hyperplasia with lower urinary tract symptoms; R33.8 Other retention of urine; Z93.3 Colostomy status; Z85.048 Personal history of other malignant neoplasm of rectum, rectosigmoid junction, and anus; Z79.01 Long term (current) use of anticoagulants; Z87.891 Personal history of nicotine dependence; Z79.899 Other long term (current) drug therapy
CPT/HCPCS: 36415; 37191; 70450; 71045; 72125; 74176; 80048; 80053; 80076; 80202; 81001; 81003; 82550; 82565; 82803; 83605; 83735; 85025; 85027; 86850; 86900; 86901; 87040; 87077; 87086; 87088; 87147; 87186; 87205; 93005; 93970; 97162; 97530; 99285; C1758; C1769; C1880; J0696; J2371; J2704; J2795; J3010; J3370; J3371; J7120

== ENCOUNTER → 2023-09-18 09:44 | Outpatient (BNV) | payer MEDICARE, SELFPAY | PROVIDERS: Admitting Provider Internal Medicine; Emergency Provider Emergency Medicine Emergency Medical Services; PCP Internal Medicine; Visit Provider Internal Medicine | DX: R94.31 Abnormal electrocardiogram [ECG] [EKG] (principal) | CPT/HCPCS: 93010 ==

== ENCOUNTER → 2023-09-18 16:49 | Outpatient (BNV) | payer MEDICARE, SELFPAY | PROVIDERS: Admitting Provider Internal Medicine; Emergency Provider Emergency Medicine Emergency Medical Services; PCP Internal Medicine; Visit Provider Internal Medicine | DX: I82.402 Acute embolism and thrombosis of unspecified deep veins of left lower extremity (principal) | CPT/HCPCS: 99222 ==

== ENCOUNTER → 2023-09-18 16:49 | Outpatient (BNV) | payer MEDICARE, SELFPAY | PROVIDERS: Admitting Provider Internal Medicine; Emergency Provider Emergency Medicine Emergency Medical Services; PCP Internal Medicine; Visit Provider Urology | DX: N30.41 Irradiation cystitis with hematuria (principal); N31.9 Neuromuscular dysfunction of bladder, unspecified | CPT/HCPCS: 51102; 99222 ==

== ENCOUNTER → 2023-09-18 16:49 | Outpatient (BNV) | payer MEDICARE, SELFPAY | PROVIDERS: Admitting Provider Internal Medicine; Emergency Provider Emergency Medicine Emergency Medical Services; PCP Internal Medicine; Visit Provider Student in an Organized Health Care Education/Training Program | DX: R31.9 Hematuria, unspecified (principal); N17.9 Acute kidney failure, unspecified; N39.0 Urinary tract infection, site not specified; L89.109 Pressure ulcer of unspecified part of back, unspecified stage; N13.30 Unspecified hydronephrosis; I82.409 Acute embolism and thrombosis of unspecified deep veins of unspecified lower extremity; R78.81 Bacteremia | CPT/HCPCS: 99223; 99232; 99233; 99239; G0180 ==

== ENCOUNTER → 2023-09-18 16:49 | Outpatient (BNV) | payer MEDICARE, SELFPAY | PROVIDERS: Admitting Provider Internal Medicine; Emergency Provider Emergency Medicine Emergency Medical Services; PCP Internal Medicine; Visit Provider Surgery | DX: L89.109 Pressure ulcer of unspecified part of back, unspecified stage (principal) | CPT/HCPCS: 99222 ==

== ENCOUNTER → 2023-09-18 16:49 | Outpatient (BNV) | payer MEDICARE, SELFPAY | PROVIDERS: Admitting Provider Internal Medicine; Emergency Provider Emergency Medicine Emergency Medical Services; PCP Internal Medicine; Visit Provider Surgery Vascular Surgery | DX: I82.402 Acute embolism and thrombosis of unspecified deep veins of left lower extremity (principal) | CPT/HCPCS: 37191; 99222 ==

== ENCOUNTER 2023-10-14 14:48 | Outpatient (AMB) | payer MEDICARE, SELFPAY ==
[2023-10-14 14:48] VITALS: BMI 22.6
--- NOTE | 2023-10-14 14:48 | MHC.OFFVIS ---
Vital Signs 10/14/23 14:48 Height 5 ft 9 in Weight 153 lb 0.013 oz BMI 22.6 Intake Visit Reasons: soft cystic mass on the proctectomy site Intake Note: This patient presents for soft cystic mass on the proctectomy site. Pt c/o; reports several weeks he had some bleeding and they do not know where it was coming from , pt was inpatient recently 09/18/2023, Don is currently on hold. Olericulturist Required: No Accompanied by: Family/Other Allergies No Known Allergies [No Known Allergies*] Allergy (Verified 10/14/23 14:57) Medication List - Last Reconciled 10/14/23 by Aden Mcbride MD brinzolamide-brimonidine 1-0.2 % (Simbrinza) 1 drp ophthalmic (eye) BID cefuroxime axetil 500 mg PO BID finasteride 5 mg PO DAILY 30 days latanoprost 0.005% (Xalatan) 1 drp ophthalmic (eye) BEDTIME pravastatin 1 tab PO DAILY tamsulosin (Flomax) 0.4 mg PO BEDTIME 30 days timolol maleate 0.5% 1 drp ophthalmic (eye) BID HPI HPI soft cystic mass on the proctectomy site: Details: 88-year-old male here for a follow-up for a mass on the mastectomy site.He is well known to me. He had undergone abdominal perineal resection after neoadjuvant chemotherapy and radiation for rectal cancer in 2016. He continues to see me in the office periodically. He does have chronic changes on the buttocks likely from pressure as he now is not very mobile and sits down most of the time . There is no significant drainage from the area. He has had this soft boggy swelling on the buttock to the left of the proctectomy site which she has had for many years. This seems to have been unchanged. He has neurogenic bladder as well and therefore suffers from urinary retention. He had a suprapubic tube he has during his admission last 09/19/2023. His family says that once in a while they would see blood from old gluteal cleft next to the swollen area. He says that he feels the same. Stoma continues to function well. He had not notice any changes with regards to his buttocks. He had been previously on anticoagulation for blood clots but this had to be stopped because of hematuria. [facility] Medical History DVT (deep venous thrombosis) At risk for bleeding related to anticoagulants Hypotonic neurogenic bladder Pressure ulcer of back Soft tissue mass Incomplete emptying of bladder Dysuria Pyuria H/O urinary retention Rectal adenocarcinoma Melanoma Fibroma Skin cancer Fracture of right ankle Glaucoma Surgical History History of surgery Hx of abdominoplasty Hx of tonsillectomy Hx of colonoscopy Family History Sister Lung cancer Maternal Aunt Breast cancer Mother Breast cancer Social History Household Members: None Housing: House Are you a primary home care physical therapist to a significant other at home: No Do you presently have visiting nurse or other home services: No Alcohol intake: former Patient Tobacco Use Status: Former Tobacco user Cigarette Packs Per Day: 3 service: No Current occupational status: retired Review of Systems Const Denies chills, Denies fever(s) and Reports weakness Card Denies chest pain and Denies chest pain at rest Resp Denies cough GI Denies abdominal pain Details: Hematuria, now has suprapubic tube Neuro Reports weakness Physical Exam Vital Signs: BMI result Body Mass Index 22.6 Const Other: Answers questions, but frail looking and weak, wheelchair General: comfortable and no acute distress Resp Effort & Inspection: normal respiratory effort Cardio Rate: regular rate GI Other: Colostomy functioning well Palpation (GI): Soft to palpation and not firm Back/Spine/Pelvis Other: Soft bogginess to the left of the proctectomy site, unchanged from before, some irritation in the old gluteal cleft with superficial buried skin breakdown and small amounts of blood Assessment & Plan Assessment & Plan (1) Soft tissue mass: Code(s): M79.89 - Other specified soft tissue disorders Category: Medical Plan: He has this 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 His follow-up CT scan from 3 weeks ago does not show any changes. This appears to be more of a granuloma versus fibrotic changes from his previous APR I told him therefore that he does not seem to require any surgical intervention for this He does have multiple other medical complaints and has a suprapubic tube with hematuria. He is to see his urologist sometime this week He also continues to Dr. Little because of his DVT. He has been off anticoagulation because of his hematuria. Coding Level of Care Code Est Pt Level 3 (76591) Diagnoses Soft tissue mass M79.89
== END 2023-10-14 15:31 | disposition home or self-care (01) ==
PROVIDERS: PCP Internal Medicine; Visit Provider Surgery
DX: M79.89 Other specified soft tissue disorders (principal)
CPT/HCPCS: 99213

== ENCOUNTER → 2023-10-14 14:48 | Outpatient (BNVA) | payer MEDICARE, SELFPAY | PROVIDERS: PCP Internal Medicine; Visit Provider Surgery | DX: M79.89 Other specified soft tissue disorders (principal); Z98.890 Other specified postprocedural states | CPT/HCPCS: 99212 ==

== ENCOUNTER 2023-10-17 12:35 | Outpatient (REF) | payer MEDICARE, SELFPAY ==
[2023-10-17 12:58] LABS: Appearance Urine Turbid; Glucose Urine UA Negative (Negative); Nitrite Urine Positive (Negative); PH 8.5 (5.0-9.0); Specific Gravity - Urine 1.015 (1.005-1.025); UMIC TRIGGER UA YES; Urine Blood Moderate (2+) (Negative); Urine Ketones Negative (Negative); Urine Protein 300 (3+) mg/dL (Neg-Trace)
[2023-10-17 12:59] LABS: Color Urine Yellow; Leukocyte Esterase Urine Large (3+) (Negative)
[2023-10-17 13:00] LABS: Bacteria Urine 4+ (None Seen); Hyaline Casts Urine 0-2 /LPF (0-2); Other Crystals Urine Present; RBC Urine >20 /HPF (0-2); WBC Clumps Urine Present; WBC Urine >50 /HPF (0-5)
== END 2023-10-17 12:36 | disposition home or self-care (01) ==
LOC: HO.LNP 12:35
PROVIDERS: Visit Provider Urology
DX: R33.9 Retention of urine, unspecified (principal); R31.9 Hematuria, unspecified; N13.4 Hydroureter
CPT/HCPCS: 81001; 87086; 87088; 87186

== ENCOUNTER 2023-10-24 13:31 | Outpatient (AMB) | payer MEDICARE, SELFPAY ==
--- NOTE | 2023-10-24 13:42 | MHC.OFFVIS ---
Intake Visit Reasons: 1st SPT change Intake Note: Patient is present for Initial SPT Change Revenue Accounting Manager Required: No Allergies No Known Allergies [No Known Allergies*] Allergy (Verified 10/14/23 14:57) HPI Comments Details: Edgar is a pleasant male. He is a patient of Dr. Daniels. 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 Suprapubic tube placement [facility] Medical History (Updated 10/24/23 @ 13:58 by Gallo Wong MD) Hypotonic neurogenic bladder DVT (deep venous thrombosis) At risk for bleeding related to anticoagulants Pressure ulcer of back Soft tissue mass Incomplete emptying of bladder Dysuria Pyuria H/O urinary retention Rectal adenocarcinoma Melanoma Fibroma Skin cancer Fracture of right ankle Glaucoma Surgical History History of surgery Hx of abdominoplasty Hx of tonsillectomy Hx of colonoscopy Family History Sister Lung cancer Maternal Aunt Breast cancer Mother Breast cancer Social History Household Members: None Housing: House Are you a primary pediatric care coordinator to a significant other at home: No Do you presently have visiting nurse or other home services: No Alcohol intake: former Patient Tobacco Use Status: Former Tobacco user Cigarette Packs Per Day: 3 service: No Current occupational status: retired Review of Systems Const Denies chills and Denies fever(s) Card Reports no additional complaints and Denies syncope Resp Denies cough GI Denies abdominal pain and Denies heartburn Reports as per HPI and Denies change in libido Neuro Denies syncope Psych Denies change in libido Endo Denies change in libido Physical Exam Const General: cooperative, healthy appearing, comfortable and no acute distress Orientation/consciousness: patient oriented x3 HEENT Face and sinus: Yes normal facial exam Mouth: moist mucous membranes Neck Neck: Yes normal visual inspection, Yes full ROM and Yes trachea midline Chest Chest palpation & inspection: normal inspection of the chest Resp Effort & Inspection: normal respiratory effort, able to speak in complete sentences and no respiratory distress GI Inspection: Yes normal to inspection Back/Spine/Pelvis Cervical Spine: normal cervical lordosis Thoracic/Lumbar Spine: thoracic and lumbar spine normal to inspection Skin General skin exam: no rashes or lesions noted Neuro General: patient oriented x3, gait normal, tone normal and moves all extremities Extrem General: Yes normal to inspection and Yes capillary refill normal Office Procedures Bladder/Catheter Procedure Details: SPT up size to 18 Qatari yellow Clean technique 7 cc balloon full 59385-[id number] of bladder tube Procedure code (CPT) selection complete Assessment & Plan Assessment & Plan (1) Hypotonic neurogenic bladder: Comment: Prior rectal surgery with presumed nerve compromise Code(s): N31.9 - Neuromuscular dysfunction of bladder, unspecified Category: Medical Plan Six-month follow-up VNA to change Medications: New methenamine hippurate 1 g PO DAILY 90 days 90 tabs 1RF N31.9 - Neuromuscular dysfunction of bladder, unspecified, N39.0 - Urinary tract infection, site not specified ascorbic acid (vitamin C) 1 g PO DAILY 90 days 90 tabs 1RF N31.9 - Neuromuscular dysfunction of bladder, unspecified, N39.0 - Urinary tract infection, site not specified Patient Instructions: Imaging studies, laboratory and physical exam results were discussed and reviewed in detail. No major barriers to patient understanding were identified. An opportunity to ask questions regarding the treatment plan was provided. All questions were answered. The patient expressed understanding and agreement with the above treatment plan. The patient is aware they should contact our office by phone for worsening of their current condition or the appearance of new urologic symptoms. Compliance is encouraged with any medications and followup testing that is ordered. It is a privilege to participate in the urologic care of your patient. If you have any questions or concerns regarding treatment for the above conditions, or other urologic issues, please do not hesitate to contact me. The office telephone contact is [phone]. This note is constructed using voice recognition software. While every effort has been made to ensure accuracy ocean freight forwarder errors may have been included. Yours sincerely, Dr Gallo Wong MD, [facility] - Urology Providers of Expert, Compassionate Care for the Genitourinary System Coding Level of Care Code Est Pt Level 3 (99060) Diagnoses Hypotonic neurogenic bladder N31.9 CPT Codes Bladder/Catheter Procedure - CPT: 26889-Kjbobd of bladder tube ([id number])
== END 2023-10-24 14:05 | disposition home or self-care (01) ==
PROVIDERS: PCP Internal Medicine; Visit Provider Urology
DX: N31.9 Neuromuscular dysfunction of bladder, unspecified (principal)
CPT/HCPCS: 51705; 99024

== ENCOUNTER → 2023-10-24 13:31 | Outpatient (BNVA) | payer MEDICARE, SELFPAY | PROVIDERS: PCP Internal Medicine; Visit Provider Urology | DX: N31.9 Neuromuscular dysfunction of bladder, unspecified (principal) | CPT/HCPCS: 51705; 99212 ==

== ENCOUNTER 2023-12-20 15:01 | Outpatient (REF) | payer MEDICARE, SELFPAY | END 2023-12-20 15:02 | disposition home or self-care (01) | LOC: HO.US 15:01 | PROVIDERS: PCP Internal Medicine; Visit Provider Urology | DX: N13.4 Hydroureter (principal); N13.30 Unspecified hydronephrosis; N31.9 Neuromuscular dysfunction of bladder, unspecified | CPT/HCPCS: 76770 ==

== ENCOUNTER 2024-01-25 12:53 | Inpatient (IN) | payer MEDICARE, SELFPAY ==
[2024-01-25] VITALS (29 sets, daily range): BP systolic 78–136; BP diastolic 41–85; PULSE 89–162; RESP 16–26; TEMP 36.4–36.7; O2SAT 91–97; BMI 22.6
--- NOTE | 2024-01-25 | ECG_ITS ---
Test Reason : tachycardia Blood Pressure : / mmHG Vent. Rate : 121 BPM Atrial Rate : 000 BPM P-R Int : 000 ms QRS Dur : 094 ms QT Int : 348 ms P-R-T Axes : 000 042 230 degrees QTc Int : 494 ms Atrial fibrillation with rapid ventricular response Low voltage QRS ST & T wave abnormality, consider anterolateral ischemia Abnormal ECG When compared with ECG of 25-JAN-2024 13:19, Atrial fibrillation has replaced Sinus rhythm Referred By: Anthony Gallo Electronically Signed By:AGATA MIDDLETON
--- NOTE | ~2024-01-25 | CT_ITS ---
EXAMINATION: CT ANGIOGRAM OF THE CHEST WITH AND WITHOUT CONTRAST (CT PULMONARY ANGIOGRAM FOR PE) CLINICAL INFORMATION: tachycardia hx of DVT COMPARISON: CT chest January 20, 2020 TECHNIQUE: Prior to contrast administration, noncontrast localization images were obtained. Subsequently, multidetector volumetric imaging was performed from the thoracic inlet to below the diaphragms following the administration of 65 mL Omnipaque 350 intravenous contrast. No contrast reaction reported. Sagittal, coronal, and MIP oblique sagittal reformatted images were obtained on the CT workstation, uploaded to PACS, and reviewed. Total exam dose-length product 499 mGy-cm FINDINGS: QUALITY OF STUDY/CONTRAST BOLUS: Satisfactory. PULMONARY ARTERIES: No central or segmental pulmonary emboli. THORACIC AORTA: No aneurysm or dissection. LUNG: Large bilateral pleural effusions with associated atelectasis. No focal consolidation. Centrilobular emphysema. MEDIASTINUM: Cardiomegaly with biatrial enlargement. No cardial effusion. No mediastinal lymphadenopathy. CHEST WALL/AXILLA: No axillary or internal mammary lymphadenopathy. OSSEOUS STRUCTURES: Glenohumeral degenerative changes, left greater than right. Diffuse osteopenia. Multilevel degenerative changes throughout the thoracic spine. UPPER ABDOMEN: Unremarkable. No reflux of contrast into the hepatic veins to suggest elevated right heart pressures. CT/CT angio chest PE protocol IMPRESSION: 1. No central or segmental pulmonary emboli. 2. Large bilateral pleural effusions with associated atelectasis. VTE: negative. Electronically signed by: Gonzalo Vaughn MD 01/25/2024 03:26 PM [facility] [place]
--- NOTE | ~2024-01-25 | XR_ITS ---
EXAMINATION: XR CHEST CLINICAL INFORMATION: palpitations COMPARISON: 09/18/2023 and selected prior TECHNIQUE: AP portable semiupright view of the chest was obtained. Lordotic positioning FINDINGS: Persistent low lung volumes. View consolidation in both lower lungs suspicious for acute airspace disease. This could represent aspiration or pneumonia. Increased prominence of central pulmonary vasculature and cardiac silhouette. Increased widening of the mediastinal vascular pedicle. There may be a component of interstitial edema. Subtle blunting of the bilateral calcific angles Present trace effusions. Chronic severe degenerative changes in the left shoulder. Nonobstructive gas pattern. XR/XR chest 1V IMPRESSION: 1. Suspect mild interstitial edema and effusions. 2. Nonspecific bibasilar airspace opacities Electronically signed by: Kurt Cunningham MD 01/25/2024 01:53 PM EST
--- NOTE | 2024-01-25 13:04 | ED.GENADULT ---
HPI - General Adult General Chief complaint: Urogenital-Male Stated complaint: catheter came out Time Seen by Provider: 01/25/24 13:11 Source: patient, family and old records reviewed Mode of arrival: ambulatory Limitations: no limitations History of Present Illness ED Provider: AMBAR RIVERA narrative: 88 yo male with PMH of rectal adenocarcinoma hx of colostomy follows with Dulala, , DVT but no longer on thinners, neurogenic bladder with chronic suprapubic catheter - follows with Dr. Ortiz. Patient started to have urine leaking from the penis and sensation of having to urinate which is unusual for the patient. Started on ceftin yesterday has taken 3 doses. Suprapubic fell out some time in middle of the night VNA could not replace it. Family feels his breathing is different. He denies anything. complaint: urinary issues Onset (ago): day(s) (3) Location: genitals Radiation: non-radiation Severity: moderate Quality: aching Pain Consistency: intermittent Relieving factors: none Exacerbating factors: none Associated symptoms: other (catheter came out) Treatments prior to arrival: other (ceftin, VNA did attempt to place suprapubic cath) Related Data Home Medications ?Medication ?Instructions ?Recorded ?Confirmed latanoprost 0.005 % eye drops 1 drp ophthalmic (eye) BEDTIME 01/05/20 11/22/23 (Xalatan) pravastatin 40 mg tablet 1 tab PO DAILY 01/05/20 11/22/23 brinzolamide 1 %-brimonidine 0.2 % 1 drp ophthalmic (eye) BID 08/24/20 11/22/23 eye drops,suspension (Simbrinza) timolol maleate 0.5 % eye drops 1 drp ophthalmic (eye) BID 09/18/23 11/22/23 Previous Rx's ?Medication ?Instructions ?Recorded finasteride 5 mg tablet 5 mg PO DAILY 30 days #90 tabs 05/03/23 tamsulosin 0.4 mg capsule (Flomax) 0.4 mg PO BEDTIME 30 days #90 caps 05/03/23 ascorbic acid (vitamin C) 1,000 mg 1 g PO DAILY 90 days #90 tabs 10/24/23 tablet methenamine hippurate 1 gram tablet 1 g PO DAILY 90 days #90 tabs 10/24/23 cefuroxime axetil 500 mg tablet 500 mg PO BID #14 tabs 01/24/24 Allergies Allergy/AdvReac Type Severity Reaction Status Date / Time No Known Allergies Allergy Verified 01/25/24 13:08 [No Known Allergies*] Review of Systems Review of Systems: Constitutional : No Weight loss, No Fever, No Chills ENT/Mouth : No sore throat, No Rhinorrhea Eyes: No Swelling, No Redness Cardiovascular : No Chest Pain, No SOB, NoEdema Respiratory : No Cough, No Sputum, No Wheezing Gastrointestinal : no Nausea, no Vomiting, no Diarrhea, no abdominal Pain, No Hematochezia, No Melena Genitourinary : No Dysuria, No Urinary Frequency, No Hematuria, pos Urgency Musculoskeletal : No joint pain, No Myalgias, No Joint Swelling Skin : No Skin Lesions, No rash Neuro : No Weakness, No Numbness, No Dizziness, No Headache All other systems reviewed and are negative. [facility] Past Medical History Attestation statement: The following information was validated with the patient. Source: old records reviewed Medical History Hypotonic neurogenic bladder DVT (deep venous thrombosis) At risk for bleeding related to anticoagulants Pressure ulcer of back Soft tissue mass Incomplete emptying of bladder Dysuria Pyuria H/O urinary retention Rectal adenocarcinoma Melanoma Fibroma Skin cancer Fracture of right ankle Glaucoma Surgical History History of surgery Hx of abdominoplasty Hx of tonsillectomy Hx of colonoscopy Family History Family History Sister Lung cancer Maternal Aunt Breast cancer Mother Breast cancer Social History Social History Household Members: None Housing: House Are you a primary transitional care manager to a significant other at home: No Do you presently have visiting nurse or other home services: No Alcohol intake: former Patient Tobacco Use Status: Former Tobacco user Cigarette Packs Per Day: 3 Smoked in Last 30 Days: No Use of substances other than those prescribed or required for medical reasons: No Advance Directives: Yes Advance Directives Information Provided: No Advance Directives on File: No Do you have a plan to hurt others: No Plan service: No Current occupational status: retired Physical Exam ED Vital Signs: Vital Signs - 24 hr 01/25/24 13:03 01/25/24 13:42 01/25/24 14:01 Temperature 98.0 F 97.6 F Pulse Rate 153 H 152 H 152 H Respiratory Rate 20 19 26 H Blood Pressure 105/85 124/64 136/61 Pulse Oximetry 97 96 Oxygen Delivery Method Room Air Room Air 01/25/24 14:48 01/25/24 14:51 01/25/24 14:55 Temperature Pulse Rate 148 H 149 H Respiratory Rate 22 H 19 Blood Pressure 112/69 112/69 116/68 Pulse Oximetry 95 95 Oxygen Delivery Method Room Air Room Air 01/25/24 15:09 01/25/24 15:28 Temperature Pulse Rate 148 H 148 H Respiratory Rate 16 Blood Pressure 116/68 101/64 Pulse Oximetry 95 Oxygen Delivery Method Room Air BMI result Body Mass Index 22.6 Appearance: Alert. Oriented X3. No acute distress. Eyes: Pupils equal, round and reactive to light. ENT: Pharynx normal. Neck: Normal inspection. Neck supple. CVS: tachyardic and irregular heart rate and rhythm. Pulses normal. Respiratory: No respiratory distress. Breath sounds normal. Abdomen: Soft and nontender. fullness felt suprapubic, suprapubic cath site is small but no bleeding noted, stoma is p/p/p brown stool Skin: Skin warm and dry. Normal skin color. Normal skin turgor. Extremities: 2+ pitting ankle symmetric lower extremity edema. No calf ttp Neuro: Oriented X 3. No motor deficit. No sensory deficit. Course Course Course Narrative: This is a Rapid Medical Examination (RME) performed by Estrada Carson PA-C in triage. Full HPI, ROS, assessment and treatment plan per primary provider in the Main ED. 88 yo male hx of rectal adenocarcinoma, hx colostomy, hx LLE DVT June 2023 on Eliquis, glaucoma, history of neurogenic bladder due to radiation tx of rectal cancer for eval of dislodged suprapubic catheter. family at bedside states suprapubic cath was placed in August 2023. last changed 1 week ago. since this time endorses urinary urgency. family states the bag has not been draining well over the last few days. they arrived at his house this morning and the bag was on the ground - they suspect it fell out over night. patient reporting urinary urgency. no pain. admits he had telephone visit w/ Dr. Wong yesterday - prescribed abx for suspected UTI. patient lives alone. VNA attempted to replace subrapubic cath today however noted the hole to be closed. + well appearing. tachycardic to 150s Plan: labs, UA, ekg Reevaluation(s) Reevaluation #1: had some breaks and patient had flutter waves noted x 2 with irregular rate no response to lopressor will start on dilt gtt Reevaluation #2: on dilt gtt now has drops of 90s no response to lopressor given IV lasix as well Medications Administered Generic Name Dose Route Start Last Admin Trade Name Freq PRN Reason Stop Dose Admin Diltiazem HCl 125 mg/ Sodium 125 mls @ 0 mls/hr 01/25/24 15:00 01/25/24 15:28 Chloride IVCONT 15 mg/hr .Q0M LUIS ENRIQUE 15 mls/hr Titration Protocol Per Protocol Discontinued Medications Generic Name Dose Route Start Last Admin Trade Name Freq PRN Reason Stop Dose Admin Acetaminophen 650 mg 01/25/24 13:58 01/25/24 14:21 Acetaminophen 325 Mg Tablet PO 01/25/24 13:59 650 mg ONCE ONE Administration Ceftriaxone Sodium 1 gm 01/25/24 13:35 01/25/24 14:20 Ceftriaxone Sodium 1 Gm Vial IVPUSH 01/25/24 13:36 1 gm ONCE ONE Administration Furosemide 20 mg 01/25/24 14:34 01/25/24 14:48 Furosemide 40 Mg/4 Ml Vial IVPUSH 01/25/24 14:35 20 mg STAT STA Administration Protocol Sodium Chloride 250 mls @ 250 mls/hr 01/25/24 14:11 01/25/24 14:16 Ns IV 01/25/24 15:10 250 mls/hr .Q1H ONE Administration Iohexol 65 ml 01/25/24 14:55 01/25/24 14:56 Iohexol 350 Mg/Ml 100 Ml Infus..Btl IV 01/25/24 14:56 65 ml ONCE ONE Administration Metoprolol Tartrate 2.5 mg 01/25/24 14:02 01/25/24 14:18 Metoprolol Tartrate 5 Mg/5 Ml Vial IVPUSH 01/25/24 14:03 2.5 mg ONCE ONE Administration Protocol Metoprolol Tartrate 2.5 mg 01/25/24 14:45 01/25/24 14:51 Metoprolol Tartrate 5 Mg/5 Ml Vial IVPUSH 01/25/24 14:46 2.5 mg ONCE ONE Administration Protocol Procedures Catheter Insertion (Urinary) Date of insertion: 01/25/24 Reason for placing: Yes Reason for placing indwelling catheter: Acute urinary retention Patient has the following: history of catheter associated urinary tract infection Bladder scan/ultrasound used before catheterization: No Estimated amount of urine (mLs): 750 Antiseptic solution prep: Povidone-Iodine Topical anesthesia used: Yes Catheter type/location: Suprapubic Size (Faroese): 10 Catheter balloon amount: 0 Results: successfully catheterized-immediate flow Procedure performed: without complications Complications: could not pass anything smaller than 10F Medical Decision Making Medical Decision Making [facility] Narrative: 88 yo male with PMH of rectal adenocarcinoma hx of colostomy follows with [facility], , DVT but no longer on thinners, neurogenic bladder with chronic suprapubic catheter here with complaints of suprapubic catheter fell out in the middle of the night - taking ceftin x 3 since phone call from Urology - will replace catheter if possible though it is closed appearing, he has tachycardia and I suspect this is flutter he is afebrile denies CP/SOB but family feels his legs are more swollen, IV ceftriaxone ordered given hx of proteus infection, low dose lopressor also ordered, given hx of DVT will need CTA:PE he is currently off his blood thinner. Differential Diagnosis Differential Diagnoses: The differential diagnosis associated with the presentation includes UTI, lyte abnormality, aflutter/afib, CHF, VTE Admission/Observation Consideration of admission/observation: Escalation of care including admission/observation considered admit given aflutter/afib volume overload Consult Healthcare Provider Management of the patient was discussed with: Hospitalist (will admit) Lab Data [facility] Lab Attestation statement: I reviewed the patient's lab results. 01/25/24 13:38 01/25/24 13:38 Labs: Lab Results 01/25/24 01/25/24 01/25/24 Range/Units 13:38 13:39 14:49 WBC 8.8 (4.8-10.8) X10*3/uL RBC 4.78 (4.60-5.80) X10*6/uL Hgb 11.8 L (14.0-18.0) g/dl Hct 39.3 L (42.0-52.0) % MCV 82.2 (80.0-98.0) fL MCH 24.7 L (27.0-33.0) pg MCHC 30.0 L (31.0-36.0) g/dl RDW 15.1 (11.0-16.0) % Plt Count 255 (160-400) X10*3/uL MPV 9.9 (9.4-12.4) fL Immature Gran % (Auto) 0.5 H (0.0-0.4) % Neut % (Auto) 75.4 H (45-73) % Lymph % (Auto) 14.0 L (20-40) % Tyrrell % (Auto) 8.8 (2-11) % Eos % (Auto) 0.6 (0-4) % Baso % (Auto) 0.7 (0-2) % Lymph # (Auto) 1.2 (1.2-4.9) X10*3/uL Tyrrell # (Auto) 0.8 (0.1-1.2) X10*3/uL Eos # (Auto) 0.1 (0.0-0.4) X10*3/uL Baso # (Auto) 0.1 (0.0-0.2) X10*3/uL Abs Immat Gran (auto) 0.04 H (0.00-0.03) X10*3/uL Absolute Neuts (auto) 6.6 (2.0-8.3) x10*3/uL Absolute Nucleated RBC 0.000 (0.0-0.012) X10*3/uL Nucleated RBC % (auto) 0.0 (0.0-0.2) /100WBC Hold Blue Top SEE NOTE Sodium 144 (135-145) mmol/L Potassium 3.8 (3.3-5.1) mmol/L Chloride 107 (96-108) mmol/L Carbon Dioxide 26 (22-29) mmol/L Anion Gap 15 (12-20) BUN 39 H (9-16) mg/dL Creatinine 1.20 (0.5-1.4) mg/dL Estim Creat Clear Calc 42.5 Estimated GFR 57 Random Glucose 114 (60-115) mg/dL Lactic Acid 3.1 H* (0.5-2.0) mmol/L Calcium 9.7 D (8.4-10.2) mg/dL Magnesium 2.4 (1.6-2.6) mg/dL Total Bilirubin 0.9 (0.0-1.0) mg/dL AST 26 (5-37) U/L ALT 31 (0-40) U/L Alkaline Phosphatase 72 (39-117) U/L Troponin I High Sens 16.9 (<3.5-35.0) ng/L B-Natriuretic Peptide 1318 H (<100) pg/mL Total Protein 8.1 H (6.5-8.0) g/dL Albumin 4.2 (3.5-5.0) g/dL TSH 1.38 (0.32-4.0) uIU/mL Hold Green Top See Note Hold Yellow Top See Note Urine Color Yellow Urine Appearance Turbid Urine pH 6.0 (5.0-9.0) Ur Specific [place] 1.020 (1.005-1.025) Urine Protein 100 (2+) H (Neg-Trace) mg/dL Urine Glucose (UA) Negative (Negative) mg/dL Urine Ketones Negative (Negative) mg/dL Urine Blood Small (1+) H (Negative) Urine Nitrite Negative (Negative) Ur Leukocyte Esterase Large (3+) H (Negative) Urine RBC 3-5 H (0-2) /HPF Urine WBC >50 H (0-5) /HPF Ur Squamous Epith Cells 0-2 (0-2) /HPF Urine Bacteria Trace (None Seen) Hyaline Casts 6-10 (0-2) /LPF Independent Interpretation I performed an independent interpretation of an: EKG, Plain X-Ray (opacitites) and CT Scan (no PE) Interpretation: Rate: 152 Rhythm: regular tachycardic Jefferson: normal Normal QRS complex. ST T wave : no CHARLIE, flat t waves lateral leads qTC: 511 prior studies: tachycardia but no CHARLIE The study has been interpreted contemporaneously by me. . Radiology Impression Discussion of test interpretation with radiology: I have reviewed the radiologist's reading. Independent Historian Clinical information obtained from an independent historian. History obtained from or confirmed by: Other (family) External Record Review External record reviewed: Inpatient record, Office record, Outpatient record and Prior outpatient radiology Critical Care Time Critical Care Time Critical Care Time: Yes Total Critical Care Time: 60 Attestation: repeat lopressor and dilt gtt, review of records, admission I attest to this time spent taking care of the patient Discharge Plan Discharge Clinical Impression: Pleural effusion Atrial flutter Qualifiers: Atrial flutter type: unspecified Qualified Code(s): I48.92 - Unspecified atrial flutter Complication, blocked suprapubic catheter Qualifiers: Encounter type: initial encounter Qualified Code(s): T83.090A - Other mechanical complication of cystostomy catheter, initial encounter Urinary tract infection Qualifiers: Urinary tract infection type: acute cystitis Hematuria presence: with hematuria Qualified Code(s): N30.01 - Acute cystitis with hematuria Patient Disposition: Admitted As Inpatient Print Language: Maltese
--- NOTE | 2024-01-25 13:08 | ECG_ITS ---
Test Reason : tachycardic Blood Pressure : / mmHG Vent. Rate : 152 BPM Atrial Rate : 152 BPM P-R Int : 136 ms QRS Dur : 088 ms QT Int : 322 ms P-R-T Axes : 042 055 -70 degrees QTc Int : 511 ms Sinus tachycardia Low voltage QRS Cannot rule out Anterior infarct , age undetermined ST & T wave abnormality, consider lateral ischemia Abnormal ECG When compared with ECG of 18-SEP-2023 09:52, Vent. rate has increased BY 60 BPM Questionable change in QRS axis ST no longer depressed in Anterior leads T wave inversion now evident in Lateral leads Referred By: No Carson Electronically Signed By:AGATA MIDDLETON
[2024-01-25 13:48] LABS: MANUAL DIFF FLAG NO
[2024-01-25 13:50] LABS: Basophils Absolute Auto 0.1 X10*3/uL (0.0-0.2); Basophils Percent Auto 0.7 % (0-2); Eosinophils Absolute Auto 0.1 X10*3/uL (0.0-0.4); Eosinophils Percent Auto 0.6 % (0-4); Hematocrit 39.3 % (42.0-52.0); Hemoglobin 11.8 g/dl (14.0-18.0); Imm Gran Abs Auto 0.04 X10*3/uL (0.00-0.03); Imm Gran Pct Auto 0.5 % (0.0-0.4); Lymphocytes Absolute Auto 1.2 X10*3/uL (1.2-4.9); Mean Corpuscular Hemoglobin 24.7 pg (27.0-33.0); Mean Corpuscular Volume 82.2 fL (80.0-98.0); Mean Platelet Volume 9.9 fL (9.4-12.4); Monocytes Absolute Auto 0.8 X10*3/uL (0.1-1.2); Monocytes Percent Auto 8.8 % (2-11); Neutrophils Absolute Auto 6.6 x10*3/uL (2.0-8.3); Neutrophils Percent Auto 75.4 % (45-73); Platelet Count 255 X10*3/uL (160-400); Red Blood Count 4.78 X10*6/uL (4.60-5.80); Red Cell Distribution Width 15.1 % (11.0-16.0); White Blood Count 8.8 X10*3/uL (4.8-10.8)
[2024-01-25 14:08] LABS: Albumin Level 4.2 g/dL (3.5-5.0); Alkaline Phosphatase 72 U/L (39-117); Anion Gap 15 (12-20); Aspartate Amino Transferase 26 U/L (5-37); Bilirubin Total 0.9 mg/dL (0.0-1.0); Blood Urea Nitrogen 39 mg/dL (9-16); Calcium 9.7 mg/dL (8.4-10.2); Carbon Dioxide 26 mmol/L (22-29); Chloride 107 mmol/L (96-108); Creatinine Clr Calc Pharmacy 42.5; Estimated Glomerular Filt Rate 57; Glucose Random 114 mg/dL (60-115); Magnesium 2.4 mg/dL (1.6-2.6); Potassium 3.8 mmol/L (3.3-5.1); Sodium 144 mmol/L (135-145); Total Protein 8.1 g/dL (6.5-8.0)
[2024-01-25 14:09] LABS: Troponin-I High Sensitivity 16.9 ng/L (<3.5-35.0)
[2024-01-25 14:11] LABS: Lactic Acid 3.1 mmol/L (0.5-2.0)
[2024-01-25] MEDS: 0.9 % Sodium Chloride 250 ML IV (14:16)
[2024-01-25] MEDS: Metoprolol Tartrate 5 MG/5 ML VIAL 2.5 MG IVPUSH ×2 (14:18→14:51)
[2024-01-25 14:19] LABS: Alanine Aminotransferase 31 U/L (0-40)
[2024-01-25] MEDS: cefTRIAXone sodium 1 GM VIAL IVPUSH (14:20)
[2024-01-25] MEDS: Acetaminophen 325 MG TABLET 650 MG PO (14:21)
[2024-01-25 14:30] LABS: B Type Natriuretic Peptide 1318 pg/mL (<100)
--- NOTE | 2024-01-25 14:30 | PC.NURSE ---
Pt comes to ED today from home with reports that suprapubic catheter dislodged and was found on the ground at home. VNA services were unable to re-insert catheter. HR consistently 152 upon arrival, Pt asymptomatic. BP stable Skin is warm and dry, no diaphoresis Breaths and speech are unlabored. Afebrile via temporal reading. Pt unable to tolerate oral temp and rectal not performed at Pts rectum is closed. Dr. Dominguez at bedside for attempt for re-insertion of suprapubic cath. 10F placed and attached to a drainage bag--800ml of clear straw yellow urine drained. Pt medicated per APR HR continues to be elevated s/p Lopressor. CT scan completed.
--- OUTSIDE RECORDS SUMMARY | 2024-01-25 14:31 | XMS_ITS ---
Author Organization [facility] Address [address] [place] [address] Care Team Providers Care C Web Developer Name Role Phone Ashleightierra Morena Primary Care Provider Unavailab Jessica Shin Unavailable [phone] r/s Encounters Encounter Location Date Provider Diagnosis [facility] [address] [place] [address] 07/24/2022 Jessica Blount Plan Of Treatment No Information Progress Notes * Shaun GONZALES WDOB: [birth year] (87 yo M)Acc No.[id number]:07/24/2022 Patient:?Shaun Gonzales :1935???Age:87 Y???Sex:Male [place]: [place], [address] * true * Date:? Generated for Printi ng/Faveronicag/eTransmitting on:?01/25/2024 02:31 PM EST
--- OUTSIDE RECORDS SUMMARY | 2024-01-25 14:31 | XMS_ITS ---
Author Organization [facility] Address [address] [place] [address] Care Team Providers Care Forest Fire Officer Name Role Phone Ashleightierra Morena Primary Care Provider UnavailJessica Garduno Unavailable [phone] REASON FOR VISIT r/shania Medications Medication SIG (Take, Route, Frequency, Duration) Notes Start Date End Date Status Timolol Hemihydrate Active Simbrinza 1-0.2 % 1 drop into affected eye Ophthalmic Three times a day Active Pravastatin Sodium 40 MG 1 tablet Orally Once a day Active Latanoprost Active Tamsulosin HCl 0.4 MG 1 capsule Orally O nce a day for 30 day(s) Active Finasteride 5 MG 1 tablet Orally Once a day for 30 day(s) Active Social History Tobacco Use: Social History Observation Description Date Details (start date - stop date) Former Smoker NA - NA Tobacco Use/Smoking Question Answer Notes Are you a: former smoker Additional Findings: Tobacco Non-User Ex-cigaret te smoker Alcohol Screen Question Answer Notes Did you have a drink containing alcohol in the p ast year? No Points 0 Interpretation Negative Tobacco use other than smoking: Question Answer Notes Are you an other tobacco user? No Vital Signs Height 6 ft 0 in in 07/24/2022 Weight 170 lbs 07/24/2022 BMI 23.05 kg/m2 07/24/2022 Encounters Encounter Location Date Provider Diagnosis [facility] [address] [place] [address] 07/24/2022 Jessica Blount Plan Of Treatment No Information Progress Notes * Edgar GONZALES WDOB: [birth year] (88 yo M)Acc No.[id number]:07/24/2022 Progress Notes Patient:?Edgar GONZALES Provider:?Jessica Blount DPM :1935???Age:87 Y???Sex:Male Bradley e:07/24/2022 Address:[address] [place], [place] [address] [facility] Pcp:Morena Daniels Subjective: * Chief Complaints: * ???1. Dr. mccartney/shania. * ROS:?General/Constitutional:?Nausea?denies.?Vomiting?denies.?Hunger Thirst?denies.?Loss appetite?denies.?Chills?denies.?Fatigue?denies.?Fever?denies.?Night Sweats?denies.?Unexplained weight loss?denies.?Unexplained weight gain?denies.?HEENTM:?Dentures?denies.?Dizziness?denies.?Glasses/contacts?admits.?Retinopathy?de nies.?Blurred/double vision?denies.?TMJ?denies.?Discharge/drainage?denies.?Implants?denies.?Sore throat?denies.?Dental implants?denies.?Hard of hearing ?admits.?Difficulty chewing/swallowing/speaking?denies.?Nose bleeds?denies.?Sore mouth?denies.?Respiratory:?On Oxygen?denies.?Pneumonia/pleurisy?denies.?Bronchitis?denies.?Emphysema?denies.?C oughing?denies.?Cough blood?denies.?Shortness of breath?denies.?Wheezing?denies.?Cardiovascular:?Pacemaker?denies.?MVP?denies.?WPW?denies.?CHF?denies.?Heart attack?denies.?Septal defect?denies.?Rapid beat?denies.?Chest pain ?denies.?Atrial Fib.?denies.?Murmur/Palpitations?denies.?Gastrointestinal:?Hemorrhoids?denies.?Stomach/Abdominal pain?denies.?Dark blood stool?denies.?Irritable bowel ?denies.?Constipation?denies.?Diarrhea?denies.?Hematology:?Swelling?denies.?Clots?denies.?Varicose Veins?denies.?Bruising?denies.?Bleeding problem?denies.?Genitourinary:?Blood urine?denies.?Frequent/Painfu/urination/bladder control?denies.?Kidney stones?denies.?Infection (UTI)?denies.?Nephropathy?denies.?sex trans dis (STD)?denies.?Prostate?denies.?Musculoskeletal:?Hammertoes?denies.?Bunions?denies.?Back Pain?denies.?Muscle Cramps/ Resting?denies.?Muscle cramps / walking?denies.?Generalized aches and pains?denies.?Weakness?denies.?Integ.:?Madrid?denies.?Scars?denies.?Corns/calluses?denies.?Ingrown nails?denies.?Painful nails?denies.?Open Sores?denies.?Rashes?denies.?Neurologic:?Difficulty sleeping?denies.?Brain disorder?denies.?Numbness?denies.?Balance trouble?denies.?Confusion?denies.?Fainting/blackouts?denies.?Tingling?denies.?Tr emors?denies.? * Medical History:?Broken bone s, Cancer, Cataracts, Glaucoma, Measles, Chicken Pox , Joint/bone implants/screws. * Surgical History:?Colon Rese ction 2016, Ankle Surgery 1989. * Family History:?Mother: dece ased, diagnosed with Family history of arthritis.?Father: , diagnosed with Unspecified heart disease.? * Social History:?Tobacco Use:?Tobacco Use/Smoking?Are you a:?former smoker ?Additional Findings: Tobacco Non-User?Ex-cigarette smoker ?Tobacco use other than smoking?Are you an other tobacco user??No ???Drugs/Alcohol:?Drugs?Have you used drugs other than those for medical reasons in the past 12 months??No ?Alcohol Screen?Did you have a drink containing alcohol in the past year??No ?Points?0 ?Interpretation?Negative ???Miscellaneous:?Caffeine: yes, frequency:, 1-2 cups per day. ?Marital status: . ?Occupation: Retired. * Medications:?Taking Pravasta tin Sodium 40 MG Tablet 1 tablet Orally Once a day , Taking Timolol Hemihydrate , Taking Simbrinza 1-0.2 % Suspension 1 drop into affected eye Ophthalmic Three times a day , Taking Latanoprost , Taking Tamsulosin HCl 0.4 MG Capsule 1 capsule Orally Once a day , Taking Finasteride 5 MG Tablet 1 tablet Orally Once a day Objective: * Vitals:?Ht: 6 ft 0 in, Wt:17 0, BMI: 23.05, Shoe size:12, Ht-cm: 182.88 cm, Wt- k.11 kg. Assessment: Plan: * Treatment: * Images: * The named appointment provid er may or may not be the originator of this progress note, and it is not deemed complete until electronically signed by the appointment provider. Sign off status: Pending * Provider:?Jessica Blount DPM Date:? Generated for Scottie maharaj/Theresa/Feliberto on:?01/25/2024 02:31 PM EST
--- OUTSIDE RECORDS SUMMARY | 2024-01-25 14:32 | XMS_ITS | Patient Health Record ---
Author Organization [facility] Address [address] [facility] [place] [address] Care Team Providers Care Flea Market Seller Name Role Phone AshleightierraMorena Primary Care Provider Unavailab Jessica Shin Unavailable [phone] Reason For Referral No Information Medications Medication SIG (Take, Route, Frequency, Duration) Notes Start Date End Date Status Timolol Hemihydrate Active Simbrinza 1-0.2 % 1 drop into affected eye Ophthalmic Three times a day Active Pravastatin Sodium 40 MG 1 tablet Orally Once a day Active Finasteride 5 MG 1 tablet Orally Once a day for 30 day(s) Active Latanoprost Active Tamsulosin HCl 0.4 MG 1 capsule Orally O nce a day for 30 day(s) Active Social [...] Are you an other tobacco user? No Plan Of Treatment No Information Insurance Providers Payer Name Payer Address Payer Phone Subscriber Number Group Number Insured Name Patient Relationship to Insured Coverage Start Date Coverage End Date [employer] [address] [place] [address] [phone] [id number] Shaun Bustos Self - patient is the insured [employer] Preferred [address] [place] [address] [id number] Shaun Bustos Self - patient is the insured Medical (General) History Medical History History ICD Code Broken bones Cancer Cataracts Glaucoma Measles Chicken Pox Joint/bone implants/screws Surgical History Surgery Date(Month/Year) Colon Resection 2017 Ankle Surgery 1989
[2024-01-25 14:37] LABS: TSH reflex Free T4 1.38 uIU/mL (0.32-4.0)
[2024-01-25] MEDS: Furosemide 40 MG/4 ML VIAL 20 MG IVPUSH (14:48)
[2024-01-25 14:56] LABS: Appearance Urine Turbid; Color Urine Yellow; Glucose Urine UA Negative (Negative); Leukocyte Esterase Urine Large (3+) (Negative); Nitrite Urine Negative (Negative); UMIC TRIGGER UACC YES; Urine Blood Small (1+) (Negative); Urine Ketones Negative (Negative); Urine Protein 100 (2+) mg/dL (Neg-Trace)
[2024-01-25] MEDS: iohexoL 350 MG/ML 100 ML INFUS..BTL 65 ML IV (14:56)
[2024-01-25] MEDS: dilTIAZem HCL 125 MG in 0.9 % Sodium Chloride 100 ML 10 MG IVCONT (15:09)
[2024-01-25 15:10] LABS: Bacteria Urine Trace (None Seen); Squamous Epithelial Cell Urine 0-2 /HPF (0-2); UACC Culture Trigger YES; WBC Urine >50 /HPF (0-5)
--- NOTE | 2024-01-25 15:11 | PC.NURSE ---
Cardizem drip initiated.
[2024-01-25 15:46] LABS: Reflex Lactate? Lactic Acid Added
--- NOTE | 2024-01-25 15:52 | PM.IMHP ---
History of Present Illness Date of Service: 01/25/24 Attending physician on admission: Akosua Guerra Chief Complaint: Dislodged suprapubic catheter Pt is an 88-year-old female with a PMH significant for?chronic urinary retention with suprapubic catheter in place, HLD, hx of DVT (06/28/2023) no longer on Eliquis due to bleeding, IVC filter placement 08/2023, and remote hx of rectal cancer in 2016 who presents to the ED after suprapubic catheter became dislodged sometime last night or early this morning. Patient lives alone, walks with a walker at baseline, and has help with meals on wheels, VNA services, and assistance from family. Patient uncertain as to when or how catheter was removed, but VNA services found catheter on the floor when they arrived in the morning. The patient reports he felt ?jumpy? last night but is otherwise unable to elaborate on symptoms. Family at bedside states that he was confused and ?not himself?. Daughter wanted to bring patient to the hospital last night, though patient refused. Otherwise patient has no acute medical complaints and states he currently feels ?fine?. Denies chest pain/pressure, palpitations. No difficulty breathing or shortness of breath. Denies fever, chills, nausea, vomiting, abdominal pain. Of note, ED provider was only able to reinsert a 10 [place] suprapubic catheter. In the ED pt was tachycardic up to 153 and tachypneic up to 26, satting at 96% on RA. Labs were significant for lactic acid 3.1 with repeat down trending to 2.8, BNP 1318, and slight increase in creatinine of 1.20 (0.93 11/22/2023). Troponin detectable but WNL at 16.9. UA positive for UTI. CXR showed have suspected mild interstitial edema and effusions. Chest CTA negative for pulmonary embolism, but showed large bilateral pleural effusions with associated atelectasis. EKG demonstrated atrial fibrillation with RVR of 152 with T-wave depressions in V5 and V6.. Pt was treated with IVF, acetaminophen, furosemide 20 mg IV, ceftriaxone, metoprolol 2.5 mg IV x2 doses, and started on a diltiazem drip. Pt will be admitted to the hospital for treatment and further evaluation of new onset AFib with RVR in the setting of UTI with sepsis and new onset CHF. Review of Systems Review of Systems: Negative except for that which is stated in the [facility] Medical History Hypotonic neurogenic bladder DVT (deep venous thrombosis) At risk for bleeding related to anticoagulants Pressure ulcer of back Soft tissue mass Incomplete emptying of bladder Dysuria Pyuria H/O urinary retention Rectal adenocarcinoma Melanoma Fibroma Skin cancer Fracture of right ankle Glaucoma Family History Sister Lung cancer Maternal Aunt Breast cancer Mother Breast cancer Surgical History History of surgery Hx of abdominoplasty Hx of tonsillectomy Hx of colonoscopy Social History Household Members: None Housing: House Are you a primary child care supervisor to a significant other at home: No Do you presently have visiting nurse or other home services: No Alcohol intake: former Patient Tobacco Use Status: Former Tobacco user Cigarette Packs Per Day: 3 Smoked in Last 30 Days: No Use of substances other than those prescribed or required for medical reasons: No Advance Directives: Yes Advance Directives Information Provided: No Advance Directives on File: No Do you have a plan to hurt others: No Plan service: No Current occupational status: retired [employer] Allergies Allergy/AdvReac Type Severity Reaction Status Date / Time No Known Allergies Allergy Verified 01/25/24 13:08 [No Known Allergies*] Active Medications: Current Medications Diltiazem HCl 125 mg/ Sodium (Chloride) 125 mls @ 0 mls/hr IVCONT .Q0M [facility]; Protocol Last Titration: 01/25/24 15:28 Dose: 15 mg/hr, 15 mls/hr Home Medications ?Medication ?Instructions ?Recorded ?Confirmed ?Last Taken ?Type latanoprost 0.005 % eye drops 1 drp ophthalmic (eye) BEDTIME 01/05/20 01/25/24 09/16/23 History (Xalatan) pravastatin 40 mg tablet 1 tab PO DAILY 01/05/20 01/25/24 01/25/24 09:00 History brinzolamide 1 %-brimonidine 0.2 % 1 drp ophthalmic (eye) BID 08/24/20 01/25/24 01/25/24 09:00 History eye drops,suspension (Simbrinza) timolol maleate 0.5 % eye drops 1 drp ophthalmic (eye) BID 09/18/23 01/25/24 01/25/24 09:00 History Physical Exam Vital Signs and Narrative: Vital Signs: Last Vital Signs Temp 97.6 F 01/25/24 13:42 Pulse 147 H 01/25/24 15:46 Resp 18 01/25/24 15:46 BP 106/65 01/25/24 15:46 Pulse Ox 96 01/25/24 15:46 O2 Del Method Room Air 01/25/24 15:46 BMI result Body Mass Index 22.6 General: AOx3, no acute distress Resp: Bibasilar crackles CVS: Irregularly irregular rhythm, tachycardic GI: +BS, NT, no distention, suprapubic catheter in place Skin: Warm, dry Neuro: Cranial nerves II-XII grossly intact bilaterally. Motor grossly intact bilaterally Extremities: 3+ bilateral pitting edema Psych: Appropriate affect Results Labs 01/25/24 13:38 01/25/24 13:38 Labs: Laboratory Results - last 24 hr 01/25/24 01/25/24 01/25/24 13:38 13:39 14:49 MCV 82.2 MCH 24.7 L MCHC 30.0 L RDW 15.1 Plt Count 255 MPV 9.9 Immature Gran % (Auto) 0.5 H Neut % (Auto) 75.4 H Lymph % (Auto) 14.0 L [place] % (Auto) 8.8 Eos % (Auto) 0.6 Baso % (Auto) 0.7 Lymph # (Auto) 1.2 [place] # (Auto) 0.8 Eos # (Auto) 0.1 Baso # (Auto) 0.1 Abs Immat Gran (auto) 0.04 H Absolute Neuts (auto) 6.6 Absolute Nucleated RBC 0.000 Nucleated RBC % (auto) 0.0 Hold Blue Top SEE NOTE Anion Gap 15 Estim Creat Clear Calc 42.5 Estimated GFR 57 Random Glucose 114 Lactic Acid 3.1 H* Calcium 9.7 D Magnesium 2.4 Total Bilirubin 0.9 AST 26 ALT 31 Alkaline Phosphatase 72 Troponin I High Sens 16.9 B-Natriuretic Peptide 1318 H Total Protein 8.1 H Albumin 4.2 TSH 1.38 Hold Green Top See Note Hold Yellow Top See Note Urine Color Yellow Urine Appearance Turbid Urine pH 6.0 Ur Specific [place] 1.020 Urine Protein 100 (2+) H Urine Glucose (UA) Negative Urine Ketones Negative Urine Blood Small (1+) H Urine Nitrite Negative Ur Leukocyte Esterase Large (3+) H Urine RBC 3-5 H Urine WBC >50 H Ur Squamous Epith Cells 0-2 Urine Bacteria Trace Hyaline Casts 6-10 Imaging Radiologist's Impressions: Impressions Chest X-Ray 01/25/24 13:19 IMPRESSION: 1. Suspect mild interstitial edema and effusions. 2. Nonspecific bibasilar airspace opacities Electronically signed by: Kurt Cunningham MD 01/25/2024 01:53 PM EST RP Chest CTA 01/25/24 14:28 IMPRESSION: 1. No central or segmental pulmonary emboli. 2. Large bilateral pleural effusions with associated atelectasis. VTE: negative. Electronically signed by: Gonzalo Vaughn MD 01/25/2024 03:26 PM EST RP Assessment and Plan (1) Atrial fibrillation with RVR: Status: Acute (2) Acute UTI: Status: Acute Plan Pt is an 88-year-old female with a PMH significant for?chronic urinary retention with suprapubic catheter in place, HLD, hx of DVT (06/28/2023) no longer on Eliquis, and remote hx of rectal cancer in 2016 who presents to the ED after suprapubic catheter became dislodged sometime last night or early this morning. Pt will be admitted to the hospital for treatment and further evaluation of new onset AFib with RVR in the setting of UTI with sepsis and new onset CHF. AFib with RVR New onset, HR as high as 153, patient asymptomatic Given metoprolol 2.5 mg IV x2 doses and then placed on diltiazem drip in the ED Still persistently tachycardic in the 130-140s Will give digoxin 0.25 mg x2 doses Received one dose of Eliquis 5 mg After further investigation patient found to have significant history of bleeding and bleeding risk, will hold on additional anticoagulation for now (see below) Echocardiogram Cardiology consult Monitor on telemetry New onset CHF Patient volume overloaded: 3+ pitting edema, BNP 1318 Likely in the setting of above Patient received Lasix 20 mg IV in the ED BP soft, will hold on additional diuretics for now Echocardiogram and Cardiology consult as above Monitor lytes, I/O, daily weights Low-salt diet Monitor on telemetry Acute UTI with sepsis Patient with confusion, positive UA, dislodged suprapubic catheter Meets sepsis criteria: Tachycardia and tachypnea; lactic acid 3.1 with repeat 2.8 Patient received IVF and started on broad-spectrum antibiotics in the ED Will treat with ceftriaxone, started 01/25/2024 ED clinician placed 10 [place] suprapubic catheter Urology consult Follow urine cultures Soft BP Patient hypotensive at 80/41 on left arm, 97/60 on right Will give Albumin x2 Monitor BP 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 Guerra DVT Prophylaxis: On Eliquis Pt will require a hospitalization of at least two nights for treatment of?new onset AFib with RVR in the setting of UTI with sepsis and new onset CHF. Patient require hospital level care for administration of diltiazem drip, IV antibiotics, diuresing, close monitoring of cardiac function and electrolytes, as well as specialist consultation with Cardiology and Urology. Quality Stroke Does the patient have a stroke diagnosis?: No VTE Prior VTE?: No VTE Risk Level:: Medical - moderate - high VTE Device Contraindication: Treatment Not Indicated VTE Drug Contraindication: N/A - Med Ordered
--- NOTE | 2024-01-25 16:41 | PC.NURSE ---
BP low per steno pool supervisor of both arms, Dilt drip decreased to 10Ml/Hr, BP changed to cycle evcery 5minutes, provider made aware. Pt reporting he is just tired at this time
[2024-01-25 16:59] LABS: ~Lactic Acid-LAB USE ONLY 2.8 mmol/L (0.5-2.0)
--- NOTE | 2024-01-25 17:03 | PHA.MEDREC ---
Addendum entered by Awa Branham RPh 01/25/24 17:19: MED REC REVIEWED BY [facility] Original Note: Pharmacy Consult ? Medication Reconciliation Pharmacy has completed the medication reconciliation. Spoke to pt and patient's daughter (Linda - [phone]) to confirm meds. Per patient, is only taking 3 medications for eyedrops: Simbrinza, timolol, and latanoprost.
[2024-01-25 17:04] LABS: Cancel Lactic Acid Canceled
[2024-01-25 17:05] LABS: Reflex Lactate? 2 N
[2024-01-25] MEDS: Digoxin 0.5 MG/2 ML AMPUL 0.25 MG IVPUSH ×2 (17:41→22:02)
[2024-01-25] MEDS: Albumin Human 25 % 100 ML IV (17:42)
[2024-01-25] MEDS: Apixaban 5 MG TABLET PO (17:46)
--- NOTE | 2024-01-25 17:54 | MHC.EDTECH ---
800mL of urine
[2024-01-25] MEDS: Albumin Human 25 % 100 ML 400 ML IV (18:47)
--- NOTE | 2024-01-25 18:50 | PC.NURSE ---
Pt held in ED for hypotension. Per admitting MD, second bag of albumin to be given over 15 minutes. Albumin administered per orders.
--- NOTE | 2024-01-25 19:29 | PC.NURSE ---
This rn discussed with Nursing gravity prospecting supervisor and Provider caring for patient about pt current BP status. At this time, second albumin to go in over 15minutes and will reassess BP after second bottle for further orders/ bed placement.
--- NOTE | 2024-01-25 20:42 | PC.NURSE ---
@2013 HR 160 BP 106/66 this rn made supervisor in charge and gabi remy aware per remy restart pt on dilt gtt @ rate of 10ml/hr this rn verbalized concerns about BP suggested starting rate @ 5ml/hr per recommendation from supervisor in charge and housekeeper/laundry assistant remy agreeable to plan, ordered repeat ekg
[2024-01-25 22:12] LABS: Troponin-I High Sensitivity 17.1 ng/L (<3.5-35.0)
--- NOTE | 2024-01-25 22:17 | PM.CCN ---
Critical Care Event Note Summary Date of Service: 01/25/24 Code activated: No Narrative: Patient evaluated for level of care secondary to hypotension. He was admitted for treatment and further evaluation of new onset AFib with RVR in the setting of UTI with sepsis and new onset CHF.?? Initially treated with IVF, acetaminophen, furosemide, ceftriaxone, metoprolol, was started on a diltiazem drip and digoxin.? The diltiazem was started and stopped several times due to hypotension.? Albumin helped to improve BP temporarily. Patient is awake and alert, appears comfortable, asymptomatic. Systolic blood pressure in 80s, HR up to 130s. Marked pitting edema noted to bilateral lower extremities.? Patient transferred to the ICU for further management and treatment. This case had a high probability of a clinically significant, sudden, or life threatening deterioration of this patient's condition which required my full and direct attention, intervention and personal management. Critical Care Time (minutes): 60
[2024-01-25] MEDS: Norepinephrine Bitartrate/D5W 8 MG/250 ML PLAST..BAG 6.51 MG IVCONT (22:59)
--- NOTE | 2024-01-25 23:18 | PC.NURSE ---
this rn medicated pt according to mar prior to transfer to icu this rn and pediatric acute care unit nurse transferred pt to bed assignment 260 pt calm and coopertive
[2024-01-26] VITALS (29 sets, daily range): BP systolic 87–120; BP diastolic 45–75; PULSE 104–170; RESP 15–24; TEMP 36.2–36.7; O2SAT 91–96; BMI 25.4
[2024-01-26] MEDS: Furosemide 200 MG in 0.9 % Sodium Chloride 80 ML IVCONT ×2 (00:16→19:26)
[2024-01-26] MEDS: Amiodarone/Dextrose 150 MG/100 ML PLAST..BAG 600 MG IV (00:18)
[2024-01-26] MEDS: Amiodarone HCL 900 MG in 0.9 % Sodium Chloride 500 ML 34.53 MG IVCONT (00:18)
[2024-01-26 00:29] LABS: Anion Gap 11 (12-20); Blood Urea Nitrogen 33 mg/dL (9-16); Calcium 8.8 mg/dL (8.4-10.2); Carbon Dioxide 27 mmol/L (22-29); Chloride 108 mmol/L (96-108); Creatinine Clr Calc Pharmacy 45.6; Estimated Glomerular Filt Rate > 60; Glucose Random 96 mg/dL (60-115); Magnesium 2.2 mg/dL (1.6-2.6); Phosphorus 3.5 mg/dL (2.7-4.5); Potassium 3.1 mmol/L (3.3-5.1); Sodium 143 mmol/L (135-145)
[2024-01-26] MEDS: Potassium Chloride Packet 20 MEQ PACKET 40 MEQ PO ×2 (00:45→06:04)
--- NOTE | 2024-01-26 01:42 | HO.SKINPHOTO ---
Location: Bilateral Buttocks Category: Pressure Stage: DTI
--- NOTE | 2024-01-26 04:02 | PC.NURSE ---
Pt admitted to ICU from ED at approx 2300. Upon initial assessment- pt A&Ox4, slightly vague/forgetful but appropriate, follows commands, BRIGGS. Afebrile. AFib w/ RVR on tele, HR up to 170-180s, endorses some palpitations. New order for amiodarone 150 mg IV bolus and gtt started APR. Levophed gtt ordered and titrated to maintain MAP > 65. +3 BLE edema. Fine crackles to B/L bases. Denies SOB. Lasix gtt ordered and started per APR. Suprapubic catheter replaced in ED dislodged upon arrival d/t no balloon in place- 12fr crews catheter inserted via stoma without issue, draining cloudy but yellow urine- see I&O. Ostomy site cleansed and appliance changed. Tolerating small amount of PO intake. Denies pain. DTI noted to B/L buttocks- picture uploaded in EMR, foam dressing applied. Abrasions noted to B/L knees. Repositioned in bed q2hr with pillows and turning bed. Pt/family aware of pt status/plan of care. Bed locked in lowest position, alarm on, call canales in reach.
--- NOTE | 2024-01-26 08:46 | P.PNCC_ITS ---
Subjective Subjective Date of Service: 01/26/24 Critical Care Time (minutes): 60 Physical Exam 2 Vital Signs: Vital Signs: Last Vital Signs Temp 97.7 F 01/26/24 04:00 Pulse 135 H 01/26/24 08:00 Resp 18 01/26/24 08:00 BP 114/45 L 01/26/24 05:00 Pulse Ox 96 01/26/24 08:00 O2 Del Method Room Air 01/26/24 08:00 BMI result Body Mass Index 25.4 Const: General: cooperative, healthy appearing, comfortable, no acute distress, well developed, alert, awake and Physically active O rientation/consciousness: patient oriented x3 HEENT: Head: Yes normal to inspection, Yes normocephalic and Yes atraumatic Eyes: General: appearance normal, both eyes and all related structures Neck: Neck: Yes normal visual inspection, Yes full ROM, Yes no meningeal signs, Yes trachea midline and Yes supple Chest: Chest palpation & inspection: normal inspection of the chest Resp: Other: no appreciable rales, rhonchi, wheezing Effort & Inspection: normal respiratory effort GI: Inspection: Yes normal to inspection, No Abdominal wall edema and No distended Palpation (GI): Soft to palpation, not firm, nontender, no guarding and not rigid Skin: General skin exam: no rashes or lesions noted Neuro: General: patient oriented x3, tone normal, moves all extremities, no meningeal signs and no focal motor deficits Extrem: Other: appreciable 3+ pitting edema to bilateral thighs General: Yes normal to inspection, Yes full ROM and Yes capillary refill normal Psych: Appearance: grossly normal Objective Data Labs 01/25/24 13:38 01/25/24 21:46 Labs: Laboratory Results - last 24 hr 01/25/24 01/25/24 01/25/24 13:38 13:39 14:49 WBC 8.8 RBC 4.78 Hgb 11.8 L Hct 39.3 L MCV 82.2 MCH 24.7 L MCHC 30.0 L RDW 15.1 Plt Count 255 MPV 9.9 Immature Gran % (Auto) 0.5 H Neut % (Auto) 75.4 H Lymph % (Auto) 14.[address] % (Auto) 8.8 Eos % (Auto) 0.6 Baso % (Auto) 0.7 Lymph # (Auto) 1.2 [place] # (Auto) 0.8 Eos # (Auto) 0.1 Baso # (Auto) 0.1 Abs Immat Gran (auto) 0.04 H Absolute Neuts (auto) 6.6 Absolute Nucleated RBC 0.000 Nucleated RBC % (auto) 0.0 Hold Purple Top Hold Blue Top SEE NOTE Sodium 144 Potassium 3.8 Chloride 107 Carbon Dioxide 26 Anion Gap 15 BUN 39 H Creatinine 1.20 Estim Creat Clear Calc 42.5 Estimated GFR 57 Random Glucose 114 Lactic Acid 3.1 H* Lactic Acid F/U @ 2Hr Calcium 9.7 D Phosphorus Magnesium 2.4 Total Bilirubin 0.9 AST 26 ALT 31 Alkaline Phosphatase 72 Troponin I High Sens 16.9 B-Natriuretic Peptide 1318 H Total Protein 8.1 H Albumin 4.2 TSH 1.38 Hold Green Top See Note Hold Yellow Top See Note Urine Color Yellow Urine Appearance Turbid Urine pH 6.0 Ur Specific [place] 1.020 Urine Protein 100 (2+) H Urine Glucose (UA) Negative Urine Ketones Negative Urine Blood Small (1+) H Urine Nitrite Negative Ur Leukocyte Esterase Large (3+) H Urine RBC 3-5 H Urine WBC >50 H Ur Squamous Epith Cells 0-2 Urine Bacteria Trace Hyaline Casts 6-01/25/24 01/25/24 16:25 21:46 WBC RBC Hgb Hct MCV MCH MCHC RDW Plt Count MPV Immature Gran % (Auto) Neut % (Auto) Lymph % (Auto) [place] % (Auto) Eos % (Auto) Baso % (Auto) Lymph # (Auto) [place] # (Auto) Eos # (Auto) Baso # (Auto) Abs Immat Gran (auto) Absolute Neuts (auto) Absolute Nucleated RBC Nucleated RBC % (auto) Hold Purple Top SEE NOTE Hold Blue Top Sodium 143 Potassium 3.1 L Chloride 108 Carbon Dioxide 27 Anion Gap 11 L BUN 33 H Creatinine 1.12 Estim Creat Clear Calc 45.6 Estimated GFR > 60 Random Glucose 96 Lactic Acid Lactic Acid F/U @ 2Hr 2.8 H* Calcium 8.8 D Phosphorus 3.5 Magnesium 2.2 Total Bilirubin AST ALT Alkaline Phosphatase Troponin I High Sens 17.1 B-Natriuretic Peptide Total Protein Albumin TSH Hold Green Top Hold Yellow Top See Note Urine Color Urine Appearance Urine pH Ur Specific [place] Urine Protein Urine Glucose (UA) Urine Ketones Urine Blood Urine Nitrite Ur Leukocyte Esterase Urine RBC Urine WBC Ur Squamous Epith Cells Urine Bacteria Hyaline Casts Progress Note: A&P Assessment and plan (1) Atrial fibrillation with RVR: Status: Acute (2) Acute UTI: Status: Acute Plan Patient is a 88 Y M w/ hyperlipidemia, 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 though no longer d/t prior bleeding and s/p IVC filter, prior rectal cancer, and chronic urinary retention, s/p suprapubic catheter, initially presenting to the emergency department on 01/24 following suprapubic catheter dislodgement; in the emergency department, patient found to be encephalopathic, hypotensive, and in atrial fibrillation w/ RVR, prompting ICU admission N: encephalopathy, likely toxic-metabolic, improved CV: hypotension, norepinephrine gtt, wean as tolerated; atrial fibrillation w/ RVR, amiodarone load and gtt R: no acute issues GI: no acute issues; cardiac diet : c/f volume overload, furosemide gtt, to closely monitor electrolytes, renal indices H: new-onset atrial fibrillation, c/f bleeding in setting of prior bleeding on apixaban; to initiate chemical DVT prophylaxis w/ heparin SQ ID: urinary tract infection, on ceftriaxone, to follow-up UCx, BCx E: to monitor hypo-/hyper-glycemia P: no acute issues, though intermittently deferring care including laboratories, requiring redirection Quality Stroke Does the patient have a stroke diagnosis?: No VTE Prior VTE?: No VTE Risk Level:: Medical - moderate - high VTE Device Contraindication: Treatment Not Indicated VTE Drug Contraindication: N/A - Med Ordered
[2024-01-26] MEDS: Pravastatin Sodium 40 MG TABLET PO (10:01)
[2024-01-26] MEDS: Finasteride 5 MG TABLET PO (10:01)
--- NOTE | 2024-01-26 10:11 | W.MHC.ACPN ---
Advanced Care Planning Note Advanced Care Planning Note Discussed with: patient and family member(s) Time spent (in minutes): 15 Narrative: I met Mr. Bustos's daughter and healthcare proxy at his bedside. We discussed Mr. Bustos's emergency department and ICU course. I offered any clarifications. Of note, Mr. Bustos's daughter is a nurse. We discussed goals of care, including CPR and intubation. Mr. Bustos's daughter reports she will talk to him regarding code status. After some time, Mr. Bustos and his daughter informed us that Mr. Bustos stated he would not want CPR nor intubation. His code status was changed to DNR, DNI. A MOLST form was filled. Problems Discussed (1) Atrial fibrillation with RVR: (2) Acute UTI:
[2024-01-26] MEDS: timoloL maleate 0.5 % Oph Sol 5 ML DRBTL 1 DROP EYE-BOTH ×2 (10:17→21:46)
--- NOTE | 2024-01-26 12:06 | MHC.CM.PN ---
Addendum entered by Sara Elmore 01/26/24 15:35: states family has opted for DNR/DNI at this time: pt not able to participate in CM assessment: Call placed to pt's dtr Linda: poor connection x 2: L/M for callback to review d/c needs Original Note: Pt admitted to ICU: dislodged suprapubic cath noted by pt's VNA: Pt + for UTI, New CHF, Afib and sepsis. MD to have goals of care discussion w/pt and dtr. CM assessment will follow after conversation
[2024-01-26 12:20] LABS: MANUAL DIFF FLAG NO
[2024-01-26 12:21] LABS: Basophils Absolute Auto 0.1 X10*3/uL (0.0-0.2); Basophils Percent Auto 0.9 % (0-2); Eosinophils Absolute Auto 0.2 X10*3/uL (0.0-0.4); Eosinophils Percent Auto 2.3 % (0-4); Hematocrit 34.8 % (42.0-52.0); Hemoglobin 10.9 g/dl (14.0-18.0); Imm Gran Abs Auto 0.03 X10*3/uL (0.00-0.03); Imm Gran Pct Auto 0.3 % (0.0-0.4); Lymphocytes Absolute Auto 1.2 X10*3/uL (1.2-4.9); Lymphocytes Percent Auto 11.4 % (20-40); Mean Corpuscular HGB Conc 31.3 g/dl (31.0-36.0); Mean Corpuscular Hemoglobin 24.8 pg (27.0-33.0); Mean Corpuscular Volume 79.3 fL (80.0-98.0); Mean Platelet Volume 9.8 fL (9.4-12.4); Monocytes Percent Auto 9.5 % (2-11); Neutrophils Absolute Auto 7.9 x10*3/uL (2.0-8.3); Neutrophils Percent Auto 75.6 % (45-73); Platelet Count 276 X10*3/uL (160-400); Red Blood Count 4.39 X10*6/uL (4.60-5.80); White Blood Count 10.4 X10*3/uL (4.8-10.8)
[2024-01-26 12:39] LABS: Anion Gap 15 (12-20); Blood Urea Nitrogen 33 mg/dL (9-16); Calcium 9.3 mg/dL (8.4-10.2); Carbon Dioxide 29 mmol/L (22-29); Chloride 104 mmol/L (96-108); Creatinine Clr Calc Pharmacy 42.3; Estimated Glomerular Filt Rate 56; Glucose Random 136 mg/dL (60-115); Potassium 4.6 mmol/L (3.3-5.1); Sodium 143 mmol/L (135-145)
[2024-01-26] MEDS: cefTRIAXone sodium 1 GM VIAL IVPUSH (17:43)
[2024-01-26] MEDS: Amiodarone HCL 900 MG in 0.9 % Sodium Chloride 500 ML 17.27 MG IVCONT (17:43)
[2024-01-26 18:33] LABS: Lactic Acid 1.1 mmol/L (0.5-2.0)
[2024-01-26 18:34] LABS: Anion Gap 15 (12-20); Blood Urea Nitrogen 30 mg/dL (9-16); Calcium 9.2 mg/dL (8.4-10.2); Carbon Dioxide 30 mmol/L (22-29); Chloride 101 mmol/L (96-108); Creatinine Clr Calc Pharmacy 41.9; Estimated Glomerular Filt Rate 55; Glucose Random 120 mg/dL (60-115); Phosphorus 3.3 mg/dL (2.7-4.5); Potassium 3.3 mmol/L (3.3-5.1); Sodium 143 mmol/L (135-145)
--- NOTE | 2024-01-26 18:36 | PM.UROPN ---
Subjective Subjective Date of Service: 01/26/24 Interval history: Patient well known to Urology Suprapubic tube in place Suprapubic tube had been dislodged inpatient presented to emergency room Likely in emergency room 12 [place] catheter was placed Now draining clear urine Discussed with patient's daughter and family members Can be upsized as outpatient At this point will leave 12 [place] [address] as draining very well in setting of cardiac related issues and use of diuretics Physical Exam Vital Signs: Vital Signs: Last Vital Signs Temp 98.1 F 01/26/24 16:00 Pulse 104 H 01/26/24 17:00 Resp 20 01/26/24 17:00 BP 102/59 L 01/26/24 17:00 Pulse Ox 93 01/26/24 17:00 O2 Del Method Room Air 01/26/24 17:00 BMI result Body Mass Index 25.4 Const: General: cooperative, healthy appearing, comfortable and no acute distress Orientation/consciousness: patient oriented x3 HEENT: Face and sinus: Yes normal facial exam Mouth: moist mucous membranes Neck: Neck: Yes normal visual inspection, Yes full ROM and Yes trachea midline Chest: Chest palpation & inspection: normal inspection of the chest Resp: Effort & Inspection: normal respiratory effort, able to speak in complete sentences and no respiratory distress GI: Inspection: Yes normal to inspection Back/Spine/Pelvis: Cervical Spine: normal cervical lordosis Thoracic/Lumbar Spine: thoracic and lumbar spine normal to inspection Skin: General skin exam: no rashes or lesions noted Neuro: General: patient oriented x3, tone normal and moves all extremities Extrem: General: Yes normal to inspection and Yes capillary refill normal Urology Results Labs 01/26/24 12:11 01/26/24 18:10 Labs: Laboratory Results - last 24 hr 01/25/24 01/26/24 01/26/24 21:46 12:11 18:10 WBC 10.4 RBC 4.39 L Hgb 10.9 L Hct 34.8 L MCV 79.3 L MCH 24.8 L MCHC 31.3 RDW 15.0 Plt Count 276 MPV 9.8 Immature Gran % (Auto) 0.3 Neut % (Auto) 75.6 H Lymph % (Auto) 11.4 L [place] % (Auto) 9.5 Eos % (Auto) 2.3 Baso % (Auto) 0.9 Lymph # (Auto) 1.2 [place] # (Auto) 1.0 Eos # (Auto) 0.2 Baso # (Auto) 0.1 Abs Immat Gran (auto) 0.03 Absolute Neuts (auto) 7.9 Absolute Nucleated RBC 0.000 Nucleated RBC % (auto) 0.0 Hold Purple Top SEE NOTE Sodium 143 143 143 Potassium 3.1 L 4.6 D 3.3 D Chloride 108 104 101 Carbon Dioxide 27 29 30 H Anion Gap 11 L 15 15 BUN 33 H 33 H 30 H Creatinine 1.12 1.23 1.24 Estim Creat Clear Calc 45.6 42.3 41.9 Estimated GFR > 60 56 55 Random Glucose 96 136 H 120 H Lactic Acid 1.1 Calcium 8.8 D 9.3 9.2 Phosphorus 3.5 3.3 Magnesium 2.2 2.0 2.0 Troponin I High Sens 17.1 Hold Yellow Top See Note Progress Note: A&P Assessment and plan (1) Incomplete emptying of bladder: Status: Acute (2) Complication, blocked suprapubic catheter: Status: Acute (3) Urinary tract infection: Status: Acute Plan Conservative therapy Manage UTI Time Spent With Patient Time: Total time managing care of this patient today ____ minutes. Progress Note: Quality Stroke Does the patient have a stroke diagnosis?: No
[2024-01-26] MEDS: Norepinephrine Bitartrate/D5W 8 MG/250 ML PLAST..BAG 6.51 MG IVCONT (19:52)
[2024-01-26] MEDS: Tamsulosin HCL 0.4 MG CAPSULE PO (21:44)
[2024-01-26] MEDS: Apixaban 5 MG TABLET PO (21:46)
[2024-01-26] MEDS: Latanoprost 0.005 % Ophth Sol 2.5 ML DROPS 1 DROP EYE-BOTH (21:46)
[2024-01-27] VITALS (33 sets, daily range): BP systolic 72–112; BP diastolic 35–75; PULSE 103–137; RESP 14–27; TEMP 36.4–37.5; O2SAT 88–96; BMI 23.6
[2024-01-27 05:27] LABS: MANUAL DIFF FLAG NO
[2024-01-27 05:28] LABS: Basophils Absolute Auto 0.1 X10*3/uL (0.0-0.2); Basophils Percent Auto 0.9 % (0-2); Eosinophils Absolute Auto 0.2 X10*3/uL (0.0-0.4); Eosinophils Percent Auto 2.1 % (0-4); Hematocrit 36.5 % (42.0-52.0); Hemoglobin 11.2 g/dl (14.0-18.0); Imm Gran Abs Auto 0.02 X10*3/uL (0.00-0.03); Imm Gran Pct Auto 0.2 % (0.0-0.4); Lymphocytes Absolute Auto 1.6 X10*3/uL (1.2-4.9); Lymphocytes Percent Auto 15.4 % (20-40); Mean Corpuscular HGB Conc 30.7 g/dl (31.0-36.0); Mean Corpuscular Hemoglobin 24.4 pg (27.0-33.0); Mean Corpuscular Volume 79.5 fL (80.0-98.0); Mean Platelet Volume 9.8 fL (9.4-12.4); Monocytes Absolute Auto 1.1 X10*3/uL (0.1-1.2); Monocytes Percent Auto 10.7 % (2-11); Neutrophils Absolute Auto 7.1 x10*3/uL (2.0-8.3); Neutrophils Percent Auto 70.7 % (45-73); Platelet Count 275 X10*3/uL (160-400); Red Blood Count 4.59 X10*6/uL (4.60-5.80); Red Cell Distribution Width 15.1 % (11.0-16.0)
[2024-01-27 05:50] LABS: Anion Gap 15 (12-20); Blood Urea Nitrogen 28 mg/dL (9-16); Calcium 8.8 mg/dL (8.4-10.2); Carbon Dioxide 33 mmol/L (22-29); Chloride 97 mmol/L (96-108); Creatinine Clr Calc Pharmacy 39.7; Estimated Glomerular Filt Rate 52; Glucose Random 120 mg/dL (60-115); Magnesium 1.9 mg/dL (1.6-2.6); Phosphorus 3.4 mg/dL (2.7-4.5); Potassium 2.9 mmol/L (3.3-5.1); Sodium 142 mmol/L (135-145)
--- NOTE | 2024-01-27 07:00 | CA_ITS ---
Transthoracic Echocardiogram Patient (Last, First, Middle): Edgar Bustos, W Gender: Male Date of : 1935 Age: 88 Procedure Date: 01/27/2024 Procedure Type: Transthoracic Echocardiogram Location: ICU Height: 175.26 cm Weight: 72.12 kg BSA: 1.87 m2 Heart Rate: 110 bpm BP: 98 / 64 mmHg Real Estate Legal Assistant: SB Referring MD: Anthony BOOGIE Symptoms: AFib with RVR, fluid overload Study Quality: Adequate ECG Rhythm: Atrial Fibrillation w RVR Conclusions: - Normal left ventricular cavity size. There is normal left ventricular wall thickness. The left ventricular systolic function is severely decreased. The visually estimated ejection fraction is between 15-20%. - Mildly increased right ventricular cavity size. There is moderately decreased right ventricular systolic function. - The left atrium is severely dilated. The right atrium is severely dilated. - There is moderate to severe aortic valve stenosis. The peak aortic velocity is 1.85 m/s. The aortic valve area is 0.98 cm2. Gradients are low due to low cardiac output. - There is moderate mitral valve regurgitation. - Mild pulmonary hypertension is present. 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 Findings Left Ventricle Normal left ventricular cavity size. There is normal left ventricular wall thickness. The left ventricular systolic function is severely decreased. The visually estimated ejection fraction is between 15-20%. There is severe global hypokinesis. Diastolic function is indeterminate on the basis of available data. Right Ventricle Mildly increased right ventricular cavity size. There is moderately decreased right ventricular systolic function. Atria The left atrium is severely dilated. The right atrium is severely dilated. Aortic Valve There is moderate calcification of the aortic valve. There is moderate to severe aortic valve stenosis. The peak aortic velocity is 1.85 m/s. The aortic valve area is 0.98 cm2. There is no aortic valve regurgitation. Mitral Valve The mitral valve appears normal. There is moderate mitral valve regurgitation. There is no mitral valve stenosis. Pulmonic Valve The pulmonic valve is normal. There is trace pulmonic valve regurgitation. Tricuspid Valve Normal tricuspid valve structure. There is mild to moderate tricuspid valve regurgitation. The right ventricular systolic pressure is 40 mmHg. Normal right atrial pressure. Mild pulmonary hypertension is present. Great Vessels There is mild dilatation of the ascending aorta measuring 3.70 cm. The visualized portions of the pulmonary artery and branches are normal. Venous The inferior vena cava is dilated and collapses less than 50% with inspiration. Pericardium/Pleural There is no evidence of pericardial effusion. Prior Study Comparison No prior study available for comparison. Measurements 2D Linear Measurements IVSd: 1.01 0.6-0.9/0.6-1.0 cm LVIDd: 5.38 3.9-5.3/4.2-5.9 cm LVIDd Index: 2.88 2.4-3.2/2.2-3.1 cm/m2 LVIDs: 4.52 2.0-3.6 cm LVPWd: 0.79 0.7-1.1 cm LA Diam: 4.50 2.7-3.8/3.0-4.0 cm LAIDs Index: 2.41 1.5-2.3 cm/m2 LV Mass: 223.65 67-162/88-224 g LV Mass Index: 119.60 43-95/49-115 g/m2 LVOT Diam: 2.10 3.0+(-)1.3 cm 2D Systolic Function EF 4C: 33.30 >55% EF 2C: 13.10 >55% EF BiP: 21.60 >55% Mitral Valve MR Vol - PW Dopp: 15.26 MR VTI: 1.09 MR ERO: 14.00 MR Alias Elijah: 0.39 MR RAD: 0.50 Aortic Valve AoV Pk Elijah: 1.85 AoV Mn Elijah: 1.32 AoV VTI: 0.23 AoV Pk Grad: 14.00 Aov Mn Grad: 8.00 MALLORY Cont.VTI: 0.98 LVOT LVOT Pk Elijah: 0.51 LVOT Mn Elijah: 0.35 LVOT VTI: 0.07 LVOT Pk Grad: 1.00 LVOT Mn Grad: 1.00 LVOT Diam: 2.10 LVOT Area: 3.46 Right Ventricle TAPSE (mm): 8.74 TVS' Elijah: 5.54 Tricuspid Valve TR Pk Elijah: 2.52 TR Pk Grad: 25.00 RA Press: 15.00 RVSP: 40.00 Great Vessels Aorta Sinus of Valsalva: 3.60 2.0-3.5 cm Ao Asc: 3.70 2.1-3.4 cm Pulmonary Valve PV Pk Elijah: 0.57 Peak PV Grad: 1.00 Updated in Other Vendor System with Status of Final Paddy Marquez MD electronically signed on 01/27/2024 6:21:39 PM with status of Final
[2024-01-27] MEDS: Potassium Chloride Packet 20 MEQ PACKET 40 MEQ PO ×2 (08:29→10:23)
[2024-01-27] MEDS: Pravastatin Sodium 40 MG TABLET PO (08:30)
[2024-01-27] MEDS: Finasteride 5 MG TABLET PO (08:30)
[2024-01-27] MEDS: 0.9 % Sodium Chloride Flush 3 ML SYRINGE IVFLUSH ×3 (08:30→19:53)
[2024-01-27] MEDS: Apixaban 5 MG TABLET PO ×2 (08:30→19:52)
[2024-01-27] MEDS: timoloL maleate 0.5 % Oph Sol 5 ML DRBTL 1 DROP EYE-BOTH ×2 (08:33→19:52)
[2024-01-27] MEDS: Amiodarone HCL 200 MG TABLET 400 MG PO ×2 (09:40→19:52)
--- NOTE | 2024-01-27 10:19 | MHC.CM.PN ---
Patient remains in ICU. Active with [facility]. Patient is still on Amiodarone and Levophed drips. Continue to monitor for d/c needs.
--- NOTE | 2024-01-27 11:28 | P.PNCC_ITS ---
Subjective Subjective Date of Service: 01/27/24 Interval History: 88-year-old gentleman with underlying history of chronic urinary retention status post suprapubic catheter, DVT no longer on Eliquis after IVC filter placement, remote rectal cancer 2016 status post radiation admitted on 01/25/2024 with confusion and displacement of suprapubic catheter, deemed to urinary tract infection, hospital course also complicated by AFib with RVR requiring amiodarone drip pressor support. No events overnight. Critical Care Time (minutes): 45 Physical Exam 2 Vital Signs: Vital Signs: Last Vital Signs Temp 98.7 F 01/27/24 08:00 Pulse 103 H 01/27/24 11:00 Resp 22 H 01/27/24 11:00 BP 98/60 01/27/24 11:00 Pulse Ox 95 01/27/24 11:00 O2 Del Method Room Air 01/27/24 11:00 BMI result Body Mass Index 23.6 Const: General: no acute distress, alert and awake Eyes: Sclerae: sclerae normal EOM: EOMs intact bilaterally Neck: Neck: Yes no lymphadenopathy, Yes trachea midline and Yes supple Resp: Effort & Inspection: normal respiratory effort and no respiratory distress Auscultation: clear to auscultation bilaterally Cardio: Rate: tachycardic Rhythm: abnormal rhythm irregularly irregular Heart sounds: no gallops, no murmurs and no rubs GI: Palpation (GI): Soft to palpation and Other GI palpation findings present ( Nontender) Auscultation: normal bowel sounds Extrem: General: Yes no pedal edema, No clubbing and No cyanosis Objective Data Labs 01/27/24 05:13 01/27/24 05:13 Labs: Laboratory Results - last 24 hr 01/26/24 01/26/24 01/27/24 12:11 18:10 05:13 WBC 10.4 10.0 RBC 4.39 L 4.59 L Hgb 10.9 L 11.2 L Hct 34.8 L 36.5 L MCV 79.3 L 79.5 L MCH 24.8 L 24.4 L MCHC 31.3 30.7 L RDW 15.0 15.1 Plt Count 276 275 MPV 9.8 9.8 Immature Gran % (Auto) 0.3 0.2 Neut % (Auto) 75.6 H 70.7 Lymph % (Auto) 11.4 L 15.4 L [place] % (Auto) 9.5 10.7 Eos % (Auto) 2.3 2.1 Baso % (Auto) 0.9 0.9 Lymph # (Auto) 1.2 1.6 [place] # (Auto) 1.0 1.1 Eos # (Auto) 0.2 0.2 Baso # (Auto) 0.1 0.1 Abs Immat Gran (auto) 0.03 0.02 Absolute Neuts (auto) 7.9 7.1 Absolute Nucleated RBC 0.000 0.000 Nucleated RBC % (auto) 0.0 0.0 Sodium 143 143 142 Potassium 4.6 D 3.3 D 2.9 L* Chloride 104 101 97 Carbon Dioxide 29 30 H 33 H Anion Gap 15 15 15 BUN 33 H 30 H 28 H Creatinine 1.23 1.24 1.31 Estim Creat Clear Calc 42.3 41.9 39.7 Estimated GFR 56 55 52 Random Glucose 136 H 120 H 120 H Lactic Acid 1.1 Calcium 9.3 9.2 8.8 Phosphorus 3.3 3.4 Magnesium 2.0 2.0 1.9 Microbiology Microbiology Results: Microbiology 01/25/24 Unknown Urine Other - Suprapubic Urine Culture - Preliminary Staphylococcus species 01/25/24 13:38 Blood - Venous Blood Culture - Preliminary No growth after 24 hours. 01/25/24 13:38 Blood - Venous Blood Culture - Preliminary No growth after 24 hours. Progress Note: A&P Assessment and plan (1) Atrial fibrillation with RVR: Status: Acute (2) Acute UTI: Status: Acute Plan Assessment: 88-year-old gentleman with chronic urinary retention admitted with displaced suprapubic catheter in treated for acute UTI further complicated by AFib with RVR Plan: Neuro: No acute issues. Cardiac: Continue to titrate off pressor support as tolerated. AFib with RVR, improving with amiodarone drip, transitioned to p.o.. Echo is pending. Pulmonary: No acute issues. Renal: Chronic urinary retention with suprapubic catheter displacement, now status post replacement. Continue to monitor renal indices and urine output Endo: No acute issues. GI: No acute issues. ID: Initial culture with staphylococcal colonization, continue empiric antibiotics. Heme/Onc: No acute issues. Psych: No acute issues. Miscellaneous: No acute issues. Prophylaxis: Apixaban Diet: Regular Critical care time spent: 45 minutes Quality Stroke Does the patient have a stroke diagnosis?: No VTE Prior VTE?: No VTE Risk Level:: Medical - moderate - high VTE Device Contraindication: Treatment Not Indicated VTE Drug Contraindication: N/A - Med Ordered
--- NOTE | 2024-01-27 12:03 | P.CDIM_ITS ---
PROVIDER RESPONSE TEXT: To clarify, the appropriate diagnosis supported by the clinical indicators: Deep tissue injury bilateral buttocks: Suspected QUERY TEXT: PHYSICIAN'S DOCUMENTATION REQUEST Date of Query: 01/27/2024 11:56 AM EST Patient Name: Edgar Bustos Admit Date: 01/25/2024 Dear Dar Arteaga MD, A review of the medical record indicates additional documentation may be needed. Please review below and update the documentation accordingly. Clinical Indicators: Wound care nursing assessment notes 01/25 - Deep tissue injury bilateral buttocks. Foam dressing. Based on the above, could you please provide further information regarding the ulcer/wound/injury: Deep tissue injury bilateral buttocks Possible, probable, suspected, etc. Other (explain) Clinically unable to determine (explain) Thank you, Chelo Oleary, CCS, CDIS Use of terms such as suspected, likely, concern for, or probable (associated with a specific diagnosi s that is being evaluated, monitored, or treated as if it exists) are acceptable and can be coded in the inpatient se tting, when documented at the time of discharge. Please use your independent medical judgment in providing your response. THIS QUERY IS PART OF THE PERMANENT MEDICAL RECORD
[2024-01-27] MEDS: cefTRIAXone sodium 1 GM VIAL IVPUSH (14:59)
[2024-01-27 16:36] LABS: Glucose, Whole Blood 107 mg/dL (60-115)
[2024-01-27] MEDS: Tamsulosin HCL 0.4 MG CAPSULE PO (19:52)
[2024-01-27] MEDS: Latanoprost 0.005 % Ophth Sol 2.5 ML DROPS 1 DROP EYE-BOTH (20:03)
[2024-01-27 21:33] LABS: Anion Gap 12 (12-20); Blood Urea Nitrogen 35 mg/dL (9-16); Calcium 8.5 mg/dL (8.4-10.2); Carbon Dioxide 33 mmol/L (22-29); Chloride 99 mmol/L (96-108); Creatinine Clr Calc Pharmacy 39.1; Estimated Glomerular Filt Rate 51; Glucose Random 156 mg/dL (60-115); Phosphorus 3.4 mg/dL (2.7-4.5); Potassium 3.7 mmol/L (3.3-5.1); Sodium 140 mmol/L (135-145)
[2024-01-28] VITALS (32 sets, daily range): BP systolic 82–116; BP diastolic 48–75; PULSE 95–133; RESP 16–29; TEMP 36.2–37.2; O2SAT 90–96; BMI 24.1
[2024-01-28 05:35] LABS: VBG Base Excess 9.6 mmol/L; VBG HCO3 31 mmol/L (22-26); VBG pCO2 34 mmHg; VBG pH 7.57 (7.32-7.43); VBG pO2 79 mmHg
[2024-01-28 05:44] LABS: Venous Blood Gas Refer to POC result
[2024-01-28 05:45] LABS: MANUAL DIFF FLAG NO
[2024-01-28 05:47] LABS: Basophils Absolute Auto 0.1 X10*3/uL (0.0-0.2); Basophils Percent Auto 0.6 % (0-2); Eosinophils Absolute Auto 0.3 X10*3/uL (0.0-0.4); Eosinophils Percent Auto 2.9 % (0-4); Hematocrit 34.1 % (42.0-52.0); Hemoglobin 10.6 g/dl (14.0-18.0); Imm Gran Abs Auto 0.02 X10*3/uL (0.00-0.03); Imm Gran Pct Auto 0.2 % (0.0-0.4); Lymphocytes Absolute Auto 1.5 X10*3/uL (1.2-4.9); Lymphocytes Percent Auto 17.5 % (20-40); Mean Corpuscular HGB Conc 31.1 g/dl (31.0-36.0); Mean Corpuscular Hemoglobin 24.4 pg (27.0-33.0); Mean Corpuscular Volume 78.4 fL (80.0-98.0); Mean Platelet Volume 9.7 fL (9.4-12.4); Monocytes Absolute Auto 0.9 X10*3/uL (0.1-1.2); Monocytes Percent Auto 9.9 % (2-11); Neutrophils Percent Auto 68.9 % (45-73); Platelet Count 232 X10*3/uL (160-400); Red Blood Count 4.35 X10*6/uL (4.60-5.80); Red Cell Distribution Width 15.2 % (11.0-16.0); White Blood Count 8.7 X10*3/uL (4.8-10.8)
[2024-01-28 06:07] LABS: Albumin Level 3.5 g/dL (3.5-5.0); Anion Gap 15 (12-20); Blood Urea Nitrogen 32 mg/dL (9-16); Calcium 8.6 mg/dL (8.4-10.2); Carbon Dioxide 31 mmol/L (22-29); Chloride 99 mmol/L (96-108); Creatinine Clr Calc Pharmacy 47.3; Estimated Glomerular Filt Rate > 60; Glucose Random 115 mg/dL (60-115); Magnesium 2.1 mg/dL (1.6-2.6); Phosphorus 3.5 mg/dL (2.7-4.5); Potassium 3.7 mmol/L (3.3-5.1); Sodium 141 mmol/L (135-145)
[2024-01-28] MEDS: 0.9 % Sodium Chloride Flush 3 ML SYRINGE IVFLUSH ×2 (07:56→16:55)
[2024-01-28] MEDS: Finasteride 5 MG TABLET PO (07:57)
[2024-01-28] MEDS: Apixaban 5 MG TABLET PO ×2 (07:57→20:11)
[2024-01-28] MEDS: Amiodarone HCL 200 MG TABLET 400 MG PO ×2 (07:57→20:11)
[2024-01-28] MEDS: Pravastatin Sodium 40 MG TABLET PO (07:57)
[2024-01-28] MEDS: Norepinephrine Bitartrate/D5W 8 MG/250 ML PLAST..BAG 5.21 MG IVCONT (07:58)
[2024-01-28] MEDS: timoloL maleate 0.5 % Oph Sol 5 ML DRBTL 1 DROP EYE-BOTH ×2 (07:58→20:25)
--- NOTE | 2024-01-28 08:19 | P.CDIM_ITS ---
PROVIDER RESPONSE TEXT: To clarify, the appropriate diagnosis supported by the clinical indicators: Hypokalemia: resolved QUERY TEXT: PHYSICIAN'S DOCUMENTATION REQUEST Date of Query: 01/28/2024 07:35 AM EST Patient Name: Edgar Bustos Admit Date: 01/25/2024 Dear Dar Arteaga MD, A review of the medical record indicates additional documentation may be needed. Please review below and update the documentation accordingly. Clinical Indicators: LABS: potassium 2.9 L 137 IV potassium chloride Based on the above, is there a diagnosis that correlates with these lab findings: Hypokalemia resolved, possible, probable etc. Labs indicate a diagnosis of (please specify) Other (explain) Clinically unable to determine (explain) Thank you, Chelo Oleary, CCS, CDIS Use of terms such as suspected, likely, concern for, or probable (associated with a specific diagnosi s that is being evaluated, monitored, or treated as if it exists) are acceptable and can be coded in the inpatient se tting, when documented at the time of discharge. Please use your independent medical judgment in providing your response. THIS QUERY IS PART OF THE PERMANENT MEDICAL RECORD
--- NOTE | 2024-01-28 10:17 | PM.CCPN ---
Subjective Subjective Date of Service: 01/28/24 Interval History: 88-year-old gentleman with underlying history of chronic urinary retention status post suprapubic catheter, DVT no longer on Eliquis after IVC filter placement, remote rectal cancer 2016 status post radiation admitted on 01/25/2024 with confusion and displacement of suprapubic catheter, deemed to urinary tract infection, hospital course also complicated by AFib with RVR requiring amiodarone drip and pressor support. No events overnight. Continues to require pressor support. Critical Care Time (minutes): 45 Physical Exam Vital Signs: Vital Signs: Last Vital Signs Temp 97.2 F 01/28/24 03:00 Pulse 110 H 01/28/24 09:26 Resp 22 H 01/28/24 08:00 BP 93/51 L 01/28/24 09:26 Pulse Ox 95 01/28/24 08:00 O2 Del Method Oxymask 01/28/24 08:00 O2 Flow Rate 2 01/28/24 08:00 BMI result Body Mass Index 24.1 Const: General: no acute distress, alert and awake Eyes: Sclerae: sclerae normal EOM: EOMs intact bilaterally Neck: Neck: Yes no lymphadenopathy, Yes trachea midline and Yes supple Resp: Effort & Inspection: normal respiratory effort and no respiratory distress Auscultation: clear to auscultation bilaterally Cardio: Rate: tachycardic Rhythm: regular rhythm Heart sounds: no gallops, no murmurs and no rubs GI: Palpation (GI): Soft to palpation and Other GI palpation findings present ( Nontender) Auscultation: normal bowel sounds Extrem: General: No clubbing, No cyanosis and Yes edema (Trace bilateral) Objective Data Labs 01/28/24 05:28 01/28/24 05:28 Labs: Laboratory Results - last 24 hr 01/27/24 01/27/24 01/28/24 16:18 21:02 05:25 WBC RBC Hgb Hct MCV MCH MCHC RDW Plt Count MPV Immature Gran % (Auto) Neut % (Auto) Lymph % (Auto) [place] % (Auto) Eos % (Auto) Baso % (Auto) Lymph # (Auto) [place] # (Auto) Eos # (Auto) Baso # (Auto) Abs Immat Gran (auto) Absolute Neuts (auto) Absolute Nucleated RBC Nucleated RBC % (auto) VBG pH 7.57 H VBG pCO2 34 VBG pO2 79 VBG HCO3 31 H VBG O2 Saturation 98.0 VBG Base Excess 9.6 Sodium 140 Potassium 3.7 D Chloride 99 Carbon Dioxide 33 H Anion Gap 12 BUN 35 H Creatinine 1.33 Estim Creat Clear Calc 39.1 Estimated GFR 51 POC Glucose 107 Random Glucose 156 H Calcium 8.5 Phosphorus 3.4 Magnesium 2.0 Albumin 01/28/24 05:28 WBC 8.7 RBC 4.35 L Hgb 10.6 L Hct 34.1 L MCV 78.4 L MCH 24.4 L MCHC 31.1 RDW 15.2 Plt Count 232 MPV 9.7 Immature Gran % (Auto) 0.2 Neut % (Auto) 68.9 Lymph % (Auto) 17.5 L [place] % (Auto) 9.9 Eos % (Auto) 2.9 Baso % (Auto) 0.6 Lymph # (Auto) 1.5 [place] # (Auto) 0.9 Eos # (Auto) 0.3 Baso # (Auto) 0.1 Abs Immat Gran (auto) 0.02 Absolute Neuts (auto) 6.0 Absolute Nucleated RBC 0.000 Nucleated RBC % (auto) 0.0 VBG pH VBG pCO2 VBG pO2 VBG HCO3 VBG O2 Saturation VBG Base Excess Sodium 141 Potassium 3.7 Chloride 99 Carbon Dioxide 31 H Anion Gap 15 BUN 32 H Creatinine 1.10 Estim Creat Clear Calc 47.3 Estimated GFR > 60 POC Glucose Random Glucose 115 Calcium 8.6 Phosphorus 3.5 Magnesium 2.1 Albumin 3.5 Microbiology Microbiology Results: Microbiology 01/25/24 Unknown Urine Other - Suprapubic Urine Culture - Final Staphylococcus saprophyticus 01/25/24 13:38 Blood - Venous Blood Culture - Preliminary No growth after 48 hours. 01/25/24 13:38 Blood - Venous Blood Culture - Preliminary No growth after 48 hours. Progress Note: A&P Assessment and plan (1) Cardiomyopathy: Status: Acute (2) Atrial fibrillation with RVR: Status: Acute (3) Hypotonic neurogenic bladder: Status: Acute (4) Aortic stenosis: Status: Acute Plan Assessment: 88-year-old gentleman with chronic urinary retention admitted with displaced suprapubic catheter in treated for acute UTI further complicated by AFib with RVR Plan: Neuro: No acute issues. Cardiac: Continue to titrate off pressor support as tolerated. AFib with RVR, improving with amiodarone drip, transitioned to p.o.. Echo with biventricular failure and moderate to severe aortic stenosis. Cardiology evaluation requested. Pulmonary: No acute issues. Renal: Chronic urinary retention with suprapubic catheter displacement, now status post replacement. Continue to monitor renal indices and urine output Endo: No acute issues. GI: No acute issues. ID: Initial culture with staphylococcal colonization, continue empiric antibiotics. Heme/Onc: No acute issues. Psych: No acute issues. Miscellaneous: No acute issues. Prophylaxis: Apixaban Diet: Regular Critical care time spent: 45 minutes Quality Stroke Does the patient have a stroke diagnosis?: No VTE Prior VTE?: No VTE Risk Level:: Medical - moderate - high VTE Device Contraindication: Treatment Not Indicated VTE Drug Contraindication: N/A - Med Ordered
--- NOTE | 2024-01-28 11:17 | PM.CNCAR ---
History of Present Illness History of Present Illness Date of Service: 01/28/24 Requesting physician: Dar Arteaga Chief complaint: AFib with RVR, UTI w/sepsis, Narrative: [age] year gentleman with previous history of rectal cancer status post colectomy and colostomy, suprapubic catheter for chronic urinary retention with recurrent UTIs presenting for confusion and urinary tract infection. He was noticed to be in AFib with RVR. He was admitted to the intensive care unit for pressor support and continues to be on Levophed. The patient is denying any symptoms currently. No chest pain or shortness of breath. Never had syncope before. Echocardiography has shown severe LV dysfunction as well as [id number] RV dysfunction with [id number] aortic valve stenosis. His stroke volume by echocardiography was low and it was difficult to say whether he has truly low-flow low gradient severe or just moderate aortic valve stenosis. He is currently on p.o. amiodarone and Levophed. He has been started on apixaban. He previously had DVT and IVC filter placement and was taken off the anticoagulation. One episode of hematuria a few months ago in the setting of urinary tract infection otherwise no bleeding concerns. [facility] Past Medical History Medical History Hypotonic neurogenic bladder DVT (deep venous thrombosis) At risk for bleeding related to anticoagulants Pressure ulcer of back Soft tissue mass Incomplete emptying of bladder Dysuria Pyuria H/O urinary retention Rectal adenocarcinoma Melanoma Fibroma Skin cancer Fracture of right ankle Glaucoma Family History Family History Sister Lung cancer Maternal Aunt Breast cancer Mother Breast cancer Surgical History Surgical History History of surgery Hx of abdominoplasty Hx of tonsillectomy Hx of colonoscopy Social History Social History Household Members: None Housing: House Are you a primary wound care physician to a significant other at home: No Do you presently have visiting nurse or other home services: Yes Alcohol intake: former Patient Tobacco Use Status: Former Tobacco user Cigarette Packs Per Day: 3 Smoked in Last 30 Days: No Use of substances other than those prescribed or required for medical reasons: No Currently Displaying Signs/Symptoms of Drug Intoxication Withdrawal: No Have you been hit, kicked, punched, or otherwise hurt by someone within the past year? If so, by whom?: No Do you feel safe in your current relationship?: Yes Advance Directives: Yes Advance Directives Information Provided: No Advance Directives on File: No Advance Directives Date on File: 01/26/24 Do you have a plan to hurt others: No Plan Recently lost weight without trying: No Nutrition Risks: No Nutritional Risk Poor oral hygiene: Yes service: No Current occupational status: retired [employer] Allergies Allergy/AdvReac Type Severity Reaction Status Date / Time No Known Allergies Allergy Verified 01/25/24 13:08 [No Known Allergies*] Active Medications: Current Medications Acetaminophen (Acetaminophen 325 Mg Tablet) 650 mg PO Q6H PRN PRN Reason: Pain, Mild (Pain Scale 1-3), fever or headache Amiodarone HCl (Amiodarone Hcl 200 Mg Tablet) 400 mg PO BID [facility] Last Admin: 01/28/24 07:57 Dose: 400 mg Apixaban (Apixaban 5 Mg Tablet) 5 mg PO BID [facility] Last Admin: 01/28/24 07:57 Dose: 5 mg Ceftriaxone Sodium (Ceftriaxone Sodium 1 Gm Vial) 1 gm IVPUSH Q24H [facility] Last Admin: 01/27/24 14:59 Dose: 1 gm Finasteride (Finasteride 5 Mg Tablet) 5 mg PO DAILY [facility] Last Admin: 01/28/24 07:57 Dose: 5 mg Norepinephrine Bitartrate (Levophed) 8 mg in 250 mls @ 0 mls/hr IVCONT .Q0M [facility]; Protocol Last Titration: 01/28/24 10:35 Dose: 0.04 mcg/kg/min, 5.21 mls/hr Latanoprost (Latanoprost 0.005 % Ophth Belkis 2.5 Ml Drops) 1 drop EYE-BOTH BEDTIME [facility] Last Admin: 01/27/24 20:03 Dose: 1 drop Pravastatin Sodium (Pravastatin Sodium 40 Mg Tablet) 40 mg PO DAILY [facility] Last Admin: 01/28/24 07:57 Dose: 40 mg Sodium Chloride (0.9 % Sodium Chloride Flush 3 Ml Syringe) 3 ml IVFLUSH QSHIFT [facility] Last Admin: 01/28/24 07:56 Dose: 3 ml Timolol Maleate (Timolol Maleate 0.5 % Oph Belkis 5 Ml Drbtl) 1 drop EYE-BOTH BID [facility] Last Admin: 01/28/24 07:58 Dose: 1 drop Home Medications ?Medication ?Instructions ?Recorded ?Confirmed ?Last Taken ?Type latanoprost 0.005 % eye drops 1 drp ophthalmic (eye) BEDTIME 01/05/20 01/25/24 09/16/23 History (Xalatan) pravastatin 40 mg tablet 1 tab PO DAILY 01/05/20 01/25/24 01/25/24 09:00 History brinzolamide 1 %-brimonidine 0.2 % 1 drp ophthalmic (eye) BID 08/24/20 01/25/24 01/25/24 09:00 History eye drops,suspension (Simbrinza) timolol maleate 0.5 % eye drops 1 drp ophthalmic (eye) BID 09/18/23 01/25/24 01/25/24 09:00 History Physical Exam Vital Signs: Vital Signs: Last Vital Signs Temp 97.2 F 01/28/24 03:00 Pulse 115 H 01/28/24 11:00 Resp 25 H 01/28/24 11:00 BP 92/51 L 01/28/24 11:00 Pulse Ox 96 01/28/24 11:00 O2 Del Method Room Air 01/28/24 11:00 O2 Flow Rate 2 01/28/24 08:00 BMI result Body Mass Index 24.1 GENERAL APPEARANCE: in no acute distress, pleasant. Laying flat in bed. NECK: no carotid bruit, no obvious jugular venous distention. SKIN: no suspicious lesions, warm and dry. HEART: Systolic murmur aortic area with preserved 2nd heart sound, irregular rate and rhythm. Tachycardic. LUNGS: clear to auscultation bilaterally. ABDOMEN: soft, nontender. EXTREMITIES: no edema. PERIPHERAL PULSES: equal. NEUROLOGIC: No gross deficits, AAO X 3 Objective Labs and Meds 01/28/24 05:28 01/28/24 05:28 Lab results: Laboratory Results - last 24 hr 01/27/24 01/27/24 01/28/24 16:18 21:02 05:25 WBC RBC Hgb Hct MCV MCH MCHC RDW Plt Count MPV Immature Gran % (Auto) Neut % (Auto) Lymph % (Auto) [place] % (Auto) Eos % (Auto) Baso % (Auto) Lymph # (Auto) [place] # (Auto) Eos # (Auto) Baso # (Auto) Abs Immat Gran (auto) Absolute Neuts (auto) Absolute Nucleated RBC Nucleated RBC % (auto) VBG pH 7.57 H VBG pCO2 34 VBG pO2 79 VBG HCO3 31 H VBG O2 Saturation 98.0 VBG Base Excess 9.6 Sodium 140 Potassium 3.7 D Chloride 99 Carbon Dioxide 33 H Anion Gap 12 BUN 35 H Creatinine 1.33 Estim Creat Clear Calc 39.1 Estimated GFR 51 POC Glucose 107 Random Glucose 156 H Calcium 8.5 Phosphorus 3.4 Magnesium 2.0 Albumin 01/28/24 05:28 WBC 8.7 RBC 4.35 L Hgb 10.6 L Hct 34.1 L MCV 78.4 L MCH 24.4 L MCHC 31.1 RDW 15.2 Plt Count 232 MPV 9.7 Immature Gran % (Auto) 0.2 Neut % (Auto) 68.9 Lymph % (Auto) 17.5 L [place] % (Auto) 9.9 Eos % (Auto) 2.9 Baso % (Auto) 0.6 Lymph # (Auto) 1.5 [place] # (Auto) 0.9 Eos # (Auto) 0.3 Baso # (Auto) 0.1 Abs Immat Gran (auto) 0.02 Absolute Neuts (auto) 6.0 Absolute Nucleated RBC 0.000 Nucleated RBC % (auto) 0.0 VBG pH VBG pCO2 VBG pO2 VBG HCO3 VBG O2 Saturation VBG Base Excess Sodium 141 Potassium 3.7 Chloride 99 Carbon Dioxide 31 H Anion Gap 15 BUN 32 H Creatinine 1.10 Estim Creat Clear Calc 47.3 Estimated GFR > 60 POC Glucose Random Glucose 115 Calcium 8.6 Phosphorus 3.5 Magnesium 2.1 Albumin 3.5 Assessment and Plan (1) Aortic stenosis: Status: Acute (2) Cardiomyopathy: Status: Acute (3) Atrial fibrillation with RVR: Status: Acute Plan Pleasant 88 year gentleman presenting with urinary tract infection and confusion. He was also noticed to be in AFib with RVR. Echocardiography has shown severe cardiomyopathy as well as raise concern for aortic stenosis which in my opinion is moderate. Avoid beta-blockers and calcium channel blockers (diltiazem and verapamil). Continue amiodarone load 400 mg twice a day. Add digoxin loading dose. Do not start maintenance dose. Continue Eliquis 5 mg twice a day. He is on Levophed currently. If he is difficult to wean off the Levophed then he may need MARCELINO cardioversion sooner. Otherwise as he improves from sepsis we may have to consider MARCELINO cardioversion in the coming days. We will do further assessment for aortic valve as he is back in sinus rhythm. Thank you for allowing me to participate in the care of your patient. Please feel free to contact me if you have any questions. Procedures Date of Service Date of Service: 01/28/24
[2024-01-28] MEDS: cefTRIAXone sodium 1 GM VIAL IVPUSH (13:39)
[2024-01-28] MEDS: Digoxin 0.5 MG/2 ML AMPUL 0.25 MG IVPUSH ×2 (14:10→20:11)
[2024-01-28] MEDS: Latanoprost 0.005 % Ophth Sol 2.5 ML DROPS 1 DROP EYE-BOTH (20:24)
[2024-01-29] VITALS (26 sets, daily range): BP systolic 88–109; BP diastolic 47–72; PULSE 79–107; RESP 15–25; TEMP 36.3–36.8; O2SAT 90–96; BMI 24.2
[2024-01-29 05:23] LABS: Basophils Absolute Auto 0.1 X10*3/uL (0.0-0.2); Basophils Percent Auto 0.6 % (0-2); Eosinophils Absolute Auto 0.4 X10*3/uL (0.0-0.4); Eosinophils Percent Auto 3.3 % (0-4); Hematocrit 35.1 % (42.0-52.0); Imm Gran Abs Auto 0.06 X10*3/uL (0.00-0.03); Imm Gran Pct Auto 0.6 % (0.0-0.4); Lymphocytes Absolute Auto 1.4 X10*3/uL (1.2-4.9); Lymphocytes Percent Auto 13.4 % (20-40); MANUAL DIFF FLAG NO; Mean Corpuscular HGB Conc 31.3 g/dl (31.0-36.0); Mean Corpuscular Hemoglobin 24.8 pg (27.0-33.0); Mean Corpuscular Volume 79.1 fL (80.0-98.0); Mean Platelet Volume 9.8 fL (9.4-12.4); Monocytes Percent Auto 8.9 % (2-11); Neutrophils Absolute Auto 7.9 x10*3/uL (2.0-8.3); Neutrophils Percent Auto 73.2 % (45-73); Platelet Count 248 X10*3/uL (160-400); Red Blood Count 4.44 X10*6/uL (4.60-5.80); White Blood Count 10.8 X10*3/uL (4.8-10.8)
[2024-01-29 05:40] LABS: Albumin Level 3.4 g/dL (3.5-5.0); Anion Gap 12 (12-20); Blood Urea Nitrogen 35 mg/dL (9-16); Calcium 8.9 mg/dL (8.4-10.2); Carbon Dioxide 29 mmol/L (22-29); Chloride 103 mmol/L (96-108); Creatinine Clr Calc Pharmacy 58.4; Estimated Glomerular Filt Rate > 60; Glucose Random 112 mg/dL (60-115); Magnesium 2.1 mg/dL (1.6-2.6); Phosphorus 2.8 mg/dL (2.7-4.5); Potassium 3.8 mmol/L (3.3-5.1); Sodium 140 mmol/L (135-145)
--- NOTE | 2024-01-29 08:03 | P.CDIM_ITS ---
PROVIDER RESPONSE TEXT: To clarify, the appropriate diagnosis supported by the clinical indicators: Other (explain): Not a UTI, but chronic colonization QUERY TEXT: PHYSICIAN'S DOCUMENTATION REQUEST Date of Query: 01/29/2024 07:31 AM EST Patient Name: Edgar Bustos Admit Date: 01/25/2024 Dear Dar Arteaga MD, A review of the medical record indicates additional documentation may be needed. Please review below and update the documentation accordingly. Clinical indicators: Chronic urinary retention admitted with displaced suprapubic catheter and treated for acute UTI. Urine : turbid, leukocyte 3+, Urine RBC 3-5, Urine WBC >50 H, trace bacteria. Micro urine suprapubic: Staphylococcus saprophyticus Rocephin Please clarify the relationship between these conditions: Yes the UTI is related to / associated with / due to the urinary catheter No, the UTI is not related to / associated with / due to the urinary catheter Other (explain) Clinically unable to determine (explain) Thank you, Chelo Oleary, CCS, CDIS Use of terms such as suspected, likely, concern for, or probable (associated with a specific diagnosi s that is being evaluated, monitored, or treated as if it exists) are acceptable and can be coded in the inpatient se tting, when documented at the time of discharge. Please use your independent medical judgment in providing your response. THIS QUERY IS PART OF THE PERMANENT MEDICAL RECORD
[2024-01-29] MEDS: 0.9 % Sodium Chloride Flush 3 ML SYRINGE IVFLUSH ×2 (08:11→15:08)
[2024-01-29] MEDS: Albumin Human 25 % 100 ML IV ×3 (08:19→19:35)
[2024-01-29] MEDS: Apixaban 5 MG TABLET PO ×2 (08:20→20:12)
[2024-01-29] MEDS: Amiodarone HCL 200 MG TABLET 400 MG PO ×2 (08:20→20:12)
[2024-01-29] MEDS: Pravastatin Sodium 40 MG TABLET PO (08:21)
[2024-01-29] MEDS: Finasteride 5 MG TABLET PO (08:21)
[2024-01-29] MEDS: timoloL maleate 0.5 % Oph Sol 5 ML DRBTL 1 DROP EYE-BOTH ×2 (08:21→20:13)
--- NOTE | 2024-01-29 09:49 | MHC.CLN ---
F/U PT ITH INCREASED NUTRITION RISK R/T PRESSURE INURY PO INTAKE FAIR TO GOOD DIET RX; CARDIAC; 1500ML F.R.-APPROPRIATE RECEIVING ENSURE BID TO PROMOTE WOUND HEALING SUPP PROVIDES 700KCALS, 40G PROTEIN MONITOR PO INTAKE AND ENCOURAGE SUPPLEMENTS
--- NOTE | 2024-01-29 10:30 | PM.CCPN ---
Subjective Subjective Date of Service: 01/29/24 Interval History: 88-year-old gentleman with underlying history of chronic urinary retention status post suprapubic catheter, DVT no longer on Eliquis after IVC filter placement, remote rectal cancer 2016 status post radiation admitted on 01/25/2024 with confusion and displacement of suprapubic catheter, deemed to urinary tract infection, hospital course also complicated by AFib with RVR requiring amiodarone drip and pressor support. No events overnight. Pressor support requirements are improving. Critical Care Time (minutes): 45 Physical Exam Vital Signs: Vital Signs: Last Vital Signs Temp 98.2 F 01/29/24 08:00 Pulse 79 01/29/24 09:00 Resp 23 H 01/29/24 09:00 BP 88/54 L 01/29/24 09:00 Pulse Ox 95 01/29/24 09:00 O2 Del Method Room Air 01/29/24 09:00 O2 Flow Rate 2 01/28/24 08:00 BMI result Body Mass Index 24.2 Const: General: no acute distress, alert and awake Eyes: Sclerae: sclerae normal EOM: EOMs intact bilaterally Neck: Neck: Yes no lymphadenopathy, Yes trachea midline and Yes supple Resp: Effort & Inspection: normal respiratory effort and no respiratory distress Auscultation: clear to auscultation bilaterally Cardio: Rate: regular rate Rhythm: abnormal rhythm irregularly irregular Heart sounds: no gallops, no murmurs and no rubs GI: Palpation (GI): Soft to palpation and Other GI palpation findings present ( Nontender) Auscultation: normal bowel sounds Extrem: General: No clubbing, No cyanosis and Yes edema (Trace bilateral) Objective Data Labs 01/29/24 05:03 01/29/24 05:03 Labs: Laboratory Results - last 24 hr 01/29/24 05:03 WBC 10.8 RBC 4.44 L Hgb 11.0 L Hct 35.1 L MCV 79.1 L MCH 24.8 L MCHC 31.3 RDW 15.0 Plt Count 248 MPV 9.8 Immature Gran % (Auto) 0.6 H Neut % (Auto) 73.2 H Lymph % (Auto) 13.4 L [place] % (Auto) 8.9 Eos % (Auto) 3.3 Baso % (Auto) 0.6 Lymph # (Auto) 1.4 [place] # (Auto) 1.0 Eos # (Auto) 0.4 Baso # (Auto) 0.1 Abs Immat Gran (auto) 0.06 H Absolute Neuts (auto) 7.9 Absolute Nucleated RBC 0.000 Nucleated RBC % (auto) 0.0 Sodium 140 Potassium 3.8 Chloride 103 Carbon Dioxide 29 Anion Gap 12 BUN 35 H Creatinine 0.89 Estim Creat Clear Calc 58.4 Estimated GFR > 60 Random Glucose 112 Calcium 8.9 Phosphorus 2.8 Magnesium 2.1 Albumin 3.4 L Microbiology Microbiology Results: Microbiology 01/25/24 Unknown Urine Other - Suprapubic Urine Culture - Final Staphylococcus saprophyticus 01/25/24 13:38 Blood - Venous Blood Culture - Preliminary No growth after 48 hours. 01/25/24 13:38 Blood - Venous Blood Culture - Preliminary No growth after 48 hours. Progress Note: A&P Assessment and plan (1) Cardiomyopathy: Status: Acute (2) Aortic stenosis: Status: Acute (3) Atrial fibrillation with RVR: Status: Acute Plan Assessment: 88-year-old gentleman with chronic urinary retention admitted with displaced suprapubic catheter in treated for acute UTI further complicated by AFib with RVR Plan: Neuro: No acute issues. Cardiac: Continue to titrate off pressor support as tolerated. AFib with RVR, improving with amiodarone drip, transitioned to p.o.. Echo with biventricular failure and moderate to severe aortic stenosis. Cardiology service care appreciated. Digoxin loaded. May require MARCELINO/cardioversion. Pulmonary: No acute issues. Renal: Chronic urinary retention with suprapubic catheter displacement, now status post replacement. Continue to monitor renal indices and urine output Endo: No acute issues. GI: No acute issues. ID: Initial culture with staphylococcal colonization, continue ceftriaxone for a total of 5 days. Heme/Onc: No acute issues. Psych: No acute issues. Miscellaneous: No acute issues. Prophylaxis: Apixaban Diet: Regular Critical care time spent: 45 minutes Quality Stroke Does the patient have a stroke diagnosis?: No VTE Prior VTE?: No VTE Risk Level:: Medical - moderate - high VTE Device Contraindication: Treatment Not Indicated VTE Drug Contraindication: N/A - Med Ordered
--- NOTE | 2024-01-29 10:48 | PM.PNCARD ---
Subjective Subjective Date of Service: 01/29/24 Interval history: Seen examined at bedside. Comfortable denying any symptoms. Continues to be on very low-dose of Levophed. Physical Exam Vital Signs: Last Vital Signs Temp 98.2 F 01/29/24 08:00 Pulse 88 01/29/24 09:59 Resp 24 H 01/29/24 09:59 BP 101/47 L 01/29/24 09:59 Pulse Ox 91 L 01/29/24 09:59 O2 Del Method Room Air 01/29/24 09:59 O2 Flow Rate 2 01/28/24 08:00 BMI result Body Mass Index 24.2 GENERAL APPEARANCE: in no acute distress, pleasant. Laying flat in bed. NECK: no carotid bruit, no obvious jugular venous distention. SKIN: no suspicious lesions, warm and dry. HEART: Systolic murmur aortic area with preserved 2nd heart sound, irregular rate and rhythm. LUNGS: clear to auscultation bilaterally. ABDOMEN: soft, nontender. EXTREMITIES: no edema. PERIPHERAL PULSES: equal. NEUROLOGIC: No gross deficits, AAO X 3 Objective Labs and Meds 01/29/24 05:03 01/29/24 05:03 Lab results: Laboratory Results - last 24 hr 01/29/24 05:03 WBC 10.8 RBC 4.44 L Hgb 11.0 L Hct 35.1 L MCV 79.1 L MCH 24.8 L MCHC 31.3 RDW 15.0 Plt Count 248 MPV 9.8 Immature Gran % (Auto) 0.6 H Neut % (Auto) 73.2 H Lymph % (Auto) 13.4 L [place] % (Auto) 8.9 Eos % (Auto) 3.3 Baso % (Auto) 0.6 Lymph # (Auto) 1.4 [place] # (Auto) 1.0 Eos # (Auto) 0.4 Baso # (Auto) 0.1 Abs Immat Gran (auto) 0.06 H Absolute Neuts (auto) 7.9 Absolute Nucleated RBC 0.000 Nucleated RBC % (auto) 0.0 Sodium 140 Potassium 3.8 Chloride 103 Carbon Dioxide 29 Anion Gap 12 BUN 35 H Creatinine 0.89 Estim Creat Clear Calc 58.4 Estimated GFR > 60 Random Glucose 112 Calcium 8.9 Phosphorus 2.8 Magnesium 2.1 Albumin 3.4 L Progress Note: A&P Assessment and plan (1) Aortic stenosis: Status: Acute (2) Cardiomyopathy: Status: Acute (3) Atrial fibrillation with RVR: Status: Acute Plan [age] gentleman presenting with UTI and AFib with RVR. He was hypotensive and was admitted to intensive care unit. He has been diagnosed with severe cardiomyopathy and moderate aortic valve stenosis. Continues to be on low-dose Levophed and it is likely that he will be weaned off Levophed today. We will start arranging MARCELINO cardioversion for him. Continue the amiodarone at 400 mg twice a day and Eliquis 5 mg twice a day. Hopefully in the next day or 2 we will be able to do MARCELINO cardioversion. Currently not in any shape to tolerate any guideline directed medical therapy due to low blood pressure. Avoid beta-blockers and calcium channel blockers currently. Thank you for allowing me to participate in the care of your patient. Please feel free to contact me if you have any questions. Time Spent With Patient Time: Total time managing care of this patient today ____ minutes. Progress Note: Quality Stroke Does the patient have a stroke diagnosis?: No Procedures Date of Service Date of Service: 01/29/24
--- NOTE | 2024-01-29 13:25 | HO.WOUND ---
Wound Consult: Initial 88yr old?[place] [facility] [place] See progress notes and H&P for detailed history.? Wound consult placed for Bilateral buttock wound POA.? Patient agreeable to assessment and photo documentation.? The patient and his daughter to aids in his care report the pigmentation changes and scar tissue have been in place for approximately 8years. They report it first appeared post bladder surgery and a hematoma development back then. They report the area does not open and remains as it appears in its current state. The report the patient primary doctor is aware and unconcerned as there have been no changes in 8 years. The patient denies pain to the buttock and it is not consistent with a pressure injury as it remains blanchable in many areas, there is an area to the left lower pigmentation that is slow to elena but given photo review and it presents the same way from 5 months ago it is unlikely pressure injury. Chronic moist appears as purple pigmentation however there is little additional evidence of chronic moisture at this time. Etiology remains unclear but as it is intact and remains blanchable in many areas and patient denies pain there is no evidence of pressure injury at this time. Although he is at high risk for pressure injury development all pressure relief measure should be employed for prevention. Buttock and Sacrum from Aug 2023 Recommendations: 1. Turn and Reposition every 2 hours and as needed for patient comfort.? Use pillows or wedges to support off loading positions. 2. Off Load all bony prominences with use of pillows and heel boots if needed.? Apply Preventative foams where needed. ? 3. Monitor for incontinence and moisture control, use barrier creams when needed for prevention and treatment. 4. Provide adequate and supplemental nutrition.? 5. Continue low air loss mattress. 6. When applicable maintain blood glucose levels per Providers order. 7. Buttocks - Off Load Pressure - Apply preventative sacral foam dressing peel back and assess and change every 5 days. Apply barrier cream as needed if moisture is noted to act as a barrier to friction and moisture. Re-consult wound care Nurse for wound deterioration or wound changes.
[2024-01-29] MEDS: cefTRIAXone sodium 1 GM VIAL IVPUSH (15:08)
--- NOTE | 2024-01-29 15:55 | MHC.CM.PN ---
PT REMAINS IN ICU , BEING WEANED FROM PRESSOR SUPPORT. CM WILL CONTINUE TO FOLLOW FOR ANY CHANGES TO DC NEEDS/PLAN.
[2024-01-29] MEDS: Latanoprost 0.005 % Ophth Sol 2.5 ML DROPS 1 DROP EYE-BOTH (20:13)
[2024-01-30] VITALS (20 sets, daily range): BP systolic 90–123; BP diastolic 48–71; PULSE 63–88; RESP 16–27; TEMP 36–36.7; O2SAT 90–97; BMI 23.6
[2024-01-30] MEDS: Albumin Human 25 % 100 ML IV (01:41)
[2024-01-30 05:29] LABS: MANUAL DIFF FLAG NO
[2024-01-30 05:31] LABS: Basophils Absolute Auto 0.1 X10*3/uL (0.0-0.2); Basophils Percent Auto 0.7 % (0-2); Eosinophils Absolute Auto 0.3 X10*3/uL (0.0-0.4); Eosinophils Percent Auto 3.2 % (0-4); Hematocrit 31.5 % (42.0-52.0); Hemoglobin 9.6 g/dl (14.0-18.0); Imm Gran Abs Auto 0.02 X10*3/uL (0.00-0.03); Imm Gran Pct Auto 0.2 % (0.0-0.4); Lymphocytes Absolute Auto 1.3 X10*3/uL (1.2-4.9); Lymphocytes Percent Auto 15.1 % (20-40); Mean Corpuscular HGB Conc 30.5 g/dl (31.0-36.0); Mean Corpuscular Hemoglobin 24.3 pg (27.0-33.0); Mean Corpuscular Volume 79.7 fL (80.0-98.0); Mean Platelet Volume 10.4 fL (9.4-12.4); Monocytes Absolute Auto 0.7 X10*3/uL (0.1-1.2); Monocytes Percent Auto 7.9 % (2-11); Neutrophils Absolute Auto 6.4 x10*3/uL (2.0-8.3); Neutrophils Percent Auto 72.9 % (45-73); Platelet Count 201 X10*3/uL (160-400); Red Blood Count 3.95 X10*6/uL (4.60-5.80); Red Cell Distribution Width 15.4 % (11.0-16.0); White Blood Count 8.8 X10*3/uL (4.8-10.8)
[2024-01-30 05:51] LABS: Albumin Level 4.4 g/dL (3.5-5.0); Anion Gap 15 (12-20); Blood Urea Nitrogen 43 mg/dL (9-16); Calcium 9.3 mg/dL (8.4-10.2); Carbon Dioxide 26 mmol/L (22-29); Chloride 104 mmol/L (96-108); Estimated Glomerular Filt Rate > 60; Glucose Random 106 mg/dL (60-115); Magnesium 2.3 mg/dL (1.6-2.6); Phosphorus 2.8 mg/dL (2.7-4.5); Potassium 3.9 mmol/L (3.3-5.1); Sodium 141 mmol/L (135-145)
--- NOTE | 2024-01-30 08:46 | P.PNCC_ITS ---
Subjective Subjective Date of Service: 01/30/24 Critical Care Time (minutes): 0 Physical Exam 2 Vital Signs: Vital Signs: Last Vital Signs Temp 98.0 F 01/30/24 08:00 Pulse 80 01/30/24 08:00 Resp 22 H 01/30/24 08:00 BP 101/62 01/30/24 08:00 Pulse Ox 91 L 01/30/24 08:00 O2 Del Method Nasal Cannula 01/30/24 08:00 O2 Flow Rate 1 01/30/24 08:00 BMI result Body Mass Index 23.6 Const: General: cooperative, healthy appearing, comfortable, no acute distress, well developed, alert, awake and Physically active O rientation/consciousness: patient oriented x3 HEENT: Head: Yes normal to inspection, Yes normocephalic and Yes atraumatic Eyes: General: appearance normal, both eyes and all related structures Neck: Neck: Yes normal visual inspection, Yes full ROM, Yes no meningeal signs, Yes trachea midline and Yes supple Chest: Chest palpation & inspection: normal inspection of the chest Resp: Other: no appreciable rales, rhonchi, wheezing Cardio: Rate: regular rate Rhythm: abnormal rhythm GI: Inspection: Yes normal to inspection, No Abdominal wall edema and No distended Palpation (GI): Soft to palpation, not firm, nontender, no guarding and not rigid Skin: General skin exam: no rashes or lesions noted Neuro: General: patient oriented x3, tone normal, moves all extremities, no meningeal signs and no focal motor deficits Extrem: General: Yes normal to inspection, Yes full ROM, Yes capillary refill normal and Yes no clubbing, cyanosis or edema Psych: Appearance: grossly normal Objective Data Labs 01/30/24 05:16 01/30/24 05:16 Labs: Laboratory Results - last 24 hr 01/30/24 05:16 WBC 8.8 RBC 3.95 L Hgb 9.6 L Hct 31.5 L MCV 79.7 L MCH 24.3 L MCHC 30.5 L RDW 15.4 Plt Count 201 MPV 10.4 Immature Gran % (Auto) 0.2 Neut % (Auto) 72.9 Lymph % (Auto) 15.1 L [place] % (Auto) 7.9 Eos % (Auto) 3.2 Baso % (Auto) 0.7 Lymph # (Auto) 1.3 [place] # (Auto) 0.7 Eos # (Auto) 0.3 Baso # (Auto) 0.1 Abs Immat Gran (auto) 0.02 Absolute Neuts (auto) 6.4 Absolute Nucleated RBC 0.000 Nucleated RBC % (auto) 0.0 Sodium 141 Potassium 3.9 Chloride 104 Carbon Dioxide 26 Anion Gap 15 BUN 43 H Creatinine 1.00 Estim Creat Clear Calc 52.0 Estimated GFR > 60 Random Glucose 106 Calcium 9.3 Phosphorus 2.8 Magnesium 2.3 Albumin 4.4 Microbiology Microbiology Results: Microbiology 01/25/24 Unknown Urine Other - Suprapubic Urine Culture - Final Staphylococcus saprophyticus 01/25/24 13:38 Blood - Venous Blood Culture - Preliminary No growth after 48 hours. 01/25/24 13:38 Blood - Venous Blood Culture - Preliminary No growth after 48 hours. 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 though no longer d/t prior bleeding and s/p IVC filter, prior rectal cancer, and chronic urinary retention, s/p suprapubic catheter, initially presenting to the emergency department on 01/24 following suprapubic catheter dislodgement; in the emergency department, patient found to be encephalopathic, hypotensive, and in atrial fibrillation w/ RVR, prompting ICU admission; ICU course c/b hypotension, found to have new diagnosis bi-ventricular dysfunction N: encephalopathy, likely toxic-metabolic, resolved CV: new diagnosis bi-ventricular dysfunction; atrial fibrillation w/ RVR, s/p amiodarone load and gtt, now on PO, improved; possible cardioversion, appreciate cardiology recommendations R: no acute issues GI: no acute issues; cardiac diet : c/f volume overload, s/p furosemide gtt, to closely monitor electrolytes, renal indices H: new-onset atrial fibrillation, prior DVTs s/p IVC filter, apixaban ID: urinary tract infection, on ceftriaxone E: to monitor hypo-/hyper-glycemia P: no acute issues Quality Stroke Does the patient have a stroke diagnosis?: No VTE Prior VTE?: Yes VTE Risk Level:: Medical - moderate - high VTE Device Contraindication: Treatment Not Indicated VTE Drug Contraindication: N/A - Med Ordered
[2024-01-30] MEDS: 0.9 % Sodium Chloride Flush 3 ML SYRINGE IVFLUSH ×4 (08:50→23:51)
[2024-01-30] MEDS: Apixaban 5 MG TABLET PO ×2 (08:50→20:01)
[2024-01-30] MEDS: Amiodarone HCL 200 MG TABLET 400 MG PO ×2 (08:50→20:00)
--- NOTE | 2024-01-30 10:14 | P.CONAN_ITS ---
HPI - Anesthesia Eval Consult details Narrative: 88 yo male patient for MARCELINO, Cardioversion PMFSH Active Problems Active Problems: All Active Problems (Updated 01/30/24 @ 10:15 by Petra Ricardo MD) Atrial fibrillation (Acute) Aortic stenosis (Acute) Cardiomyopathy (Acute). EF 15-20%. 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 Received lasix Amiodarone and eliquis administered this morning 01/30/24 Septic on admission with UTI. Lactic acid 1.1 from 3.1 Past Medical History Medical History Hypotonic neurogenic bladder DVT (deep venous thrombosis) At risk for bleeding related to anticoagulants Pressure ulcer of back Soft tissue mass Incomplete emptying of bladder Dysuria Pyuria H/O urinary retention Rectal adenocarcinoma Melanoma Fibroma Skin cancer Fracture of right ankle Glaucoma Family History Family History Sister Lung cancer Maternal Aunt Breast cancer Mother Breast cancer Family history of problems with anesthesia: No Surgical History Surgical History History of surgery Hx of abdominoplasty Hx of tonsillectomy Hx of colonoscopy History of Problems with Anesthesia: No Social History Social History Household Members: None Housing: House Are you a primary field care advocate to a significant other at home: No Do you presently have visiting nurse or other home services: Yes Alcohol intake: former Patient Tobacco Use Status: Former Tobacco user Cigarette Packs Per Day: 3 Smoked in Last 30 Days: No Use of substances other than those prescribed or required for medical reasons: No Currently Displaying Signs/Symptoms of Drug Intoxication Withdrawal: No Have you been hit, kicked, punched, or otherwise hurt by someone within the past year? If so, by whom?: No Do you feel safe in your current relationship?: Yes Advance Directives: Yes Advance Directives Information Provided: No Advance Directives on File: No Advance Directives Date on File: 01/26/24 Do you have a plan to hurt others: No Plan Recently lost weight without trying: No Nutrition Risks: No Nutritional Risk Poor oral hygiene: Yes service: No Current occupational status: retired Meds Allergies Allergy/AdvReac Type Severity Reaction Status Date / Time No Known Allergies Allergy Verified 01/25/24 13:08 [No Known Allergies*] Active Medications: Current Medications Acetaminophen (Acetaminophen 325 Mg Tablet) 650 mg PO Q6H PRN PRN Reason: Pain, Mild (Pain Scale 1-3), fever or headache Amiodarone HCl (Amiodarone Hcl 200 Mg Tablet) 400 mg PO BID [facility] Last Admin: 01/30/24 08:50 Dose: 400 mg Apixaban (Apixaban 5 Mg Tablet) 5 mg PO BID [facility] Last Admin: 01/30/24 08:50 Dose: 5 mg Ceftriaxone Sodium (Ceftriaxone Sodium 1 Gm Vial) 1 gm IVPUSH Q24H [facility] Last Admin: 01/29/24 15:08 Dose: 1 gm Finasteride (Finasteride 5 Mg Tablet) 5 mg PO DAILY [facility] Last Admin: 01/30/24 09:12 Dose: Not Given Furosemide (Furosemide 20 Mg/2 Ml Vial) 10 mg IVPUSH DAILY [facility]; Protocol Latanoprost (Latanoprost 0.005 % Ophth Belkis 2.5 Ml Drops) 1 drop EYE-BOTH BEDTIME [facility] Last Admin: 01/29/24 20:13 Dose: 1 drop Pravastatin Sodium (Pravastatin Sodium 40 Mg Tablet) 40 mg PO DAILY [facility] Last Admin: 01/30/24 09:12 Dose: Not Given Sodium Chloride (0.9 % Sodium Chloride Flush 3 Ml Syringe) 3 ml IVFLUSH QSHIFT [facility] Last Admin: 01/30/24 08:50 Dose: 3 ml Timolol Maleate (Timolol Maleate 0.5 % Oph Belkis 5 Ml Drbtl) 1 drop EYE-BOTH BID [facility] Last Admin: 01/30/24 09:13 Dose: Not Given Home Medications ?Medication ?Instructions ?Recorded ?Confirmed ?Last Taken ?Type latanoprost 0.005 % eye drops 1 drp ophthalmic (eye) BEDTIME 01/05/20 01/25/24 09/16/23 History (Xalatan) pravastatin 40 mg tablet 1 tab PO DAILY 01/05/20 01/25/24 01/25/24 09:00 History brinzolamide 1 %-brimonidine 0.2 % 1 drp ophthalmic (eye) BID 08/24/20 01/25/24 01/25/24 09:00 History eye drops,suspension (Simbrinza) timolol maleate 0.5 % eye drops 1 drp ophthalmic (eye) BID 09/18/23 01/25/24 01/25/24 09:00 History Exam Height,Weight and Vital Signs: Height 5 ft 9 in Weight 72.5 kg Last Vital Signs Temp 98.0 F 01/30/24 08:00 Pulse 86 01/30/24 09:14 Resp 22 H 01/30/24 08:00 BP 103/71 01/30/24 09:14 Pulse Ox 91 L 01/30/24 08:00 O2 Del Method Nasal Cannula 01/30/24 08:00 O2 Flow Rate 1 01/30/24 08:00 Temp Pulse Resp BP Pulse Ox O2 Del Method O2 Flow Rate 98.0 F 74 20 96/57 L 90 L Nasal Cannula 1 01/30/24 08:00 01/30/24 10:00 01/30/24 10:00 01/30/24 10:00 01/30/24 10:00 01/30/24 10:00 01/30/24 10:00 Pertinent Lab Results Pertinent Lab Results: Laboratory Tests 01/25/24 01/25/24 01/25/24 13:38 13:39 14:49 WBC 8.8 RBC 4.78 Hgb 11.8 L Hct 39.3 L MCV 82.2 MCH 24.7 L MCHC 30.0 L RDW 15.1 Plt Count 255 MPV 9.9 Immature Gran % (Auto) 0.5 H Neut % (Auto) 75.4 H Lymph % (Auto) 14.0 L [place] % (Auto) 8.8 Eos % (Auto) 0.6 Baso % (Auto) 0.7 Lymph # (Auto) 1.2 [place] # (Auto) 0.8 Eos # (Auto) 0.1 Baso # (Auto) 0.1 Abs Immat Gran (auto) 0.04 H Absolute Neuts (auto) 6.6 Absolute Nucleated RBC 0.000 Nucleated RBC % (auto) 0.0 Hold Purple Top Hold Blue Top SEE NOTE VBG pH VBG pCO2 VBG pO2 VBG HCO3 VBG O2 Saturation VBG Base Excess Sodium 144 Potassium 3.8 Chloride 107 Carbon Dioxide 26 Anion Gap 15 BUN 39 H Creatinine 1.20 Estim Creat Clear Calc 42.5 Estimated GFR 57 POC Glucose Random Glucose 114 Lactic Acid 3.1 H* Lactic Acid F/U @ 2Hr Calcium 9.7 D Phosphorus Magnesium 2.4 Total Bilirubin 0.9 AST 26 ALT 31 Alkaline Phosphatase 72 Troponin I High Sens 16.9 B-Natriuretic Peptide 1318 H Total Protein 8.1 H Albumin 4.2 TSH 1.38 Hold Green Top See Note Hold Yellow Top See Note Urine Color Yellow Urine Appearance Turbid Urine pH 6.0 Ur Specific [place] 1.020 Urine Protein 100 (2+) H Urine Glucose (UA) Negative Urine Ketones Negative Urine Blood Small (1+) H Urine Nitrite Negative Ur Leukocyte Esterase Large (3+) H Urine RBC 3-5 H Urine WBC >50 H Ur Squamous Epith Cells 0-2 Urine Bacteria Trace Hyaline Casts 6-01/25/24 01/25/24 01/26/24 16:25 21:46 12:11 WBC 10.4 RBC 4.39 L Hgb 10.9 L Hct 34.8 L MCV 79.3 L MCH 24.8 L MCHC 31.3 RDW 15.0 Plt Count 276 MPV 9.8 Immature Gran % (Auto) 0.3 Neut % (Auto) 75.6 H Lymph % (Auto) 11.4 L [place] % (Auto) 9.5 Eos % (Auto) 2.3 Baso % (Auto) 0.9 Lymph # (Auto) 1.2 [place] # (Auto) 1.0 Eos # (Auto) 0.2 Baso # (Auto) 0.1 Abs Immat Gran (auto) 0.03 Absolute Neuts (auto) 7.9 Absolute Nucleated RBC 0.000 Nucleated RBC % (auto) 0.0 Hold Purple Top SEE NOTE Hold Blue Top VBG pH VBG pCO2 VBG pO2 VBG HCO3 VBG O2 Saturation VBG Base Excess Sodium 143 143 Potassium 3.1 L 4.6 D Chloride 108 104 Carbon Dioxide 27 29 Anion Gap 11 L 15 BUN 33 H 33 H Creatinine 1.12 1.23 Estim Creat Clear Calc 45.6 42.3 Estimated GFR > 60 56 POC Glucose Random Glucose 96 136 H Lactic Acid Lactic Acid F/U @ 2Hr 2.8 H* Calcium 8.8 D 9.3 Phosphorus 3.5 Magnesium 2.2 2.0 Total Bilirubin AST ALT Alkaline Phosphatase Troponin I High Sens 17.1 B-Natriuretic Peptide Total Protein Albumin TSH Hold Green Top Hold Yellow Top See Note Urine Color Urine Appearance Urine pH Ur Specific [place] Urine Protein Urine Glucose (UA) Urine Ketones Urine Blood Urine Nitrite Ur Leukocyte Esterase Urine RBC Urine WBC Ur Squamous Epith Cells Urine Bacteria Hyaline Casts 01/26/24 01/27/24 01/27/24 18:10 05:13 16:18 WBC 10.0 RBC 4.59 L Hgb 11.2 L Hct 36.5 L MCV 79.5 L MCH 24.4 L MCHC 30.7 L RDW 15.1 Plt Count 275 MPV 9.8 Immature Gran % (Auto) 0.2 Neut % (Auto) 70.7 Lymph % (Auto) 15.4 L [place] % (Auto) 10.7 Eos % (Auto) 2.1 Baso % (Auto) 0.9 Lymph # (Auto) 1.6 [place] # (Auto) 1.1 Eos # (Auto) 0.2 Baso # (Auto) 0.1 Abs Immat Gran (auto) 0.02 Absolute Neuts (auto) 7.1 Absolute Nucleated RBC 0.000 Nucleated RBC % (auto) 0.0 Hold Purple Top Hold Blue Top VBG pH VBG pCO2 VBG pO2 VBG HCO3 VBG O2 Saturation VBG Base Excess Sodium 143 142 Potassium 3.3 D 2.9 L* Chloride 101 97 Carbon Dioxide 30 H 33 H Anion Gap 15 15 BUN 30 H 28 H Creatinine 1.24 1.31 Estim Creat Clear Calc 41.9 39.7 Estimated GFR 55 52 POC Glucose 107 Random Glucose 120 H 120 H Lactic Acid 1.1 Lactic Acid F/U @ 2Hr Calcium 9.2 8.8 Phosphorus 3.3 3.4 Magnesium 2.0 1.9 Total Bilirubin AST ALT Alkaline Phosphatase Troponin I High Sens B-Natriuretic Peptide Total Protein Albumin TSH Hold Green Top Hold Yellow Top Urine Color Urine Appearance Urine pH Ur Specific [place] Urine Protein Urine Glucose (UA) Urine Ketones Urine Blood Urine Nitrite Ur Leukocyte Esterase Urine RBC Urine WBC Ur Squamous Epith Cells Urine Bacteria Hyaline Casts 01/27/24 01/28/24 01/28/24 21:02 05:25 05:28 WBC 8.7 RBC 4.35 L Hgb 10.6 L Hct 34.1 L MCV 78.4 L MCH 24.4 L MCHC 31.1 RDW 15.2 Plt Count 232 MPV 9.7 Immature Gran % (Auto) 0.2 Neut % (Auto) 68.9 Lymph % (Auto) 17.5 L [place] % (Auto) 9.9 Eos % (Auto) 2.9 Baso % (Auto) 0.6 Lymph # (Auto) 1.5 [place] # (Auto) 0.9 Eos # (Auto) 0.3 Baso # (Auto) 0.1 Abs Immat Gran (auto) 0.02 Absolute Neuts (auto) 6.0 Absolute Nucleated RBC 0.000 Nucleated RBC % (auto) 0.0 Hold Purple Top Hold Blue Top VBG pH 7.57 H VBG pCO2 34 VBG pO2 79 VBG HCO3 31 H VBG O2 Saturation 98.0 VBG Base Excess 9.6 Sodium 140 141 Potassium 3.7 D 3.7 Chloride 99 99 Carbon Dioxide 33 H 31 H Anion Gap 12 15 BUN 35 H 32 H Creatinine 1.33 1.10 Estim Creat Clear Calc 39.1 47.3 Estimated GFR 51 > 60 POC Glucose Random Glucose 156 H 115 Lactic Acid Lactic Acid F/U @ 2Hr Calcium 8.5 8.6 Phosphorus 3.4 3.5 Magnesium 2.0 2.1 Total Bilirubin AST ALT Alkaline Phosphatase Troponin I High Sens B-Natriuretic Peptide Total Protein Albumin 3.5 TSH Hold Green Top Hold Yellow Top Urine Color Urine Appearance Urine pH Ur Specific [place] Urine Protein Urine Glucose (UA) Urine Ketones Urine Blood Urine Nitrite Ur Leukocyte Esterase Urine RBC Urine WBC Ur Squamous Epith Cells Urine Bacteria Hyaline Casts 01/29/24 01/30/24 05:03 05:16 WBC 10.8 8.8 RBC 4.44 L 3.95 L Hgb 11.0 L 9.6 L Hct 35.1 L 31.5 L MCV 79.1 L 79.7 L MCH 24.8 L 24.3 L MCHC 31.3 30.5 L RDW 15.0 15.4 Plt Count 248 201 MPV 9.8 10.4 Immature Gran % (Auto) 0.6 H 0.2 Neut % (Auto) 73.2 H 72.9 Lymph % (Auto) 13.4 L 15.1 L [place] % (Auto) 8.9 7.9 Eos % (Auto) 3.3 3.2 Baso % (Auto) 0.6 0.7 Lymph # (Auto) 1.4 1.3 [place] # (Auto) 1.0 0.7 Eos # (Auto) 0.4 0.3 Baso # (Auto) 0.1 0.1 Abs Immat Gran (auto) 0.06 H 0.02 Absolute Neuts (auto) 7.9 6.4 Absolute Nucleated RBC 0.000 0.000 Nucleated RBC % (auto) 0.0 0.0 Hold Purple Top Hold Blue Top VBG pH VBG pCO2 VBG pO2 VBG HCO3 VBG O2 Saturation VBG Base Excess Sodium 140 141 Potassium 3.8 3.9 Chloride 103 104 Carbon Dioxide 29 26 Anion Gap 12 15 BUN 35 H 43 H Creatinine 0.89 1.00 Estim Creat Clear Calc 58.4 52.0 Estimated GFR > 60 > 60 POC Glucose Random Glucose 112 106 Lactic Acid Lactic Acid F/U @ 2Hr Calcium 8.9 9.3 Phosphorus 2.8 2.8 Magnesium 2.1 2.3 Total Bilirubin AST ALT Alkaline Phosphatase Troponin I High Sens B-Natriuretic Peptide Total Protein Albumin 3.4 L 4.4 TSH Hold Green Top Hold Yellow Top Urine Color Urine Appearance Urine pH Ur Specific [place] Urine Protein Urine Glucose (UA) Urine Ketones Urine Blood Urine Nitrite Ur Leukocyte Esterase Urine RBC Urine WBC Ur Squamous Epith Cells Urine Bacteria Hyaline Casts Airway Mallampati Class: III TM Dist: >3cm Neck ROM: Full Loose/Missing/Broken Teeth: Yes (Poor dentition. Some broken. Some missing. Denies loose teeth) Heart: Irregularly irregular with systolic murmur Lungs: CTAB Assessment and Plan Assessment Anesthesia Assessment: Anesthesia Plan Discussed and Chart Reviewed Final Anesthetic Review Family History of Problems with Anesthesia: No History of Problems with Anesthesia: No NPO: Yes ASA Class: IV Final Preanesthetic Review: No Changes in Pt Med Stat, Meds/Allgs Chart Revie sat, Consent Obtained/Reviewed, Anes Risks/Benef Reviewed and DNR Form (If Appl.) Patient Risk: High Procedure Risk: Intermediate Assessment/Block/Sedation in SS: Assess/Block/Sedation-SS Anesthetic Plan Anesthetic Plan: MAC: Disposition: Inp. Admit - ICU
[2024-01-30] MEDS: Lactated Ringers 500 ML 20 ML IVCONT (10:30)
--- NOTE | 2024-01-30 10:30 | CA_ITS ---
Transesophageal Echocardiogram Patient (Last, First, Middle): Edgar Bustos W Gender: Male Date of : 1935 Age: 88 Procedure Date: 01/30/2024 Procedure Type: Transesophageal Echocardiogram Location: ICU Height: 175. cm Weight: 72. kg BSA: 1.87 m2 Heart Rate: bpm BP: 102 / 63 mmHg Trim Installer: SB Referring MD: Paddy Marquez MD Symptoms: Afib Conclusion: ??? Normal left ventricular cavity size. The left ventricular systolic function is moderate to severely decreased. The visually estimated ejection fraction is between 25-30%. There is moderate global hypokinesis. ??? Normal right ventricular cavity size. There is moderately decreased right ventricular systolic function. ??? There is no evidence of a thrombus in the left atrial appendage. Findings Left Ventricle Normal left ventricular cavity size. The left ventricular systolic function is moderate to severely decreased. The visually estimated ejection fraction is between 25-30%. There is moderate global hypokinesis. Right Ventricle Normal right ventricular cavity size. There is moderately decreased right ventricular systolic function. Atria The left atrium is moderately dilated. There is no evidence of a thrombus in the left atrial appendage. Aortic Valve The aortic valve structure and function is likely normal. There is moderate calcification of the aortic valve. There is no aortic valve regurgitation. Mitral Valve The mitral valve appears normal. There is mild to moderate mitral valve regurgitation. There is no mitral valve stenosis. Pulmonic Valve The pulmonic valve was not well visualized. Tricuspid Valve Normal tricuspid valve structure. Great Vessels All visible segments of the aorta are normal in size. There is no evidence of plaque in the aorta. Venous The inferior vena cava was not well visualized. Pericardium/Pleural There is no evidence of pericardial effusion. Updated by Paddy Marquez on 02:20 PM with Status of Final Paddy Marquez MD electronically signed on 02/01/2024 2:20:44 PM with status of Final
--- NOTE | 2024-01-30 10:33 | P.PNCA_ITS ---
Subjective Subjective Date of Service: 01/30/24 Interval history: Seen examined at bedside. Feeling better. Continues to be in atrial fibrillation. Plan is MARCELINO cardioversion today. Detailed discussion with the patient and his daughter at bedside and they are agreeable. Physical Exam Vital Signs: Last Vital Signs Temp 98.0 F 01/30/24 08:00 Pulse 74 01/30/24 10:00 Resp 20 01/30/24 10:00 BP 96/57 L 01/30/24 10:00 Pulse Ox 90 L 01/30/24 10:00 O2 Del Method Nasal Cannula 01/30/24 10:00 O2 Flow Rate 1 01/30/24 10:00 BMI result Body Mass Index 23.6 GENERAL APPEARANCE: in no acute distress, pleasant. Laying flat in bed. NECK: no carotid bruit, + jugular venous distention. SKIN: no suspicious lesions, warm and dry. HEART: Systolic murmur aortic area with preserved 2nd heart sound, irregular rate and rhythm. LUNGS: clear to auscultation bilaterally. ABDOMEN: soft, nontender. EXTREMITIES: no edema. PERIPHERAL PULSES: equal. NEUROLOGIC: No gross deficits, AAO X 3 Objective Labs and Meds 01/30/24 05:16 01/30/24 05:16 Lab results: Laboratory Results - last 24 hr 01/30/24 05:16 WBC 8.8 RBC 3.95 L Hgb 9.6 L Hct 31.5 L MCV 79.7 L MCH 24.3 L MCHC 30.5 L RDW 15.4 Plt Count 201 MPV 10.4 Immature Gran % (Auto) 0.2 Neut % (Auto) 72.9 Lymph % (Auto) 15.1 L [place] % (Auto) 7.9 Eos % (Auto) 3.2 Baso % (Auto) 0.7 Lymph # (Auto) 1.3 [place] # (Auto) 0.7 Eos # (Auto) 0.3 Baso # (Auto) 0.1 Abs Immat Gran (auto) 0.02 Absolute Neuts (auto) 6.4 Absolute Nucleated RBC 0.000 Nucleated RBC % (auto) 0.0 Sodium 141 Potassium 3.9 Chloride 104 Carbon Dioxide 26 Anion Gap 15 BUN 43 H Creatinine 1.00 Estim Creat Clear Calc 52.0 Estimated GFR > 60 Random Glucose 106 Calcium 9.3 Phosphorus 2.8 Magnesium 2.3 Albumin 4.4 Progress Note: A&P Assessment and plan (1) Atrial fibrillation: Status: Acute (2) Aortic stenosis: Status: Acute (3) Cardiomyopathy: Status: Acute Plan Very pleasant 88 year gentleman who presented with acute urinary tract infection and confusion and was noticed to have AFib RVR and was admitted to the intensive care unit. He has been diagnosed with cardiomyopathy with severe LV dysfunction. There is also concern for aortic valve stenosis which I think is at least moderate at this stage. He has done well with antibiotics and rate controlled with amiodarone. He is on Eliquis currently and is tolerating it fine. I had a detailed discussion with the patient and family about management plan going forward. Given the fact that he had AFib with RVR and did not feel atrial fibrillation there is a good possibility that he has been in atrial fibrillation for long time and potentially developed cardiomyopathy due to that. In these cases rhythm control strategy is critical and may help this gentleman in recovery. After some discussion they have agreed to proceed with MARCELINO cardioversion which will be done later today. He will continue amiodarone and Eliquis for now. If he has successful cardioversion his blood pressure starts coming up then we will start him on guideline directed medical therapy. We will reassess the aortic stenosis down the line again. Thank you for allowing me to participate in the care of your patient. Please feel free to contact me if you have any questions. Time Spent With Patient Time: Total time managing care of this patient today ____ minutes. Progress Note: Quality Stroke Does the patient have a stroke diagnosis?: No Procedures Date of Service Date of Service: 01/30/24
--- NOTE | 2024-01-30 10:43 | MHC.SHP ---
Pre-Procedural Eval Section A - 24 Hr Update-Section A only Date of Service: 01/30/24 The patient is an INPATIENT: Yes Section B - Complete if H&P > 30 days Chief Complaint: AFib with RVR, cardiomyopathy Allergies: Allergies Allergy/AdvReac Type Severity Reaction Status Date / Time No Known Allergies Allergy Verified 01/25/24 13:08 [No Known Allergies*] Plan Diagnosis/Plan: Unchanged I have reviewed the history and physical and performed a pertinent physical examination on my patient. No changes have occurred unless specified. Time Spent With Patient Time: Total time managing care of this patient today ____ minutes.
--- NOTE | 2024-01-30 12:21 | HO.CARDIVERS ---
Cardioversion Procedure Note Cardioversion Date of Procedure: 01/30/24 Ordering Provider: Paddy Marquez Performing Provider: Paddy Marquez Indication for Procedure: Afib, cardiomyopathy Performed with Transesophageal Echo: Yes MARCELINO findings (if MARCELINO Performed): No LA/IRINA clot. Consent: Verbal and Written consent was obtained from the patient before starting. The patient was made aware of the risk of stroke, arrhythmia, skin machuca. Procedure: After consent obtained, defib pads were attached and the patient was sedated by the anesthesia team. Once adequate sedation achieved, single synchronized shock of 200 J was given. The patient converted to sinus rhythm. Complications: None Recommendations: c/w amiodarone and eliquis.
[2024-01-30] MEDS: cefTRIAXone sodium 1 GM VIAL IVPUSH (15:20)
--- NOTE | 2024-01-30 16:03 | PM.EVENT ---
Event Note Date of Service: 01/30/24 Event Note: The patient is an 88-year-old male with a PMH significant for chronic urinary retention with suprapubic catheter in place, HLD, history of DVT (06/28/2023) no longer on Eliquis due to bleeding, IVC filter placement 08/2023, and remote hx of rectal cancer in 2016 who initially presented to the ED after suprapubic catheter became dislodged at home. In the ED patient tested positive for UTI and was found to be in AFib with RVR as well as significantly volume overloaded with severe bilateral pleural effusions and 3+ bilateral pitting edema. Patient was initially admitted to hospitalist services but in the ED was unable to tolerate Cardizem drip and became hypotensive, requiring admission to the ICU for pressor support while being treated for rate rate control and being diuresed. In the ICU patient was placed on amiodarone drip for rate control and on pressor support for 4 days. Echocardiogram was done and found biventricular failure with EF 15-20%, severe biatrial dilation, and moderate to severe aortic valve stenosis. Patient was seen Cardiology who feels patient likely in AFib for a long time and potentially developed cardiomyopathy secondary to that. Discussed risks and benefits of anticoagulation with patient and patient was started Eliquis 5 mg p.o. b.i.d.. Patient underwent successful MARCELINO cardioversion earlier today. Patient has maintained normal sinus rhythm post cardioversion and BP has improved, currently 106/63. Pt now being transferred to the medical floor. Documentation Supervisor also notes patient and family discussed goals of care and he has now filled out a MOLST form and is DNR DNI. Time Spent With Patient Time: Total time managing care of this patient today ____ minutes.
[2024-01-30] MEDS: timoloL maleate 0.5 % Oph Sol 5 ML DRBTL 1 DROP EYE-BOTH (21:05)
[2024-01-30] MEDS: Latanoprost 0.005 % Ophth Sol 2.5 ML DROPS 1 DROP EYE-BOTH (21:05)
[2024-01-30] MEDS: LORazepam 0.5 MG TABLET PO (23:51)
[2024-01-31] VITALS (10 sets, daily range): BP systolic 103–117; BP diastolic 52–66; PULSE 61–69; RESP 17–20; TEMP 36.1–37; O2SAT 93–96; BMI 24.3
[2024-01-31 09:01] LABS: Hematocrit 34.8 % (42.0-52.0); Hemoglobin 10.9 g/dl (14.0-18.0); Mean Corpuscular HGB Conc 31.3 g/dl (31.0-36.0); Mean Corpuscular Volume 79.8 fL (80.0-98.0); Mean Platelet Volume 10.3 fL (9.4-12.4); Platelet Count 231 X10*3/uL (160-400); Red Blood Count 4.36 X10*6/uL (4.60-5.80); Red Cell Distribution Width 15.7 % (11.0-16.0); White Blood Count 12.7 X10*3/uL (4.8-10.8)
[2024-01-31 09:13] LABS: Anion Gap 12 (12-20); Blood Urea Nitrogen 48 mg/dL (9-16); Calcium 9.6 mg/dL (8.4-10.2); Carbon Dioxide 28 mmol/L (22-29); Chloride 106 mmol/L (96-108); Estimated Glomerular Filt Rate > 60; Glucose Random 137 mg/dL (60-115); Potassium 4.2 mmol/L (3.3-5.1); Sodium 142 mmol/L (135-145)
[2024-01-31 09:21] LABS: B Type Natriuretic Peptide 2771 pg/mL (<100)
[2024-01-31] MEDS: Furosemide 20 MG TABLET PO (09:41)
[2024-01-31] MEDS: Doxycycline Monohydrate 100 MG CAPSULE PO ×2 (09:41→20:38)
[2024-01-31] MEDS: Amiodarone HCL 200 MG TABLET 400 MG PO ×2 (09:41→20:42)
[2024-01-31] MEDS: 0.9 % Sodium Chloride Flush 3 ML SYRINGE IVFLUSH ×3 (09:41→20:42)
[2024-01-31] MEDS: Apixaban 5 MG TABLET PO ×2 (09:42→20:38)
[2024-01-31] MEDS: Finasteride 5 MG TABLET PO (09:42)
[2024-01-31] MEDS: Pravastatin Sodium 40 MG TABLET PO (09:42)
[2024-01-31] MEDS: timoloL maleate 0.5 % Oph Sol 5 ML DRBTL 1 DROP EYE-BOTH ×2 (10:00→20:39)
--- NOTE | 2024-01-31 11:08 | PM.PNCARD ---
Subjective Subjective Date of Service: 01/31/24 Interval history: Seen examined at bedside in the morning. He was sleepy but denied any symptoms. He is on oral Lasix right now in his diuresing approximately 1.5 L negative at this point. In sinus rhythm on amiodarone. Physical Exam Vital Signs: Last Vital Signs Temp 96.9 F 01/31/24 07:48 Pulse 69 01/31/24 07:48 Resp 17 01/31/24 07:48 BP 117/66 01/31/24 09:41 Pulse Ox 93 01/31/24 07:48 O2 Del Method Room Air 01/31/24 07:48 O2 Flow Rate 1 01/30/24 16:00 Oxygen Flow Rate 2 01/30/24 11:19 BMI result Body Mass Index 24.3 GENERAL APPEARANCE: in no acute distress, pleasant. NECK: no carotid bruit, mild jugular venous distention. SKIN: no suspicious lesions, warm and dry. HEART: Systolic murmur aortic area with preserved 2nd heart sound, regular rate and rhythm. LUNGS: clear to auscultation bilaterally. ABDOMEN: soft, nontender. EXTREMITIES: no edema. PERIPHERAL PULSES: equal. NEUROLOGIC: No gross deficits, AAO X 3 Objective Labs and Meds 01/31/24 08:56 01/31/24 08:56 Lab results: Laboratory Results - last 24 hr 01/31/24 08:56 WBC 12.7 H RBC 4.36 L Hgb 10.9 L Hct 34.8 L MCV 79.8 L MCH 25.0 L MCHC 31.3 RDW 15.7 Plt Count 231 MPV 10.3 Absolute Nucleated RBC 0.000 Nucleated RBC % (auto) 0.0 Sodium 142 Potassium 4.2 Chloride 106 Carbon Dioxide 28 Anion Gap 12 BUN 48 H Creatinine 1.02 Estim Creat Clear Calc 51.0 Estimated GFR > 60 Random Glucose 137 H Calcium 9.6 B-Natriuretic Peptide 2771 H Progress Note: A&P Assessment and plan (1) Aortic stenosis: Status: Acute (2) Atrial fibrillation: Status: Acute (3) Cardiomyopathy: Status: Acute Plan [age] year gentleman presenting with UTI and AFib with RVR. Found to have severe cardiomyopathy on echo with concern for moderate aortic valve stenosis. He is status post cardioversion at this stage and continues to be in sinus rhythm. Continue amiodarone 400 mg twice a day for total of 14 days and then 200 mg daily. Continue Eliquis uninterrupted. He is on oral diuretics currently and is diuresing well. Add losartan 25 mg daily. Monitor blood pressure closely. Would not add any further medications currently because his blood pressure may drop. Thank you for allowing me to participate in the care of your patient. Please feel free to contact me if you have any questions. Time Spent With Patient Time: Total time managing care of this patient today ____ minutes. Progress Note: Quality Stroke Does the patient have a stroke diagnosis?: No Procedures Date of Service Date of Service: 01/31/24
--- NOTE | 2024-01-31 11:24 | MHC.CM.PN ---
Per rounds, pt is not ready to DC. Awaiting PT eval to assist in determining DCP. Pt is active with [facility], update sent to them. CM to follow for DC needs.
--- NOTE | 2024-01-31 12:33 | HO.POSTANES ---
Post Anesthesia Evaluation Post Anesthesia Evaluation Date of Service: 01/31/24 Vital Signs: Vital Signs Temp Pulse Resp BP Pulse Ox O2 Del Method 01/31/24 11:48 96.9 F 62 18 104/52 L 95 Room Air 01/31/24 11:19 96 Nasal Cannula 01/31/24 11:02 117/66 01/31/24 09:41 117/66 01/31/24 07:48 96.9 F 69 17 117/66 93 Room Air 01/31/24 04:00 20 Anesthesia: Monitored Mental Status: Awake Pain Control: Satisfactory Nausea/Vomiting: None Hydration: Adequate Anesthesia-Related Issues: No Anes. Related Issues
--- NOTE | 2024-01-31 12:59 | P.PNIM_ITS ---
Subjective Subjective Date of Service: 01/31/24 Interval History: feels well, remains in NSR Review of Systems Review of Systems: Yes all other systems are reviewed and are negative Physical Exam 2 Vital Signs: Vital Signs: Last Vital Signs Temp 96.9 F 01/31/24 11:48 Pulse 62 01/31/24 11:48 Resp 18 01/31/24 11:48 BP 104/52 L 01/31/24 11:48 Pulse Ox 95 01/31/24 11:48 O2 Del Method Room Air 01/31/24 11:48 O2 Flow Rate 1 01/30/24 16:00 Oxygen Flow Rate 2 01/31/24 11:19 BMI result Body Mass Index 24.3 Gen: in no acute distress HEENT: sclera anicteric, moist mucus membranes Neck: supple, JVD present Lungs: clear to auscultation bilaterally Heart: regular rate and rhythm, 2/6 systolic murmur at base Abd: soft, non-tender, non-distended, SPC in place Ext: trace bilateral leg edema Skin: warm/well-perfused Neuro: alert and oriented x3, no focal findings Psych: appropriate affect Objective Data Active Medications Acetaminophen (Acetaminophen 325 Mg Tablet) 650 mg PO Q6H PRN PRN Reason: Pain, Mild (Pain Scale 1-3), fever or headache Amiodarone HCl (Amiodarone Hcl 200 Mg Tablet) 400 mg PO BID [facility] Last Admin: 01/31/24 09:41 Dose: 400 mg Documented By: CARLTON Apixaban (Apixaban 5 Mg Tablet) 5 mg PO BID [facility] Last Admin: 01/31/24 09:42 Dose: 5 mg Documented By: CARLTON Doxycycline Monohydrate (Doxycycline Monohydrate 100 Mg Capsule) 100 mg PO BID [facility] Last Admin: 01/31/24 09:41 Dose: 100 mg Documented By: CARLTON Finasteride (Finasteride 5 Mg Tablet) 5 mg PO DAILY [facility] Last Admin: 01/31/24 09:42 Dose: 5 mg Documented By: CARLTON Furosemide (Furosemide 20 Mg Tablet) 20 mg PO DAILY [facility]; Protocol Last Admin: 01/31/24 09:41 Dose: 20 mg Documented By: CARLTON Latanoprost (Latanoprost 0.005 % Ophth Belkis 2.5 Ml Drops) 1 drop EYE-BOTH BEDTIME [facility] Last Admin: 01/30/24 21:05 Dose: 1 drop Documented By: SAMANTHA Losartan Potassium (Losartan Potassium 25 Mg Tablet) 25 mg PO DAILY [facility]; Protocol Pravastatin Sodium (Pravastatin Sodium 40 Mg Tablet) 40 mg PO DAILY [facility] Last Admin: 01/31/24 09:42 Dose: 40 mg Documented By: CARLTON Sodium Chloride (0.9 % Sodium Chloride Flush 3 Ml Syringe) 3 ml IVFLUSH QSHIFT [facility] Last Admin: 01/31/24 09:41 Dose: 3 ml Documented By: CARLTON Timolol Maleate (Timolol Maleate 0.5 % Oph Belkis 5 Ml Drbtl) 1 drop EYE-BOTH BID [facility] Last Admin: 01/31/24 10:00 Dose: 1 drop Documented By: CARLTON Labs 01/31/24 08:56 01/31/24 08:56 Labs: Laboratory Results - last 24 hr 01/31/24 08:56 MCV 79.8 L MCH 25.0 L MCHC 31.3 RDW 15.7 Plt Count 231 MPV 10.3 Absolute Nucleated RBC 0.000 Nucleated RBC % (auto) 0.0 Anion Gap 12 Estim Creat Clear Calc 51.0 Estimated GFR > 60 Random Glucose 137 H Calcium 9.6 B-Natriuretic Peptide 2771 H Microbiology Microbiology Results: Microbiology 01/25/24 13:38 Blood Culture - Final Blood - Venous No growth after 5 days. 01/25/24 13:38 Blood Culture - Final Blood - Venous No growth after 5 days. Assessment and Plan (1) Cardiomyopathy: Status: Acute (2) Aortic stenosis: Status: Acute Plan d7 for 88yo F with chronic urinary retention with SPC in place, hx DVT [06/28/23] with Eliquis stopped due to bleeding and IVCF placed Juuly 2023, rectal CA [2016] presented after SPC dislodged at home, admitted for AF/RVR and CHF exacerbation became hypotensive on diltiazem drip and transferred to ICU on day of admission for pressor support in ICU, was on pressors for 4 days and placed on amiodarone drip as well. 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 Quality Stroke Does the patient have a stroke diagnosis?: No VTE Prior VTE?: Yes VTE Risk Level:: Medical - moderate - high VTE Device Contraindication: Treatment Not Indicated VTE Drug Contraindication: N/A - Med Ordered
[2024-01-31] MEDS: Latanoprost 0.005 % Ophth Sol 2.5 ML DROPS 1 DROP EYE-BOTH (20:39)
[2024-02-01] VITALS (9 sets, daily range): BP systolic 98–117; BP diastolic 53–67; PULSE 54–66; RESP 16–20; TEMP 36.1–36.6; O2SAT 93–96; BMI 24.1
[2024-02-01] MEDS: guaiFENesin DM 200/20/10 ML 10 ML SYRUP PO ×3 (01:48→20:21)
[2024-02-01 06:40] LABS: Hematocrit 33.1 % (42.0-52.0); Hemoglobin 10.3 g/dl (14.0-18.0); Mean Corpuscular HGB Conc 31.1 g/dl (31.0-36.0); Mean Corpuscular Hemoglobin 24.8 pg (27.0-33.0); Mean Corpuscular Volume 79.6 fL (80.0-98.0); Mean Platelet Volume 10.8 fL (9.4-12.4); Platelet Count 210 X10*3/uL (160-400); Red Blood Count 4.16 X10*6/uL (4.60-5.80); Red Cell Distribution Width 15.9 % (11.0-16.0); White Blood Count 10.7 X10*3/uL (4.8-10.8)
[2024-02-01 06:53] LABS: Anion Gap 14 (12-20); Blood Urea Nitrogen 59 mg/dL (9-16); Calcium 9.3 mg/dL (8.4-10.2); Carbon Dioxide 26 mmol/L (22-29); Chloride 103 mmol/L (96-108); Creatinine Clr Calc Pharmacy 48.6; Estimated Glomerular Filt Rate > 60; Glucose Random 125 mg/dL (60-115); Potassium 4.3 mmol/L (3.3-5.1); Sodium 139 mmol/L (135-145)
[2024-02-01 07:01] LABS: B Type Natriuretic Peptide 1438 pg/mL (<100)
[2024-02-01] MEDS: Finasteride 5 MG TABLET PO (10:03)
[2024-02-01] MEDS: timoloL maleate 0.5 % Oph Sol 5 ML DRBTL 1 DROP EYE-BOTH ×2 (10:03→20:21)
[2024-02-01] MEDS: Losartan Potassium 25 MG TABLET PO (10:04)
[2024-02-01] MEDS: 0.9 % Sodium Chloride Flush 3 ML SYRINGE IVFLUSH ×2 (10:04→20:21)
[2024-02-01] MEDS: Pravastatin Sodium 40 MG TABLET PO (10:04)
[2024-02-01] MEDS: Amiodarone HCL 200 MG TABLET 400 MG PO ×2 (10:04→20:21)
[2024-02-01] MEDS: Furosemide 20 MG TABLET PO (10:04)
[2024-02-01] MEDS: Doxycycline Monohydrate 100 MG CAPSULE PO ×2 (10:04→20:21)
[2024-02-01] MEDS: Apixaban 5 MG TABLET PO ×2 (10:04→20:21)
--- NOTE | 2024-02-01 10:08 | PM.PNCARD ---
Subjective Subjective Date of Service: 02/01/24 Interval history: Seen examined at bedside. Feeling better. Continues to be in sinus rhythm. Physical Exam Vital Signs: Last Vital Signs Temp 97.3 F 02/01/24 07:38 Pulse 55 02/01/24 07:38 Resp 17 02/01/24 07:38 BP 104/60 02/01/24 07:38 Pulse Ox 93 02/01/24 07:38 O2 Del Method Nasal Cannula 02/01/24 07:38 O2 Flow Rate 2 02/01/24 07:38 Oxygen Flow Rate 2 01/31/24 11:19 BMI result Body Mass Index 24.1 GENERAL APPEARANCE: in no acute distress, pleasant. NECK: no carotid bruit, no jugular venous distention. SKIN: no suspicious lesions, warm and dry. HEART: Systolic murmur aortic area with preserved 2nd heart sound, regular rate and rhythm. LUNGS: clear to auscultation bilaterally. ABDOMEN: soft, nontender. EXTREMITIES: no edema. PERIPHERAL PULSES: equal. NEUROLOGIC: No gross deficits, AAO X 3 Objective Labs and Meds 02/01/24 06:04 02/01/24 06:04 Lab results: Laboratory Results - last 24 hr 02/01/24 06:04 WBC 10.7 RBC 4.16 L Hgb 10.3 L Hct 33.1 L MCV 79.6 L MCH 24.8 L MCHC 31.1 RDW 15.9 Plt Count 210 MPV 10.8 Absolute Nucleated RBC 0.000 Nucleated RBC % (auto) 0.0 Sodium 139 Potassium 4.3 Chloride 103 Carbon Dioxide 26 Anion Gap 14 BUN 59 H Creatinine 1.07 Estim Creat Clear Calc 48.6 Estimated GFR > 60 Random Glucose 125 H Calcium 9.3 B-Natriuretic Peptide 1438 H Progress Note: A&P Assessment and plan (1) Aortic stenosis: Status: Acute (2) Atrial fibrillation: Status: Acute (3) Cardiomyopathy: Status: Acute Plan [age] year gentleman presenting with UTI and AFib with RVR. Found to have severe cardiomyopathy on echo with concern for moderate aortic valve stenosis. He is status post cardioversion at this stage and continues to be in sinus rhythm. Continue amiodarone 400 mg twice a day for total of 14 days and then 200 mg daily. Continue Eliquis uninterrupted. He is on oral diuretics currently and is diuresing well. Added losartan 25 mg daily. Check orthostatics. We will not add any other medications currently. We can start the discharge planning. Thank you for allowing me to participate in the care of your patient. Please feel free to contact me if you have any questions. Time Spent With Patient Time: Total time managing care of this patient today ____ minutes. Progress Note: Quality Stroke Does the patient have a stroke diagnosis?: No Procedures Date of Service Date of Service: 02/01/24
--- NOTE | 2024-02-01 13:32 | P.PNIM_ITS ---
Subjective Subjective Date of Service: 02/01/24 Interval History: no complaints, no shortness of breath and no chest pain Review of Systems Review of Systems: Yes all other systems are reviewed and are negative Physical Exam 2 Vital Signs: Vital Signs: Last Vital Signs Temp 97.6 F 02/01/24 11:38 Pulse 61 02/01/24 11:38 Resp 18 02/01/24 11:38 BP 112/60 02/01/24 11:38 Pulse Ox 94 02/01/24 11:38 O2 Del Method Nasal Cannula 02/01/24 11:38 O2 Flow Rate 2 02/01/24 11:38 Oxygen Flow Rate 2 02/01/24 11:00 BMI result Body Mass Index 24.1 Gen: in no acute distress HEENT: sclera anicteric, moist mucus membranes Neck: supple, JVD present Lungs: clear to auscultation bilaterally Heart: regular rate and rhythm, 2/6 systolic murmur at base Abd: soft, non-tender, non-distended, SPC in place Ext: trace bilateral leg edema Skin: warm/well-perfused Neuro: alert and oriented x3, no focal findings Psych: appropriate affect Objective Data Active Medications Acetaminophen (Acetaminophen 325 Mg Tablet) 650 mg PO Q6H PRN PRN Reason: Pain, Mild (Pain Scale 1-3), fever or headache Amiodarone HCl (Amiodarone Hcl 200 Mg Tablet) 400 mg PO BID [facility] Last Admin: 02/01/24 10:04 Dose: 400 mg Documented By: JASPAL Apixaban (Apixaban 5 Mg Tablet) 5 mg PO BID [facility] Last Admin: 02/01/24 10:04 Dose: 5 mg Documented By: JASPAL Doxycycline Monohydrate (Doxycycline Monohydrate 100 Mg Capsule) 100 mg PO BID [facility] Last Admin: 02/01/24 10:04 Dose: 100 mg Documented By: JASPAL Finasteride (Finasteride 5 Mg Tablet) 5 mg PO DAILY [facility] Last Admin: 02/01/24 10:03 Dose: 5 mg Documented By: JASPAL Furosemide (Furosemide 20 Mg Tablet) 20 mg PO DAILY [facility]; Protocol Last Admin: 02/01/24 10:04 Dose: 20 mg Documented By: JASPAL Guaifenesin/Dextromethorphan (Guaifenesin Dm 200/20/10 Ml 10 Ml Syrup) 10 ml PO Q4H PRN PRN Reason: Cough Last Admin: 02/01/24 10:07 Dose: 10 ml Documented By: JASPAL Latanoprost (Latanoprost 0.005 % Ophth Belkis 2.5 Ml Drops) 1 drop EYE-BOTH BEDTIME [facility] Last Admin: 01/31/24 20:39 Dose: 1 drop Documented By: HIMANSHU Losartan Potassium (Losartan Potassium 25 Mg Tablet) 25 mg PO DAILY [facility]; Protocol Last Admin: 02/01/24 10:04 Dose: 25 mg Documented By: JASPAL Pravastatin Sodium (Pravastatin Sodium 40 Mg Tablet) 40 mg PO DAILY [facility] Last Admin: 02/01/24 10:04 Dose: 40 mg Documented By: JASPAL Sodium Chloride (0.9 % Sodium Chloride Flush 3 Ml Syringe) 3 ml IVFLUSH QSHIFT [facility] Last Admin: 02/01/24 10:04 Dose: 3 ml Documented By: JASPAL Timolol Maleate (Timolol Maleate 0.5 % Oph Belkis 5 Ml Drbtl) 1 drop EYE-BOTH BID [facility] Last Admin: 02/01/24 10:03 Dose: 1 drop Documented By: JASPAL Labs 02/01/24 06:04 02/01/24 06:04 Labs: Laboratory Results - last 24 hr 02/01/24 06:04 MCV 79.6 L MCH 24.8 L MCHC 31.1 RDW 15.9 Plt Count 210 MPV 10.8 Absolute Nucleated RBC 0.000 Nucleated RBC % (auto) 0.0 Anion Gap 14 Estim Creat Clear Calc 48.6 Estimated GFR > 60 Random Glucose 125 H Calcium 9.3 B-Natriuretic Peptide 1438 H Assessment and Plan (1) Cardiomyopathy: Status: Acute (2) Aortic stenosis: Status: Acute Plan d8 for 88yo F with chronic urinary retention with SPC in place, hx DVT [06/28/23] with Eliquis stopped due to bleeding and IVCF placed Juuly 2023, rectal CA [[id number]] presented after SPC dislodged at home, admitted for AF/RVR and CHF exacerbation became hypotensive on diltiazem drip and transferred to ICU on day of admission for pressor support in ICU, was on pressors for 4 days and placed on amiodarone drip as well. 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 Quality Stroke Does the patient have a stroke diagnosis?: No VTE Prior VTE?: Yes VTE Risk Level:: Medical - moderate - high VTE Device Contraindication: Treatment Not Indicated VTE Drug Contraindication: N/A - Med Ordered
[2024-02-01] MEDS: Latanoprost 0.005 % Ophth Sol 2.5 ML DROPS 1 DROP EYE-BOTH (20:21)
[2024-02-02 03:15] VITALS: BP 101/58; PULSE 52; RESP 19; TEMP 36.2; O2SAT 97
[2024-02-02 06:00] VITALS: BMI 26.5
[2024-02-02 08:00] VITALS: BP 103/59; PULSE 51; RESP 20; TEMP 36.1; O2SAT 95
[2024-02-02] MEDS: Furosemide 20 MG TABLET PO (09:16)
[2024-02-02] MEDS: Doxycycline Monohydrate 100 MG CAPSULE PO (09:16)
[2024-02-02] MEDS: Finasteride 5 MG TABLET PO (09:16)
[2024-02-02] MEDS: Apixaban 5 MG TABLET PO (09:16)
[2024-02-02] MEDS: Amiodarone HCL 200 MG TABLET 400 MG PO (09:16)
[2024-02-02] MEDS: Pravastatin Sodium 40 MG TABLET PO (09:16)
[2024-02-02] MEDS: Losartan Potassium 25 MG TABLET PO (09:16)
[2024-02-02] MEDS: 0.9 % Sodium Chloride Flush 3 ML SYRINGE IVFLUSH (09:17)
[2024-02-02] MEDS: timoloL maleate 0.5 % Oph Sol 5 ML DRBTL 1 DROP EYE-BOTH (09:17)
--- NOTE | 2024-02-02 09:36 | HO.PM.IMPN ---
Subjective Subjective Date of Service: 02/02/24 Interval History: no palpitations no dizziness Review of Systems Review of Systems: Yes all other systems are reviewed and are negative Physical Exam Vital Signs: Vital Signs: Last Vital Signs Temp 97.0 F 02/02/24 08:00 Pulse 51 02/02/24 08:00 Resp 20 02/02/24 08:00 BP 103/59 L 02/02/24 08:00 Pulse Ox 95 02/02/24 08:00 O2 Del Method Room Air 02/02/24 08:00 O2 Flow Rate 1 02/02/24 03:15 Oxygen Flow Rate 2 02/01/24 11:00 BMI result Body Mass Index 26.5 Gen: in no acute distress HEENT: sclera anicteric, moist mucus membranes Neck: supple, no JVD Lungs: clear to auscultation bilaterally Heart: regular rate and rhythm, 2/6 systolic murmur at base Abd: soft, non-tender, non-distended, SPC in place Ext: no leg edema Skin: warm/well-perfused Neuro: alert and oriented x3, no focal findings Psych: appropriate affect Objective Data Active Medications Acetaminophen (Acetaminophen 325 Mg Tablet) 650 mg PO Q6H PRN PRN Reason: Pain, Mild (Pain Scale 1-3), fever or headache Amiodarone HCl (Amiodarone Hcl 200 Mg Tablet) 400 mg PO BID [facility] Last Admin: 02/02/24 09:16 Dose: 400 mg Documented By: JASPAL Apixaban (Apixaban 5 Mg Tablet) 5 mg PO BID [facility] Last Admin: 02/02/24 09:16 Dose: 5 mg Documented By: JASPAL Doxycycline Monohydrate (Doxycycline Monohydrate 100 Mg Capsule) 100 mg PO BID [facility] Last Admin: 02/02/24 09:16 Dose: 100 mg Documented By: JASPAL Finasteride (Finasteride 5 Mg Tablet) 5 mg PO DAILY [facility] Last Admin: 02/02/24 09:16 Dose: 5 mg Documented By: JASPAL Furosemide (Furosemide 20 Mg Tablet) 20 mg PO DAILY [facility]; Protocol Last Admin: 02/02/24 09:16 Dose: 20 mg Documented By: JASPAL Guaifenesin/Dextromethorphan (Guaifenesin Dm 200/20/10 Ml 10 Ml Syrup) 10 ml PO Q4H PRN PRN Reason: Cough Last Admin: 02/01/24 20:21 Dose: 10 ml Documented By: HIMANSHU Latanoprost (Latanoprost 0.005 % Ophth Belkis 2.5 Ml Drops) 1 drop EYE-BOTH BEDTIME [facility] Last Admin: 02/01/24 20:21 Dose: 1 drop Documented By: HIMANSHU Losartan Potassium (Losartan Potassium 25 Mg Tablet) 25 mg PO DAILY [facility]; Protocol Last Admin: 02/02/24 09:16 Dose: 25 mg Documented By: JASPAL Pravastatin Sodium (Pravastatin Sodium 40 Mg Tablet) 40 mg PO DAILY [facility] Last Admin: 02/02/24 09:16 Dose: 40 mg Documented By: JASPAL Sodium Chloride (0.9 % Sodium Chloride Flush 3 Ml Syringe) 3 ml IVFLUSH QSHIFT [facility] Last Admin: 02/02/24 09:17 Dose: 3 ml Documented By: JASPAL Timolol Maleate (Timolol Maleate 0.5 % Oph Belkis 5 Ml Drbtl) 1 drop EYE-BOTH BID [facility] Last Admin: 02/02/24 09:17 Dose: 1 drop Documented By: JASPAL Labs 02/01/24 06:04 02/01/24 06:04 Assessment and Plan (1) Cardiomyopathy: Status: Acute (2) Aortic stenosis: Status: Acute Plan d9 for 88yo F with chronic urinary retention with SPC in place, hx DVT [06/28/23] with Eliquis stopped due to bleeding and IVCF placed Juuly 2023, rectal CA [2016] presented after SPC dislodged at home, admitted for AF/RVR and CHF exacerbation became hypotensive on diltiazem drip and transferred to ICU on day of admission for pressor support in ICU, was on pressors for 4 days and placed on amiodarone drip as well. 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 Quality Stroke Does the patient have a stroke diagnosis?: No VTE Prior VTE?: Yes VTE Risk Level:: Medical - moderate - high VTE Device Contraindication: Treatment Not Indicated VTE Drug Contraindication: N/A - Med Ordered
--- NOTE | 2024-02-02 10:44 | MHC.CM.PN ---
CM MET WITH PT AND FAMILY AT BEDSIDE THEY ARE DECLINING STR AND WOULD LIKE PT TO GO HOME WITH [facility] THEY ARE AWARE PT WILL DC TODAY WITH [facility] FOR PT/OT/SN FAMILY WILL TRANSPORT LATER THIS AFTERNOON, THEY WILL GO HOME AND PREPARE HIS SPACE FOR HIS RETURN
[2024-02-02 11:00] VITALS: O2SAT 90
--- NOTE | 2024-02-02 11:10 | P.F2F_ITS ---
Service Date Service Date: 02/02/24 Encounter Date of encounter: 02/02/24 Reasons for Services Signs and symptoms assessed: CHF AF balance/gait Reason for assisted: medication management, medication treatment and teach disease management Reason for physical therapy: home safety and mobility, therapeutic exercises, gait/transfer training, assess need for DME, ADL training and energy conservation Reason for occupational therapy: home safety and mobility, therapeutic exercises, gait/transfer training, assess need for DME, ADL training and energy conservation Overseeing Care: Morena Daniels Homebound: Leaving the home is medically contraindicated at this time without the asist of a device and/or another person due th the listed conditions above and below. Reason homebound: unsteady gait / fall risk, shortness of breath with minimal effort and weakness related to hospital stay Certification: Based on the above findings, I certify that this patient is confined to the home and needs intermittent assisted care, physical therapy and/or speech therapy, or continues to need occupational therapy. The patient is under my care, and I have initiated the establishment of the plan of care. The patient will be followed by a physician who will periodically review the plan of care. Time Spent With Patient Time: Total time managing care of this patient today ____ minutes.
--- NOTE | 2024-02-02 11:20 | PM.DS ---
DS: Providers Provider Date of Service: 02/02/24 Date of admission: 01/25/24 16:30 Date of discharge: 02/02/24 Primary care physician: Morena Daniels MD Consults: 01/25/24 16:26 Consult to Urology Routine Consulting Provider: [facility] Reason for consultation: Replace suprapubic catheter 01/25/24 23:44 Consult to Wound Care Routine Reason for consultation: Deep tissue injury 01/28/24 10:17 Consult to Cardiology Routine Consulting Provider: [facility] Reason for consultation: Cardiomyopathy Has provider been notified: No DS: Diagnosis Discharge Diagnosis (1) Cardiomyopathy: Status: Acute (2) Aortic stenosis: Status: Acute (3) Atrial fibrillation with RVR: Status: Acute (4) Urinary tract infection: Status: Acute (5) Complication, blocked suprapubic catheter: Status: Acute (6) Acute on chronic HFrEF (heart failure with reduced ejection fraction): Status: Acute DS: Summary Hospital Course Hospital Course: From the history and physical by the admitting hospitalist, CHUYITA Wright, 01/25/24: Pt is an 88-year-old female with a PMH significant for chronic urinary retention with suprapubic catheter in place, HLD, hx of DVT (06/28/2023) no longer on Eliquis due to bleeding, IVC filter placement 08/2023, and remote hx of rectal cancer in 2016 who presents to the ED after suprapubic catheter became dislodged sometime last night or early this morning. Patient lives alone, walks with a walker at baseline, and has help with meals on wheels, VNA services, and assistance from family. Patient uncertain as to when or how catheter was removed, but VNA services found catheter on the floor when they arrived in the morning. The patient reports he felt ?jumpy? last night but is otherwise unable to elaborate on symptoms. Family at bedside states that he was confused and ?not himself?. Daughter wanted to bring patient to the hospital last night, though patient refused. Otherwise patient has no acute medical complaints and states he currently feels ?fine?. Denies chest pain/pressure, palpitations. No difficulty breathing or shortness of breath. Denies fever, chills, nausea, vomiting, abdominal pain. Of note, ED provider was only able to reinsert a 10 [place] suprapubic catheter. In the ED pt was tachycardic up to 153 and tachypneic up to 26, satting at 96% on RA. Labs were significant for lactic acid 3.1 with repeat down trending to 2.8, BNP 1318, and slight increase in creatinine of 1.20 (0.93 11/22/2023). Troponin detectable but WNL at 16.9. UA positive for UTI. CXR showed have suspected mild interstitial edema and effusions. Chest CTA negative for pulmonary embolism, but showed large bilateral pleural effusions with associated atelectasis. EKG demonstrated atrial fibrillation with RVR of 152 with T-wave depressions in V5 and V6.. Pt was treated with IVF, acetaminophen, furosemide 20 mg IV, ceftriaxone, metoprolol 2.5 mg IV x2 doses, and started on a diltiazem drip. Pt will be admitted to the hospital for treatment and further evaluation of new onset AFib with RVR in the setting of UTI with sepsis and new onset CHF. 88yo F with chronic urinary retention with SPC in place, hx DVT [06/28/23] with Eliquis stopped due to bleeding and IVCF placed August 2023, and rectal CA [2015] who presented after the SPC became dislodged at home. The catheter was replaced in the ED, but he was found to be in AF/RVR and decompensated HF and was admitted initially to the telemetry service. He became hypotensive on a diltiazem drip and was transferred to ICU on day of admission for pressor support. Hospital course by problem: underwent MARCELINO-guided cardioversion 01/30/24 and stepped down to telemetry AF/RVR - in the ICU, he was on pressors for 4 days and placed on amiodarone drip as well. 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 Discharge to SNF for rehabiltation was recommended but declined by the patient and family. He was discharged home with VNA services and home PT/OT. Time Attestation Discharge Coordination Time (in mins): 45 Quality: Safe Use of Opioids Does Pt have an Active Cancer Diagnosis on the Problem List?: No Quality: Stroke Does the patient have a stroke diagnosis?: No Physical Exam Vital Signs: Vital Signs: Last Vital Signs Temp 97.0 F 02/02/24 08:00 Pulse 51 02/02/24 08:00 Resp 20 02/02/24 08:00 BP 103/59 L 02/02/24 08:00 Pulse Ox 90 L 02/02/24 11:00 O2 Del Method Room Air 02/02/24 11:00 O2 Flow Rate 1 02/02/24 03:15 Oxygen Flow Rate 2 02/01/24 11:00 BMI result Body Mass Index 26.5 Gen: in no acute distress HEENT: sclera anicteric, moist mucus membranes Neck: supple, no JVD Lungs: clear to auscultation bilaterally Heart: regular rate and rhythm, 2/6 systolic murmur at base Abd: soft, non-tender, non-distended, SPC in place Ext: no leg edema Skin: warm/well-perfused Neuro: alert and oriented x3, no focal findings Psych: appropriate affect DS: Data Data Completed and Pending Completed studies during hospitalization [Text1]: Laboratory Results WBC 10.7 X10*3/uL (4.8-10.8) 02/01/24 06:04 RBC 4.16 X10*6/uL (4.60-5.80) L 02/01/24 06:04 Hgb 10.3 g/dl (14.0-18.0) L 02/01/24 06:04 Hct 33.1 % (42.0-52.0) L 02/01/24 06:04 MCV 79.6 fL (80.0-98.0) L 02/01/24 06:04 MCH 24.8 pg (27.0-33.0) L 02/01/24 06:04 MCHC 31.1 g/dl (31.0-36.0) 02/01/24 06:04 RDW 15.9 % (11.0-16.0) 02/01/24 06:04 Plt Count 210 X10*3/uL (160-400) 02/01/24 06:04 MPV 10.8 fL (9.4-12.4) 02/01/24 06:04 Immature Gran % (Auto) 0.2 % (0.0-0.4) 01/30/24 05:16 Neut % (Auto) 72.9 % (45-73) 01/30/24 05:16 Lymph % (Auto) 15.1 % (20-40) L 01/30/24 05:16 [place] % (Auto) 7.9 % (2-11) 01/30/24 05:16 Eos % (Auto) 3.2 % (0-4) 01/30/24 05:16 Baso % (Auto) 0.7 % (0-2) 01/30/24 05:16 Lymph # (Auto) 1.3 X10*3/uL (1.2-4.9) 01/30/24 05:16 [place] # (Auto) 0.7 X10*3/uL (0.1-1.2) 01/30/24 05:16 Eos # (Auto) 0.3 X10*3/uL (0.0-0.4) 01/30/24 05:16 Baso # (Auto) 0.1 X10*3/uL (0.0-0.2) 01/30/24 05:16 Abs Immat Gran (auto) 0.02 X10*3/uL (0.00-0.03) 01/30/24 05:16 Absolute Neuts (auto) 6.4 x10*3/uL (2.0-8.3) 01/30/24 05:16 Absolute Nucleated RBC 0.000 X10*3/uL (0.0-0.012) 02/01/24 06:04 Nucleated RBC % (auto) 0.0 /100WBC (0.0-0.2) 02/01/24 06:04 Hold Purple Top SEE NOTE 01/25/24 21:46 Hold Blue Top SEE NOTE 01/25/24 13:38 VBG pH 7.57 (7.32-7.43) H 01/28/24 05:25 VBG pCO2 34 mmHg 01/28/24 05:25 VBG pO2 79 mmHg 01/28/24 05:25 VBG HCO3 31 mmol/L (22-26) H 01/28/24 05:25 VBG O2 Saturation 98.0 % 01/28/24 05:25 VBG Base Excess 9.6 mmol/L 01/28/24 05:25 Sodium 139 mmol/L (135-145) 02/01/24 06:04 Potassium 4.3 mmol/L (3.3-5.1) 02/01/24 06:04 Chloride 103 mmol/L (96-108) 02/01/24 06:04 Carbon Dioxide 26 mmol/L (22-29) 02/01/24 06:04 Anion Gap 14 (12-20) 02/01/24 06:04 BUN 59 mg/dL (9-16) H 02/01/24 06:04 Creatinine 1.07 mg/dL (0.5-1.4) 02/01/24 06:04 Estim Creat Clear Calc 48.6 02/01/24 06:04 Estimated GFR > 60 02/01/24 06:04 POC Glucose 107 mg/dL (60-115) 01/27/24 16:18 Random Glucose 125 mg/dL (60-115) H 02/01/24 06:04 Lactic Acid 1.1 mmol/L (0.5-2.0) 01/26/24 18:10 Lactic Acid F/U @ 2Hr 2.8 mmol/L (0.5-2.0) H* 01/25/24 16:25 Calcium 9.3 mg/dL (8.4-10.2) 02/01/24 06:04 Phosphorus 2.8 mg/dL (2.7-4.5) 01/30/24 05:16 Magnesium 2.3 mg/dL (1.6-2.6) 01/30/24 05:16 Total Bilirubin 0.9 mg/dL (0.0-1.0) 01/25/24 13:38 AST 26 U/L (5-37) 01/25/24 13:38 ALT 31 U/L (0-40) 01/25/24 13:38 Alkaline Phosphatase 72 U/L (39-117) 01/25/24 13:38 Troponin I High Sens 17.1 ng/L (<3.5-35.0) 01/25/24 21:46 B-Natriuretic Peptide 1438 pg/mL (<100) H 02/01/24 06:04 Total Protein 8.1 g/dL (6.5-8.0) H 01/25/24 13:38 Albumin 4.4 g/dL (3.5-5.0) 01/30/24 05:16 TSH 1.38 uIU/mL (0.32-4.0) 01/25/24 13:38 Hold Green Top See Note 01/25/24 13:38 Hold Yellow Top See Note 01/25/24 21:46 Urine Color Yellow 01/25/24 14:49 Urine Appearance Turbid 01/25/24 14:49 Urine pH 6.0 (5.0-9.0) 01/25/24 14:49 Ur Specific [place] 1.020 (1.005-1.025) 01/25/24 14:49 Urine Protein 100 (2+) mg/dL (Neg-Trace) H 01/25/24 14:49 Urine Glucose (UA) Negative mg/dL (Negative) 01/25/24 14:49 Urine Ketones Negative mg/dL (Negative) 01/25/24 14:49 Urine Blood Small (1+) (Negative) H 01/25/24 14:49 Urine Nitrite Negative (Negative) 01/25/24 14:49 Ur Leukocyte Esterase Large (3+) (Negative) H 01/25/24 14:49 Urine RBC 3-5 /HPF (0-2) H 01/25/24 14:49 Urine WBC >50 /HPF (0-5) H 01/25/24 14:49 Ur Squamous Epith Cells 0-2 /HPF (0-2) 01/25/24 14:49 Urine Bacteria Trace (None Seen) 01/25/24 14:49 Hyaline Casts 6-10 /LPF (0-2) 01/25/24 14:49 Impressions Chest X-Ray 01/25/24 13:19 IMPRESSION: 1. Suspect mild interstitial edema and effusions. 2. Nonspecific bibasilar airspace opacities Electronically signed by: Kurt Cunningham MD 01/25/2024 01:53 PM EST RP Chest CTA 01/25/24 14:28 IMPRESSION: 1. No central or segmental pulmonary emboli. 2. Large bilateral pleural effusions with associated atelectasis. VTE: negative. Electronically signed by: Gonzalo Vaughn MD 01/25/2024 03:26 PM EST RP Discharge Plan Discharge Anticipated Discharge Date/Time: 02/02/24 11:14 Patient Disposition: Home Health Service Discharge Diagnosis: atrial fibrillation congestive heart failure aortic stenosis urinary tract infection Referrals: Aylin FERNANDEZ [Outside] Morena Daniels MD [Primary Care Provider] - 1 Week Discharge Medications: New amiodarone 200 mg Tablet See Rx Instructions .ROUTE .COMPLEX Qty: 60 0RF Rx Instructions: 2 tabs (400 mg) twice daily until 02/09, then 1 tab (200 mg) once daily doxycycline monohydrate 100 mg Capsule 100 mg PO BID Qty: 10 0RF Eliquis 5 mg Tablet 5 mg PO BID Qty: 60 0RF losartan 25 mg Tablet 25 mg PO DAILY Qty: 30 0RF Protocol: Hold for SBP< HOLD for SBP < : 90 furosemide 20 mg Tablet 20 mg PO DAILY Qty: 30 0RF Protocol: Hold for SBP< HOLD for SBP < : 90 Continued latanoprost [Xalatan] 0.005 % drops 1 drp ophthalmic (eye) BEDTIME pravastatin 40 mg tablet 1 tab PO DAILY timolol maleate 0.5 % drops 1 drp ophthalmic (eye) BID Simbrinza 1-0.2 % drops,suspension 1 drp ophthalmic (eye) BID finasteride 5 mg tablet 5 mg PO DAILY 30 Days Qty: 90 3RF tamsulosin [Flomax] 0.4 mg capsule 0.4 mg PO BEDTIME 30 Days Qty: 90 3RF methenamine hippurate 1 gram tablet 1 g PO DAILY 90 Days Qty: 90 1RF ascorbic acid (vitamin C) 1,000 mg tablet 1 g PO DAILY 90 Days Qty: 90 1RF Discontinued cefuroxime axetil 500 mg tablet 500 mg PO BID Qty: 14 0RF Rx Instructions: END DATE: 01/30/24 Discharge Orders: Discharge Order (Routine); Ordered 02/02/24 Ordered By: Dennis Velez Diet: Low salt diet Activity on Discharge: As tolerated Stand Alone Forms: Patient Portal Discharge page Print Language: Pashto Care Plan Goals: cardiac health Health Concerns: atrial fibrillation congestive heart failure aortic stenosis urinary tract infection Plan of Treatment: to prevent atrial fibrillation, take AMIODARONE 400 mg [two 200 mg tabs] twice daily until 02/09, then 200 mg [one 200 mg tab] once daily to prevent stroke from atrial fibrillation, take APIXABAN 5 mg twice dialy Low-sodium diet: less than 2000 mg of sodium daily. Weigh yourself daily and call your doctor if your weight goes up by more than 3 lb/day or 5 lb/week. for CHF, take LOSARTAN 25 mg once daily and FUROSEMIDE 20 mg once daily to cure UTI, take DOXYCYCLINE 100 mg twice daily for 5 days follow up with [facility] in 2 weeks Please follow up with your primary care doctor within 1 week. Return to the hospital if you experience recurrent or worsening symptoms. Assessment: See Discharge Summary.
== END 2024-02-02 13:34 | disposition home health service (06) | DRG 308 ==
LOC: HO.ED 15:01 → HO.EDOVER 16:50 → HO.IMC 16:59 → HO.ICU 22:18 → HO.IMC 01-30 16:31
PROVIDERS: Internal Medicine Cardiovascular Disease; Internal Medicine Critical Care Medicine; Internal Medicine Pulmonary Disease; Nurse Practitioner Family; Physician Assistant Medical; Registered Nurse Community Health; Admitting Provider Student in an Organized Health Care Education/Training Program; Emergency Provider Emergency Medicine; PCP Internal Medicine; Visit Provider Family Medicine
PROC: B24BZZ4 Ultrasonography of Heart with Aorta, Transesophageal (ICD-10-PCS; CPT 93312; principal; 2024-01-30 10:30)
PROC: 5A2204Z Restoration of Cardiac Rhythm, Single (ICD-10-PCS; 2024-01-30 10:30)
DX: I48.91 Unspecified atrial fibrillation (principal); G92.8 Other toxic encephalopathy; I50.21 Acute systolic (congestive) heart failure; T83.090A Other mechanical complication of cystostomy catheter, initial encounter; I42.8 Other cardiomyopathies; I50.82 Biventricular heart failure; L89.326 Pressure-induced deep tissue damage of left buttock; I35.0 Nonrheumatic aortic (valve) stenosis; Z66 Do not resuscitate; E78.5 Hyperlipidemia, unspecified; N40.1 Benign prostatic hyperplasia with lower urinary tract symptoms; R33.8 Other retention of urine; I95.2 Hypotension due to drugs; T46.1X5A Adverse effect of calcium-channel blockers, initial encounter; L89.316 Pressure-induced deep tissue damage of right buttock; E87.6 Hypokalemia; N31.9 Neuromuscular dysfunction of bladder, unspecified; Z85.048 Personal history of other malignant neoplasm of rectum, rectosigmoid junction, and anus; Z87.440 Personal history of urinary (tract) infections; Z87.891 Personal history of nicotine dependence; Z79.899 Other long term (current) drug therapy
CPT/HCPCS: 36415; 71045; 71275; 80048; 80053; 81001; 82040; 82803; 82947; 83605; 83735; 83880; 84100; 84443; 84484; 85025; 85027; 87040; 87086; 87088; 87186; 92960; 93005; 93306; 97162; 99285; C1758; J0282; J0283; J0696; J1160; J1596; J1940; J2003; J2250; J2704; J7120; P9047; Q9967

== ENCOUNTER → 2024-01-25 13:08 | Outpatient (BNV) | payer MEDICARE, SELFPAY | PROVIDERS: Admitting Provider Student in an Organized Health Care Education/Training Program; Emergency Provider Emergency Medicine; PCP Internal Medicine; Visit Provider Internal Medicine | DX: R94.31 Abnormal electrocardiogram [ECG] [EKG] (principal) | CPT/HCPCS: 93010 ==

== ENCOUNTER 2024-01-25 16:30 | Outpatient (BNV) | payer MEDICARE, SELFPAY | END 2024-01-30 10:30 | PROVIDERS: Admitting Provider Student in an Organized Health Care Education/Training Program; Emergency Provider Emergency Medicine; PCP Internal Medicine; Visit Provider Internal Medicine Cardiovascular Disease | DX: I34.0 Nonrheumatic mitral (valve) insufficiency (principal); I35.8 Other nonrheumatic aortic valve disorders; R93.1 Abnormal findings on diagnostic imaging of heart and coronary circulation | CPT/HCPCS: 93312 ==

== ENCOUNTER 2024-01-25 16:30 | Outpatient (BNV) | payer MEDICARE, SELFPAY | END 2024-01-27 07:00 | PROVIDERS: Admitting Provider Student in an Organized Health Care Education/Training Program; Emergency Provider Emergency Medicine; PCP Internal Medicine; Visit Provider Internal Medicine Cardiovascular Disease | DX: I35.0 Nonrheumatic aortic (valve) stenosis (principal); I34.0 Nonrheumatic mitral (valve) insufficiency; I36.1 Nonrheumatic tricuspid (valve) insufficiency; I27.20 Pulmonary hypertension, unspecified | CPT/HCPCS: 93306 ==

== ENCOUNTER → 2024-01-25 16:30 | Outpatient (BNV) | payer MEDICARE, SELFPAY | PROVIDERS: Admitting Provider Student in an Organized Health Care Education/Training Program; Emergency Provider Emergency Medicine; PCP Internal Medicine; Visit Provider Student in an Organized Health Care Education/Training Program | DX: I48.91 Unspecified atrial fibrillation (principal); N39.0 Urinary tract infection, site not specified; A41.9 Sepsis, unspecified organism; I50.9 Heart failure, unspecified | CPT/HCPCS: 99223; 99232; 99239; 99499; G0180 ==

== ENCOUNTER → 2024-01-25 16:30 | Outpatient (BNV) | payer MEDICARE, SELFPAY | PROVIDERS: Admitting Provider Student in an Organized Health Care Education/Training Program; Emergency Provider Emergency Medicine; PCP Internal Medicine; Visit Provider Internal Medicine Pulmonary Disease | DX: I42.9 Cardiomyopathy, unspecified (principal); I35.0 Nonrheumatic aortic (valve) stenosis; I48.91 Unspecified atrial fibrillation | CPT/HCPCS: 99291 ==

== ENCOUNTER → 2024-01-25 16:30 | Outpatient (BNV) | payer MEDICARE, SELFPAY | PROVIDERS: Admitting Provider Student in an Organized Health Care Education/Training Program; Emergency Provider Emergency Medicine; PCP Internal Medicine; Visit Provider Urology | DX: R33.9 Retention of urine, unspecified (principal); T83.090A Other mechanical complication of cystostomy catheter, initial encounter; N30.01 Acute cystitis with hematuria | CPT/HCPCS: 99232 ==

== ENCOUNTER → 2024-01-25 16:30 | Outpatient (BNV) | payer MEDICARE, SELFPAY | PROVIDERS: Admitting Provider Student in an Organized Health Care Education/Training Program; Emergency Provider Emergency Medicine; PCP Internal Medicine; Visit Provider Internal Medicine Cardiovascular Disease | DX: I35.0 Nonrheumatic aortic (valve) stenosis (principal); I48.91 Unspecified atrial fibrillation; I42.9 Cardiomyopathy, unspecified | CPT/HCPCS: 99223; 99233 ==

== ENCOUNTER → 2024-01-25 16:30 | Outpatient (BNV) | payer MEDICARE, SELFPAY | PROVIDERS: Admitting Provider Student in an Organized Health Care Education/Training Program; Emergency Provider Emergency Medicine; PCP Internal Medicine; Visit Provider Nurse Practitioner Family | DX: I48.91 Unspecified atrial fibrillation (principal); N39.0 Urinary tract infection, site not specified | CPT/HCPCS: 99232; 99291 ==

== ENCOUNTER 2024-02-12 14:56 | Outpatient (AMB) | payer MEDICARE, SELFPAY ==
--- NOTE | 2024-02-12 15:53 | A.OFFVIS_ITS ---
Intake Visit Reasons: SPT change Allergies No Known Allergies [No Known Allergies*] Allergy (Verified 01/25/24 13:08) Medication List - Last Reconciled 02/12/24 by Manny Santos LPN amiodarone 2 tabs (400 mg) twice daily until 02/09, then 1 tab (200 mg) once daily apixaban (Eliquis) 5 mg PO BID ascorbic acid (vitamin C) 1 g PO DAILY 90 days brinzolamide-brimonidine 1-0.2 % (Simbrinza) 1 drp ophthalmic (eye) BID doxycycline monohydrate 100 mg PO BID finasteride 5 mg PO DAILY 30 days furosemide 20 mg See Protocol PO DAILY latanoprost 0.005% (Xalatan) 1 drp ophthalmic (eye) BEDTIME losartan 25 mg See Protocol PO DAILY methenamine hippurate 1 g PO DAILY 90 days pravastatin 1 tab PO DAILY timolol maleate 0.5% 1 drp ophthalmic (eye) BID HPI Comments Details: Edgar is a pleasant male. He is a patient of Dr. Daniels. He is seen for the following urologic conditions - neurogenic bladder - hydro nephrosis Here for suprapubic tube change - upsized to 16 [place] from 12Fr - target is 20 Fr Instructions provided to caregiver Continue on methenamine and vitamin-C Creatinine 0.7 Neurogenic bladder Secondary to prior proctocolectomy 2015 with concurrent radiation Gradual development bilateral hydronephrosis Suprapubic tube placement [facility] Medical History (Updated 02/24/24 @ 18:46 by Gallo Wong MD) Hypotonic neurogenic bladder DVT (deep venous thrombosis) At risk for bleeding related to anticoagulants Pressure ulcer of back Soft tissue mass Incomplete emptying of bladder Dysuria Pyuria H/O urinary retention Rectal adenocarcinoma Melanoma Fibroma Skin cancer Fracture of right ankle Glaucoma Surgical History History of surgery Hx of abdominoplasty Hx of tonsillectomy Hx of colonoscopy Family History Sister Lung cancer Maternal Aunt Breast cancer Mother Breast cancer Social History Household Members: None Housing: House Are you a primary health care sanitary technician to a significant other at home: No Do you presently have visiting nurse or other home services: Yes Alcohol intake: former Patient Tobacco Use Status: Former Tobacco user Cigarette Packs Per Day: 3 Advance Directives Date on File: 01/26/24 service: No Current occupational status: retired Office Procedures Bladder/Catheter Procedure Details: Removed 14fr crews catheter, patient tolerated removal well. Dr. Wong to room to do change as patient catheter was 12 andorran and 16fr would not fit. Lidocaine urojet with ureteral dilator used to open SPT opening, Dr. Wong able to pass 16fr crews catheter 10ml balloon with flip valve, patient tolerated insertion well. Patient to follow up with nursing in 4 weeks for next change to 18fr catheter. Patient aware and agreeable [id number] of bladder tube Procedure code (CPT) selection complete Assessment & Plan Assessment & Plan (1) Hydroureter: Code(s): N13.4 - Hydroureter Category: Medical (2) Hypotonic neurogenic bladder: Comment: Prior rectal surgery with presumed nerve compromise Code(s): N31.9 - Neuromuscular dysfunction of bladder, unspecified Category: Medical Plan Continue to up size catheter Orders: Orders AMB Bladder/Catheter Procedure 02/12/24 N30.01 - Acute cystitis with hematuria, N31.9 - Neuromuscular dysfunction of bladder, unspecified Patient Instructions: Imaging studies, laboratory and physical exam results were discussed and reviewed in detail. No major barriers to patient understanding were identified. An opportunity to ask questions regarding the treatment plan was provided. All questions were answered. The patient expressed understanding and agreement with the above treatment plan. The patient is aware they should contact our office by phone for worsening of their current condition or the appearance of new urologic symptoms. Compliance is encouraged with any medications and followup testing that is ordered. It is a privilege to participate in the urologic care of your patient. If you have any questions or concerns regarding treatment for the above conditions, or other urologic issues, please do not hesitate to contact me. The office telephone contact is [phone]. This note is constructed using voice recognition software. While every effort has been made to ensure accuracy wardrobe assistant errors may have been included. Yours sincerely, Dr Gallo Wong MD, [facility] - Urology Providers of Expert, Compassionate Care for the Genitourinary System Coding Level of Care Code Est Pt Level 3 (28820) Diagnoses Hydroureter N13.4 Hypotonic neurogenic bladder N31.9 CPT Codes Bladder/Catheter Procedure - CPT: 12194-Kijrre of bladder tube ([id number])
== END 2024-02-12 16:30 | disposition home or self-care (01) ==
PROVIDERS: PCP Internal Medicine; Visit Provider Urology
DX: N13.4 Hydroureter (principal); N31.9 Neuromuscular dysfunction of bladder, unspecified
CPT/HCPCS: 51705; 99213

== ENCOUNTER → 2024-02-12 14:56 | Outpatient (BNVA) | payer MEDICARE, SELFPAY | PROVIDERS: PCP Internal Medicine; Visit Provider Urology | DX: N13.4 Hydroureter (principal); N31.9 Neuromuscular dysfunction of bladder, unspecified | CPT/HCPCS: 51705; 99212 ==

== ENCOUNTER 2024-02-28 13:23 | Outpatient (AMB) | payer MEDICARE, SELFPAY ==
--- NOTE | 2024-02-28 13:28 | MHC.OFFVIS ---
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/C Dyagrnnmphlu-Lpnnys-yo (KM) Pier Hand Helper Required: No Forest Products Teacher: Forest Products Teacher Present Allergies No Known Allergies [No Known Allergies*] Allergy (Verified 02/28/24 13:33) Medication List - Last Reconciled 02/28/24 by JANNA Felton amiodarone 2 tabs (400 mg) twice daily until 02/09, then 1 tab (200 mg) once daily apixaban (Eliquis) 5 mg PO BID ascorbic acid (vitamin C) 1 g PO DAILY 90 days brinzolamide-brimonidine 1-0.2 % (Simbrinza) 1 drp ophthalmic (eye) BID finasteride 5 mg PO DAILY 30 days furosemide 20 mg See Protocol PO DAILY latanoprost 0.005% (Xalatan) 1 drp ophthalmic (eye) BEDTIME losartan 25 mg See Protocol PO DAILY methenamine hippurate 1 g PO DAILY 90 days pravastatin 1 tab PO DAILY timolol maleate 0.5% 1 drp ophthalmic (eye) BID HPI HPI 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 He initially required Levophed for blood pressure support. He was treated with rate control then started on amiodarone and underwent a transesophageal echo/cardioversion with conversion to sinus rhythm. His initial echo had showed EF 50 and a 20% with moderate to severe . At the time of his MARCELINO his EF was 25-30%. He did have some decompensated heart failure and was put on furosemide. He was started on Eliquis for anticoagulation and losartan for neurohormonal modulation. Today he presents for post hospital follow-up. He states that he has been doing well since his hospital discharge. He says he is feeling fine with no concerning symptoms. He denies chest discomfort at rest or with activity. He says his breathing is normal. No PND, orthopnea or edema. No heart palpitations, lightheadedness, presyncope, syncope, falls. He does have some unsteadiness on his feet which is not new. He ambulates short distances with a walker. For this visit he is sitting in a wheelchair. He has had no bleeding issues. He tells me his blood pressure runs low. He has visiting nurses 2 times weekly. He says his daughter is a nurse and she helps him with his medications. His son-in-law and a friend are present at this visit. [facility] Medical History Hypotonic neurogenic bladder DVT (deep venous thrombosis) At risk for bleeding related to anticoagulants Pressure ulcer of back Soft tissue mass Incomplete emptying of bladder Dysuria Pyuria H/O urinary retention Rectal adenocarcinoma Melanoma Fibroma Skin cancer Fracture of right ankle Glaucoma Surgical History History of surgery Hx of abdominoplasty Hx of tonsillectomy Hx of colonoscopy Family History Sister Lung cancer Maternal Aunt Breast cancer Mother Breast cancer Social History Household Members: None Housing: House Are you a primary respite care provider to a significant other at home: No Do you presently have visiting nurse or other home services: Yes Alcohol intake: former Patient Tobacco Use Status: Former Tobacco user Cigarette Packs Per Day: 3 Advance Directives Date on File: 01/26/24 service: No Current occupational status: retired Review of Systems Const All systems reviewed & are unremarkable except as noted in HPI and below ENT Denies dizziness Card Denies chest pain, Denies chest pain at rest, Denies chest pain with activity, Denies rapid heart rate, Denies pedal edema, Denies edema, Denies leg edema, Denies lightheadedness, Denies palpitations, Denies dyspnea, Denies dyspnea on exertion and Denies orthopnea Resp Denies cough, Denies dyspnea and Denies dyspnea on exertion GI Denies hematochezia and Denies change in stool character Musc Details: uses walker, in wheelchair today Reports abnormal gait, Denies limited range of motion, Denies muscle cramps, Reports muscle weakness, Denies numbness, Denies radiating pain into limb, Denies stiffness and Denies tingling Neuro Reports abnormal gait, Denies dizziness, Denies numbness and Denies tingling Endo Denies palpitations Physical Exam Vital Signs: Last Vital Signs Pulse 55 02/28/24 13:29 BP 90/52 L 02/28/24 13:29 BMI result Body Mass Index 22.7 Const General: cooperative, healthy appearing, comfortable and no acute distress Orientation/consciousness: patient oriented x3 Neck Neck: Yes normal visual inspection and Yes no JVD Resp Effort & Inspection: normal respiratory effort Auscultation: clear to auscultation bilaterally, no rales, no rhonchi and no wheezes Cardio Jugular venous distension: no JVD Rate: regular rate Rhythm: regular rhythm Heart sounds: S1 normal heart sound present, S2 normal heart sound present, no murmurs and no rubs Neuro General: patient oriented x3 Extrem General: Yes normal to inspection, No no pedal edema and No calf tenderness Psych Appearance: grossly normal Mental Status: mental status grossly normal Speech and movement: Normal speech and movement present Office Procedures EKG Details: Today, read by me, Sinus rhythm, right axis, cant exclude prior anterior infarct. T wave abn, rate 55, manual QT 380ms [id number], Complete Assessment & Plan Assessment & Plan (1) Atrial fibrillation: Code(s): I48.91 - Unspecified atrial fibrillation Category: Medical Plan: New finding of atrial fibrillation at time of hospital admission early January. He had AFib RVR and was treated with heart rate control and anticoagulation with Eliquis. His initial echo done 01/27/2024 showed EF 15-20% with moderate to severe , aortic valve area 0.98. He was initially managed in ICU and required Levophed drip. He was started on amiodarone loading dose and underwent a transesophageal echo on 01/29 showing no left atrial appendage clot, EF 25-30%. He had cardioversion, successfully converting to sinus rhythm. Today he reports he has been feeling well since his hospital discharge with no concerning symptoms. He never felt any heart palpitations even when he had AFib. He has had no shortness of breath or signs of fluid overload. His blood pressure is low at 90/52. His heart rate was running low at home and his timolol eyedrops were stopped. EKG done today is showing sinus rhythm with flat T-waves, manual QT 380 milliseconds, rate 55. EKG Reviewed with Dr Lagos. Will check labs today including CMP and magnesium level. Will plan for office EKG in 1 week. Will plan for repeat echocardiogram prior to next visit. Cardiology follow-up 1 month, sooner if needed. (2) Cardiomyopathy: Code(s): I42.9 - Cardiomyopathy, unspecified Category: Medical Plan: New finding of cardiomyopathy at time of hospital admission last month. EF as low as 15-20%. Most likely related to AFib with uncontrolled heart rates. Ischemia has not been ruled out. He has no known cardiac history prior to that admission. His troponin levels were normal. His EKG today does show anterior Q-waves suggesting prior IL. will plan for a repeat echocardiogram later this month to reassess EF, wall motion and his aortic stenosis now that he is in sinus rhythm. If EF remains low then will plan for a pharmacological nuclear stress test to assess for ischemia. Continue losartan for neurohormonal modulation. His blood pressure is low and EF is likely improved. Will have him change furosemide to p.r.n. use for leg edema and weight gain greater than 3 lb. Signs and symptoms of heart failure discussed. Labs being checked today. (3) Aortic stenosis: Code(s): I35.0 - Nonrheumatic aortic (valve) stenosis Category: Medical Plan: New finding of aortic stenosis on recent echo. Appears to be moderate to severe. Murmur is noted on exam. Reassessing with echocardiogram now that he is in sinus rhythm. Diagnosis of atrial stenosis and Cardinal signs of severe reviewed with him. (4) Acute on chronic HFrEF (heart failure with reduced ejection fraction): Code(s): I50.23 - Acute on chronic systolic (congestive) heart failure Category: Medical Plan: As above. Compensated at this time. (5) Abnormal EKG: Code(s): R94.31 - Abnormal electrocardiogram [ECG] [EKG] Category: Medical Plan: EKG done today is showing flattened T-waves. Manual QT appears to be 380 milliseconds. Checking labs as above and repeating EKG next week. (6) Low BP: Code(s): I95.9 - Hypotension, unspecified Category: Medical Plan: Blood pressure low today, asymptomatic. Changing Lasix to p.r.n. use. (7) Hospital discharge follow-up: Code(s): Z09 - Encounter for follow-up examination after completed treatment for conditions other than malignant neoplasm Category: Medical Plan Time spent on chart review, documentation, interview, assessment Orders: Orders Comprehensive Met. Panel Today I42.9 - Cardiomyopathy, unspecified Magnesium Today I42.9 - Cardiomyopathy, unspecified CA echo transthoracic complete Today I35.0 - Nonrheumatic aortic (valve) stenosis, I42.9 - Cardiomyopathy, unspecified Medications: Changed From furosemide 20 mg See Protocol PO DAILY 30 tabs 0RF To furosemide 20 mg See Protocol PO DAILY PRN 30 tabs 2RF weight gain> 3lb or leg swelling From amiodarone 2 tabs (400 mg) twice daily until 02/09, then 1 tab (200 mg) once daily 60 tabs 0RF To amiodarone 200 mg PO DAILY 30 tabs 5RF Refilled apixaban (Eliquis) 5 mg PO BID 60 tabs 5RF losartan 25 mg See Protocol PO DAILY 30 tabs 5RF Coding Level of Care Code Est Pt Level 4 (51843) Complex EM visit Add On G2211 Diagnoses Atrial fibrillation I48.91 Cardiomyopathy I42.9 Aortic stenosis I35.0 Acute on chronic HFrEF (heart failure with reduced ejection fraction) I50.23 Abnormal EKG R94.31 Low BP I95.9 Hospital discharge follow-up Z09 CPT Codes EKG - CPT: 72040-[id number], Complete ([id number]) Time Spent (min) 40
[2024-02-28 13:29] VITALS: BP 90/52; PULSE 55; BMI 22.7
== END 2024-02-28 14:43 | disposition home or self-care (01) ==
PROVIDERS: PCP Internal Medicine; Visit Provider Nurse Practitioner Family
DX: I48.91 Unspecified atrial fibrillation (principal); I42.9 Cardiomyopathy, unspecified; I35.0 Nonrheumatic aortic (valve) stenosis; I50.23 Acute on chronic systolic (congestive) heart failure; R94.31 Abnormal electrocardiogram [ECG] [EKG]; I95.9 Hypotension, unspecified; Z09 Encounter for follow-up examination after completed treatment for conditions other than malignant neoplasm
CPT/HCPCS: 93010; 99214; G2211

== ENCOUNTER 2024-02-28 13:23 | Outpatient (REF) | payer MEDICARE, SELFPAY ==
[2024-02-28 17:17] LABS: Alanine Aminotransferase 23 U/L (0-40); Albumin Level 3.8 g/dL (3.5-5.0); Alkaline Phosphatase 64 U/L (39-117); Anion Gap 10 (12-20); Aspartate Amino Transferase 20 U/L (5-37); Bilirubin Total 0.6 mg/dL (0.0-1.0); Blood Urea Nitrogen 23 mg/dL (9-16); Calcium 8.3 mg/dL (8.4-10.2); Carbon Dioxide 28 mmol/L (22-29); Chloride 104 mmol/L (96-108); Estimated Glomerular Filt Rate > 60; Glucose Random 104 mg/dL (60-115); Magnesium 2.1 mg/dL (1.6-2.6); Potassium 4.1 mmol/L (3.3-5.1); Sodium 138 mmol/L (135-145); Total Protein 7.1 g/dL (6.5-8.0)
== END 2024-02-28 13:24 | disposition home or self-care (01) ==
LOC: HO.LAB 13:23
PROVIDERS: PCP Internal Medicine; Visit Provider Nurse Practitioner Family
DX: I48.91 Unspecified atrial fibrillation (principal); I42.9 Cardiomyopathy, unspecified; I35.0 Nonrheumatic aortic (valve) stenosis; I50.23 Acute on chronic systolic (congestive) heart failure; R94.31 Abnormal electrocardiogram [ECG] [EKG]; I95.9 Hypotension, unspecified; Z09 Encounter for follow-up examination after completed treatment for conditions other than malignant neoplasm
CPT/HCPCS: 36415; 80053; 83735; 93005; 99212

== ENCOUNTER 2024-03-06 14:55 | Outpatient (AMB) | payer MEDICARE, SELFPAY ==
--- NOTE | 2024-03-06 16:06 | MHC.OFFVIS ---
Intake Visit Reasons: EKG/BP ck Allergies No Known Allergies [No Known Allergies*] Allergy (Verified 02/28/24 13:33) PFSH Medical History Hypotonic neurogenic bladder DVT (deep venous thrombosis) At risk for bleeding related to anticoagulants Pressure ulcer of back Soft tissue mass Incomplete emptying of bladder Dysuria Pyuria H/O urinary retention Rectal adenocarcinoma Melanoma Fibroma Skin cancer Fracture of right ankle Glaucoma Surgical History History of surgery Hx of abdominoplasty Hx of tonsillectomy Hx of colonoscopy Family History Sister Lung cancer Maternal Aunt Breast cancer Mother Breast cancer Social History Household Members: None Housing: House Are you a primary critical care registered nurse to a significant other at home: No Do you presently have visiting nurse or other home services: Yes Alcohol intake: former Patient Tobacco Use Status: Former Tobacco user Cigarette Packs Per Day: 3 Advance Directives Date on File: 01/26/24 service: No Current occupational status: retired Office Procedures EKG Details: Today Sinus bradycardia, cant exclude prior anterior infarct, rate 53, QTc 418ms [id number], Complete Assessment & Plan Assessment & Plan (1) Low BP: Code(s): I95.9 - Hypotension, unspecified Category: Medical Plan: nurse visit for EKG and BP check 80/40. Instructed to put Losartan on hold. Lasix made PRN last visit. Medications: On Hold losartan Hold Comment: Doctor's Order 25 mg See Protocol PO DAILY 30 tabs 5RF Coding Level of Care Code Procedure Only Diagnoses Low BP I95.9 CPT Codes EKG - CPT: 80359-Xwynqvpgkdoszittl, Complete ([id number])
== END 2024-03-06 15:51 | disposition home or self-care (01) ==
PROVIDERS: PCP Internal Medicine; Visit Provider Nurse Practitioner Family
DX: I95.9 Hypotension, unspecified (principal); R00.1 Bradycardia, unspecified; R94.31 Abnormal electrocardiogram [ECG] [EKG]
CPT/HCPCS: 93010; 99212

== ENCOUNTER → 2024-03-06 14:55 | Outpatient (BNVA) | payer MEDICARE, SELFPAY | PROVIDERS: PCP Internal Medicine; Visit Provider Nurse Practitioner Family | DX: I95.9 Hypotension, unspecified (principal); R94.31 Abnormal electrocardiogram [ECG] [EKG]; R00.1 Bradycardia, unspecified | CPT/HCPCS: 93005; 99212 ==

== ENCOUNTER → 2024-03-09 14:52 | Outpatient (BNVA) | payer MEDICARE, SELFPAY | PROVIDERS: PCP Internal Medicine; Visit Provider Urology | DX: N31.9 Neuromuscular dysfunction of bladder, unspecified (principal) | CPT/HCPCS: 51705 ==

== ENCOUNTER → 2024-03-16 15:02 | Outpatient (REF) | payer MEDICARE, SELFPAY ==
--- NOTE | 2024-03-16 15:06 | CA_ITS ---
Transthoracic Echocardiogram Patient (Last, First, Middle): Edgar Bustos, W Gender: Male Date of : 1935 Age: 88 Procedure Date: 03/16/2024 Procedure Type: Transthoracic Echocardiogram Location: OP Height: 177.8 cm Weight: 69.85 kg BSA: 1.87 m2 Heart Rate: 54 bpm BP: 90 / 50 mmHg Cellophane Worker: MAGDIEL Referring MD: Lucero Paulino CLIENT DEVELOPMENT MANAGER-C Student Union Consultant: Connor Lagos MD Symptoms: I42.9 - Cardiomyopathy, unspecified Study Quality: Adequate ECG Rhythm: Bradycardia Conclusions: - 1. Low normal LV ejection fraction 50-55% with mildly dilated left ventricle with pseudonormal filling pattern 2. Severely dilated left atrium 3. Moderate to severe aortic stenosis 4. Mildly dilated ascending aorta at 3.7 cm 5. Normal RV systolic pressure 6. No gross pericardial effusion Findings Left Ventricle Mildly increased left ventricular cavity size. There is normal left ventricular wall thickness. The left ventricular systolic function is low normal. The visually estimated ejection fraction is between 50-55%. Spectral Doppler is indicative of a pseudonormal filling pattern. E/E prime ratio is between 8 and 15 consistent with indeterminate filling pressures. Right Ventricle Normal right ventricular cavity size and systolic function. Atria The left atrium is severely dilated. There is no evidence of interatrial shunt. The right atrium is mildly dilated. Aortic Valve There is moderate calcification of the aortic valve. There is moderate thickening of the aortic valve. There is moderate to severe aortic valve stenosis. The peak aortic gradient is 32 mmHg.The mean gradient is 20 mmHg. The aortic valve area is 0.96 cm2. There is no aortic valve regurgitation. Dimensionless index is 0.29, suggestive of more moderate aortic stenosis. Mitral Valve There is mild anterior and moderate posterior mitral leaflet thickening. There is moderate mitral annular calcification. There is mild mitral valve regurgitation. There is no mitral valve stenosis. Pulmonic Valve The pulmonic valve is likely normal. Tricuspid Valve Likely normal tricuspid valve structure and function. There is mild tricuspid valve regurgitation. The right ventricular systolic pressure is 24 mmHg. Normal right atrial pressure. There is no evidence of pulmonary hypertension. Great Vessels The pulmonary artery was not well visualized. There is mild dilatation of the ascending aorta measuring 3.70 cm. Small plaque is seen in the sino tubular ridge. Venous The inferior vena cava is normal in size. Pericardium/Pleural There is no evidence of pericardial effusion. Prior Study Comparison Changes noted compared to prior study dated: 01/30/2024. LV systolic function has improved Measurements 2D Linear Measurements IVSd: 1.07 0.6-0.9/0.6-1.0 cm LVIDd: 5.97 3.9-5.3/4.2-5.9 cm LVIDd Index: 3.19 2.4-3.2/2.2-3.1 cm/m2 LVIDs: 4.39 2.0-3.6 cm LVPWd: 1.03 0.7-1.1 cm LA Diam: 4.00 2.7-3.8/3.0-4.0 cm LAIDs Index: 2.14 1.5-2.3 cm/m2 LV Mass: 325.29 67-162/88-224 g LV Mass Index: 173.95 43-95/49-115 g/m2 LVOT Diam: 2.00 3.0+(-)1.3 cm 2D Systolic Function EF 4C: 47.20 >55% EF 2C: 55.60 >55% EF BiP: 51.80 >55% Mitral Valve MV Pk E: 0.86 MV PK A: 0.53 MV Decel Time: 188.00 E/A: 1.60 E'Lateral: 8.59 E'Medial: 5.77 E/E' Med: 14.90 E/E' Lat: 10.00 PHT: 55.00 MVA PHT: 4.00 Decel Andrews: 4.57 Aortic Valve AoV Pk Elijah: 2.84 AoV Mn Elijah: 2.07 AoV VTI: 0.70 AoV Pk Grad: 32.00 Aov Mn Grad: 20.00 MALLORY Cont.VTI: 0.96 LVOT LVOT Pk Elijah: 0.91 LVOT Mn Elijah: 0.64 LVOT VTI: 0.21 LVOT Pk Grad: 3.00 LVOT Mn Grad: 2.00 LVOT Diam: 2.00 LVOT Area: 3.14 Diastolic Function MV Pk E: 0.86 MV Pk A: 0.53 E/A: 1.60 E'Medial: 5.77 E/E' Med: 14.90 E' Laterial: 8.59 E/E' Lat: 10.00 Right Ventricle TAPSE (mm): 17.50 TVS' Elijah: 10.70 Tricuspid Valve TR Pk Elijah: 2.30 TR Pk Grad: 21.00 RA Press: 3.00 RVSP: 24.00 Great Vessels Aorta Sinus of Valsalva: 3.70 2.0-3.5 cm Ao Asc: 3.70 2.1-3.4 cm Pulmonary Valve PV Pk Elijah: 1.04 Peak PV Grad: 4.00 Updated in Other Vendor System with Status of Final Connor Lagos MD electronically signed on 03/17/2024 4:32:34 PM with status of Final
== END ==
LOC: HO.CARD 15:02
PROVIDERS: PCP Internal Medicine; Visit Provider Nurse Practitioner Family
DX: I42.9 Cardiomyopathy, unspecified (principal); I35.0 Nonrheumatic aortic (valve) stenosis
CPT/HCPCS: 93306

== ENCOUNTER → 2024-03-16 15:06 | Outpatient (BNV) | payer MEDICARE, SELFPAY | PROVIDERS: PCP Internal Medicine; Visit Provider Internal Medicine Cardiovascular Disease | DX: I35.0 Nonrheumatic aortic (valve) stenosis (principal); I35.8 Other nonrheumatic aortic valve disorders; I34.0 Nonrheumatic mitral (valve) insufficiency; I36.1 Nonrheumatic tricuspid (valve) insufficiency | CPT/HCPCS: 93306 ==

== ENCOUNTER → 2024-04-06 14:50 | Outpatient (BNVA) | payer MEDICARE, SELFPAY | PROVIDERS: PCP Internal Medicine; Visit Provider Urology | DX: N31.9 Neuromuscular dysfunction of bladder, unspecified (principal) | CPT/HCPCS: 51705 ==

== ENCOUNTER 2024-04-09 15:06 | Outpatient (AMB) | payer MEDICARE, SELFPAY ==
--- NOTE | 2024-04-09 15:09 | A.OFFVIS_ITS ---
Vital Signs 04/09/24 15:16 Height 5 ft 9 in Weight 153 lb 14.122 oz BMI 22.7 Intake Visit Reasons: rectal drainage Intake Note: This patient presents for rectal drainage. Pt c/o; rectal drainage. Numerical Control Lathe Operator Required: No Accompanied by: Family/Other Allergies No Known Allergies [No Known Allergies*] Allergy (Verified 04/09/24 15:17) Medication List - Last Reconciled 04/09/24 by Aden Mcbride MD amiodarone 200 mg PO DAILY apixaban (Eliquis) 5 mg PO BID ascorbic acid (vitamin C) 1 g PO DAILY 90 days brinzolamide-brimonidine 1-0.2 % (Simbrinza) 1 drp ophthalmic (eye) BID finasteride 5 mg PO DAILY 30 days furosemide 20 mg See Protocol PO DAILY PRN latanoprost 0.005% (Xalatan) 1 drp ophthalmic (eye) BEDTIME losartan 25 mg See Protocol PO DAILY methenamine hippurate 1 g PO DAILY 90 days pravastatin 1 tab PO DAILY tamsulosin mg PO timolol maleate 0.5% 1 drp ophthalmic (eye) BID HPI HPI rectal drainage: Details: He is here because of periodic drainage from his proctectomy site. He is well known to me. He had undergone abdominal perineal resection after neoadjuvant chemotherapy and radiation for rectal cancer in 2016. He continues to see me in the office periodically. He does have chronic changes on the buttocks likely from pressure as he now is not very mobile and sits down most of the time . He was had chronic changes on the proctectomy site along with what appeared to be soft tissue swelling some fluid on previous CT scans. His family had brought him to the office because of periodic drainage from this area. The drainage seems to be dark, thin fluid but would periodically be foul-smelling. The patient denies any new changes He does have a suprapubic tube now because of his neurogenic bladder. He is on Eliquis for atrial fibrillation. He denies any pain in the buttock area or in the proctectomy site. [facility] Medical History (Updated 04/09/24 @ 15:40 by Aden Mcbride MD) Wound drainage Hypotonic neurogenic bladder DVT (deep venous thrombosis) At risk for bleeding related to anticoagulants Pressure ulcer of back Soft tissue mass Incomplete emptying of bladder Dysuria Pyuria H/O urinary retention Rectal adenocarcinoma Melanoma Fibroma Skin cancer Fracture of right ankle Glaucoma Surgical History History of surgery Hx of abdominoplasty Hx of tonsillectomy Hx of colonoscopy Family History Sister Lung cancer Maternal Aunt Breast cancer Mother Breast cancer Social History Household Members: None Housing: House Are you a primary childcare center director to a significant other at home: No Do you presently have visiting nurse or other home services: Yes Alcohol intake: former Patient Tobacco Use Status: Former Tobacco user Cigarette Packs Per Day: 3 Advance Directives Date on File: 01/26/24 service: No Current occupational status: retired Review of Systems Const Denies chills and Denies fever(s) Card Denies chest pain at rest Resp Denies cough GI Details: Stoma functioning well Denies abdominal pain Details: Has a suprapubic tube Physical Exam Vital Signs: BMI result Body Mass Index 22.7 Const Other: Very frail looking, on a wheelchair, able to stand up with assistance but has difficulty General: comfortable Resp Effort & Inspection: normal respiratory effort Cardio Rhythm: abnormal rhythm GI Other: Soft, colostomy functioning Proctectomy site well healed with note of what seems to be a small sinus, no active drainage at this time, bogginess on the left perirectal area of the buttock and discoloration, chronic, no cellulitis Assessment & Plan Assessment & Plan (1) Wound drainage: Code(s): T14.8XXA - Other injury of unspecified body region, initial encounter Category: Medical Plan: He has this periodic drainage from the old proctectomy site. He had the APR in 2016 He has had multiple CT scans in the past showing some fluid collection in the area. This is likely secondary chronic changes along with cannula granulation tissue. Currently, there is no active drainage. It was likely that this area periodically accumulates fluid because of chronic changes from his previous proctectomy site. I advised him to massage the area periodically to promote dr yuan. I did not feel that he needs any surgical intervention for this. He does not any evidence of active infection in the area I told his family to call me in the office for any concerns from here on. His stoma is functioning well. Coding Level of Care Code Est Pt Level 3 (01375) Diagnoses Wound drainage T14.8XXA
[2024-04-09 15:16] VITALS: BMI 22.7
== END 2024-04-09 15:48 | disposition home or self-care (01) ==
LOC: HO.HGS 15:06
PROVIDERS: PCP Internal Medicine; Visit Provider Surgery
DX: T14.8XXA Other injury of unspecified body region, initial encounter (principal)
CPT/HCPCS: 99213

== ENCOUNTER → 2024-04-09 15:06 | Outpatient (BNVA) | payer MEDICARE, SELFPAY | PROVIDERS: PCP Internal Medicine; Visit Provider Surgery | DX: N99.89 Other postprocedural complications and disorders of genitourinary system (principal) | CPT/HCPCS: 99212 ==

== ENCOUNTER 2024-04-10 13:44 | Outpatient (AMB) | payer MEDICARE, SELFPAY ==
[2024-04-10 14:00] VITALS: BP 96/48; PULSE 59
--- NOTE | 2024-04-10 14:00 | A.OFFVIS_ITS ---
Vital Signs 04/10/24 14:00 Height 5 ft 9 in BMI Reason not done Patient refused/unable BP 96/48 L Blood Pressure Location Lt brachial Position Sitting Pulse 59 Pulse Source Monitor Intake Visit Reasons: 1m follow up Allergies No Known Allergies [No Known Allergies*] Allergy (Verified 04/09/24 15:17) Medication List - Last Reconciled 04/10/24 by Lucero Paulino, LOGISTICS OPERATIONS MANAGER-C amiodarone 200 mg PO DAILY apixaban (Eliquis) 5 mg PO BID ascorbic acid (vitamin C) 1 g PO DAILY 90 days brinzolamide-brimonidine 1-0.2 % (Simbrinza) 1 drp ophthalmic (eye) BID finasteride 5 mg PO DAILY 30 days furosemide 20 mg See Protocol PO DAILY PRN latanoprost 0.005% (Xalatan) 1 drp ophthalmic (eye) BEDTIME losartan 25 mg See Protocol PO DAILY methenamine hippurate 1 g PO DAILY 90 days pravastatin 1 tab PO DAILY timolol maleate 0.5% 1 drp ophthalmic (eye) BID HPI HPI 1m follow up: Details: Edgar is an 88-year-old male with past medical history of UTIs and suprapubic catheter in place who had UTI and confusion who was admitted to [facility] in January with findings of AFib RVR. He initially required Levophed for blood pressure support. He was treated with rate control then started on amiodarone and underwent a transesophageal echo/cardioversion with conversion to sinus rhythm. His initial echo had showed EF 15- 20% with moderate to severe . At the time of his MARCELINO his EF was 25-30%. He did have some decompensated heart failure and was put on furosemide. He was started on Eliquis for anticoagulation and losartan for neurohormonal modulation. On follow-up visit his blood pressure was low, Lasix was made p.r.n. and then losartan was placed on hold. Today he states he has been feeling well with no concerning symptoms. He denies any issues with lightheadedness. He is mostly sedentary and ambulates only short distances. He is sitting for in a wheelchair at this visit. He denies chest discomfort at rest or during activity. No concerning shortness of breath, PND, orthopnea or edema. No heart palpitations, presyncope, syncope, falls. No bleeding issues reported. He still has visiting nurses 2 times weekly. He says his daughter is a nurse and she helps him with his medications. His son-in-law and a friend are present at this visit. [facility] Medical History Wound drainage Hypotonic neurogenic bladder DVT (deep venous thrombosis) At risk for bleeding related to anticoagulants Pressure ulcer of back Soft tissue mass Incomplete emptying of bladder Dysuria Pyuria H/O urinary retention Rectal adenocarcinoma Melanoma Fibroma Skin cancer Fracture of right ankle Glaucoma Surgical History History of surgery Hx of abdominoplasty Hx of tonsillectomy Hx of colonoscopy Family History Sister Lung cancer Maternal Aunt Breast cancer Mother Breast cancer Social History Household Members: None Housing: House Are you a primary home care aide to a significant other at home: No Do you presently have visiting nurse or other home services: Yes Alcohol intake: former Patient Tobacco Use Status: Former Tobacco user Cigarette Packs Per Day: 3 Advance Directives Date on File: 01/26/24 service: No Current occupational status: retired Review of Systems Const All systems reviewed & are unremarkable except as noted in HPI and below Denies weakness ENT Denies dizziness Card Denies chest pain, Denies chest pain with activity, Denies syncope, Denies rapid heart rate, Denies pedal edema, Denies edema, Denies leg edema, Denies lightheadedness, Denies palpitations, Denies dyspnea, Denies dyspnea on exertion and Denies orthopnea Resp Denies cough, Denies dyspnea and Denies dyspnea on exertion GI Denies hematochezia and Denies change in stool character Musc Reports abnormal gait (in wheelchair), Denies muscle cramps, Reports muscle weakness, Denies numbness, Denies radiating pain into limb and Denies tingling Neuro Reports abnormal gait (in wheelchair), Denies dizziness, Denies syncope, Denies numbness, Denies tingling and Denies weakness Endo Denies palpitations Physical Exam Vital Signs: Last Vital Signs Pulse 59 04/10/24 14:00 BP 96/48 L 04/10/24 14:00 Const Other: in wheelchair, alert and appropriate - hard of hearing General: cooperative, healthy appearing, comfortable and no acute distress Orientation/consciousness: patient oriented x3 Neck Neck: Yes normal visual inspection and Yes no JVD Resp Effort & Inspection: normal respiratory effort Auscultation: clear to auscultation bilaterally, no rales, no rhonchi and no wheezes Cardio Jugular venous distension: no JVD Rate: regular rate Rhythm: regular rhythm Heart sounds: S1 normal heart sound present, S2 normal heart sound present, no murmurs and no rubs Neuro General: patient oriented x3 Extrem General: Yes normal to inspection, No no pedal edema and No calf tenderness Psych Appearance: grossly normal Mental Status: mental status grossly normal Speech and movement: Normal speech and movement present Office Procedures EKG Details: Today, read by me, sinus bradycardia, right axis, possible anterior infarct, rate 59, QTC 338 millisecond [id number], Complete Assessment & Plan Assessment & Plan (1) Atrial fibrillation: Code(s): I48.91 - Unspecified atrial fibrillation Category: Medical Plan: New finding of atrial fibrillation at time of hospital admission early January. He had AFib RVR and was treated with heart rate control and anticoagulation with Eliquis. His initial echo done 01/27/2024 showed EF 15-20% with moderate to severe , aortic valve area 0.98. He was initially managed in ICU and required Levophed drip. He was started on amiodarone loading dose and underwent a transesophageal echo on 01/29 showing no left atrial appendage clot, EF 25-30%. He had cardioversion, successfully converting to sinus rhythm. On follow-up visit he had hypotension and his Lasix was made p.r.n.. A recheck of blood pressure was still low in his losartan was placed on hold. He did have a follow-up echocardiogram done on 03/16/2024 showing EF 50-55%, severely dilated left atrium, moderate to severe aortic stenosis. Today he reports he has been feeling well in the last few weeks. He never felt any heart palpitations even when he had AFib. He has had no shortness of breath or signs of fluid overload. EKG done today is showing sinus rhythm with flat T-waves, manual QT 338 milliseconds, rate 59. Will continue amiodarone at 200 mg daily. Continue Eliquis. Will check labs including liver panel and TSH for amiodarone monitoring. Cardiology follow-up 4 month, sooner if needed. (2) Cardiomyopathy: Code(s): I42.9 - Cardiomyopathy, unspecified Category: Medical Plan: New finding of cardiomyopathy at time of hospital admission last month. EF as low as 15-20%. Most likely related to AFib with uncontrolled heart rates. Ischemia has not been ruled out. He has no known cardiac history prior to that admission. His troponin levels were normal. Now that his AFib is controlled a repeat echocardiogram is showing EF 50-55%. His cardiomyopathy was most likely nonischemic and related to elevated heart rates. Hold off on nuclear stress test at this time. He has no anginal symptoms. He does have aortic stenosis and may need cardiac catheterization going forward. He is currently not on neurohormonal modulation due to low blood pressures. He does have Lasix he can use p.r.n. for edema or weight gain. Signs and symptoms of heart failure discussed. (3) Aortic stenosis: Code(s): I35.0 - Nonrheumatic aortic (valve) stenosis Category: Medical Plan: New finding of aortic stenosis on recent echo. Appears to be moderate to severe. Murmur is noted on exam. Diagnosis of atrial stenosis and Cardinal signs of severe reviewed with him. (4) Acute on chronic HFrEF (heart failure with reduced ejection fraction): Code(s): I50.23 - Acute on chronic systolic (congestive) heart failure Category: Medical Plan: As above. Compensated at this time. (5) Low BP: Code(s): I95.9 - Hypotension, unspecified Category: Medical Plan: Blood pressure low today, asymptomatic. Plan Time spent on chart review, documentation, interview, assessment Orders: Orders Comprehensive Met. Panel Today I48.91 - Unspecified atrial fibrillation TSH reflex Free T4 Today I48.91 - Unspecified atrial fibrillation Complete Blood Count Auto Diff Today I48.91 - Unspecified atrial fibrillation Coding Level of Care Code Est Pt Level 4 (05093) Complex EM visit Add On G2211 Diagnoses Atrial fibrillation I48.91 Cardiomyopathy I42.9 Aortic stenosis I35.0 Acute on chronic HFrEF (heart failure with reduced ejection fraction) I50.23 Low BP I95.9 CPT Codes EKG - CPT: 98711-[id number], Complete ([id number]) Time Spent (min) 30
== END 2024-04-10 14:48 | disposition home or self-care (01) ==
PROVIDERS: PCP Internal Medicine; Visit Provider Nurse Practitioner Family
DX: I48.91 Unspecified atrial fibrillation (principal); I42.9 Cardiomyopathy, unspecified; I35.0 Nonrheumatic aortic (valve) stenosis; I50.23 Acute on chronic systolic (congestive) heart failure; I95.9 Hypotension, unspecified
CPT/HCPCS: 93010; 99214; G2211

== ENCOUNTER → 2024-04-10 13:44 | Outpatient (BNVA) | payer MEDICARE, SELFPAY | PROVIDERS: PCP Internal Medicine; Visit Provider Nurse Practitioner Family | DX: I48.91 Unspecified atrial fibrillation (principal); I42.9 Cardiomyopathy, unspecified; I35.0 Nonrheumatic aortic (valve) stenosis; I95.9 Hypotension, unspecified; I50.23 Acute on chronic systolic (congestive) heart failure | CPT/HCPCS: 93005; 99212 ==

== ENCOUNTER 2024-04-24 14:35 | Outpatient (AMB) | payer MEDICARE, SELFPAY ==
--- NOTE | 2024-04-24 14:46 | A.OFFVIS_ITS ---
Intake Visit Reasons: 6 month follow up Intake Note: Pt presents to the office today for a 6 month follow up. Allergies No Known Allergies [No Known Allergies*] Allergy (Verified 04/24/24 14:46) HPI Comments Details: Edgar is a pleasant male. He is a patient of Dr. Daniels. 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 Suprapubic tube placement 09/17 PFSH Medical History Wound drainage Hypotonic neurogenic bladder DVT (deep venous thrombosis) At risk for bleeding related to anticoagulants Pressure ulcer of back Soft tissue mass Incomplete emptying of bladder Dysuria Pyuria H/O urinary retention Rectal adenocarcinoma Melanoma Fibroma Skin cancer Fracture of right ankle Glaucoma Surgical History History of surgery Hx of abdominoplasty Hx of tonsillectomy Hx of colonoscopy Family History Sister Lung cancer Maternal Aunt Breast cancer Mother Breast cancer Social History Household Members: None Housing: House Are you a primary healthcare economics manager to a significant other at home: No Do you presently have visiting nurse or other home services: Yes Alcohol intake: former Patient Tobacco Use Status: Former Tobacco user Cigarette Packs Per Day: 3 Advance Directives Date on File: 01/26/24 service: No Current occupational status: retired Review of Systems Const Denies chills and Denies fever(s) Card Reports no additional complaints and Denies syncope Resp Denies cough GI Denies abdominal pain and Denies heartburn Reports as per HPI and Denies change in libido Neuro Denies syncope Psych Denies change in libido Endo Denies change in libido Physical Exam Const General: cooperative, healthy appearing, comfortable and no acute distress Orientation/consciousness: patient oriented x3 HEENT Face and sinus: Yes normal facial exam Mouth: moist mucous membranes Neck Neck: Yes normal visual inspection, Yes full ROM and Yes trachea midline Chest Chest palpation & inspection: normal inspection of the chest Resp Effort & Inspection: normal respiratory effort, able to speak in complete sentences and no respiratory distress GI Inspection: Yes normal to inspection Back/Spine/Pelvis Cervical Spine: normal cervical lordosis Thoracic/Lumbar Spine: thoracic and lumbar spine normal to inspection Skin General skin exam: no rashes or lesions noted Neuro General: patient oriented x3, gait normal, tone normal and moves all extremities Extrem General: Yes normal to inspection and Yes capillary refill normal Assessment & Plan Assessment & Plan (1) Hypotonic neurogenic bladder: Comment: Prior rectal surgery with presumed nerve compromise Code(s): N31.9 - Neuromuscular dysfunction of bladder, unspecified Category: Medical Plan Continue VNA changing suprapubic tube Six-month follow-up Medications: Refilled methenamine hippurate 1 g PO DAILY 90 days 90 tabs 1RF N31.9 - Neuromuscular dysfunction of bladder, unspecified, N39.0 - Urinary tract infection, site not specified ascorbic acid (vitamin C) 1 g PO DAILY 90 days 90 tabs 1RF N31.9 - Neuromuscular dysfunction of bladder, unspecified, N39.0 - Urinary tract infection, site not specified Patient Instructions: This note is constructed using voice recognition software. While every effort has been made to ensure accuracy sports medicine specialist errors may have been included. Imaging studies, laboratory and physical exam results were discussed and reviewed in detail. No major barriers to patient understanding were identified. An opportunity to ask questions regarding the treatment plan was provided. All questions were answered. The patient expressed understanding and agreement with the above treatment plan. The patient is aware they should contact our office by phone for worsening of their current condition or the appearance of new urologic symptoms. Compliance is encouraged with any medications and followup testing that is ordered. It is a privilege to participate in the urologic care of your patient. If you have any questions or concerns regarding treatment for the above conditions, or other urologic issues, please do not hesitate to contact me. The office telephone contact is [phone]. Sincerely, Dr Gallo Wong MD, [facility] - Urology Compassionate Specialist Care for the Genitourinary System Coding Level of Care Code Est Pt Level 3 (05144) Diagnoses Hypotonic neurogenic bladder N31.9
== END 2024-04-24 15:15 | disposition home or self-care (01) ==
PROVIDERS: PCP Internal Medicine; Visit Provider Urology
DX: N31.9 Neuromuscular dysfunction of bladder, unspecified (principal)
CPT/HCPCS: 99213

== ENCOUNTER 2024-04-24 15:21 | Outpatient (REF) | payer MEDICARE, SELFPAY ==
[2024-04-24 15:33] LABS: MANUAL DIFF FLAG NO
[2024-04-24 15:53] LABS: Basophils Absolute Auto 0.1 X10*3/uL (0.0-0.2); Basophils Percent Auto 0.9 % (0-2); Eosinophils Absolute Auto 0.2 X10*3/uL (0.0-0.4); Eosinophils Percent Auto 2.9 % (0-4); Hemoglobin 11.4 g/dl (14.0-18.0); Imm Gran Abs Auto 0.05 X10*3/uL (0.00-0.03); Imm Gran Pct Auto 0.6 % (0.0-0.4); Lymphocytes Absolute Auto 0.9 X10*3/uL (1.2-4.9); Lymphocytes Percent Auto 11.1 % (20-40); Mean Corpuscular Hemoglobin 25.3 pg (27.0-33.0); Mean Corpuscular Volume 84.4 fL (80.0-98.0); Mean Platelet Volume 9.1 fL (9.4-12.4); Monocytes Absolute Auto 0.6 X10*3/uL (0.1-1.2); Monocytes Percent Auto 7.7 % (2-11); Neutrophils Absolute Auto 6.3 x10*3/uL (2.0-8.3); Neutrophils Percent Auto 76.8 % (45-73); Platelet Count 419 X10*3/uL (160-400); Red Cell Distribution Width 17.4 % (11.0-16.0); White Blood Count 8.2 X10*3/uL (4.8-10.8)
[2024-04-24 16:39] LABS: Alanine Aminotransferase 13 U/L (0-40); Albumin Level 3.2 g/dL (3.5-5.0); Anion Gap 15 (12-20); Aspartate Amino Transferase 18 U/L (5-37); Bilirubin Total 0.5 mg/dL (0.0-1.0); Blood Urea Nitrogen 23 mg/dL (9-16); Calcium 9.2 mg/dL (8.4-10.2); Carbon Dioxide 26 mmol/L (22-29); Chloride 102 mmol/L (96-108); Estimated Glomerular Filt Rate > 60; Glucose Random 181 mg/dL (60-115); Potassium 4.1 mmol/L (3.3-5.1); Sodium 139 mmol/L (135-145); Total Protein 8.2 g/dL (6.5-8.0)
[2024-04-24 16:41] LABS: TSH reflex Free T4 1.56 uIU/mL (0.32-4.0)
[2024-04-24 17:55] LABS: Alkaline Phosphatase 81 U/L (39-117)
== END 2024-04-24 15:22 | disposition home or self-care (01) ==
LOC: HO.LAB 15:21
PROVIDERS: PCP Internal Medicine; Visit Provider Nurse Practitioner Family
DX: I48.91 Unspecified atrial fibrillation (principal); N31.9 Neuromuscular dysfunction of bladder, unspecified; N39.0 Urinary tract infection, site not specified
CPT/HCPCS: 36415; 80053; 84443; 85025; 99212

== ENCOUNTER 2024-05-06 12:10 | Outpatient (REF) | payer MEDICARE, SELFPAY ==
[2024-05-06 12:45] LABS: Appearance Urine Cloudy; Glucose Urine UA Negative (Negative); Leukocyte Esterase Urine Moderate (2+) (Negative); PH 5.5 (5.0-9.0); UMIC TRIGGER UA YES; Urine Blood Large (3+) (Negative); Urine Protein 300 (3+) mg/dL (Neg-Trace)
[2024-05-06 12:48] LABS: Color Urine Brown
[2024-05-06 12:54] LABS: Bacteria Urine 1+ (None Seen); Calcium Oxalate Crystals Urine Present; Hyaline Casts Urine 0-2 /LPF (0-2); RBC Urine >20 /HPF (0-2); Squamous Epithelial Cell Urine 0-2 /HPF (0-2); WBC Urine >50 /HPF (0-5)
== END 2024-05-06 12:11 | disposition home or self-care (01) ==
LOC: HO.HVNA 12:10
PROVIDERS: Visit Provider Nurse Practitioner Family
DX: N31.9 Neuromuscular dysfunction of bladder, unspecified (principal); N30.01 Acute cystitis with hematuria
CPT/HCPCS: 81001; 87086; 87088; 87186

== ENCOUNTER 2024-06-01 10:28 | Outpatient (REF) | payer MEDICARE, SELFPAY ==
[2024-06-01 10:41] LABS: MANUAL DIFF FLAG NO
[2024-06-01 11:00] LABS: Basophils Absolute Auto 0.1 X10*3/uL (0.0-0.2); Basophils Percent Auto 1.1 % (0-2); Eosinophils Absolute Auto 0.2 X10*3/uL (0.0-0.4); Eosinophils Percent Auto 3.7 % (0-4); Hemoglobin 12.3 g/dl (14.0-18.0); Imm Gran Abs Auto 0.03 X10*3/uL (0.00-0.03); Imm Gran Pct Auto 0.5 % (0.0-0.4); Lymphocytes Absolute Auto 1.7 X10*3/uL (1.2-4.9); Lymphocytes Percent Auto 26.5 % (20-40); Mean Corpuscular HGB Conc 31.5 g/dl (31.0-36.0); Mean Corpuscular Hemoglobin 26.3 pg (27.0-33.0); Mean Corpuscular Volume 83.3 fL (80.0-98.0); Mean Platelet Volume 9.3 fL (9.4-12.4); Monocytes Absolute Auto 0.6 X10*3/uL (0.1-1.2); Monocytes Percent Auto 8.5 % (2-11); Neutrophils Absolute Auto 3.9 x10*3/uL (2.0-8.3); Neutrophils Percent Auto 59.7 % (45-73); Platelet Count 294 X10*3/uL (160-400); Red Blood Count 4.68 X10*6/uL (4.60-5.80); Red Cell Distribution Width 14.7 % (11.0-16.0); White Blood Count 6.5 X10*3/uL (4.8-10.8)
[2024-06-01 11:12] LABS: Alanine Aminotransferase 16 U/L (0-40); Albumin Level 3.6 g/dL (3.5-5.0); Alkaline Phosphatase 75 U/L (39-117); Anion Gap 12 (12-20); Aspartate Amino Transferase 27 U/L (5-37); Bilirubin Total 0.6 mg/dL (0.0-1.0); Blood Urea Nitrogen 24 mg/dL (9-16); Calcium 9.4 mg/dL (8.4-10.2); Carbon Dioxide 28 mmol/L (22-29); Chloride 103 mmol/L (96-108); Cholesterol 136 mg/dL (<200); Estimated Glomerular Filt Rate > 60; Glucose Random 95 mg/dL (60-115); HDL Cholesterol 40 mg/dL (>40); LDL Cholesterol Calculated 73 mg/dL (<100); Potassium 4.1 mmol/L (3.3-5.1); Sodium 139 mmol/L (135-145); Total Protein 7.2 g/dL (6.5-8.0); Triglycerides 117 mg/dL (<150)
== END 2024-06-01 10:29 | disposition home or self-care (01) ==
LOC: HO.LAB 10:28
PROVIDERS: PCP Internal Medicine; Visit Provider Internal Medicine
DX: N18.9 Chronic kidney disease, unspecified (principal); E78.00 Pure hypercholesterolemia, unspecified; N31.9 Neuromuscular dysfunction of bladder, unspecified; N40.0 Benign prostatic hyperplasia without lower urinary tract symptoms
CPT/HCPCS: 36415; 80053; 80061; 85025

== ENCOUNTER 2024-06-29 14:51 | Outpatient (AMB) | payer MEDICARE, SELFPAY ==
--- NOTE | 2024-06-29 14:52 | A.OFFVIS_ITS ---
Vital Signs 06/29/24 14:53 Height 5 ft 9 in BP 90/52 L Blood Pressure Location Lt brachial Position Sitting Pulse 68 Pulse Source Monitor Intake Visit Reasons: 3 MTH F/UP Patrol Judge Required: No Cleat Blanker: Cleat Blanker Present Allergies No Known Allergies [No Known Allergies*] Allergy (Verified 06/29/24 14:56) Medication List - Last Reconciled 06/29/24 by JANNA Felton amiodarone 200 mg PO DAILY apixaban (Eliquis) 5 mg PO BID ascorbic acid (vitamin C) 1 g PO DAILY 90 days brinzolamide-brimonidine 1-0.2 % (Simbrinza) 1 drp ophthalmic (eye) BID finasteride 5 mg PO DAILY 30 days furosemide 20 mg See Protocol PO DAILY PRN latanoprost 0.005% (Xalatan) 1 drp ophthalmic (eye) BEDTIME methenamine hippurate 1 g PO DAILY 90 days pravastatin 1 tab PO DAILY timolol maleate 0.5% 1 drp ophthalmic (eye) BID HPI HPI 3 MTH F/UP: Details: Edgar is an 89-year-old male with past medical history of UTIs and suprapubic catheter in place who had UTI and confusion who was admitted to [facility] in January 2024 with findings of AFib RVR. He initially required Levophed for blood pressure support. He was treated with rate control then started on amiodarone and underwent a transesophageal echo/cardioversion with conversion to sinus rhythm. His initial echo had showed EF 15- 20% with moderate to severe . At the time of his MARCELINO his EF was 25-30%. He did have some decompensated heart failure and was put on furosemide. He was started on Eliquis for anticoagulation and losartan for neurohormonal modulation. On follow-up visit his blood pressure was low, Lasix was made p.r.n. and then losartan was placed on hold. A repeat echocardiogram in February showed EF 50- 55%, moderate to severe . Today he states he has been feeling well since his last visit in March. He denies any concerning symptoms. He is mostly sedentary and ambulates only short distances with a walker. He is sitting for in a wheelchair at this visit. He denies chest discomfort at rest or during activity. No concerning shortness of breath, PND, orthopnea or edema. No heart palpitations, presyncope, syncope, falls. No bleeding issues reported. He still has visiting nurses 2 times weekly. His daughter is present. She is a cardiac nurse and she helps him with his medications. [facility] Medical History Wound drainage Hypotonic neurogenic bladder DVT (deep venous thrombosis) At risk for bleeding related to anticoagulants Pressure ulcer of back Soft tissue mass Incomplete emptying of bladder Dysuria Pyuria H/O urinary retention Rectal adenocarcinoma Melanoma Fibroma Skin cancer Fracture of right ankle Glaucoma Surgical History History of surgery Hx of abdominoplasty Hx of tonsillectomy Hx of colonoscopy Family History Sister Lung cancer Maternal Aunt Breast cancer Mother Breast cancer Social History Household Members: None Housing: House Are you a primary care transition mgr to a significant other at home: No Do you presently have visiting nurse or other home services: Yes Alcohol intake: former Patient Tobacco Use Status: Former Tobacco user Cigarette Packs Per Day: 3 Advance Directives Date on File: 01/26/24 service: No Current occupational status: retired Review of Systems Const All systems reviewed & are unremarkable except as noted in HPI and below ENT Denies dizziness Card Denies chest pain, Denies chest pain at rest, Denies chest pain with activity, Denies rapid heart rate, Denies pedal edema, Denies edema, Denies leg edema, Denies lightheadedness, Denies palpitations, Denies dyspnea, Denies dyspnea on exertion and Denies orthopnea Resp Denies cough, Denies dyspnea and Denies dyspnea on exertion GI Denies hematochezia and Denies change in stool character Musc Details: ambulates short distances with walker Reports abnormal gait, Denies limited range of motion, Denies muscle cramps, Denies muscle weakness, Denies numbness, Denies radiating pain into limb, Denies stiffness and Denies tingling Neuro Reports abnormal gait, Denies dizziness, Denies numbness and Denies tingling Endo Denies palpitations Physical Exam Vital Signs: Last Vital Signs Pulse 68 06/29/24 14:53 BP 90/52 L 06/29/24 14:53 Const Other: in wheelchair, alert and appropriate - hard of hearing General: cooperative, healthy appearing, comfortable and no acute distress Orientation/consciousness: patient oriented x3 Neck Neck: Yes normal visual inspection Resp Effort & Inspection: normal respiratory effort Auscultation: clear to auscultation bilaterally, no rales, no rhonchi and no wheezes Cardio Jugular venous distension: no JVD Rate: regular rate Rhythm: regular rhythm Heart sounds: S1 normal heart sound present, S2 normal heart sound present, Murmur heart sound present (3/6 systolic murmur, right sternal border) and no rubs Neuro General: patient oriented x3 Extrem Other: no pitting edema General: Yes normal to inspection Psych Appearance: grossly normal Mental Status: mental status grossly normal Speech and movement: Normal speech and movement present Office Procedures EKG Details: Today, read by me Sinus Rhythm, right axis, cant exclude prior anterior infarct, rate 68, Qtc 476ms [id number], Complete Assessment & Plan Assessment & Plan (1) Atrial fibrillation: Code(s): I48.91 - Unspecified atrial fibrillation Category: Medical Plan: New finding of atrial fibrillation at time of hospital admission early January which is treated with rhythm control using amiodarone. His initial echo done 01/27/2024 showed EF 15-20% with moderate to severe , aortic valve area 0.98. 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 He did undergo transesophageal echo on 01/29 showing no left atrial appendage clot, EF 25-30%, with cardioversion, successfully converting to sinus rhythm. He did have a follow-up echocardiogram done on 03/16/2024 showing EF 50-55%, severely dilated left atrium, moderate to severe aortic stenosis. EKG done today shows normal sinus rhythm, can not exclude prior anterior infarct, rate 68, QTC 476 milliseconds. Continue amiodarone. Labs done 04/24/2024 showed TSH 1.56, labs 06/01/2024 showed normal AST and ALT. Continue Eliquis for anticoagulation. (2) Cardiomyopathy: Code(s): I42.9 - Cardiomyopathy, unspecified Category: Medical Plan: Cardiomyopathy as described above with EF as low as 15-20%. Most recent echo showing EF 50-55%. Most likely related to AFib with uncontrolled heart rates. Ischemia has not been ruled out. He has no known cardiac history prior to that admission. In the absence of symptoms will Hold off on nuclear stress test at this time. He does have aortic stenosis and may need cardiac catheterization going forward. He is currently not on neurohormonal modulation due to low blood pressures. She was previously on losartan and daily Lasix which were both stopped. He does have Lasix he can use p.r.n. for edema or weight gain. Signs and symptoms of heart failure discussed. (3) Aortic stenosis: Code(s): I35.0 - Nonrheumatic aortic (valve) stenosis Category: Medical Plan: New finding of aortic stenosis on recent echo. Appears to be moderate to severe. Murmur is noted on exam. Diagnosis of atrial stenosis and Cardinal signs of severe reviewed with him. Will plan a repeat echocardiogram 6 months from last due 08/2024. (4) Acute on chronic HFrEF (heart failure with reduced ejection fraction): Code(s): I50.23 - Acute on chronic systolic (congestive) heart failure Category: Medical Plan: As above. Compensated at this time. (5) Low BP: Code(s): I95.9 - Hypotension, unspecified Category: Medical Plan: Blood pressure low today, asymptomatic. Need for good hydration reviewed, also use caution when going sitting to standing. Plan Time spent on chart review, documentation, interview, assessment Orders: Orders CA echo transthoracic complete 09/16/24 I35.0 - Nonrheumatic aortic (valve) stenosis, I42.9 - Cardiomyopathy, unspecified Coding Level of Care Code Est Pt Level 4 (46839) Complex EM visit Add On G2211 Diagnoses Atrial fibrillation I48.91 Cardiomyopathy I42.9 Aortic stenosis I35.0 Acute on chronic HFrEF (heart failure with reduced ejection fraction) I50.23 Low BP I95.9 CPT Codes EKG - CPT: [id number], Complete ([id number]) Time Spent (min) 30
[2024-06-29 14:53] VITALS: BP 90/52; PULSE 68
== END 2024-06-29 15:24 | disposition home or self-care (01) ==
LOC: HO.HCS 14:51
PROVIDERS: PCP Internal Medicine; Visit Provider Nurse Practitioner Family
DX: I48.91 Unspecified atrial fibrillation (principal); I42.9 Cardiomyopathy, unspecified; I35.0 Nonrheumatic aortic (valve) stenosis; I50.23 Acute on chronic systolic (congestive) heart failure; I95.9 Hypotension, unspecified
CPT/HCPCS: 93010; 99214; G2211

== ENCOUNTER → 2024-06-29 14:51 | Outpatient (BNVA) | payer MEDICARE, SELFPAY | PROVIDERS: PCP Internal Medicine; Visit Provider Nurse Practitioner Family | DX: I48.91 Unspecified atrial fibrillation (principal); I42.9 Cardiomyopathy, unspecified; I35.0 Nonrheumatic aortic (valve) stenosis; I50.23 Acute on chronic systolic (congestive) heart failure; I95.9 Hypotension, unspecified; R94.31 Abnormal electrocardiogram [ECG] [EKG] | CPT/HCPCS: 93005; 99212 ==

== ENCOUNTER 2024-08-16 10:08 | Emergency (ER) | payer MEDICARE, SELFPAY ==
[2024-08-16 10:18] VITALS: BP 125/62; BP 158/62; PULSE 52; PULSE 56; RESP 16; TEMP 36.5; O2SAT 97; BMI 21.7
[2024-08-16 10:23] VITALS: BP 125/62; PULSE 52; RESP 16; TEMP 36.5; O2SAT 97
--- NOTE | 2024-08-16 10:24 | ED.MALEGU ---
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 Yesterday family noticed pink tinged urine in his suprapubic catheter drainage bag, they contacted his urologist Dr. Wong, was advised to hold Eliquis for 3 days, last dose would have been 08/14/2024. Evidently the catheter became dislodged last night, VNA attempted to replace it, patient reports that this felt different than prior insertions and he was concerned but perhaps it was not inserted all the way. Not significant drainage throughout the remainder of the night/morning. VNA in the home today she concern for pink tinged urine. When EMS presented the suprapubic catheter had fallen out again completely. He denies any recent fevers, chills, nausea, vomiting, abdominal pain, back pain, known trauma or injury to the area, foul smell to the urine. Related Data Home Medications ?Medication ?Instructions ?Recorded ?Confirmed latanoprost 0.005 % eye drops 1 drp ophthalmic (eye) BEDTIME 01/05/20 06/29/24 (Xalatan) pravastatin 40 mg tablet 1 tab PO DAILY 01/05/20 06/29/24 brinzolamide 1 %-brimonidine 0.2 % 1 drp ophthalmic (eye) BID 08/24/20 06/29/24 eye drops,suspension (Simbrinza) timolol maleate 0.5 % eye drops 1 drp ophthalmic (eye) BID 09/18/23 06/29/24 Previous Rx's ?Medication ?Instructions ?Recorded finasteride 5 mg tablet 5 mg PO DAILY 30 days #90 tabs 05/03/23 amiodarone 200 mg tablet 200 mg PO DAILY #30 tabs 02/28/24 apixaban 5 mg tablet (Eliquis) 5 mg PO BID #60 tabs 02/28/24 furosemide 20 mg tablet 20 mg PO DAILY PRN weight gain> 02/28/24 3lb or leg swelling #30 tabs ascorbic acid (vitamin C) 1,000 mg 1 g PO DAILY 90 days #90 tabs 04/30/24 tablet methenamine hippurate 1 gram tablet 1 g PO DAILY 90 days #90 tabs 04/30/24 tetracycline 500 mg capsule 500 mg PO DAILY #10 caps 08/16/24 Allergies Allergy/AdvReac Type Severity Reaction Status Date / Time No Known Allergies (No Known Allergy Verified 08/16/24 10:22 Allergies*) Review of Systems Review of Systems: Yes all other systems are reviewed and are negative PMFSH Past Medical History Attestation statement: The following information was validated with the patient. Source: old records reviewed Medical History Wound drainage Hypotonic neurogenic bladder DVT (deep venous thrombosis) At risk for bleeding related to anticoagulants Pressure ulcer of back Soft tissue mass Incomplete emptying of bladder Dysuria Pyuria H/O urinary retention Rectal adenocarcinoma Melanoma Fibroma Skin cancer Fracture of right ankle Glaucoma Surgical History History of surgery Hx of abdominoplasty Hx of tonsillectomy Hx of colonoscopy Family History Family History Sister Lung cancer Maternal Aunt Breast cancer Mother Breast cancer Social History Social History Household Members: None Housing: House Are you a primary care transitions manager to a significant other at home: No Do you presently have visiting nurse or other home services: Yes Alcohol intake: former Patient Tobacco Use Status: Former Tobacco user Cigarette Packs Per Day: 3 Smoked in Last 30 Days: No Use of substances other than those prescribed or required for medical reasons: No Advance Directives: Yes Advance Directives on File: Yes Advance Directives Date on File: 01/26/24 Do you have a plan to hurt others: No Plan service: No Current occupational status: retired Physical Exam Vital Signs: Vital Signs: Last Vital Signs Temp 97.7 F 08/16/24 10:23 Pulse 80 08/16/24 12:00 Resp 16 08/16/24 12:00 BP 141/42 H 08/16/24 12:00 Pulse Ox 99 08/16/24 12:00 O2 Del Method Room Air 08/16/24 12:00 BMI result Body Mass Index 21.7 Appearance: Alert.?Oriented to person, place and time. No acute distress.?Normal affect. Eyes: Pupils equal, round and reactive to light.? ENT: Pharynx normal.?? Neck: Normal inspection.? Neck supple.?? CVS: Heart sounds normal. Normal heart rate and rhythm.? Pulses normal.?? Respiratory: No respiratory distress.? Lung sounds clear to auscultation bilaterally?? Abdomen: Soft and non-tender. Normoactive bowel sounds. No CVAT. Insertion site of suprapubic catheter is free from signs of infection no erythema warmth purulent drainage or blood. Skin: Skin warm and dry.? Normal skin color.? Extremities: No lower extremity edema.? Neuro: Moves all extremities spontaneously. Sensation intact bilaterally. No focal neuro deficits. Course Reevaluation(s) Reevaluation #1: Suprapubic catheter was replaced in the emergency department as per procedural portion of this note. Unfortunately there was no 20 [place]ayan catheter available. Therefore an 18 U[place] Crews catheter has been placed. Advised patient and son he feels strongly that he should have the [address] that they may follow-up with Dr. Wong's office outpatient and may make a decision for replacement at that time. Serum labs were obtained, CBC is without leukocytosis, has a mild anemia that does not meet transfusion criteria, chronic in nature. No electrolyte derangement. No NATE. 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 He is otherwise well-appearing, nontoxic, afebrile. Abdominal examination is benign. He offers no physical complaints at this time. Plan to replace suprapubic catheter, will obtain serum labs and urinalysis to exclude infection, NATE. Concern whether this may have been accidentally traumatic in nature given the blood and subsequent dislodgement of the catheter. He reports it was last changed with the Urology approximately 1 month ago. Differential Diagnosis Differential Diagnoses: The differential diagnosis associated with the presentation includes (See narrative above) Admission/Observation Consideration of admission/observation: Escalation of care including admission/observation considered Lab Data MDM Lab Attestation statement: I reviewed the patient's lab results. 08/16/24 11:58 08/16/24 11:58 Labs: Lab Results 08/16/24 08/16/24 Range/Units 11:58 13:20 WBC 6.9 (4.8-10.8) X10*3/uL RBC 4.16 L (4.60-5.80) X10*6/uL Hgb 10.8 L (14.0-18.0) g/dl Hct 34.5 L (42.0-52.0) % MCV 82.9 (80.0-98.0) fL MCH 26.0 L (27.0-33.0) pg MCHC 31.3 (31.0-36.0) g/dl RDW 16.4 H (11.0-16.0) % Plt Count 159 L D (160-400) X10*3/uL MPV 9.4 (9.4-12.4) fL Immature Gran % (Auto) 0.4 (0.0-0.4) % Neut % (Auto) 67.2 (45-73) % Lymph % (Auto) 20.5 (20-40) % [place] % (Auto) 9.0 (2-11) % Eos % (Auto) 2.3 (0-4) % Baso % (Auto) 0.6 (0-2) % Lymph # (Auto) 1.4 (1.2-4.9) X10*3/uL [place] # (Auto) 0.6 (0.1-1.2) X10*3/uL Eos # (Auto) 0.2 (0.0-0.4) X10*3/uL Baso # (Auto) 0.0 (0.0-0.2) X10*3/uL Abs Immat Gran (auto) 0.03 (0.00-0.03) X10*3/uL Absolute Neuts (auto) 4.6 (2.0-8.3) x10*3/uL Absolute Nucleated RBC 0.000 (0.0-0.012) X10*3/uL Nucleated RBC % (auto) 0.0 (0.0-0.2) /100WBC PT 12.7 H (10.9-12.4) SEC INR 1.1 (0.9-1.1) Sodium 140 (135-145) mmol/L Potassium 3.8 (3.3-5.1) mmol/L Chloride 106 (96-108) mmol/L Carbon Dioxide 28 (22-29) mmol/L Anion Gap 10 L (12-20) BUN 26 H (9-16) mg/dL Creatinine 1.01 (0.5-1.4) mg/dL Estim Creat Clear Calc 48.9 Estimated GFR > 60 Random Glucose 99 (60-115) mg/dL Calcium 8.7 D (8.4-10.2) mg/dL Total Bilirubin 0.7 (0.0-1.0) mg/dL AST 39 H (5-37) U/L ALT 10 (0-40) U/L Alkaline Phosphatase 68 (39-117) U/L Total Protein 6.4 L (6.5-8.0) g/dL Albumin 3.3 L (3.5-5.0) g/dL Urine Color Yellow Urine Appearance Cloudy Urine pH 7.0 (5.0-9.0) Ur Specific [place] 1.015 (1.005-1.025) Urine Protein 100 (2+) H (Neg-Trace) mg/dL Urine Glucose (UA) Negative (Negative) mg/dL Urine Ketones Negative (Negative) mg/dL Urine Blood Large (3+) H (Negative) Urine Nitrite Positive H (Negative) Ur Leukocyte Esterase Large (3+) H (Negative) Independent Historian Clinical information obtained from an independent historian. History obtained from or confirmed by: Other (Son) External Record Review External record reviewed: Outpatient record Chronic Conditions Patient?s care impacted by: Other (See narrative above) Procedures Catheter Insertion (Urinary) Date of insertion: 08/16/24 Time of insertion: 12:39 Reason for placing: Yes Reason for placing indwelling catheter: Other (Chronic suprapubic catheter, neurogenic bladder) Antiseptic solution prep: Povidone-Iodine Catheter type/location: Suprapubic Size (U[place]ayan): 18 Catheter balloon size (mL): 10 Catheter balloon amount: 10 Results: successfully catheterized-immediate flow Procedure performed: without complications Discharge Plan Discharge Clinical Impression: Acute UTI, Suprapubic catheter dysfunction Patient Disposition: Home, Self-Care Instructions: Catheter-associated Urinary Tract Infection (ED) Additional Instructions: You were seen in the emergency department today for evaluation, suprapubic catheter had fallen out. This was replaced in the emergency department. Unfortunately a 20 [place] catheter was not available, therefore an 18 [place] with 10 cc balloon was inserted. Additionally you were found to have urinary tract infection, a prescription for antibiotics; tetracycline 500 mg to take daily for 10 days has been sent to the pharmacy. Do not skip any doses or stop taking early even if you begin to feel better. Contact urology office to arrange for outpatient follow-up. You may return back to emergency department any new or worsening symptoms or concerns syncopal is but is not limited to fevers, chills, nausea, vomiting, abdominal pain, back pain, hematuria, lack of drainage from the urinary catheter. Prescriptions: New tetracycline 500 mg capsule 500 mg PO DAILY Qty: 10 0RF No Action ascorbic acid (vitamin C) 1,000 mg tablet 1 g PO DAILY 90 Days Qty: 90 1RF methenamine hippurate 1 gram tablet 1 g PO DAILY 90 Days Qty: 90 1RF latanoprost [Xalatan] 0.005 % drops 1 drp ophthalmic (eye) BEDTIME pravastatin 40 mg tablet 1 tab PO DAILY timolol maleate 0.5 % drops 1 drp ophthalmic (eye) BID Simbrinza 1-0.2 % drops,suspension 1 drp ophthalmic (eye) BID furosemide 20 mg tablet 20 mg PO DAILY PRN (Reason: weight gain> 3lb or leg swelling) Qty: 30 2RF Protocol: Hold for SBP< HOLD for SBP < : 90 Eliquis 5 mg tablet 5 mg PO BID Qty: 60 5RF amiodarone 200 mg tablet 200 mg PO DAILY Qty: 30 5RF finasteride 5 mg tablet 5 mg PO DAILY 30 Days Qty: 90 3RF Referrals: Gallo Wong MD [Primary Care Provider, Urology] Print Language: Polish
--- NOTE | 2024-08-16 10:33 | PC.NURSE ---
Pt comes to ED today via EMS from home after VNA was concerned for pink colored urine as well as dislodged. Pt denies abd pain. A&Ox3 VSS, afebrile. Suprapubic catheter site is clean, pink and shows no sxs infection. ED provider at bedside for eval.
[2024-08-16 12:00] VITALS: BP 141/42; PULSE 80; RESP 16; O2SAT 99
[2024-08-16 12:09] LABS: MANUAL DIFF FLAG NO
[2024-08-16 12:10] LABS: Basophils Percent Auto 0.6 % (0-2); Eosinophils Absolute Auto 0.2 X10*3/uL (0.0-0.4); Eosinophils Percent Auto 2.3 % (0-4); Hematocrit 34.5 % (42.0-52.0); Hemoglobin 10.8 g/dl (14.0-18.0); Imm Gran Abs Auto 0.03 X10*3/uL (0.00-0.03); Imm Gran Pct Auto 0.4 % (0.0-0.4); Lymphocytes Absolute Auto 1.4 X10*3/uL (1.2-4.9); Lymphocytes Percent Auto 20.5 % (20-40); Mean Corpuscular HGB Conc 31.3 g/dl (31.0-36.0); Mean Corpuscular Volume 82.9 fL (80.0-98.0); Mean Platelet Volume 9.4 fL (9.4-12.4); Monocytes Absolute Auto 0.6 X10*3/uL (0.1-1.2); Neutrophils Absolute Auto 4.6 x10*3/uL (2.0-8.3); Neutrophils Percent Auto 67.2 % (45-73); Platelet Count 159 X10*3/uL (160-400); Red Blood Count 4.16 X10*6/uL (4.60-5.80); Red Cell Distribution Width 16.4 % (11.0-16.0); White Blood Count 6.9 X10*3/uL (4.8-10.8)
[2024-08-16 12:14] LABS: INTERNATIONAL NORM RATIO 1.1 (0.9-1.1); Prothrombin Time 12.7 SEC (10.9-12.4)
[2024-08-16 12:24] LABS: Alanine Aminotransferase 10 U/L (0-40); Albumin Level 3.3 g/dL (3.5-5.0); Alkaline Phosphatase 68 U/L (39-117); Anion Gap 10 (12-20); Aspartate Amino Transferase 39 U/L (5-37); Bilirubin Total 0.7 mg/dL (0.0-1.0); Blood Urea Nitrogen 26 mg/dL (9-16); Calcium 8.7 mg/dL (8.4-10.2); Carbon Dioxide 28 mmol/L (22-29); Chloride 106 mmol/L (96-108); Creatinine Clr Calc Pharmacy 48.9; Estimated Glomerular Filt Rate > 60; Glucose Random 99 mg/dL (60-115); Potassium 3.8 mmol/L (3.3-5.1); Sodium 140 mmol/L (135-145); Total Protein 6.4 g/dL (6.5-8.0)
[2024-08-16 13:27] LABS: Appearance Urine Cloudy; Color Urine Yellow; Glucose Urine UA Negative (Negative); Leukocyte Esterase Urine Large (3+) (Negative); Nitrite Urine Positive (Negative); Specific Gravity - Urine 1.015 (1.005-1.025); UMIC TRIGGER UACC YES; Urine Blood Large (3+) (Negative); Urine Ketones Negative (Negative); Urine Protein 100 (2+) mg/dL (Neg-Trace)
[2024-08-16 13:40] LABS: Bacteria Urine Trace (None Seen); RBC Urine >20 /HPF (0-2); Squamous Epithelial Cell Urine 0-2 /HPF (0-2); UACC Culture Trigger YES; WBC Urine >50 /HPF (0-5)
[2024-08-16 13:49] VITALS: BP 141/42; PULSE 80; RESP 16; TEMP 36.5; O2SAT 99
== END 2024-08-16 14:00 | disposition home or self-care (01) ==
PROVIDERS: Nurse Practitioner Family; Emergency Provider Emergency Medicine; PCP Urology
DX: N39.0 Urinary tract infection, site not specified (principal); I48.91 Unspecified atrial fibrillation; Z79.01 Long term (current) use of anticoagulants; Z86.718 Personal history of other venous thrombosis and embolism; Z79.899 Other long term (current) drug therapy; Z87.891 Personal history of nicotine dependence
CPT/HCPCS: 36415; 80053; 81001; 85025; 85610; 87086; 99283; 99284

== ENCOUNTER → 2024-09-07 13:42 | Outpatient (BNVA) | payer MEDICARE, SELFPAY | PROVIDERS: PCP Urology; Visit Provider Urology | DX: N31.9 Neuromuscular dysfunction of bladder, unspecified (principal) | CPT/HCPCS: 51705 ==

== ENCOUNTER → 2024-09-17 14:58 | Outpatient (REF) | payer MEDICARE, SELFPAY ==
--- NOTE | 2024-09-17 15:03 | CA_ITS ---
Transthoracic Echocardiogram Patient (Last, First, Middle): Edgar Bustos, W Gender: Male Date of : 1935 Age: 89 Procedure Date: 09/17/2024 Procedure Type: Transthoracic Echocardiogram Location: OP Height: 175.26 cm Weight: 68.04 kg BSA: 1.83 m2 Heart Rate: 68 bpm BP: 96 / 52 mmHg Tape Sewing Machine Operator: RENETTA Referring MD: Lucero Paulino CARPENTRY FOREMAN-C Rn Digestive: Connor Lagos MD Symptoms: I35.0 - Nonrheumatic aortic (valve) stenosis Study Quality: Adequate ECG Rhythm: Sinus Conclusions: - 1. Low normal LV ejection fraction 50-55% 2. At least moderately dilated left atrium 3. Moderate to severe aortic stenosis 4. Mildly dilated ascending aorta at 3.7 cm 5. Normal RV systolic pressure 6. No gross pericardial effusion Findings Left Ventricle Normal left ventricular cavity size. There is normal left ventricular wall thickness. The left ventricular systolic function is low normal. The visually estimated ejection fraction is between 50-55%. Spectral Doppler is indicative of an impaired relaxation filling pattern. E/E prime ratio is between 8 and 15 consistent with indeterminate filling pressures. Right Ventricle Normal right ventricular cavity size. There is moderately decreased right ventricular systolic function. Atria The left atrium is moderately dilated. Interatrial shunt cannot be excluded. The right atrium was not well visualized. Aortic Valve There is moderate calcification of the aortic valve. There is moderate thickening of the aortic valve. There is moderate to severe aortic valve stenosis. The peak aortic gradient is 29 mmHg.The mean gradient is 16 mmHg. The aortic valve area is 1.08 cm2. There is no aortic valve regurgitation. Mitral Valve There is mild anterior mitral leaflet thickening. There is mild mitral annular calcification. There is trace mitral valve regurgitation. There is no mitral valve stenosis. Pulmonic Valve The pulmonic valve was not well visualized. Tricuspid Valve Likely normal tricuspid valve structure and function. There is mild tricuspid valve regurgitation. The right ventricular systolic pressure is normal. The right ventricular systolic pressure is 31 mmHg. Normal right atrial pressure. There is no evidence of pulmonary hypertension. Great Vessels The pulmonary artery was not well visualized. There is mild dilatation of the ascending aorta measuring 3.70 cm. Venous The inferior vena cava is normal in size. Pericardium/Pleural There is no evidence of pericardial effusion. Prior Study Comparison No significant change compared to prior study dated: 03/16/2024. Measurements 2D Linear Measurements IVSd: 0.88 0.6-0.9/0.6-1.0 cm LVIDd: 5.46 3.9-5.3/4.2-5.9 cm LVIDd Index: 2.98 2.4-3.2/2.2-3.1 cm/m2 LVIDs: 3.75 2.0-3.6 cm LVPWd: 0.89 0.7-1.1 cm LA Diam: 3.70 2.7-3.8/3.0-4.0 cm LAIDs Index: 2.02 1.5-2.3 cm/m2 LV Mass: 223.12 67-162/88-224 g LV Mass Index: 121.92 43-95/49-115 g/m2 LVOT Diam: 2.30 3.0+(-)1.3 cm 2D Systolic Function EF 4C: 44.90 >55% EF 2C: 53.70 >55% EF BiP: 49.50 >55% Mitral Valve MV Pk E: 0.57 MV PK A: 0.63 MV Decel Time: 265.00 E/A: 0.90 E'Lateral: 6.96 E'Medial: 5.98 E/E' Med: 9.60 E/E' Lat: 8.20 PHT: 78.00 MVA PHT: 2.82 Decel Rowan: 2.16 Aortic Valve AoV Pk Elijah: 2.67 AoV Mn Elijah: 1.87 AoV VTI: 0.54 AoV Pk Grad: 29.00 Aov Mn Grad: 16.00 MALLORY Cont.VTI: 1.08 LVOT LVOT Pk Elijah: 0.75 LVOT Mn Elijah: 0.49 LVOT VTI: 0.14 LVOT Pk Grad: 2.00 LVOT Mn Grad: 1.00 LVOT Diam: 2.30 LVOT Area: 4.15 Diastolic Function MV Pk E: 0.57 MV Pk A: 0.63 E/A: 0.90 E'Medial: 5.98 E/E' Med: 9.60 E' Laterial: 6.96 E/E' Lat: 8.20 Right Ventricle TVS' Elijah: 11.90 Tricuspid Valve TR Pk Elijah: 2.64 TR Pk Grad: 28.00 RA Press: 3.00 RVSP: 31.00 Great Vessels Aorta Sinus of Valsalva: 3.70 2.0-3.5 cm Ao Asc: 3.70 2.1-3.4 cm Updated in Other Vendor System with Status of Final Connor Lagos MD electronically signed on 09/17/2024 5:00:45 PM with status of Final
--- OUTSIDE RECORDS SUMMARY | 2024-09-17 15:03 | XMS_ITS | Encounter Summary ---
Author Organization [facility] Address [address] [place] [address] Phone Care Team Providers Care Geodetic Surveyor Name Role Phone Travis Gottlieb MD Primary Care Provider [phone] Encounter Details Date Type Department Care Team (Late st Contact Info) Description 01/06/2016 Procedure Pass [facility] [address] [place] [address] Social History Tobacco Use Types Packs/Day Years Used Date Smoking Tobacco: Former Comments:Quit 30 years ago Sex and Gender Information Value Date Recorded Sex Assigned at Not on file Legal Sex Male 11:31 AM EDT Gender Identity Not on file Sexual Orientation Not on file documented as of this encounter Plan of Treatment Not on file documented as of this encounter Visit Diagnoses Not on filedocumented in this encounter Care Teams Geodetic Surveyor Relationship Specialty Start Date End Date Travis Gottlieb MD PCP - General Family Medicine 12/28/15 documented as of this encounter Additional Source Comments The information contained in this document represents components of the legal health record. It is not the complete legal health record.[facility]
--- OUTSIDE RECORDS SUMMARY | 2024-09-17 15:03 | XMS_ITS | Patient Health Record ---
Author Organization [facility] Address [address] [place] [address] Care Team Providers Care Orthopedic Designer Name Role Phone Travis Gottlieb Primary Care Provider Unavaillatricia e Octavio Foreman Unavailable [phone] Reason For Referral No Information Medications Medication SIG (Take, Route, Fr equency, Duration) Notes Start Date End Date Status Latanoprost Active Dorzolamide-Timolol Active Nattokinase Active Co Q 10 Active Zinc Active Arthro-Complex Activ e Multivitamin & Mineral Active Problems Problem Type SNOMED Code ICD Code Onset Dates Problem Status W/U Status Risk Notes Problem 028774372 Blood in stool (K92.1) Active confirmed Problem 76852157 Change in bowel function (R19.4) Active confirmed Problem 57753742 Heme positive st ool (R19.5) Active confirmed Problem 559425376 Rectal adenocarcinoma (C20) Active confirmed Plan Of Treatment Future Test Test Name Order Date COLONOSCOPY 06/16/2015 Insurance Providers Payer Name Payer Address Payer Phone Subscriber Number Group Number Insured Name Patient Relationship to Insured Coverage Start Date Coverage End Date [employer] PREF[employer]ED [address] [place] [address] [id number] COURTNEY GONZALES Self - patient is the insured Medical (General) History Medical History History ICD Code Denies [place],DM,CVA,Lung disease,renal dise ase Negative colonoscopy approx 2005 by his report Glaucoma Colonoscopy in 06/2015 with t he finding of a large rectal mass with biopsies revealing adenocarcinoma Surgical History Surgery Date(Month/Year) broken right ankle tonsillectomy
== END ==
LOC: HO.CARD 14:58
PROVIDERS: PCP Internal Medicine; Visit Provider Nurse Practitioner Family
DX: I35.0 Nonrheumatic aortic (valve) stenosis (principal); I42.9 Cardiomyopathy, unspecified
CPT/HCPCS: 93306

== ENCOUNTER → 2024-09-17 15:03 | Outpatient (BNV) | payer MEDICARE, SELFPAY | PROVIDERS: PCP Internal Medicine; Visit Provider Internal Medicine Cardiovascular Disease | DX: I35.0 Nonrheumatic aortic (valve) stenosis (principal); I34.81 Nonrheumatic mitral (valve) annulus calcification; I36.1 Nonrheumatic tricuspid (valve) insufficiency; I51.89 Other ill-defined heart diseases | CPT/HCPCS: 93306 ==

== ENCOUNTER 2024-09-18 17:07 | Outpatient (REF) | payer MEDICARE, SELFPAY ==
[2024-09-18 17:16] LABS: Appearance Urine Cloudy; Glucose Urine UA Negative (Negative); PH 6.5 (5.0-9.0); Specific Gravity - Urine 1.015 (1.005-1.025); UMIC TRIGGER UA YES
== END 2024-09-18 17:08 | disposition home or self-care (01) ==
LOC: HO.LNP 17:07
PROVIDERS: Visit Provider Urology
DX: N30.01 Acute cystitis with hematuria (principal)
CPT/HCPCS: 81001; 87086; 87088; 87186

== ENCOUNTER 2024-09-30 14:54 | Outpatient (REF) | payer MEDICARE, SELFPAY ==
[2024-09-30 15:04] LABS: Appearance Urine Cloudy; Glucose Urine UA Negative (Negative); PH 7.0 (5.0-9.0); Specific Gravity - Urine 1.015 (1.005-1.025); UMIC TRIGGER UA YES
--- OUTSIDE RECORDS SUMMARY | 2024-09-30 15:23 | XMS_ITS | Patient Health Record ---
Author Organization [facility] Address [address] [place] [address] Care Team Providers Care Unit Reactor Operator Name Role Phone Travis Gottlieb Primary Care Provider Unavaillatricia e Octavio Foreman Unavailable [phone] Reason For Referral No Information Medications Medication SIG (Take, Route, Fr equency, Duration) Notes Start Date End Date Status Latanoprost Active Dorzolamide-Timolol Active Nattokinase Active Co Q 10 Active Zinc Active Arthro-Complex Activ e Multivitamin & Mineral Active Problems Problem Type SNOMED Code ICD Code Onset Dates Problem Status W/U Status Risk Notes Problem 016112419 Blood in stool (K92.1) Active confirmed Problem 96265801 Change in bowel function (R19.4) Active confirmed Problem 03151601 Heme positive st ool (R19.5) Active confirmed Problem 700437907 Rectal adenocarcinoma (C20) Active confirmed Plan Of Treatment Future Test Test Name Order Date COLONOSCOPY 06/16/2015 Insurance Providers Payer Name Payer Address Payer Phone Subscriber Number Group Number Insured Name Patient Relationship to Insured Coverage Start Date Coverage End Date [employer] PREF[employer]ED [address] [place] [phone] [id number] COURTNEY GONZALES Self - patient is the insured Medical (General) History Medical History History ICD Code Denies [place],DM,CVA,Lung disease,renal dise ase Negative colonoscopy approx 2005 by his report Glaucoma Colonoscopy in 06/2015 with t he finding of a large rectal mass with biopsies revealing adenocarcinoma Surgical History Surgery Date(Month/Year) broken right ankle tonsillectomy
--- OUTSIDE RECORDS SUMMARY | 2024-09-30 15:23 | XMS_ITS | Encounter Summary ---
Author Organization [facility] Address [address] [place] [address] Phone Care Team Providers Care Timber Treatment Plant Operator Name Role Phone Travis Gottlieb MD Primary Care Provider [phone] Encounter Details Date Type Department Care Team (Late st Contact Info) Description 01/06/2016 Procedure Pass [facility] [address] [place] [address] Social History Tobacco Use Types Packs/Day Years [...] on filedocumented in this encounter Care Teams Timber Treatment Plant Operator Relationship Specialty Start Date End Date Travis Gottlieb MD PCP - General Family Medicine 12/28/15 documented as of this encounter Additional Source Comments The information contained in this document represents components of the legal health record. It is not the complete legal health record.[facility]
== END 2024-09-30 14:55 | disposition home or self-care (01) ==
LOC: HO.LNP 14:54
PROVIDERS: Visit Provider Urology
DX: N30.01 Acute cystitis with hematuria (principal)
CPT/HCPCS: 81001; 87086; 87088; 87186

== ENCOUNTER 2024-10-14 15:28 | Outpatient (AMB) | payer MEDICARE, SELFPAY ==
[2024-10-14 16:05] VITALS: BP 100/62; PULSE 70
--- NOTE | 2024-10-14 16:05 | A.OFFVIS_ITS ---
Vital Signs 10/14/24 16:05 Height 5 ft 10 in BMI Reason not done Patient refused/unable BP 100/62 Blood Pressure Location Lt brachial Position Sitting Pulse 70 Pulse Source Monitor Intake Visit Reasons: r/s 3 mth f/up Intake Note: 3 mth f/up Technical Editor Required: No Accompanied by: Son Allergies No Known Allergies (No Known Allergies*) Allergy (Verified 08/16/24 10:22) Medication List - Last Reconciled 10/14/24 by Paddy Marquez MD amiodarone 200 mg PO DAILY apixaban (Eliquis) 5 mg PO BID ascorbic acid (vitamin C) 1 g PO DAILY 90 days brinzolamide-brimonidine 1-0.2 % (Simbrinza) 1 drp ophthalmic (eye) BID finasteride 5 mg PO DAILY 30 days furosemide 20 mg See Protocol PO DAILY PRN latanoprost 0.005% (Xalatan) 1 drp ophthalmic (eye) BEDTIME methenamine hippurate 1 g PO DAILY 90 days pravastatin 1 tab PO DAILY sulfamethoxazole-trimethoprim 800-160 mg (Bactrim DS) 1 tab PO BID 10 days sulfamethoxazole-trimethoprim 800-160 mg (Bactrim DS) 1 tab PO BID 14 days tetracycline 500 mg PO DAILY timolol maleate 0.5% 1 drp ophthalmic (eye) BID HPI Comments Details: 89-year-old gentleman who is here for follow-up. He was seen in the hospital in January 2024 when he presented with AFib with RVR and new onset cardiomyopathy with severe LV dysfunction. He was cardioverted and was started on amiodarone and since then his heart function has improved we will 50-55%. His echocardiogram has shown moderate aortic valve stenosis. He is currently in a wheelchair and walks at home with a walker. He is denying any significant symptoms. Only complaint by the family is right ankle swelling which is mild currently. He has been getting PRN Lasix. [facility] Medical History (Reviewed 10/14/24 @ 16:06 by Rosalva George [facility]) Wound drainage Hypotonic neurogenic bladder DVT (deep venous thrombosis) At risk for bleeding related to anticoagulants Pressure ulcer of back Soft tissue mass Incomplete emptying of bladder Dysuria Pyuria H/O urinary retention Rectal adenocarcinoma Melanoma Fibroma Skin cancer Fracture of right ankle Glaucoma Surgical History (Reviewed 10/14/24 @ 16:06 by Rosalva George [facility]) History of surgery Hx of abdominoplasty Hx of tonsillectomy Hx of colonoscopy Family History Sister Lung cancer Maternal Aunt Breast cancer Mother Breast cancer Social History Household Members: None Housing: House Are you a primary toddler caregiver to a significant other at home: No Do you presently have visiting nurse or other home services: Yes Alcohol intake: former Patient Tobacco Use Status: Former Tobacco user Cigarette Packs Per Day: 3 Advance Directives Date on File: 01/26/24 service: No Current occupational status: retired Review of Systems Const Denies chills, Denies fatigue, Denies fever(s), Denies frequent falls, Denies weakness, Denies weight gain and Denies weight loss ENT Denies dizziness Card Denies chest pain, Denies leg edema, Denies lightheadedness, Denies palpitations, Denies dyspnea and Denies dyspnea on exertion Resp Denies cough, Denies dyspnea and Denies dyspnea on exertion GI Denies hematochezia Musc Denies abnormal gait, Denies muscle weakness, Denies numbness, Denies radiating pain into limb and Denies tingling Neuro Denies abnormal gait, Denies dizziness, Denies frequent falls, Denies numbness, Denies tingling and Denies weakness Endo Denies fatigue and Denies palpitations Physical Exam Vital Signs: Last Vital Signs Pulse 70 10/14/24 16:05 BP 100/62 10/14/24 16:05 GENERAL APPEARANCE: Frail appearing. In a wheelchair. NECK: no carotid bruit, no jugular venous distention. SKIN: no suspicious lesions, warm and dry. HEART: Grade 1/6 systolic murmur, regular rate and rhythm. LUNGS: clear to auscultation bilaterally. ABDOMEN: soft, nontender. EXTREMITIES: no edema. PERIPHERAL PULSES: equal. NEUROLOGIC: No gross deficits, AAO X 3 Office Procedures EKG Details: Sinus rhythm 70 beats per minute, rightward axis, ST-T wave changes-nonspecific, QTC 440 milliseconds. 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 He has been cardioverted and started on amiodarone and has been in sinus rhythm. His ejection fraction has improved. He has moderate aortic valve stenosis. Clinically he appears to be euvolemic. He has mild edema at the right ankle. Continue same medications for now. He will see us back in few months. Thank you for allowing me to participate in the care of your patient. Please feel free to contact me if you have any questions. Coding Level of Care Code Est Pt Level 4 (51924) Diagnoses Cardiomyopathy I42.9 Atrial fibrillation I48.91 Aortic stenosis I35.0 CPT Codes EKG - CPT: 60610-[id number], Complete ([id number])
--- OUTSIDE RECORDS SUMMARY | 2024-10-14 16:19 | XMS_ITS | Patient Health Record ---
Author Organization [facility] Address [address] [place] [address] Care Team Providers Care Shoe Parts Molder Name Role Phone Travis Gottlieb Primary Care Provider Unavaillatricia e Octavio Foreman Unavailable [phone] Reason For Referral No Information Medications Medication SIG (Take, Route, Fr equency, Duration) Notes Start Date End Date Status Latanoprost Active Dorzolamide-Timolol Active Nattokinase Active Co Q 10 Active Zinc Active Arthro-Complex Activ e Multivitamin & Mineral Active Problems Problem Type SNOMED Code ICD Code Onset Dates Problem Status W/U Status Risk Notes Problem 511778970 Blood in stool (K92.1) Active confirmed Problem 11037542 Change in bowel function (R19.4) Active confirmed Problem 01323508 Heme positive st ool (R19.5) Active confirmed Problem 518593539 Rectal adenocarcinoma (C20) Active confirmed Plan Of Treatment Future Test Test Name Order Date COLONOSCOPY 06/16/2015 Insurance Providers Payer Name Payer Address Payer Phone Subscriber Number Group Number Insured Name Patient Relationship to Insured Coverage Start Date Coverage End Date [employer] [address] [place] [phone] [id number] COURTNEY GONZALES Self - patient is the insured Medical (General) History Medical History History ICD Code Denies MD,DM,CVA,Lung disease,renal dise ase Negative colonoscopy approx 2005 by his report Glaucoma Colonoscopy in 06/2015 with t he finding of a large rectal mass with biopsies revealing adenocarcinoma Surgical History Surgery Date(Month/Year) broken right ankle tonsillectomy
--- OUTSIDE RECORDS SUMMARY | 2024-10-14 16:19 | XMS_ITS | Encounter Summary ---
Author Organization [facility] Address [address] [place] [address] Phone Care Team Providers Care Per Assessment Nurse Name Role Phone Travis Gottlieb MD Primary Care Provider [phone] Encounter Details Date Type Department Care Team (Late st Contact Info) Description 01/06/2016 Procedure Pass [facility] Imaging [address] [place] [address] Social History Tobacco Use Types Packs/Day Years [...] on filedocumented in this encounter Care Teams Per Assessment Nurse Relationship Specialty Start Date End Date Travis Gottlieb MD PCP - General Family Medicine 12/28/15 documented as of this encounter Additional Source Comments The information contained in this document represents components of the legal health record. It is not the complete legal health record.[facility]
== END 2024-10-14 16:36 | disposition home or self-care (01) ==
LOC: HO.HCS 15:28
PROVIDERS: PCP Internal Medicine; Visit Provider Internal Medicine Cardiovascular Disease
DX: I42.9 Cardiomyopathy, unspecified (principal); I48.91 Unspecified atrial fibrillation; I35.0 Nonrheumatic aortic (valve) stenosis
CPT/HCPCS: 93010; 99214

== ENCOUNTER → 2024-10-14 15:28 | Outpatient (BNVA) | payer MEDICARE, SELFPAY | PROVIDERS: PCP Internal Medicine; Visit Provider Internal Medicine Cardiovascular Disease | DX: I48.91 Unspecified atrial fibrillation (principal); I42.9 Cardiomyopathy, unspecified; I35.0 Nonrheumatic aortic (valve) stenosis | CPT/HCPCS: 93005; 99212 ==

== ENCOUNTER 2024-10-30 13:00 | Outpatient (AMB) | payer MEDICARE, SELFPAY ==
--- OUTSIDE RECORDS SUMMARY | 2015-07-13 | XMS_ITS | Encounter Summary ---
Author Organization [facility] Address [address] [facility] [address] [place] [address] Phone Care Team Providers Care Solar Sales Representative And Assessor Name Role Phone Unavailable Primary Care Provider Unavailabl e Reason for Visit * MRI/CAT Scan - Closed Specialty Diagnoses / Procedures Referred By Gopi t Referred To Contact Procedures CT Abdomen Outside (No Interpretation) Albert Butler MD Referral ID Status Reason Start Date Expiration Date Visits Re quested Visits Authorized [id number] Closed 01/06/2016 01/05/2017 1 1 Encounter Details Date Type Department Care Team (Late st Contact Info) Description 07/13/2015 Hospital Encounter [facility] [address] [place] [address] Albert Butler MD Social History Tobacco Use [...] (No Interpretation) (07/13/2015 12:00 AM EDT) Narrative [facility] IMG INTERFACES - 01/06/2016 11:48 AM EST This study is for PACS storage only and not for interpretation. us Albert Butler MD IMG OUTSIDE IMAGING W/O UT INTERPRETATION Final Result [facility] IMG INTERFACES documented in this encounter Visit Diagnoses Not on filedocumented in this encounter Additional Source Comments The information contained in this document represents components of the legal health record. It is not the complete legal health record.[facility]
--- OUTSIDE RECORDS SUMMARY | 2015-07-13 00:15 | XMS_ITS | Encounter Summary ---
Author Organization [facility] Address [address] [facility] [address] [place] [address] Phone Care Team Providers Care Elevator Pilot Name Role Phone Unavailable Primary Care Provider Unavailabl e Reason for Visit * MRI/CAT Scan - Closed Specialty Diagnoses / Procedures Referred By Gopi t Referred To Contact Procedures CT Abdomen Outside (No Interpretation) Albert Butler MD Referral ID Status Reason Start Date Expiration Date Visits Re quested Visits Authorized [id number] Closed 01/06/2016 01/05/2017 1 1 Encounter Details Date Type Department Care Team ([facility] st Contact Info) Description 07/13/2015 12:15 AM EDT Hospital Encounter [facility] Imaging [address] [place] [address] Albert Butler MD Social History Tobacco Use [...] (No Interpretation) (07/13/2015 12:15 AM EDT) Narrative [facility] [place] - 01/06/2016 11:48 AM EST This study is for PACS storage only and not for interpretation. us Albert Butler MD IMG OUTSIDE IMAGING W/O UT INTERPRETATION Final Result [facility] [place] [place] documented in this encounter Visit Diagnoses Not on filedocumented in this encounter Additional Source Comments The information contained in this document represents components of the legal health record. It is not the complete legal health record.[facility]
--- OUTSIDE RECORDS SUMMARY | 2015-07-20 | XMS_ITS | Encounter Summary ---
Author Organization [facility] Address [address] [facility] [address] [place] [address] Phone Care Team Providers Care Wire Chief Name Role Phone Unavailable Primary Care Provider Unavailabl e Encounter Details Date Type Department Care Team (Late st Contact Info) Description 07/20/2015 Hospital Encounter [facility] [address] [place] [address] Albert Butler MD Social History Tobacco Use [...] (No Interpretation) (07/20/2015 12:00 AM EDT) Narrative [facility]G INTERFACES - 01/06/2016 11:48 AM EST This study is for PACS storage only and not for interpretation. us Albert Butler MD IMG OUTSIDE IMAGING W/O UT INTERPRETATION Final Result [facility] IM INTERFACES documented in this encounter Visit Diagnoses Not on filedocumented in this encounter Additional Source Comments The information contained in this document represents components of the legal health record. It is not the complete legal health record.[facility]
--- OUTSIDE RECORDS SUMMARY | 2015-07-20 00:15 | XMS_ITS | Encounter Summary ---
Author Organization [facility] Address [address] [facility] [address] [place] [address] Phone Care Team Providers Care Buffing Line Set Up Worker Name Role Phone Unavailable Primary Care Provider Unavailabl e Reason for Visit * MRI/CAT Scan - Closed Specialty Diagnoses / Procedures Referred By Gopi villarreal Referred To Contact Procedures MRI Lower Extremity Outside (No Interpretation) Albert Butler MD Referral ID Status Reason Start Date Expiration Date Visits Re quested Visits Authorized [id number] Closed 01/06/2016 01/05/2017 1 1 Encounter Details Date Type Department Care Team (Late st Contact Info) Description 07/20/2015 12:15 AM EDT Hospital Encounter [facility] Imaging [address] [place] [address] Albert Butler MD Social History Tobacco Use [...] (No Interpretation) (07/20/2015 12:15 AM EDT) Narrative [facility]G INTERFACES - 01/06/2016 11:48 AM EST This study is for PACS storage only and not for interpretation. Albert Butler MD IMG OUTSIDE IMAGING W/O UT INTERPRETATION Final Result [facility] IMG INTERFACES documented in this encounter Visit Diagnoses Not on filedocumented in this encounter Additional Source Comments The information contained in this document represents components of the legal health record. It is not the complete legal health record.[facility]
--- OUTSIDE RECORDS SUMMARY | 2015-08-03 | XMS_ITS | Encounter Summary ---
Author Organization [facility] Address [address] [facility] [address] [place] [address] Phone Care Team Providers Care Extrusion Line Operator Name Role Phone Unavailable Primary Care Provider Unavailabl e Reason for Visit * MRI/CAT Scan - Closed Specialty Diagnoses / Procedures Referred By Gopi villarreal Referred To Contact Procedures NM PET Brain Outside (No Interpretation) Albert Butler MD Referral ID Status Reason Start Date Expiration Date Visits Re quested Visits Authorized [id number] Closed 01/06/2016 01/05/2017 1 1 Encounter Details Date Type Department Care Team (Late st Contact Info) Description 08/03/2015 Hospital Encounter [facility] Imaging [address] [place] [address] Albert Butler MD Social History Tobacco Use [...] (No Interpretation) (08/03/2015 12:00 AM EDT) Narrative [facility]G INTERFACES - 01/06/2016 11:47 AM EST This study is for PACS storage only and not for interpretation. us Albert Butler MD IMG OUTSIDE IMAGING W/O UT INTERPRETATION Final Result [facility] IMG INTERFACES documented in this encounter Visit Diagnoses Not on filedocumented in this encounter Additional Source Comments The information contained in this document represents components of the legal health record. It is not the complete legal health record.[facility]
--- OUTSIDE RECORDS SUMMARY | 2015-08-03 00:15 | XMS_ITS | Encounter Summary ---
Author Organization [facility] Address [address] [facility] [address] [place] [address] Phone Care Team Providers Care Wharf Laborer Name Role Phone Unavailable Primary Care Provider Unavailabl e Reason for Visit * MRI/CAT Scan - Closed Specialty Diagnoses / Procedures Referred By Gopi villarreal Referred To Contact Procedures NM PET Brain Outside (No Interpretation) Albert Butler MD Referral ID Status Reason Start Date Expiration Date Visits Re quested Visits Authorized [id number] Closed 01/06/2016 01/05/2017 1 1 Encounter Details Date Type Department Care Team (Late st Contact Info) Description 08/03/2015 12:15 AM EDT Hospital Encounter [facility] General Imaging [address] [place] [address] Albert Butler MD Social History Tobacco Use [...] (No Interpretation) (08/03/2015 12:15 AM EDT) Narrative [facility] [...] is not the complete legal health record.[facility]
--- OUTSIDE RECORDS SUMMARY | 2015-11-15 | XMS_ITS | Encounter Summary ---
Author Organization [facility] Address [address] [facility] [address] [place] [address] Phone Care Team Providers Care Stitch Bonding Machine Operator Name Role Phone Unavailable Primary Care Provider Unavailabl e Reason for Visit * MRI/CAT Scan - Closed Specialty Diagnoses / Procedures Referred By Gopi villarreal Referred To Contact Procedures MRI Brain Outside (No Interpretation) Albert Butler MD Referral ID Status Reason Start Date Expiration Date Visits Re quested Visits Authorized [id number] Closed 01/06/2016 01/05/2017 1 1 Encounter Details Date Type Department Care Team (Late st Contact Info) Description 11/15/2015 Hospital Encounter [facility] Imaging [address] [place] [address] Albert Butler MD Social History Tobacco Use [...] (No Interpretation) (11/15/2015 12:00 AM EDT) Narrative [facility] [place] IMG INTERFACES - 01/06/2016 11:46 AM EST [...] It is not the complete legal health record.[facility]
--- OUTSIDE RECORDS SUMMARY | 2015-11-16 | XMS_ITS | Encounter Summary ---
Author Organization [facility] Address [address] [facility] [address] [place] [address] Phone Care Team Providers Care Electrical Research Engineer Name Role Phone Unavailable Primary Care Provider Unavailabl e Reason for Visit * MRI/CAT Scan - Closed Specialty Diagnoses / Procedures Referred By Gopi t Referred To Contact Procedures CT Head Outside (No Interpretation) Albert Butler MD Referral ID Status Reason Start Date Expiration Date Visits Re quested Visits Authorized [id number] Closed 01/06/2016 01/05/2017 1 1 Encounter Details Date Type Department Care Team (Late st Contact Info) Description 11/16/2015 Hospital Encounter [facility] Imaging [address] [place] [address] Albert Butler MD Social History Tobacco Use [...] (No Interpretation) (11/16/2015 12:00 AM EDT) Narrative [facility] - 01/06/2016 11:35 AM EST This study is for PACS storage only and not for interpretation. us Albert Butler MD IMG OUTSIDE IMAGING W/O UT INTERPRETATION Final Result [facility] [place] [place] documented in this encounter Visit Diagnoses Not on filedocumented in this encounter Additional Source Comments The information contained in this document represents components of the legal health record. It is not the complete legal health record.[facility]
--- OUTSIDE RECORDS SUMMARY | 2015-11-16 00:15 | XMS_ITS | Encounter Summary ---
Author Organization [facility] Address [address] [facility] [address] [place] [address] Phone Care Team Providers Care Set And Exhibit Designer Name Role Phone Unavailable Primary Care Provider Unavailabl e Reason for Visit * MRI/CAT Scan - Closed Specialty Diagnoses / Procedures Referred By Gopi t Referred To Contact Procedures CT Chest Outside (No Interpretation) Albert Butler MD Referral ID Status Reason Start Date Expiration Date Visits Re quested Visits Authorized [id number] Closed 01/06/2016 01/05/2017 1 1 Encounter Details Date Type Department Care Team ([facility] st Contact Info) Description 11/16/2015 12:15 AM EDT Hospital Encounter [facility] General Imaging [address] [place] [address] Albert Butler MD Social History Tobacco Use [...] (No Interpretation) (11/16/2015 12:15 AM EDT) Narrative [facility] [place] [place] - 01/06/2016 11:35 AM EST This study is for PACS storage only and not for interpretation. Albert Butler MD IMG OUTSIDE IMAGING W/O UT INTERPRETATION Final Result [facility] [place] documented in this encounter Visit Diagnoses Not on filedocumented in this encounter Additional Source Comments The information contained in this document represents components of the legal health record. It is not the complete legal health record.[facility]
--- OUTSIDE RECORDS SUMMARY | 2015-11-16 00:30 | XMS_ITS | Encounter Summary ---
Author Organization [facility] Address [address] [facility] [address] [place] [address] Phone Care Team Providers Care Works Manager Name Role Phone Unavailable Primary Care Provider Unavailabl e Reason for Visit * MRI/CAT Scan - Closed Specialty Diagnoses / Procedures Referred By Gopi t Referred To Contact Procedures CT Abdomen Outside (No Interpretation) Albert Butler MD Referral ID Status Reason Start Date Expiration Date Visits Re quested Visits Authorized [id number] Closed 01/06/2016 01/05/2017 1 1 Encounter Details Date Type Department Care Team ([facility] st Contact Info) Description 11/16/2015 12:30 AM EDT Hospital Encounter [facility] General Imaging [address] [place] [address] Albert Butler MD Social History Tobacco Use [...] (No Interpretation) (11/16/2015 12:30 AM EDT) Narrative [facility] [place] - 01/06/2016 11:40 AM EST This study is for PACS storage only and not for interpretation. us Albert Butler MD IMG OUTSIDE IMAGING W/O UT INTERPRETATION Final Result [facility] [place] [place] documented in this encounter Visit Diagnoses Not on filedocumented in this encounter Additional Source Comments The information contained in this document represents components of the legal health record. It is not the complete legal health record.[facility]
--- NOTE | 2024-10-30 13:01 | A.OFFVIS_ITS ---
Intake Visit Reasons: 6m follow up Intake Note: Pt presents to the office today for a 6 month follow up Telehealth Urology meds : Finasteide , VIT-C Blood Thinners : Eliquis Sports Bookmaker Required: No Accompanied by: Self / Same As Patient Allergies No Known Allergies (No Known Allergies*) Allergy (Verified 10/30/24 13:02) HPI Comments Details: Edgar is a pleasant male. He is a patient of Dr. Daniels. He is seen for the following urologic conditions - neurogenic bladder - hydro nephrosis Six-month follow-up Telemedicine Evaluation 15 min Consultation Cards Off [place] Video Discussed management with daughter Suprapubic tube has been gradually up sized from 16 Martiniquais to 20 Martiniquais And is accompanied by caregivers who understand how to use suprapubic tube VNA will now continue to change with 20 Martiniquais Refill medications with methenamine vitamin-C At Bactrim to take morning and evening of suprapubic catheter change Instructions provided to caregiver Continue on methenamine and vitamin-C Creatinine 0.7 Neurogenic bladder Secondary to prior proctocolectomy 2015 with concurrent radiation Gradual development bilateral hydronephrosis Suprapubic tube placement 09/17 [facility] Medical History Wound drainage Hypotonic neurogenic bladder DVT (deep venous thrombosis) At risk for bleeding related to anticoagulants Pressure ulcer of back Soft tissue mass Incomplete emptying of bladder Dysuria Pyuria H/O urinary retention Rectal adenocarcinoma Melanoma Fibroma Skin cancer Fracture of right ankle Glaucoma Surgical History History of surgery Hx of abdominoplasty Hx of tonsillectomy Hx of colonoscopy Family History Sister Lung cancer Maternal Aunt Breast cancer Mother Breast cancer Social History Household Members: None Housing: House Are you a primary neurocritical care physician to a significant other at home: No Do you presently have visiting nurse or other home services: Yes Alcohol intake: former Patient Tobacco Use Status: Former Tobacco user Cigarette Packs Per Day: 3 Advance Directives Date on File: 01/26/24 service: No Current occupational status: retired Review of Systems Const All systems reviewed & are unremarkable except as noted in HPI and below Reports no additional complaints Resp Reports no additional complaints GI Reports no additional complaints Reports as per HPI Musc Reports no additional complaints Physical Exam Telemedicine evaluation Appropriate responses Regular breathing rate and rhythm HEENT Head: Yes normal to inspection Ears: hearing grossly normal bilaterally Eyes General: appearance normal, both eyes and all related structures Neck Neck: Yes normal visual inspection Chest Chest palpation & inspection: normal inspection of the chest Resp Effort & Inspection: normal respiratory effort and able to speak in complete sentences Telehealth Telehealth Telehealth Platform: Cards Off Location of provider rendering services: practice address Location of patient: address on file Patient Identification confirmed using: Name, : Yes Telehealth method: video Patient verbally consented to treatment: Yes Patient verbally consented to billing insurance company: Yes Patient informed of any privacy concerns related to visit: Yes Minutes spent on Phone/Video with Pt.: 15 Assessment & Plan Assessment & Plan (1) Hypotonic neurogenic bladder: Comment: Prior rectal surgery with presumed nerve compromise Code(s): N31.9 - Neuromuscular dysfunction of bladder, unspecified Category: Medical (2) Urinary tract infection: Code(s): N39.0 - Urinary tract infection, site not specified Category: Medical Qualifiers: Hematuria presence: with hematuria Urinary tract infection type: acute cystitis Qualified Code(s): N30.01 - Acute cystitis with hematuria Plan Six-month follow-up office Medications: New sulfamethoxazole-trimethoprim 800-160 mg (Bactrim DS) Take 1 tablet in the morning and in the afternoon of suprapubic tube change 1 tab PO BID 12 tabs 0RF 6 days N31.9 - Neuromuscular dysfunction of bladder, unspecified Refilled methenamine hippurate 1 g PO DAILY 90 tabs 1RF 90 days N31.9 - Neuromuscular dysfunction of bladder, unspecified, N39.0 - Urinary tract infection, site not specified ascorbic acid (vitamin C) 1 g PO DAILY 90 tabs 1RF 90 days N31.9 - Neuromuscular dysfunction of bladder, unspecified, N39.0 - Urinary tract infection, site not specified Discontinued finasteride Discontinued Reason: Patient Completed Course 5 mg PO DAILY 30 days 90 tabs 3RF Patient Instructions: This note is constructed using voice recognition software. While every effort has been made to ensure accuracy flight radio officer errors may have been included. Imaging studies, laboratory and physical exam results were discussed and reviewed in detail. No major barriers to patient understanding were identified. An opportunity to ask questions regarding the treatment plan was provided. All questions were answered. The patient expressed understanding and agreement with the above treatment plan. The patient is aware they should contact our office by phone for worsening of their current condition or the appearance of new urologic symptoms. Compliance is encouraged with any medications and followup testing that is ordered. It is a privilege to participate in the urologic care of your patient. If you have any questions or concerns regarding treatment for the above conditions, or other urologic issues, please do not hesitate to contact me. The office telephone contact is [phone]. Sincerely, Dr Gallo Wong MD, [facility] - Urology Compassionate Specialist Care for the Genitourinary System Coding Level of Care Code Tele Est Pt Level 4 (28068) Complex EM visit Add On G2211 Diagnoses Hypotonic neurogenic bladder N31.9 Urinary tract infection N30.01 Hematuria presence: with hematuria Urinary tract infection type: acute cystitis
--- OUTSIDE RECORDS SUMMARY | 2024-10-30 13:10 | XMS_ITS | Encounter Summary ---
Author Organization [facility] Address [address] [place] [address] Phone Care Team Providers Care Farm Crew Leader Name Role Phone Travis Gottlieb MD Primary Care Provider [phone] Encounter Details Date Type Department Care Team (Late st Contact Info) Description 01/06/2016 Procedure Pass [facility] Imaging [address] [place] [address] Social History Tobacco Use Types Packs/Day Years [...] on filedocumented in this encounter Care Teams Farm Crew Leader Relationship Specialty Start Date End Date Travis Gottlieb MD PCP - General Family Medicine 12/28/15 documented as of this encounter Additional Source Comments The information contained in this document represents components of the legal health record. It is not the complete legal health record.[facility]
--- OUTSIDE RECORDS SUMMARY | 2024-10-30 13:11 | XMS_ITS | Encounter Summary ---
Author Organization [facility] Address [address] [place] [address] Phone Care Team Providers Care Military Analyst Name Role Phone Travis Gottlieb MD Primary Care Provider [phone] Encounter Details Date Type Department Care Team (Late st Contact Info) Description 01/06/2016 Procedure Pass [facility] Imaging [address] [place] [address] Social History Tobacco Use Types Packs/Day Years [...] on filedocumented in this encounter Care Teams Military Analyst Relationship Specialty Start Date End Date Travis Gottlieb MD PCP - General Family Medicine 12/28/15 documented as of this encounter Additional Source Comments The information contained in this document represents components of the legal health record. It is not the complete legal health record.[facility]
--- OUTSIDE RECORDS SUMMARY | 2024-10-30 13:11 | XMS_ITS | Clinical Summary ---
Author Organization [facility] Address [address] [place] [address] Phone Care Team Providers Care Dry Cleaning Attendant Name Role Phone Travis Gottlieb MD Primary Care Provider [phone] [phone] Allergies No known active allergies Medications vitamins A,C,E-zinc-francy er (PRESERVISION AREDS) 14,320226-200 zgmj-lp-fzdo Cap Take 2 capsules by mouth daily. Active coenzyme Q10 100 mg capsule Take 100 mg by mouth daily. Active zinc sulfate 220 mg Tab Take 220 mg by mouth daily. Active UBIDECAR/FISH OIL/OMEGA-3/VIT E (CO H22-KNZG OIL-OMEGA 3-E ORAL) Take 1 capsule by mouth daily. Active cholecalciferol (VITAMIN D3) 2,000 unit capsule Take 2,000 Units by mouth daily. Active Active Problems Problem Noted Date Diagnosed Date Rectal cancer 01/06/2016 Family History Medical History Relation Comments Lung cancer Sister Relation Status Comments Sister Social History Tobacco Use Types Packs/Day Years [...] on file Sexual Orientation Not on file Last Filed Vital Signs Vital Sign Reading Time Taken Comments Blood Pressure 112/71 01/06/2016 11:32 AM EST Pulse 81 01/06/2016 11:32 AM EST Temperature - - Respiratory Rate - - Oxygen Saturation - - Inhaled Oxygen Concentration - - Weight 88.8 kg (195 lb 12.8 oz) 016 11:32 AM EST Height 177.8 cm (5' 10 ) 01/06/2016 11: 32 AM EST Body Mass Index 28.09 01/06/2016 11:32 AM EST Plan of Treatment Health Maintenance Due Date Last Done Comments Adult Td,Tdap Booster 1936 DEPRESSION SCREENING 1947 ZOSTER VACCINES (1 of 2) 05/02/1955 RSV VACCINE (1 - 1-dose 75+ series) 05/02/2011 PNEUMOCOCCAL VACCINES (50+ years) (2 of 2 - PCV) 01/15/2021 01/16/2020 INFLUENZA VACCINE (#1) 2024 01/16/2020 COVID-19 VACCINE (3 - 2024-2 6 season) 2024 04/26/2020, 04/05/2020 HEPATITIS A VACCINES Aged Out No long er eligible based on patient's age to complete this topic HIB VACCINES Aged Out No longer eligi ble based on patient's age to complete this topic MENINGOCOCCAL VACCINES (ACWY) Aged Out No longer eligible based on patient's age to complete this topic MENINGOCOCCAL VACCINES (B) Aged Out N o longer eligible based on patient's age to complete this topic Medical Devices Not on file Insurance [employer] H[employer] REPLACEMENT [employer] REPL[employer] REPL[employer]PLACEMENT [employer] HMO REPLACEMENT [employer] HMO REPLACEMENT [employer] HMO REPLACEMENT [employer] HMO REPLACEMENT [employer] REPLACEMENT Care Teams Dry Cleaning Attendant Relationship Specialty Start Date End Date Travis Gottlieb MD PCP - General Family Medicine 12/28/15 Additional Source Comments The information contained in this document represents components of the legal health record. It is not the complete legal health record.[facility]
--- OUTSIDE RECORDS SUMMARY | 2024-10-30 13:11 | XMS_ITS | Encounter Summary ---
Author Organization [facility] Address [address] [place] [address] Phone Care Team Providers Care Precast Concrete Products Installer Name Role Phone Travis Gottlieb MD Primary Care Provider [phone] [phone] Encounter Details Date Type Department Care Team (Late st Contact Info) Description 01/06/2016 Procedure Pass [facility] Imaging [address] [place] [address] Social History Tobacco Use Types Packs/Day Years [...] on filedocumented in this encounter Care Teams Precast Concrete Products Installer Relationship Specialty Start Date End Date Travis Gottlieb MD PCP - General Family Medicine 12/28/15 documented as of this encounter Additional Source Comments The information contained in this document represents components of the legal health record. It is not the complete legal health record.[facility]
--- OUTSIDE RECORDS SUMMARY | 2024-10-30 13:11 | XMS_ITS | Encounter Summary ---
Author Organization [facility] Address [address] [place] [address] Phone Care Team Providers Care Celery Packer Name Role Phone Travis Gottlieb MD Primary Care Provider [phone] [phone] Encounter Details Date Type Department Care Team (Late st Contact Info) Description 01/06/2016 Procedure Pass [facility] [address] [place] [address] Social History Tobacco Use Types Packs/Day Years [...] on filedocumented in this encounter Care Teams Celery Packer Relationship Specialty Start Date End Date Travis Gottlieb MD PCP - General Family Medicine 12/28/15 documented as of this encounter Additional Source Comments The information contained in this document represents components of the legal health record. It is not the complete legal health record.[facility]
--- OUTSIDE RECORDS SUMMARY | 2024-10-30 13:11 | XMS_ITS | Patient Health Record ---
Author Organization [facility] Address [address] [place] [address] Care Team Providers Care Hydroelectric Systems Technician Name Role Phone Travis Gottlieb Primary Care Provider Unavaillatricia e Octavio Foreman Unavailable [phone] Reason For Referral No Information Medications Medication SIG (Take, Route, Fr equency, Duration) Notes Start Date End Date Status Latanoprost Active Dorzolamide-Timolol Active Nattokinase Active Co Q 10 Active Zinc Active Arthro-Complex Activ e Multivitamin & Mineral Active Problems Problem Type SNOMED Code ICD Code Onset Dates Problem Status W/U Status Risk Notes Problem 978586737 Blood in stool (K92.1) Active confirmed Problem 69772502 Change in bowel function (R19.4) Active confirmed Problem 89964936 Heme positive st ool (R19.5) Active confirmed Problem 790100313 Rectal adenocarcinoma (C20) Active confirmed Plan Of Treatment Future Test Test Name Order Date COLONOSCOPY 06/16/2015 Insurance Providers Payer Name Payer Address Payer Phone Subscriber Number Group Number Insured Name Patient Relationship to Insured Coverage Start Date Coverage End Date [employer] PREF[employer]ED [address] [place] [phone] [id number] COURTNEY GONZALES Self - patient is the insured Medical (General) History Medical History History ICD Code Denies [place],DM,CVA,Lung disease,renal dise ase Negative colonoscopy approx 2005 by his report Glaucoma Colonoscopy in 06/2015 with t he finding of a large rectal mass with biopsies revealing adenocarcinoma Surgical History Surgery Date(Month/Year) broken right ankle tonsillectomy
--- OUTSIDE RECORDS SUMMARY | 2024-10-30 13:11 | XMS_ITS | Encounter Summary ---
Author Organization [facility] Address [address] [place] [address] Phone Care Team Providers Care Director Of Litigation Name Role Phone Travis Gottlieb MD Primary Care Provider [phone] [phone] Encounter Details Date Type Department Care Team (Late st Contact Info) Description 01/06/2016 Procedure Pass [facility] [address] [place] [address] Social History Tobacco Use Types Packs/Day Years [...] on filedocumented in this encounter Care Teams Director Of Litigation Relationship Specialty Start Date End Date Travis Gottlieb MD PCP - General Family Medicine 12/28/15 documented as of this encounter Additional Source Comments The information contained in this document represents components of the legal health record. It is not the complete legal health record.[facility]
--- OUTSIDE RECORDS SUMMARY | 2024-10-30 13:11 | XMS_ITS | Encounter Summary ---
Author Organization [facility] Address [address] [facility] [address] [place] [address] Phone Care Team Providers Care Equipment Oiler Name Role Phone Travis Gottlieb MD Primary Care Provider [phone] [phone] Encounter Details Date Type Department Care Team (Late st Contact Info) Description 01/06/2016 Procedure Pass [facility] [address] [place] [address] Social History Tobacco Use Types Packs/Day Years [...] on filedocumented in this encounter Care Teams Equipment Oiler Relationship Specialty Start Date End Date Travis Gottlieb MD PCP - General Family Medicine 12/28/15 documented as of this encounter Additional Source Comments The information contained in this document represents components of the legal health record. It is not the complete legal health record.[facility]
--- OUTSIDE RECORDS SUMMARY | 2024-10-30 13:11 | XMS_ITS | Encounter Summary ---
Author Organization [facility] Address [address] [facility] [address] [place] [address] Phone Care Team Providers Care Oncologist Name Role Phone Travis Gottlieb MD Primary Care Provider [phone] [phone] Encounter Details Date Type Department Care Team (Late st Contact Info) Description 01/06/2016 Procedure Pass [facility] [address] [place] [address] Social History Tobacco Use Types Packs/Day Years [...] on filedocumented in this encounter Care Teams Oncologist Relationship Specialty Start Date End Date Travis Gottlieb MD PCP - General Family Medicine 12/28/15 documented as of this encounter Additional Source Comments The information contained in this document represents components of the legal health record. It is not the complete legal health record.[facility]
== END 2024-10-30 16:08 | disposition home or self-care (01) ==
LOC: HO.HUSH 13:00
PROVIDERS: PCP Internal Medicine; Visit Provider Urology
DX: N31.9 Neuromuscular dysfunction of bladder, unspecified (principal); N30.01 Acute cystitis with hematuria
CPT/HCPCS: 98004

== ENCOUNTER → 2024-10-30 13:00 | Outpatient (BNVA) | payer MEDICARE, SELFPAY | PROVIDERS: PCP Internal Medicine; Visit Provider Urology | DX: N31.9 Neuromuscular dysfunction of bladder, unspecified (principal); N30.01 Acute cystitis with hematuria; R33.9 Retention of urine, unspecified; Z79.01 Long term (current) use of anticoagulants; Z87.891 Personal history of nicotine dependence; Z13.89 Encounter for screening for other disorder ==

== ENCOUNTER 2024-12-31 01:32 | Inpatient (IN) | payer MEDICARE, SELFPAY ==
--- OUTSIDE RECORDS SUMMARY | 2015-07-12 23:00 | XMS_ITS | Encounter Summary ---
Author Organization [facility] Address [address] [facility] [address] [place] [address] Phone Care Team Providers Care Fitter Type Bar And Segment Name Role Phone Unavailable Primary Care Provider Unavailabl e Reason for Visit * MRI/CAT Scan - Closed Specialty Diagnoses / Procedures Referred By Gopi t Referred To Contact Procedures CT Abdomen Outside (No Interpretation) Albert Butler MD Referral ID Status Reason Start Date Expiration Date Visits Re quested Visits Authorized [id number] Closed 01/06/2016 01/05/2017 1 1 Encounter Details Date Type Department Care Team (Late st Contact Info) Description 07/13/[address] [facility] [address] [place] [address] Albert Butler MD Social History Tobacco Use [...] (No Interpretation) (07/13/2015 12:00 AM EDT) Narrative [facility]G INTERFACES - 01/06/2016 11:48 AM EST This study is for PACS storage only and not for interpretation. us Albert Butler MD IMG OUTSIDE IMAGING W/O UT INTERPRETATION Final Result [facility] IMG INTERFACES documented in this encounter Visit Diagnoses Not on filedocumented in this encounter Additional Source Comments The information contained in this document represents components of the legal health record. It is not the complete legal health record.[facility]
--- OUTSIDE RECORDS SUMMARY | 2015-07-12 23:15 | XMS_ITS | Encounter Summary ---
Author Organization [facility] Address [address] [facility] [address] [place] [phone] Phone Care Team Providers Care Knot Picker Cloth Name Role Phone Unavailable Primary Care Provider Unavailabl e Reason for Visit * MRI/CAT Scan - Closed Specialty Diagnoses / Procedures Referred By Gopi t Referred To Contact Procedures CT Abdomen Outside (No Interpretation) Albert Butler MD Referral ID Status Reason Start Date Expiration Date Visits Re quested Visits Authorized [id number] Closed 01/06/2016 01/05/2017 1 1 Encounter Details Date Type Department Care Team ([facility] st Contact Info) Description 07/13/2015 12:15 AM EDT Hospital Encounter [facility] Imaging [address] [place] [address] Albert Butler MD Social History Tobacco Use [...] (No Interpretation) (07/13/2015 12:15 AM EDT) Narrative [facility] [place] [place] [place] - 01/06/2016 11:48 AM EST This study is for PACS storage only and not for interpretation. us Albert Butler MD IMG OUTSIDE IMAGING W/O UT INTERPRETATION Final Result [facility] [place] documented in this encounter Visit Diagnoses Not on filedocumented in this encounter Additional Source Comments The information contained in this document represents components of the legal health record. It is not the complete legal health record.[facility]
--- OUTSIDE RECORDS SUMMARY | 2015-07-19 23:00 | XMS_ITS | Encounter Summary ---
Author Organization [facility] Address [address] [facility] [address] [place] [address] Phone Care Team Providers Care Grease Refining Supervisor Name Role Phone Unavailable Primary Care Provider Unavailabl e Encounter Details Date Type Department Care Team (Late st Contact Info) Description 07/20/2015 Hospital Encounter [facility] [address] [place] [address] Albert Butler MD Social History Tobacco Use [...] (No Interpretation) (07/20/2015 12:00 AM EDT) Narrative [facility] IMG INTERFACES - 01/06/2016 11:48 AM EST This study is for PACS storage only and not for interpretation. us Albert Butler MD IMG OUTSIDE IMAGING W/O UT INTERPRETATION Final Result [facility] IM INTERFACES documented in this encounter Visit Diagnoses Not on filedocumented in this encounter Additional Source Comments The information contained in this document represents components of the legal health record. It is not the complete legal health record.[facility]
--- OUTSIDE RECORDS SUMMARY | 2015-07-19 23:15 | XMS_ITS | Encounter Summary ---
Author Organization [facility] Address [address] [facility] [address] [place] [address] Phone Care Team Providers Care Training Personnel Supervisor Name Role Phone Unavailable Primary Care Provider Unavailabl e Reason for Visit * MRI/CAT Scan - Closed Specialty Diagnoses / Procedures Referred By Gopi villarreal Referred To Contact Procedures MRI Lower Extremity Outside (No Interpretation) Albert Butler MD Referral ID Status Reason Start Date Expiration Date Visits Re quested Visits Authorized [id number] Closed 01/06/2016 01/05/2017 1 1 Encounter Details Date Type Department Care Team (Late st Contact Info) Description 07/20/2015 12:15 AM EDT Hospital Encounter [facility] Imaging [address] [place] [address] Albert Butler MD Social History Tobacco Use [...] (No Interpretation) (07/20/2015 12:15 AM EDT) Narrative [facility] IMG INTERFACES - 01/06/2016 11:48 AM EST This study is for PACS storage only and not for interpretation. Albert Butler MD IMG OUTSIDE IMAGING W/O UT INTERPRETATION Final Result [facility] IMG INTERFACES documented in this encounter Visit Diagnoses Not on filedocumented in this encounter Additional Source Comments The information contained in this document represents components of the legal health record. It is not the complete legal health record.[facility]
--- OUTSIDE RECORDS SUMMARY | 2015-08-02 23:00 | XMS_ITS | Encounter Summary ---
Author Organization [facility] Address [address] [facility] [address] [place] [phone] Phone Care Team Providers Care Integrative Medicine Physician Name Role Phone Unavailable Primary Care Provider Unavailabl e Reason for Visit * MRI/CAT Scan - Closed Specialty Diagnoses / Procedures Referred By Gopi villarreal Referred To Contact Procedures NM PET Brain Outside (No Interpretation) Albert Butler MD Referral ID Status Reason Start Date Expiration Date Visits Re quested Visits Authorized [id number] Closed 01/06/2016 01/05/2017 1 1 Encounter Details Date Type Department Care Team (Late st Contact Info) Description 08/03/2015 Hospital Encounter [facility] [address] [place] [address] Albert Butler MD Social History Tobacco Use [...] Procedure Name Priority Date/Time Associated Diagnosis Comments NM PET BRAIN OUTSIDE (NO INTERPRETATION) Routine 08/03/2015 12:00 AM EDT documented in this encounter Results * NM PET Brain Outside (No Interpretation) (08/03/2015 12:00 AM EDT) Narrative [facility]G INTERFACES - 01/06/2016 11:47 AM EST This study is for PACS storage only and not for interpretation. us Albert Butler MD IMG OUTSIDE IMAGING W/O UT INTERPRETATION Final Result [facility]G INTERFACES documented in this encounter Visit Diagnoses Not on filedocumented in this encounter Additional Source Comments The information contained in this document represents components of the legal health record. It is not the complete legal health record.[facility]
--- OUTSIDE RECORDS SUMMARY | 2015-08-02 23:15 | XMS_ITS | Encounter Summary ---
Author Organization [facility] Address [address] [facility] [address] [place] [address] Phone Care Team Providers Care Release Manager Name Role Phone Unavailable Primary Care Provider Unavailabl e Reason for Visit * MRI/CAT Scan - Closed Specialty Diagnoses / Procedures Referred By Gopi villarreal Referred To Contact Procedures NM PET Brain Outside (No Interpretation) Albert Butler MD Referral ID Status Reason Start Date Expiration Date Visits Re quested Visits Authorized [id number] Closed 01/06/2016 01/05/2017 1 1 Encounter Details Date Type Department Care Team (Late st Contact Info) Description 08/03/2015 12:15 AM EDT Hospital Encounter [facility] General Imaging [address] [place] [address] Albert Butler MD Social History Tobacco Use [...] (No Interpretation) (08/03/2015 12:15 AM EDT) Narrative [facility] [place]ES - 01/06/2016 11:47 AM EST This study is for PACS storage only and not for interpretation. Albert Butler MD IMG OUTSIDE IMAGING W/O UT INTERPRETATION Final Result [facility] [place] [place]ES documented in this encounter Visit Diagnoses Not on filedocumented in this encounter Additional Source Comments The information contained in this document represents components of the legal health record. It is not the complete legal health record.[facility]
--- OUTSIDE RECORDS SUMMARY | 2015-11-14 23:00 | XMS_ITS | Encounter Summary ---
Author Organization [facility] Address [address] [facility] [address] [place] [address] Phone Care Team Providers Care Vegetable Farmworker Name Role Phone Unavailable Primary Care Provider Unavailabl e Reason for Visit * MRI/CAT Scan - Closed Specialty Diagnoses / Procedures Referred By Gopi villarreal Referred To Contact Procedures MRI Brain Outside (No Interpretation) Albert Butler MD Referral ID Status Reason Start Date Expiration Date Visits Re quested Visits Authorized [id number] Closed 01/06/2016 01/05/2017 1 1 Encounter Details Date Type Department Care Team (Late st Contact Info) Description 11/15/2015 Hospital Encounter [facility] Imaging [address] [place] [address] Albert Butler MD Social History Tobacco Use [...] (No Interpretation) (11/15/2015 12:00 AM EDT) Narrative [facility] [place]G INTERFACES - 01/06/2016 11:46 AM EST This study is for PACS storage only and not for interpretation. us Albert Butler MD IMG OUTSIDE IMAGING W/O UT INTERPRETATION Final Result [facility]G INTER[facility]ACES documented in this encounter Visit Diagnoses Not on filedocumented in this encounter Additional Source Comments The information contained in this document represents components of the legal health record. It is not the complete legal health record.[facility]
--- OUTSIDE RECORDS SUMMARY | 2015-11-15 23:00 | XMS_ITS | Encounter Summary ---
Author Organization [facility] Address [address] [facility] [address] [place] [address] Phone Care Team Providers Care Splicing Machine Operator Automatic Name Role Phone Unavailable Primary Care Provider Unavailabl e Reason for Visit * MRI/CAT Scan - Closed Specialty Diagnoses / Procedures Referred By Gopi t Referred To Contact Procedures CT Head Outside (No Interpretation) Albetr Butler MD Referral ID Status Reason Start Date Expiration Date Visits Re quested Visits Authorized [id number] Closed 01/06/2016 01/05/2017 1 1 Encounter Details Date Type Department Care Team (Late st Contact Info) Description 11/16/2015 Hospital Encounter [facility] Imaging [address] [place] [address] Albert Butler MD Social History Tobacco Use [...] Name Priority Date/Time Associated Diagnosis Comments CT HEAD OUTSIDE (NO INTERPRETATION) Routine 11/16/2015 12:00 AM EDT documented in this encounter Results * CT Head Outside (No Interpretation) (11/16/2015 12:00 AM EDT) Narrative [facility] [place] - 01/06/2016 11:35 AM EST This study is for PACS storage only and not for interpretation. us Albert Butler MD IMG OUTSIDE IMAGING W/O UT INTERPRETATION Final Result [facility] [place] [place] documented in this encounter Visit Diagnoses Not on filedocumented in this encounter Additional Source Comments The information contained in this document represents components of the legal health record. It is not the complete legal health record.[facility]
--- OUTSIDE RECORDS SUMMARY | 2015-11-15 23:15 | XMS_ITS | Encounter Summary ---
Author Organization [facility] Address [address] [facility] [address] [place] [address] Phone Care Team Providers Care Index Clerk Name Role Phone Unavailable Primary Care Provider Unavailabl e Reason for Visit * MRI/CAT Scan - Closed Specialty Diagnoses / Procedures Referred By Gopi t Referred To Contact Procedures CT Chest Outside (No Interpretation) Albert Butler MD Referral ID Status Reason Start Date Expiration Date Visits Re quested Visits Authorized [id number] Closed 01/06/2016 01/05/2017 1 1 Encounter Details Date Type Department Care Team ([facility] st Contact Info) Description 11/16/2015 12:15 AM EDT Hospital Encounter [facility] General Imaging [address] [place] [address] Albert Butler MD Social History Tobacco Use [...] Name Priority Date/Time Associated Diagnosis Comments CT CHEST OUTSIDE (NO INTERPRETATION) Routine 11/16/2015 12:15 AM EDT documented in this encounter Results * CT Chest Outside (No Interpretation) (11/16/2015 12:15 AM EDT) Narrative [facility] IMG INTERFACES - 01/06/2016 11:35 AM EST This study is for PACS storage only and not for interpretation. Albert Butler MD IMG OUTSIDE IMAGING W/O UT INTERPRETATION Final Result [facility]G INTERFACES documented in this encounter Visit Diagnoses Not on filedocumented in this encounter Additional Source Comments The information contained in this document represents components of the legal health record. It is not the complete legal health record.[facility]
--- OUTSIDE RECORDS SUMMARY | 2015-11-15 23:30 | XMS_ITS | Encounter Summary ---
Author Organization [facility] Address [address] [facility] [address] [place] [address] Phone Care Team Providers Care Manufacturing Engineering Professor Name Role Phone Unavailable Primary Care Provider Unavailabl e Reason for Visit * MRI/CAT Scan - Closed Specialty Diagnoses / Procedures Referred By Gopi t Referred To Contact Procedures CT Abdomen Outside (No Interpretation) Albert Butler MD Referral ID Status Reason Start Date Expiration Date Visits Re quested Visits Authorized [id number] Closed 01/06/2016 01/05/2017 1 1 Encounter Details Date Type Department Care Team ([facility] st Contact Info) Description 11/16/2015 12:30 AM EDT Hospital Encounter [facility] General Imaging [address] [place] [address] Albert Butler MD Social History Tobacco Use [...] (No Interpretation) (11/16/2015 12:30 AM EDT) Narrative [facility] [place]ES - 01/06/2016 11:40 AM EST This study is for PACS storage only and not for interpretation. us Albert Butler MD IMG OUTSIDE IMAGING W/O UT INTERPRETATION Final Result [facility] [place] documented in this encounter Visit Diagnoses Not on filedocumented in this encounter Additional Source Comments The information contained in this document represents components of the legal health record. It is not the complete legal health record.[facility]
--- NOTE | ~2024-12-31 | CT_ITS ---
CLINICAL HISTORY: Fall; Headstrike, Anticoag CT head without contrast Comparison: CT/SR - CT HEAD WITHOUT IV CONTRAST - 09/18/23 11:01 EDT Findings: No evidence of acute territorial infarct. There is patchy low density in the periventricular and subcortical white matter. Diffuse volume loss is noted. No hydrocephalus. No hemorrhage, mass effect, mass lesion or midline shift. No abnormal extra-axial fluid. No calvarial fracture. Left occipital scalp hematoma. Paranasal sinuses and mastoid air cells are clear. Impression: No acute intracranial process. Chronic changes as detailed. Left occipital scalp hematoma. This document has been electronically signed by: Abisai Akbar MD on 12/31/2024 05:57:30
--- NOTE | ~2024-12-31 | CT_ITS ---
CLINICAL HISTORY: Fall; Head strike CT cervical spine without contrast Comparison: CT/SR - CT CERVICAL SPINE WITHOUT IV CONTRAST - 09/18/23 11:01 EDT Findings: There is straightening of the normal cervical lordosis. No fracture or acute malalignment. Multilevel degenerative changes with disc space narrowing, endplate sclerosis and marginal osteophyte formation throughout the cervical spine. The facet joints are normally imbricated. No prevertebral soft tissue edema. Lung apices demonstrate advanced centrilobular emphysema. Impression: Multilevel degenerative changes without evidence of acute fracture or acute malalignment. This document has been electronically signed by: Abisai Akbar MD on 12/31/2024 05:55:34
[2024-12-31 01:52] VITALS: BP 105/37; BP 130/88; PULSE 65; PULSE 78; RESP 18; TEMP 36.5; O2SAT 95; BMI 22.6
[2024-12-31 02:14] VITALS: BP 106/44; PULSE 64; RESP 18; TEMP 36.5; O2SAT 96
[2024-12-31 02:26] LABS: MANUAL DIFF FLAG NO
[2024-12-31 02:27] LABS: Hematocrit 30.7 % (42.0-52.0); Hemoglobin 8.8 g/dl (14.0-18.0); Imm Gran Abs Auto 0.08 X10*3/uL (0.00-0.03); Imm Gran Pct Auto 0.7 % (0.0-0.4); Lymphocytes Absolute Auto 1.0 X10*3/uL (1.2-4.9); Mean Corpuscular HGB Conc 28.7 g/dl (31.0-36.0); Mean Corpuscular Hemoglobin 23.1 pg (27.0-33.0); Mean Corpuscular Volume 80.6 fL (80.0-98.0); NRBC Abs Auto 0.000 X10*3/uL (0.0-0.012); NRBC Pct Auto 0.0 /100WBC (0.0-0.2); Platelet Count 272 X10*3/uL (160-400); Red Blood Count 3.81 X10*6/uL (4.60-5.80); White Blood Count 12.0 X10*3/uL (4.8-10.8)
[2024-12-31 02:45] LABS: Alanine Aminotransferase 18 U/L (0-40); Albumin Level 3.6 g/dL (3.5-5.0); Alkaline Phosphatase 72 U/L (39-117); Anion Gap 14 (12-20); Aspartate Amino Transferase 29 U/L (5-37); Blood Urea Nitrogen 28 mg/dL (9-16); Calcium 8.8 mg/dL (8.4-10.2); Carbon Dioxide 24 mmol/L (22-29); Chloride 105 mmol/L (96-108); Creatinine Clr Calc Pharmacy 44.3; Estimated Glomerular Filt Rate > 60; Potassium 4.1 mmol/L (3.3-5.1); Sodium 139 mmol/L (135-145); Total Protein 7.1 g/dL (6.5-8.0)
--- NOTE | 2024-12-31 02:55 | ED_ITS ---
HPI - Fall General Chief Complaint: Fall Stated Complaint: Fall - Head strike , Catheter Complications Time Seen by Provider: 12/31/24 02:52 Source: patient and EMS Mode of arrival: EMS Limitations: no limitations History of Present Illness ED Provider: Ry BOOGIE HPI Narrative: The patient is an 89-year-old male with a history of chronic suprapubic catheter secondary to neurogenic bladder, CHF, AFib anticoagulated on Eliquis, aortic stenosis, and frequent UTIs, presenting to the ED for evaluation of a fall. Patient reportedly suffered a fall with a head strike while walking with his walker, states he is unsure if he became weak or caught up in the walker. The patient denies any pain complaints, however was found to have a small laceration to the left occiput, placed in modified cervical collar by EMS. The patient reports he is currently on antibiotics for UTI, however family does not think this is accurate. The patient denies any chest pain, dizziness, shortness of breath, abdominal pain, or other acute somatic complaint prior to the fall. Related Data Home Medications ?Medication ?Instructions ?Recorded ?Confirmed latanoprost 0.005 % eye drops 1 drp ophthalmic (eye) B EDTIME 01/05/20 10/14/24 (Xalatan) pravastatin 40 mg tablet 1 tab PO DAILY 01/05/2009/26 brinzolamide 1 %-brimonidine 0.2 % 1 drp ophthalmic (e ye) BID 08/24/20 10/14/24 eye drops,suspension (Simbrinza) timolol maleate 0.5 % eye drops 1 drp ophthalmic (eye) BID 09/18/23 10/14/24 Previous Rx's ?Medication ?Instructions ?Recorded apixaban 5 mg tablet (Eliquis) 5 mg PO BID #60 tabs furosemide 20 mg tablet 20 mg PO DAILY PRN weight ga in> 02/28/24 3lb or leg swelling #30 tabs amiodarone 200 mg tablet 200 mg PO DAILY #90 tabs 11/19 levofloxacin 250 mg tablet 250 mg PO DAILY 5 days #5 t abs 10/29/24 ascorbic acid (vitamin C) 1,000 mg 1 g PO DAILY 90 day s #90 tabs 10/30/24 tablet methenamine hippurate 1 gram tablet 1 g PO DAILY 90 da ys #90 tabs 10/30/24 sulfamethoxazole 800 1 tab PO BID 6 days #12 tabs 10/30/24 mg-trimethoprim 160 mg tablet (Bactrim DS) Allergies Allergy/AdvReac Type Severity Reaction Status Date / Time No Known Allergies (No Known Allergy Verified 12/31/24 01:55 Allergies*) Review of Systems 2 Review of Systems: Yes all other systems are reviewed and are negative PMFSH Past Medical History Medical History Wound drainage Hypotonic neurogenic bladder DVT (deep venous thrombosis) At risk for bleeding related to anticoagulants Pressure ulcer of back Soft tissue mass Incomplete emptying of bladder Dysuria Pyuria H/O urinary retention Rectal adenocarcinoma Melanoma Fibroma Skin cancer Fracture of right ankle Glaucoma Surgical History History of surgery Hx of abdominoplasty Hx of tonsillectomy Hx of colonoscopy Family History Family History Sister Lung cancer Maternal Aunt Breast cancer Mother Breast cancer Social History Social History Household Members: None Housing: House Are you a primary urgent care physician to a significant other at home: No Do you presently have visiting nurse or other home services: Yes Alcohol intake: former Patient Tobacco Use Status: Former Tobacco user Cigarette Packs Per Day: 3 Smoked in Last 30 Days: No Use of substances other than those prescribed or required for medical reasons: No Advance Directives: Yes Advance Directives on File: Yes Advance Directives Date on File: 01/26/24 Do you have a plan to hurt others: No Plan service: No Current occupational status: retired Physical Exam 2 Vital Signs: Vital Signs: Last Vital Signs Temp 98.1 F 12/31/24 04:56 Pulse 66 12/31/24 05:18 Resp 16 12/31/24 05:18 BP 100/40 L 12/31/24 05:18 Pulse Ox 94 12/31/24 05:18 O2 Del Method Room Air 12/31/24 05:18 BMI result Body Mass Index 22.6 CONSTITUTIONAL: The patient appears chronically ill, otherwise well nourished and in no acute distress. Vital signs as documented. HEAD: There is a 1 cm laceration noted to the left occiput, no active bleeding, head is otherwise atraumatic, normocephalic. EYES: EOMs grossly intact, pupils equal, conjunctiva clear, no exudate. ENT: Nares patent, no discharge. Airway patent, no audible stridor, visible mucosa is pink and moist without noted lesions. NECK: Trachea is midline, no obvious masses or gross abnormalities. CHEST: Symmetric movement, normal appearance. LUNGS: LS present and CTAB, no w/r/r. Non-labored work of breathing. CARDIAC: Regular Rhythm, S1/S2 appreciated, no murmurs, rubs or gallops. ABDOMEN: Abdomen soft and non-tender x4 quadrants, there is mild tenderness to palpation overlying the suprapubic catheter, catheter site noted to have foul- smelling purulent drainage, no palpable masses or organomegaly. : Deferred. EXTREMITIES: Normal tone, moves all extremities spontaneously without reported pain. No obvious acute injury or deformity noted. NEURO: Alert and oriented x3, CN II-XII appear grossly intact. Cerebellar Functioning grossly intact. No obvious sensory or motor deficits. Speech clear and appropriate. PSYCH: normal affect, appropriate eye contact, fluid speech, with appropriate response to questioning. No reported suicidality or homicidality. SKIN: Warm, dry, color appropriate, normal turgor. There is a stage I decubitus ulcer noted to the pilonidal area/bilateral buttocks. No other rashes noted. Medications Administered Generic Name Dose Route Start Last Admin Trade Name Freq PRN Reason Stop Dose Admin Lactated Ringer's 1,000 mls @ 999 mls/hr 12/31/24 06:21 12/31/24 06:28 Lr IV 12/31/24 07:21 999 mls/hr .Q1H1M ONE Administration Discontinued Medications Generic Name Dose Route Start Last Admin Trade Name Freq PRN Reason Stop Dose Admin Ceftriaxone Sodium 1 gm/ 50 mls @ 100 mls/hr 12/31/24 02:52 12/31/24 03:21 Sodium Chloride IV 12/31/24 03:21 Infused ONCE ONE Infusion Sodium Chloride 2,082 mls @ 2,082 mls/hr 12/31/24 02:52 12/31/24 04:55 Ns 30 ml/kg infuse over 1 hr (2082 ml) 12/31/24 03:51 Infused IV Infusion .Q1H STA Procedures Catheter Insertion (Urinary) Date of insertion: 12/31/24 Time of insertion: 03:44 Reason for placing indwelling catheter: Other (Replace chronic suprapubic) Patient has the following: history of catheter associated urinary tract infection Bladder scan/ultrasound used before catheterization: No Antiseptic solution prep: Povidone-Iodine Topical anesthesia used: No Catheter type/location: Suprapubic Size (Qatari): 20 Catheter balloon size (mL): 10 Catheter balloon amount: 10 Results: successfully catheterized-immediate flow Procedure performed: without complications Laceration Laceration 1: Site: scalp Side (If applicable): left (occiput) Size (cm): 1 Description: linear and clean Depth: simple, single layer Skin layer closed with: briana Number of closing items:: 1 Technique: briana Medical Decision Making Medical Decision Making MDM Narrative: 3:16 AM 12/31/2024 (Estrada BOOGIE): The patient is an 89-year-old male with a history of chronic suprapubic catheter secondary to neurogenic bladder, CHF, AFib anticoagulated on Eliquis, aortic stenosis, and frequent UTIs, presenting to the ED for evaluation of a fall. Patient reportedly suffered a fall with a head strike while walking with his walker, states he is unsure if he became weak or caught up in the walker. The patient denies any pain complaints, however was found to have a small laceration to the left occiput, placed in modified cervical collar by EMS. The patient reports he is currently on antibiotics for UTI, however family does not think this is accurate. The patient denies any chest pain, dizziness, shortness of breath, abdominal pain, or other acute somatic complaint prior to the fall. On exam the patient is chronically ill- appearing, frail, but otherwise in no acute distress, patient is suprapubic insertion site appears purulent and foul-smelling, patient also has a stage I decubitus ulcer noted to the pilonidal area and buttocks. The patient's blood pressure dropped into the 90s, however is currently above 100 systolic, patient has a history of low BP, states his baseline is 105-110. Patient was found to have leukocytosis of 12.0, with lactic acid of 2.9, blood cultures were obtained and the patient was treated with 30 cc/kilo fluid bolus, and IV Rocephin. We will replace the suprapubic catheter and obtain urinalysis to confirm suspected diagnosis. Admission/Observation Consideration of admission/observation: Escalation of care including admission/observation considered Lab Data MDM Lab Attestation statement: I reviewed the patient's lab results. 12/31/24 02:20 12/31/24 02:20 Labs: Lab Results 12/31/24 12/31/24 12/31/24 Range/Units 02:19 02:20 03:49 WBC 12.0 H (4.8-10.8) X10*3/uL RBC 3.81 L (4.60-5.80) X10*6/uL Hgb 8.8 L (14.0-18.0) g/dl Hct 30.7 L (42.0-52.0) % MCV 80.6 (80.0-98.0) fL MCH 23.1 L (27.0-33.0) pg MCHC 28.7 L (31.0-36.0) g/dl RDW 14.6 (11.0-16.0) % Plt Count 272 D (160-400) X10*3/uL MPV 9.4 (9.4-12.4) fL Immature Gran % (Auto) 0.7 H (0.0-0.4) % Neut % (Auto) 83.9 H (45-73) % Lymph % (Auto) 8.0 L (20-40) % [place] % (Auto) 6.4 (2-11) % Eos % (Auto) 0.7 (0-4) % Baso % (Auto) 0.3 (0-2) % Lymph # (Auto) 1.0 L (1.2-4.9) X10*3/uL [place] # (Auto) 0.8 (0.1-1.2) X10*3/uL Eos # (Auto) 0.1 (0.0-0.4) X10*3/uL Baso # (Auto) 0.0 (0.0-0.2) X10*3/uL Abs Immat Gran (auto) 0.08 H (0.00-0.03) X10*3/uL Absolute Neuts (auto) 10.1 H (2.0-8.3) x10*3/uL Absolute Nucleated RBC 0.000 (0.0-0.012) X10*3/uL Nucleated RBC % (auto) 0.0 (0.0-0.2) /100WBC Sodium 139 (135-145) mmol/L Potassium 4.1 (3.3-5.1) mmol/L Chloride 105 (96-108) mmol/L Carbon Dioxide 24 (22-29) mmol/L Anion Gap 14 (12-20) BUN 28 H (9-16) mg/dL Creatinine 1.13 (0.5-1.4) mg/dL Estim Creat Clear Calc 44.3 Estimated GFR > 60 Random Glucose 118 H (60-115) mg/dL Lactic Acid 2.9 H* (0.5-2.0) mmol/L Lactic Acid F/U @ 2Hr (0.5-2.0) mmol/L Calcium 8.8 (8.4-10.2) mg/dL Total Bilirubin 0.5 (0.0-1.0) mg/dL AST 29 (5-37) U/L ALT 18 (0-40) U/L Alkaline Phosphatase 72 (39-117) U/L Total Protein 7.1 (6.5-8.0) g/dL Albumin 3.6 (3.5-5.0) g/dL Urine Color Yellow Urine Appearance Turbid Urine pH 6.5 (5.0-9.0) Ur Specific [place] 1.025 (1.005-1.025) Urine Protein 100 (2+) H (Neg-Trace) mg/dL Urine Glucose (UA) Negative (Negative) mg/dL Urine Ketones Negative (Negative) mg/dL Urine Blood Moderate (2+) H (Negative) Urine Nitrite Negative (Negative) Ur Leukocyte Esterase Large (3+) H (Negative) Urine RBC >20 H (0-2) /HPF Urine WBC >50 H (0-5) /HPF Urine WBC Clumps Present Ur Squamous Epith Cells 0-2 (0-2) /HPF Urine Bacteria 3+ (None Seen) Hyaline Casts 11-20 (0-2) /LPF 12/31/24 Range/Units 04:39 WBC (4.8-10.8) X10*3/uL RBC (4.60-5.80) X10*6/uL Hgb (14.0-18.0) g/dl Hct (42.0-52.0) % MCV (80.0-98.0) fL MCH (27.0-33.0) pg MCHC (31.0-36.0) g/dl RDW (11.0-16.0) % Plt Count (160-400) X10*3/uL MPV (9.4-12.4) fL Immature Gran % (Auto) (0.0-0.4) % Neut % (Auto) (45-73) % Lymph % (Auto) (20-40) % [place] % (Auto) (2-11) % Eos % (Auto) (0-4) % Baso % (Auto) (0-2) % Lymph # (Auto) (1.2-4.9) X10*3/uL [place] # (Auto) (0.1-1.2) X10*3/uL Eos # (Auto) (0.0-0.4) X10*3/uL Baso # (Auto) (0.0-0.2) X10*3/uL Abs Immat Gran (auto) (0.00-0.03) X10*3/uL Absolute Neuts (auto) (2.0-8.3) x10*3/uL Absolute Nucleated RBC (0.0-0.012) X10*3/uL Nucleated RBC % (auto) (0.0-0.2) /100WBC Sodium (135-145) mmol/L Potassium (3.3-5.1) mmol/L Chloride (96-108) mmol/L Carbon Dioxide (22-29) mmol/L Anion Gap (12-20) BUN (9-16) mg/dL Creatinine (0.5-1.4) mg/dL Estim Creat Clear Calc Estimated GFR Random Glucose (60-115) mg/dL Lactic Acid (0.5-2.0) mmol/L Lactic Acid F/U @ 2Hr 0.9 (0.5-2.0) mmol/L Calcium (8.4-10.2) mg/dL Total Bilirubin (0.0-1.0) mg/dL AST (5-37) U/L ALT (0-40) U/L Alkaline Phosphatase (39-117) U/L Total Protein (6.5-8.0) g/dL Albumin (3.5-5.0) g/dL Urine Color Urine Appearance Urine pH (5.0-9.0) Ur Specific [place] (1.005-1.025) Urine Protein (Neg-Trace) mg/dL Urine Glucose (UA) (Negative) mg/dL Urine Ketones (Negative) mg/dL Urine Blood (Negative) Urine Nitrite (Negative) Ur Leukocyte Esterase (Negative) Urine RBC (0-2) /HPF Urine WBC (0-5) /HPF Urine WBC Clumps Ur Squamous Epith Cells (0-2) /HPF Urine Bacteria (None Seen) Hyaline Casts (0-2) /LPF Critical Care Time Critical Care Time Critical Care Time: Yes Total Critical Care Time: 35 Attestation: Time is exclusive of separately billable procedures. Time includes: direct patient care, patient reassessment, coordination of patient care, interpretation of data (laboratory data, pulse oximetry, arterial blood gases and chest xrays), review of patient's medical records, medical consultation and documentation of patient care. Procedures excluded from critical care time: central intravenous line placement and electrocardiography. Discharge Plan Discharge Clinical Impression: Sepsis Qualifiers: Sepsis type: sepsis due to unspecified organism Sepsis acute organ dysfunction status: without acute organ dysfunction Qualified Code(s): A41.9 - Sepsis, unspecified organism Suprapubic catheter dysfunction Qualifiers: Encounter type: initial encounter Qualified Code(s): T83.010A - Breakdown (mechanical) of cystostomy catheter, initial encounter Catheter-associated urinary tract infection Qualifiers: Indwelling urinary catheter type: cystostomy catheter Encounter type: initial encounter Qualified Code(s): T83.510A - Infection and inflammatory reaction due to cystostomy catheter, initial encounter Laceration of scalp Qualifiers: Encounter type: initial encounter Qualified Code(s): S01.01XA - Laceration without foreign body of scalp, initial encounter Fall Qualifiers: Encounter type: initial encounter Qualified Code(s): W19.XXXA - Unspecified fall, initial encounter Patient Disposition: Admitted As Inpatient
[2024-12-31] MEDS: 0.9 % Sodium Chloride 2,082 ML 2082 ML IV (03:02)
--- OUTSIDE RECORDS SUMMARY | 2024-12-31 03:03 | XMS_ITS | Clinical Summary ---
Author Organization [facility] Address [address] [place] [address] Phone Care Team Providers Care Side Stitcher Name Role Phone Travis Gottlieb MD Primary Care Provider [phone] -[phone] Allergies No known active allergies Medications vitamins A,C,E-zinc-francy er (PRESERVISION AREDS) 14,320226-200 qodr-vo-bxfv Cap Take 2 capsules by mouth daily. Active coenzyme Q10 100 mg capsule Take 100 mg by mouth daily. Active zinc sulfate 220 mg Tab Take 220 mg by mouth daily. Active UBIDECAR/FISH OIL/OMEGA-3/VIT E (CO B29-QDCK OIL-OMEGA 3-E ORAL) Take 1 capsule by [...] [employer]PLAC[employer] Care Teams Side Stitcher Relationship Specialty Start Date End Date Travis Gottlieb MD PCP - General Family Medicine 12/28/15 Additional Source Comments The information contained in this document represents components of the legal health record. It is not the complete legal health record.[facility]
--- OUTSIDE RECORDS SUMMARY | 2024-12-31 03:03 | XMS_ITS | Encounter Summary ---
Author Organization [facility] Address [address] [facility] [address] [place] [address] Phone Care Team Providers Care Seaport Planning Manager Name Role Phone Travis Gottlieb MD Primary Care Provider [phone] [phone] Encounter Details Date Type Department Care Team (Late st Contact Info) Description 01/06/[address] [facility] [address] [place] [address] Social History Tobacco Use Types Packs/Day Years [...] on filedocumented in this encounter Care Teams Seaport Planning Manager Relationship Specialty Start Date End Date Travis Gottlieb MD PCP - General Family Medicine 12/28/15 documented as of this encounter Additional Source Comments The information contained in this document represents components of the legal health record. It is not the complete legal health record.[facility]
--- OUTSIDE RECORDS SUMMARY | 2024-12-31 03:03 | XMS_ITS | Encounter Summary ---
Author Organization [facility] Address [address] [facility] [address] [place] [address] Phone Care Team Providers Care Process Development Associate Name Role Phone Travis Gottlieb MD Primary Care Provider [phone] [phone] Encounter Details Date Type Department Care Team (Late st Contact Info) Description 01/06/2016 Procedure Pass [facility] [address] [place] [address] Social History Tobacco Use Types Packs/Day Years [...] on filedocumented in this encounter Care Teams Process Development Associate Relationship Specialty Start Date End Date Travis Gottlieb MD PCP - General Family Medicine 12/28/15 documented as of this encounter Additional Source Comments The information contained in this document represents components of the legal health record. It is not the complete legal health record.[facility]
--- OUTSIDE RECORDS SUMMARY | 2024-12-31 03:03 | XMS_ITS | Encounter Summary ---
Author Organization [facility] Address [address] [facility] [address] [place] [address] Phone Care Team Providers Care Iv Rn Name Role Phone Travis Gottlieb MD Primary Care Provider [phone] [phone] Encounter Details Date Type Department Care Team (Late st Contact Info) Description 01/06/2016 Procedure Pass [facility] [address] [place] [address] Social History Tobacco Use Types Packs/Day Years [...] on filedocumented in this encounter Care Teams Iv Rn Relationship Specialty Start Date End Date Travis Gottlieb MD PCP - General Family Medicine 12/28/15 documented as of this encounter Additional Source Comments The information contained in this document represents components of the legal health record. It is not the complete legal health record.[facility]
--- OUTSIDE RECORDS SUMMARY | 2024-12-31 03:03 | XMS_ITS | Encounter Summary ---
Author Organization [facility] Address [address] [facility] [address] [place] [address] Phone Care Team Providers Care Catcher Plug Name Role Phone Travis Gtotlieb MD Primary Care Provider [phone] Encounter Details Date Type Department Care Team (Late st Contact Info) Description 01/06/2016 Procedure Pass [facility] [address] [place] [address] Social History Tobacco Use Types Packs/Day Years [...] on filedocumented in this encounter Care Teams Catcher Plug Relationship Specialty Start Date End Date Travis Gottlieb MD PCP - General Family Medicine 12/28/15 documented as of this encounter Additional Source Comments The information contained in this document represents components of the legal health record. It is not the complete legal health record.[facility]
--- OUTSIDE RECORDS SUMMARY | 2024-12-31 03:03 | XMS_ITS | Encounter Summary ---
Author Organization [facility] Address [address] [facility] [address] [place] [address] Phone Care Team Providers Care Operation Supervisor Name Role Phone Travis Gottlieb MD Primary Care Provider [phone] [phone] Encounter Details Date Type Department Care Team (Late st Contact Info) Description 01/06/2016 Procedure Pass [facility] [address] [place] [address] Social History Tobacco Use Types Packs/Day Years [...] on filedocumented in this encounter Care Teams Operation Supervisor Relationship Specialty Start Date End Date Travis Gottlieb MD PCP - General Family Medicine 12/28/15 documented as of this encounter Additional Source Comments The information contained in this document represents components of the legal health record. It is not the complete legal health record.[facility]
--- OUTSIDE RECORDS SUMMARY | 2024-12-31 03:03 | XMS_ITS | Patient Health Record ---
Author Organization [facility] Address [address] [place] [address] Care Team Providers Care Stock Control Clerk Name Role Phone Travis Gottlieb Primary Care Provider Unavaillatricia e Octavio Foreman Unavailable [phone] Reason For Referral No Information Medications Medication SIG (Take, Route, Fr equency, Duration) Notes Start Date End Date Status Latanoprost Active Dorzolamide-Timolol Active Nattokinase Active Co Q 10 Active Zinc Active Arthro-Complex Activ e Multivitamin & Mineral Active Problems Problem Type SNOMED Code ICD Code Onset Dates Problem Status W/U Status Risk Notes Problem Blood in stool (481371989) Blood in stool (K92.1) Active confirmed Problem Altered bowel function (40943129) Change in bowel function (R19.4) Active confirmed Problem Abnormal feces (898523159) Heme positive stool (R19.5) Active confirmed Problem Malignant tumor of rectum (258628751) Rectal adenocarcinoma (C20) Active confirmed Plan Of Treatment Future Test Test Name Order Date COLONOSCOPY 06/16/2015 Insurance Providers Payer Name Payer Address Payer Phone Subscriber Number Group Number Insured Name Patient Relationship to Insured Coverage Start Date Coverage End Date [employer]ED [address] [place] [phone] [id number] COURTNEY GONZALES Self - patient is the insured Medical (General) History Medical History History ICD Code Denies ID,DM,CVA,Lung disease,renal dise ase Negative colonoscopy approx 2005 by his report Glaucoma Colonoscopy in 06/2015 with t he finding of a large rectal mass with biopsies revealing adenocarcinoma Surgical History Surgery Date(Month/Year) broken right ankle tonsillectomy
--- OUTSIDE RECORDS SUMMARY | 2024-12-31 03:03 | XMS_ITS | Encounter Summary ---
Author Organization [facility] Address [address] [facility] [address] [place] [address] Phone Care Team Providers Care Testing Analyst Name Role Phone Travis Gottlieb MD Primary Care Provider [phone] [phone] Encounter Details Date Type Department Care Team (Late st Contact Info) Description 01/06/2016 Procedure Pass [facility] Imaging [address] [place] [address] Social History Tobacco Use Types Packs/Day Years [...] on filedocumented in this encounter Care Teams Testing Analyst Relationship Specialty Start Date End Date Travis Gottlieb MD PCP - General Family Medicine 12/28/15 documented as of this encounter Additional Source Comments The information contained in this document represents components of the legal health record. It is not the complete legal health record.[facility]
--- OUTSIDE RECORDS SUMMARY | 2024-12-31 03:03 | XMS_ITS | Encounter Summary ---
Author Organization Formerly [facility] Address [address] [place] [id number] Phone Care Team Providers Care Casing Splitter Name Role Phone Travis Gottlieb MD Primary Care Provider [phone] Encounter Details Date Type Department Care Team (Late st Contact Info) Description 01/06/2016 Procedure Pass [facility] Imaging [address] [place] [address] Social History Tobacco Use Types Packs/Day Years [...] on filedocumented in this encounter Care Teams Casing Splitter Relationship Specialty Start Date End Date Travis Gottlieb MD PCP - General Family Medicine 12/28/15 documented as of this encounter Additional Source Comments The information contained in this document represents components of the legal health record. It is not the complete legal health record.Formerly [facility]
[2024-12-31 03:56] LABS: Appearance Urine Turbid; Glucose Urine UA Negative (Negative); PH 6.5 (5.0-9.0); Specific Gravity - Urine 1.025 (1.005-1.025); UMIC TRIGGER UACC YES
[2024-12-31 04:04] LABS: UACC Culture Trigger YES
[2024-12-31 04:24] LABS: Reflex Lactate? Lactic Acid Added
[2024-12-31 04:56] VITALS: BP 102/42; PULSE 69; RESP 16; TEMP 36.7; O2SAT 95
[2024-12-31 05:05] LABS: ~Lactic Acid-LAB USE ONLY 0.9 mmol/L (0.5-2.0)
[2024-12-31 05:18] VITALS: BP 100/40; PULSE 66; RESP 16; O2SAT 94
--- NOTE | 2024-12-31 05:26 | PC.NURSE ---
pts bps are soft at baseline. MD aware of pts soft bps post fluid boluses. MD to monitor BPs for now.
[2024-12-31] MEDS: Lactated Ringers 1,000 ML 999 ML IV (06:28)
--- NOTE | 2024-12-31 06:45 | HO.NURTONUR ---
Addendum entered by Kasia Mosquera RN 12/31/24 19:47: pt ROCK from home after tripping over walker. briana placed to posterior head. CT neg. 20g IV L wrist. nothing infusing at this time. BP soft at baseline. ADMIT: UTI(failed outpt oral abx), anemia, fall with lac. WOUND CARE: intact deep purple discoloration to buttocks/lower back in the setting of chronic moisture and friction - patient reports spending most of his time sitting in a recliner, suprapubic catheter and colostomy bag. perineum drainage, pads to absorb. foam dressings to heels and buttocks. Q2 repo. pt a/o x4, calm and cooperative with care Original Note: Rn gave report to ROBBY mota in overflow.pt is AxOx4, fall risk as he is in the Ed for a fall with a headstrike- small lac in the back of head- one suture given placed. tolerated well. Pt currently has a bolus of LR infusing in the left wrist. Provider Angelina did change pts crews- pt currently has a 20F- it is draining. Pt also has an ostomy bag. lactic now WNL.
--- NOTE | 2024-12-31 06:53 | P.HPHOSP_ITS ---
History of Present Illness Date of Service: 12/31/24 Attending physician on admission: Jaguar Macedo Chief Complaint: fall Patient is an 89-year-old male with a past medical history significant for chronic suprapubic catheter secondary to neurogenic bladder, CHF, AFib on Eliquis, aortic stenosis and frequent UTIs, who presented to the ED after fall. The patient reported that he tripped over his walker and hit the back of his head. He denies any current complaints including headache, chest pain, shortness of breath, nausea, vomiting, abdominal pain. He denies any symptoms precipitating his fall. He reports that he was recently treated for UTI in the end of November and completed the antibiotics. Review of Systems 2 Constitutional: Constitutional: Denies body ache(s), Denies chills, Denies fatigue, Denies fever(s) and Denies headache(s) Eyes: Eyes: Denies change in vision ENT: Denies headache(s), Denies nasal congestion and Denies sore throat Cardiovascular: Cardiovascular: Denies chest pain, Denies rapid heart rate, Denies leg edema, Denies lightheadedness and Denies dyspnea Respiratory: Respiratory: Denies chest congestion, Denies cough, Denies dyspnea and Denies wheezing Gastrointestinal: Gastrointestinal: Denies abdominal pain, Denies diarrhea, Denies nausea and Denies vomiting Genitourinary: Genitourinary: Reports as per HPI Musculoskeletal: Musculoskeletal: Denies myalgias Integumentary/Breasts: Skin/Breast: Denies rash Neurologic: Denies confusion and Denies headache(s) Psychiatric: Psychiatric: Denies confusion Endocrine: Endocrine: Denies fatigue Hematologic/Lymphatic: Hematologic/Lymphatic: Denies easy bleeding Allergic/Immunologic: Allergic/Immunologic: Denies wheezing [facility] Medical History Wound drainage Hypotonic neurogenic bladder DVT (deep venous thrombosis) At risk for bleeding related to anticoagulants Pressure ulcer of back Soft tissue mass Incomplete emptying of bladder Dysuria Pyuria H/O urinary retention Rectal adenocarcinoma Melanoma Fibroma Skin cancer Fracture of right ankle Glaucoma Functional capacity: wheelchair bound Family History Sister Lung cancer Maternal Aunt Breast cancer Mother Breast cancer Surgical History History of surgery Hx of abdominoplasty Hx of tonsillectomy Hx of colonoscopy Social History Household Members: None Housing: House Are you a primary senior resident care director to a significant other at home: No Do you presently have visiting nurse or other home services: Yes Alcohol intake: former Patient Tobacco Use Status: Former Tobacco user Cigarette Packs Per Day: 3 Smoked in Last 30 Days: No Use of substances other than those prescribed or required for medical reasons: No Advance Directives: Yes Advance Directives on File: Yes Advance Directives Date on File: 01/26/24 Do you have a plan to hurt others: No Plan service: No Current occupational status: retired Narrative: no smoking or etoh Meds Allergies Allergy/AdvReac Type Severity Reaction Status Date / Time No Known Allergies (No Known Allergy Verified 12/31/24 01:55 Allergies*) Active Medications: Current Medications Acetaminophen (Acetaminophen 325 Mg Tablet) 650 mg PO Q6H PRN PRN Reason: Pain, Mild 1-3,fever,headache Calcium Carbonate (Calcium Carbonate 750 Mg Tab.Chew) 750 mg PO Q4H PRN PRN Reason: Heartburn Lactated Ringer's (Lr) 1,000 mls @ 999 mls/hr IV .Q1H1M ONE Stop: 12/31/24 07:21 Last Admin: 12/31/24 06:28 Dose: 999 mls/hr Ceftriaxone Sodium 1 gm/ (Sodium Chloride) 50 mls @ 100 mls/hr IV Q24H LUIS ENRIQUE Magnesium Hydroxide (Milk Of Magnesia 30 Ml Oral.Susp) 30 ml PO DAILY PRN PRN Reason: Constipation Melatonin (Melatonin 3 Mg Tablet) 6 mg PO BEDTIME PRN PRN Reason: Insomnia Ondansetron HCl (Ondansetron Hcl 4 Mg/2 Ml Vial) 4 mg IVPUSH Q8H PRN PRN Reason: Nausea and Vomiting Oxycodone HCl (Oxycodone Hcl Immed Release 5 Mg Tablet) 5 mg PO Q6H PRN PRN Reason: Pain, Severe (Pain Scale 7-10) Sodium Chloride (0.9 % Sodium Chloride Flush 3 Ml Syringe) 3 ml IVFLUSH QSHIFT LUIS ENRIQUE Tramadol HCl (Tramadol Hcl 50 Mg Tablet) 50 mg PO Q6H PRN PRN Reason: Pain, Moderate(Pain Scale 4-6) Home Medications ?Medication ?Instructions ?Recorded ?Confirmed ?Last Taken ?Type latanoprost 0.005 % eye drops 1 drp ophthalmic (eye) B EDTIME 01/05/20 10/14/24 09/16/23 History (Xalatan) pravastatin 40 mg tablet 1 tab PO DAILY 01/05/2009/2601/25/24 09:00 History brinzolamide 1 %-brimonidine 0.2 % 1 drp ophthalmic (e ye) BID 08/24/20 10/14/24 01/25/24 09:00 History eye drops,suspension (Simbrinza) timolol maleate 0.5 % eye drops 1 drp ophthalmic (eye) BID 09/18/23 10/14/24 01/25/24 09:00 History Physical Exam 2 Vital Signs and Narrative: Vital Signs: Last Vital Signs Temp 98.1 F 12/31/24 04:56 Pulse 66 12/31/24 05:18 Resp 16 12/31/24 05:18 BP 100/40 L 12/31/24 05:18 Pulse Ox 94 12/31/24 05:18 O2 Del Method Room Air 12/31/24 05:18 BMI result Body Mass Index 22.6 General: AOx3, no acute distress. seen with son bedside Resp: CTA bilaterally CVS: S1, S2, RRR GI/: +BS, NT, no distention. crews draining straw colored urine. Skin: Warm, dry Neuro: Cranial nerves II-XII grossly intact bilaterally. Motor grossly intact bilaterally Extremities: No pitting edema Psych: Appropriate affect Const: General: No confusion Orientation/consciousness: No confusion Neuro: General: No confusion Results Labs 12/31/24 02:20 12/31/24 02:20 Labs: Laboratory Results - last 24 hr 12/31/24 12/31/24 12/31/24 02:19 02:20 03:49 MCV 80.6 MCH 23.1 L MCHC 28.7 L RDW 14.6 Plt Count 272 D MPV 9.4 Immature Gran % (Auto) 0.7 H Neut % (Auto) 83.9 H Lymph % (Auto) 8.0 L [place] % (Auto) 6.4 Eos % (Auto) 0.7 Baso % (Auto) 0.3 Lymph # (Auto) 1.0 L [place] # (Auto) 0.8 Eos # (Auto) 0.1 Baso # (Auto) 0.0 Abs Immat Gran (auto) 0.08 H Absolute Neuts (auto) 10.1 H Absolute Nucleated RBC 0.000 Nucleated RBC % (auto) 0.0 Anion Gap 14 Estim Creat Clear Calc 44.3 Estimated GFR > 60 Random Glucose 118 H Lactic Acid 2.9 H* Lactic Acid F/U @ 2Hr Calcium 8.8 Total Bilirubin 0.5 AST 29 ALT 18 Alkaline Phosphatase 72 Total Protein 7.1 Albumin 3.6 Urine Color Yellow Urine Appearance Turbid Urine pH 6.5 Ur Specific [place] 1.025 Urine Protein 100 (2+) H Urine Glucose (UA) Negative Urine Ketones Negative Urine Blood Moderate (2+) H Urine Nitrite Negative Ur Leukocyte Esterase Large (3+) H Urine RBC >20 H Urine WBC >50 H Urine WBC Clumps Present Ur Squamous Epith Cells 0-2 Urine Bacteria 3+ Hyaline Casts 11-20 12/31/24 04:39 MCV MCH MCHC RDW Plt Count MPV Immature Gran % (Auto) Neut % (Auto) Lymph % (Auto) [place] % (Auto) Eos % (Auto) Baso % (Auto) Lymph # (Auto) [place] # (Auto) Eos # (Auto) Baso # (Auto) Abs Immat Gran (auto) Absolute Neuts (auto) Absolute Nucleated RBC Nucleated RBC % (auto) Anion Gap Estim Creat Clear Calc Estimated GFR Random Glucose Lactic Acid Lactic Acid F/U @ 2Hr 0.9 Calcium Total Bilirubin AST ALT Alkaline Phosphatase Total Protein Albumin Urine Color Urine Appearance Urine pH Ur Specific [place] Urine Protein Urine Glucose (UA) Urine Ketones Urine Blood Urine Nitrite Ur Leukocyte Esterase Urine RBC Urine WBC Urine WBC Clumps Ur Squamous Epith Cells Urine Bacteria Hyaline Casts Assessment and Plan (1) Acute UTI: Status: Acute (2) Anemia: Status: Acute (3) Acute lactic acidosis: Status: Acute (4) Fall: Qualifiers: Encounter type: initial encounter Qualified Code(s): W19.XXXA - Unspecified fall, initial encounter Status: Acute (5) Laceration of scalp: Qualifiers: Encounter type: initial encounter Qualified Code(s): S01.01XA - Laceration without foreign body of scalp, initial encounter Status: Acute Plan Patient is an 89-year-old male with a past medical history significant for chronic suprapubic catheter secondary to neurogenic bladder, CHF, AFib on Eliquis, aortic stenosis and frequent UTIs, who presented to the ED after fall. subrapubic tube with purulent drainage, pt asx, UA + acute UTI - failed recent outpt treatment - ceftriaxone pending culture - blood cultures pending - follow CBC and BMP anemia - iron, B12, folate - OBSx1 - monitor CBC acute lactic acidosis, resolved - likely secondary to dehydration fall with scalp lac - briana placed in ED - will need to f/u outpt for staple removal paroxysmal a fib - eliquis and amiodarone chronic HFrEF, no acute exacerbation - continue home meds med rec pending full code VTE prophy: eliquis Pt with acute UTI with recent failed outpatient treatment, requiring admission for at least 2 midnight stay for IV antibiotics and monitoring. Quality Stroke Does the patient have a stroke diagnosis?: No VTE Prior VTE?: No VTE Risk Level:: Medical - moderate - high VTE Device Contraindication: Treatment Not Indicated VTE Drug Contraindication: N/A - Med Ordered
[2024-12-31] MEDS: 0.9 % Sodium Chloride Flush 3 ML SYRINGE IVFLUSH ×2 (08:32→15:40)
--- NOTE | 2024-12-31 08:38 | PHA.MEDREC ---
Pharmacy Consult ? Medication Reconciliation Pharmacy has completed the medication reconciliation.Med rec complete, spoke to daughter Linda who gets his meds ready for Edgar. Bactrim is only used on catheter change days which is done monthly, and the lasix is prn and he has not used it in months
--- NOTE | 2024-12-31 09:18 | PM.EVENT ---
Event Note Date of Service: 12/31/24 Event Note: Admitted this morning, Patient is an 89-year-old male with a past medical history significant for chronic suprapubic catheter secondary to neurogenic bladder, CHF, AFib on Eliquis, aortic stenosis and frequent UTIs, who presented to the ED after fall. subrapubic tube with purulent drainage, pt asx, UA + acute UTI failed recent outpt bactrime ceftriaxone pending culture blood cultures pending follow CBC and BMP anemia of chronic disease, stable. gary, B12, folate OBSx1 monitor CBC acute lactic acidosis, resolved ikely secondary to dehydration fall with scalp lac briana placed in ED will need to f/u outpt for staple removal PT paroxysmal a fib eliquis and amiodarone chronic HFrEF, no acute exacerbation continue home meds med rec pending full code VTE prophy: eliquis Pt with acute UTI with recent failed outpatient treatment, requiring admission for at least 2 midnight stay for IV antibiotics and monitoring. Time Spent With Patient Time: Total time managing care of this patient today ____ minutes.
[2024-12-31 09:54] LABS: Iron 28 mcg/dL (45-160); Percent Iron Saturation 11 % (15-50); Total Iron Binding Capacity 246 mcg/dL (228-428); Unsaturated Iron Binding 218 ug/dL
--- NOTE | 2024-12-31 09:55 | HO.SKINPHOTO ---
Location: Buttock Location: Back of Head
[2024-12-31 10:28] LABS: Folate 7.1 ng/mL (> or = 4.0); Vitamin B12 166 pg/mL (200-900)
[2024-12-31] MEDS: timoloL maleate 0.5 % Oph Sol 5 ML DRBTL 1 DROP EYE-BOTH ×2 (11:04→20:40)
[2024-12-31 13:32] LABS: OBS Int Ctl Valid YES; OBS1 NEGATIVE (NEGATIVE)
[2024-12-31 14:21] VITALS: BP 91/31; PULSE 61; RESP 17; O2SAT 96
--- NOTE | 2024-12-31 14:31 | HO.WOUND ---
Wound Consult: Initial 89 yr old admitted to [facility] on 12/31/24 - See progress notes and H&P for detailed history. Wound consult placed for buttocks. Patient agreeable to assessment and photo documentation. Son at bedside. Patient seen by inpt wound team in the past with similar presentation of buttocks with intact deep purple discoloration in the setting of chronic moisture and friction - patient reports spending most of his time sitting in a recliner. Patient with neurogenic bladder Suprapubic tube in place - surrounding tissue with hyper granulation and serousanguineous drainage. 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 Patient also with draining area to perineum - patient followed by general surgery seen 03/2024 reporting draining sinus to this area, active serosanguineous drainage noted today. buttocks Etiology: chronic moisture/friction Wound Bed: intact deep purple blanching all areas Drainage / Odor: none Edges: ? diffuse Arely wound: ? No Induration, Fluctuance or Warmth noted Pain: none Goals of Treatment: ? offloading and pressure redistribution with foam upper back Etiology: intact pink/red and blanching with small skin tear Wound Bed: intact pink/red blanching Drainage / Odor: none Arely wound: ? No Induration, Fluctuance or Warmth noted Pain: none Goals of Treatment: ? offloading SP tube and ostomy Measurements: SP tube with hypergranulation Wound Bed: moist red Drainage / Odor: serosangiuineos - small/moderate Edges: ? irregular Arely wound: ? No Induration, Fluctuance or Warmth noted Pain: Goals of Treatment: ? moisture balance with durafiber Posterior head lac with briana from fall at home- dry and intact no hematoma noted- no active drainage leave [employer] perineum perineum Etiology: chronic draining sinus Wound Bed: moist red Drainage / Odor: moderate/large serosanguineous - non odor Arely wound: ? No Induration, Fluctuance or Warmth noted Pain: none Goals of Treatment: ? barrier cream surrounding bilateral heels intact, pink and blanching - protective foams applied Recommendations: 1. Turn and Reposition every 2 hours and as needed for patient comfort. Use pillows or wedges to support off loading positions. 2. Off Load all bony prominences with use of pillows and heel boots if needed. Apply Preventative foams where needed. 3. Monitor for incontinence and moisture control, use barrier creams when needed for prevention and treatment. 4. Provide adequate and supplemental nutrition. 5. Order or Continue low air loss mattress. 6. When applicable maintain blood glucose levels per Providers order. Buttocks/coccyx and upper back: Off Load Pressure with Q2 hr turns and use of pillows - Routine cleansing. Apply skin prep allow to dry. Cover with foam dressing to aid in off loading and protection from friction. Change every 3 days and PRN. Bilateral Heels - Elevate heels off of bed surface with pillows. Float heels off of pillows. Apply skin prep allow to dry. Apply heel foam dressings, peel back and assess Q shift and change every 5-7 days and PRN. SP tube: routine cleansing- apply durafiber ag cut like drain sponge, cover with drain sponge, change every other day and PRN Perineum: cleanse with ph balance cleanse apply barrier cream surrounding area- use dry flow pads to absorb drainage Posterior head: open to air with briana intact- gentle cleansing to remove dried drainage Re-consult wound care Nurse for wound deterioration or wound changes.
[2024-12-31 20:15] VITALS: BP 103/51; PULSE 63; RESP 20; TEMP 36.7; O2SAT 98
[2024-12-31] MEDS: Flu Vacc TS2025-26(6mo up)/PF 0.5 ML SYRINGE IM (20:49)
[2024-12-31] MEDS: Latanoprost 0.005 % Ophth Sol 2.5 ML DROPS 1 DROP EYE-BOTH (21:36)
[2025-01-01] VITALS (7 sets, daily range): BP systolic 99–120; BP diastolic 44–60; PULSE 58–68; RESP 16–20; TEMP 36.1–36.9; O2SAT 96–98; BMI 22.6
[2025-01-01] MEDS: 0.9 % Sodium Chloride Flush 3 ML SYRINGE IVFLUSH ×4 (00:41→20:17)
[2025-01-01 06:13] LABS: MANUAL DIFF FLAG NO
[2025-01-01 06:17] LABS: Hematocrit 23.3 % (42.0-52.0); Imm Gran Abs Auto 0.04 X10*3/uL (0.00-0.03); Imm Gran Pct Auto 0.6 % (0.0-0.4); Lymphocytes Absolute Auto 1.6 X10*3/uL (1.2-4.9); Mean Corpuscular HGB Conc 29.2 g/dl (31.0-36.0); Mean Corpuscular Hemoglobin 23.1 pg (27.0-33.0); Mean Corpuscular Volume 79.0 fL (80.0-98.0); NRBC Abs Auto 0.000 X10*3/uL (0.0-0.012); NRBC Pct Auto 0.0 /100WBC (0.0-0.2); Platelet Count 214 X10*3/uL (160-400); Red Blood Count 2.95 X10*6/uL (4.60-5.80); White Blood Count 6.7 X10*3/uL (4.8-10.8)
[2025-01-01 06:36] LABS: Anion Gap 11 (12-20); Blood Urea Nitrogen 18 mg/dL (9-16); Calcium 7.9 mg/dL (8.4-10.2); Carbon Dioxide 23 mmol/L (22-29); Chloride 109 mmol/L (96-108); Creatinine Clr Calc Pharmacy 51.1; Estimated Glomerular Filt Rate > 60; Hemoglobin 6.8 g/dl (14.0-18.0); Potassium 3.5 mmol/L (3.3-5.1); Sodium 139 mmol/L (135-145)
--- NOTE | 2025-01-01 07:18 | P.PNIM_ITS ---
Subjective Subjective Date of Service: 01/01/25 Interval History: f/u on uti, anemia H/H lower, no obvious sings of bleeding, urine culture still pending, no fever Physical Exam 2 Vital Signs: Vital Signs: Last Vital Signs Temp 97.5 F 01/01/25 03:38 Pulse 66 01/01/25 03:38 Resp 20 01/01/25 03:38 BP 110/60 01/01/25 03:38 Pulse Ox 98 01/01/25 03:38 O2 Del Method Room Air 01/01/25 03:38 BMI result Body Mass Index 22.6 Const: Other: General: AO X 3, no acute distress Resp: CTA bilateral CVS: S1,S2,RRR GI: +BS, NT, no distention Skin: No rash Neuro: motor grossly intact Psych: appropriate affect Objective Data Active Medications Acetaminophen (Acetaminophen 325 Mg Tablet) 650 mg PO Q6H PRN PRN Reason: Pain, Mild 1-3,fever,headache Amiodarone HCl (Amiodarone Hcl 200 Mg Tablet) 200 mg PO DAILY [facility] Last Admin: 12/31/24 11:05 Dose: 200 mg Documented By: KALEY Apixaban (Apixaban 5 Mg Tablet) 5 mg PO BID [facility] Last Admin: 12/31/24 20:49 Dose: 5 mg Documented By: JOSE ALFREDO Ascorbic Acid (Ascorbic Acid 500 Mg Tablet) 1,000 mg PO DAILY [facility] Last Admin: 12/31/24 11:05 Dose: 1,000 mg Documented By: KALEY Calcium Carbonate (Calcium Carbonate 750 Mg Tab.Chew) 750 mg PO Q4H PRN PRN Reason: Heartburn Finasteride (Finasteride 5 Mg Tablet) 5 mg PO DAILY [facility] Last Admin: 12/31/24 11:04 Dose: 5 mg Documented By: KALEY Furosemide (Furosemide 20 Mg Tablet) 20 mg PO DAILY PRN; Protocol PRN Reason: weight gain> 3lb or leg swelling Ceftriaxone Sodium 1 gm/ (Sodium Chloride) 50 mls @ 100 mls/hr IV Q24H [facility] Last Infusion: 01/01/25 04:35 Dose: Infused Documented By: MARGARET Latanoprost (Latanoprost 0.005 % Ophth Belkis 2.5 Ml Drops) 1 drop EYE-BOTH BEDTIME [facility] Last Admin: 12/31/24 21:36 Dose: 1 drop Documented By: NEPTALI Magnesium Hydroxide (Milk Of Magnesia 30 Ml Oral.Susp) 30 ml PO DAILY PRN PRN Reason: Constipation Melatonin (Melatonin 3 Mg Tablet) 6 mg PO BEDTIME PRN PRN Reason: Insomnia Non-Formulary Medication (Brinzolamide-Brimonidine [Simbrinza]) 1 drop EYE-BOTH BID [facility] Ondansetron HCl (Ondansetron Hcl 4 Mg/2 Ml Vial) 4 mg IVPUSH Q8H PRN PRN Reason: Nausea and Vomiting Oxycodone HCl (Oxycodone Hcl Immed Release 5 Mg Tablet) 5 mg PO Q6H PRN PRN Reason: Pain, Severe (Pain Scale 7-10) Pravastatin Sodium (Pravastatin Sodium 40 Mg Tablet) 40 mg PO DAILY [facility] Last Admin: 12/31/24 11:05 Dose: 40 mg Documented By: RADHAORRNikolai Sodium Chloride (0.9 % Sodium Chloride Flush 3 Ml Syringe) 3 ml IVFLUSH QSHIFT [facility] Last Admin: 01/01/25 00:41 Dose: 3 ml Documented By: MARGARET Timolol Maleate (Timolol Maleate 0.5 % Oph Belkis 5 Ml Drbtl) 1 drop EYE-BOTH BID [facility] Last Admin: 12/31/24 20:40 Dose: 1 drop Documented By: JOSE ALFREDO Tramadol HCl (Tramadol Hcl 50 Mg Tablet) 50 mg PO Q6H PRN PRN Reason: Pain, Moderate(Pain Scale 4-6) Labs 01/01/25 05:26 01/01/25 05:26 Labs: Laboratory Results - last 24 hr 12/31/24 12/31/24 01/01/25 08:49 12:48 05:26 MCV 79.0 L MCH 23.1 L MCHC 29.2 L RDW 14.7 Plt Count 214 MPV 10.0 Immature Gran % (Auto) 0.6 H Neut % (Auto) 61.8 Lymph % (Auto) 24.2 [place] % (Auto) 9.7 Eos % (Auto) 3.0 Baso % (Auto) 0.7 Lymph # (Auto) 1.6 [place] # (Auto) 0.7 Eos # (Auto) 0.2 Baso # (Auto) 0.1 Abs Immat Gran (auto) 0.04 H Absolute Neuts (auto) 4.2 Absolute Nucleated RBC 0.000 Nucleated RBC % (auto) 0.0 Hold Purple Top SEE NOTE Anion Gap 11 L Estim Creat Clear Calc 51.1 Estimated GFR > 60 Random Glucose 123 H Calcium 7.9 L D Iron 28 L TIBC 246 % Saturation 11 L Unsat Iron Binding 218 Vitamin B12 166 L Folate 7.1 Stool Occult Blood NEGATIVE Microbiology Microbiology Results: Microbiology 12/31/24 02:35 Blood Culture - Preliminary Blood - Venous No growth after 24 hours. 12/31/24 02:19 Blood Culture - Preliminary Blood - Venous No growth after 24 hours. Assessment and Plan (1) Acute UTI: Status: Acute Plan Patient is an 89-year-old male with a past medical history significant for chronic suprapubic catheter secondary to neurogenic bladder, CHF, AFib on Eliquis, aortic stenosis and frequent UTIs, who presented to the ED after fall. subrapubic tube with purulent drainage, pt asx, UA + Acute UTI Failed recent outpt bactrim ceftriaxone, prior cultures proteus in urine cultures pending follow CBC and BMP anemia of chronic disease, Hgb lower <7, no active bleed ? phlebotomy related occult blood negative Iron low, B12 ok monitor CBC transfuse 1 unit unlikely candidate for intervention continue eliquis for now, while closely monitoring H/H acute lactic acidosis, resolved ikely secondary to dehydration Fall with scalp lac briana placed in ED will need to f/u outpt for staple removal PT paroxysmal a fib eliquis and amiodarone chronic HFrEF, no acute exacerbation continue home meds med rec pending full code VTE prophy: eliquis Quality Stroke Does the patient have a stroke diagnosis?: No VTE Prior VTE?: No VTE Risk Level:: Medical - moderate - high VTE Device Contraindication: Treatment Not Indicated VTE Drug Contraindication: N/A - Med Ordered
[2025-01-01] MEDS: timoloL maleate 0.5 % Oph Sol 5 ML DRBTL 1 DROP EYE-BOTH ×2 (08:28→20:16)
--- NOTE | 2025-01-01 09:36 | MHC.CLN ---
CONSULT DIET RX: REGULAR. INCREASED NUTRITION NEEDS DUE TO IMPAIRED SKIN INTEGRITY INCLUDING DTI BILATERAL BUTTOCKS. ADDING ENSURE MAX BID TO PROMOTE SKIN INTEGRITY. SUPPLEMENT PROVIDES 300 KCALS, 60 G PROTEIN. PO INTAKE 2 MEALS X 75%. FOLLOW FOR PO INTAKE AND SKIN INTEGRITY. SEE CLINICAL NUTRITION ASSESSMENT 01/01/25.
--- NOTE | 2025-01-01 13:46 | MHC.CM.PN ---
PT LIVES ALONE HAS FAMILY SUPPORT IS ACTIVE WITH [facility] AND HAS [facility]OW DC PLAN HOME WITH FAMILY SUPPORT [facility] AND [facility]
[2025-01-01] MEDS: Latanoprost 0.005 % Ophth Sol 2.5 ML DROPS 1 DROP EYE-BOTH (20:17)
[2025-01-01 21:23] LABS: OBS Int Ctl Valid YES; OBS1 NEGATIVE (NEGATIVE)
[2025-01-02] VITALS (7 sets, daily range): BP systolic 101–143; BP diastolic 55–63; PULSE 57–85; RESP 16–20; TEMP 36.5–37.2; O2SAT 95–98
[2025-01-02 07:04] LABS: MANUAL DIFF FLAG NO
[2025-01-02 07:14] LABS: Hematocrit 26.0 % (42.0-52.0); Hemoglobin 7.8 g/dl (14.0-18.0); Imm Gran Abs Auto 0.04 X10*3/uL (0.00-0.03); Imm Gran Pct Auto 0.5 % (0.0-0.4); Lymphocytes Absolute Auto 1.5 X10*3/uL (1.2-4.9); Mean Corpuscular HGB Conc 30.0 g/dl (31.0-36.0); Mean Corpuscular Hemoglobin 23.4 pg (27.0-33.0); Mean Corpuscular Volume 78.1 fL (80.0-98.0); NRBC Abs Auto 0.000 X10*3/uL (0.0-0.012); NRBC Pct Auto 0.0 /100WBC (0.0-0.2); Platelet Count 215 X10*3/uL (160-400); Red Blood Count 3.33 X10*6/uL (4.60-5.80); White Blood Count 7.7 X10*3/uL (4.8-10.8)
[2025-01-02 07:52] LABS: Anion Gap 9 (12-20); Blood Urea Nitrogen 22 mg/dL (9-16); Calcium 8.0 mg/dL (8.4-10.2); Carbon Dioxide 25 mmol/L (22-29); Chloride 108 mmol/L (96-108); Creatinine Clr Calc Pharmacy 47.7; Estimated Glomerular Filt Rate > 60; Potassium 3.7 mmol/L (3.3-5.1); Sodium 138 mmol/L (135-145)
[2025-01-02] MEDS: timoloL maleate 0.5 % Oph Sol 5 ML DRBTL 1 DROP EYE-BOTH ×2 (08:18→20:04)
[2025-01-02] MEDS: 0.9 % Sodium Chloride Flush 3 ML SYRINGE IVFLUSH ×2 (08:19→20:04)
--- NOTE | 2025-01-02 08:33 | P.PNIM_ITS ---
Subjective Subjective Date of Service: 01/02/25 Interval History: f/u on uti, anemia H/H lower, no obvious sings of bleeding, s/p 1 unit o rbc with improvement no obvious source of bleed urine culture is negative, no fever Physical Exam 2 Vital Signs: Vital Signs: Last Vital Signs Temp 98.2 F 01/02/25 07:46 Pulse 57 01/02/25 07:46 Resp 18 01/02/25 07:46 BP 117/56 L 01/02/25 07:46 Pulse Ox 95 01/02/25 07:46 O2 Del Method Room Air 01/02/25 07:46 BMI result Body Mass Index 22.6 Const: Other: General: AO X 3, no acute distress Resp: CTA bilateral CVS: S1,S2,RRR GI: +BS, NT, no distention Skin: No rash Neuro: motor grossly intact Psych: appropriate affect Objective Data Active Medications Acetaminophen (Acetaminophen 325 Mg Tablet) 650 mg PO Q6H PRN PRN Reason: Pain, Mild 1-3,fever,headache Amiodarone HCl (Amiodarone Hcl 200 Mg Tablet) 200 mg PO DAILY [facility] Last Admin: 01/02/25 08:19 Dose: 200 mg Documented By: BENJAMIN Apixaban (Apixaban 5 Mg Tablet) 5 mg PO BID [facility] Last Admin: 01/02/25 08:19 Dose: 5 mg Documented By: BENJAMIN Ascorbic Acid (Ascorbic Acid 500 Mg Tablet) 1,000 mg PO DAILY [facility] Last Admin: 01/02/25 08:18 Dose: 1,000 mg Documented By: BENJAMIN Calcium Carbonate (Calcium Carbonate 750 Mg Tab.Chew) 750 mg PO Q4H PRN PRN Reason: Heartburn Finasteride (Finasteride 5 Mg Tablet) 5 mg PO DAILY [facility] Last Admin: 01/02/25 08:19 Dose: 5 mg Documented By: BENJAMIN Furosemide (Furosemide 20 Mg Tablet) 20 mg PO DAILY PRN; Protocol PRN Reason: weight gain> 3lb or leg swelling Ceftriaxone Sodium 1 gm/ (Sodium Chloride) 50 mls @ 100 mls/hr IV Q24H [facility] Last Infusion: 01/02/25 03:03 Dose: Infused Documented By: ISAC Latanoprost (Latanoprost 0.005 % Ophth Belkis 2.5 Ml Drops) 1 drop EYE-BOTH BEDTIME [facility] Last Admin: 01/01/25 20:17 Dose: 1 drop Documented By: ISAC Magnesium Hydroxide (Milk Of Magnesia 30 Ml Oral.Susp) 30 ml PO DAILY PRN PRN Reason: Constipation Melatonin (Melatonin 3 Mg Tablet) 6 mg PO BEDTIME PRN PRN Reason: Insomnia Non-Formulary Medication (Brinzolamide-Brimonidine [Simbrinza]) 1 drop EYE-BOTH BID [facility] Ondansetron HCl (Ondansetron Hcl 4 Mg/2 Ml Vial) 4 mg IVPUSH Q8H PRN PRN Reason: Nausea and Vomiting Oxycodone HCl (Oxycodone Hcl Immed Release 5 Mg Tablet) 5 mg PO Q6H PRN PRN Reason: Pain, Severe (Pain Scale 7-10) Pravastatin Sodium (Pravastatin Sodium 40 Mg Tablet) 40 mg PO DAILY [facility] Last Admin: 01/02/25 08:19 Dose: 40 mg Documented By: BENJAMIN Sodium Chloride (0.9 % Sodium Chloride Flush 3 Ml Syringe) 3 ml IVFLUSH QSHIFT [facility] Last Admin: 01/02/25 08:19 Dose: 3 ml Documented By: BENJAMIN Timolol Maleate (Timolol Maleate 0.5 % Oph Belkis 5 Ml Drbtl) 1 drop EYE-BOTH BID [facility] Last Admin: 01/02/25 08:18 Dose: 1 drop Documented By: BENJAMIN Tramadol HCl (Tramadol Hcl 50 Mg Tablet) 50 mg PO Q6H PRN PRN Reason: Pain, Moderate(Pain Scale 4-6) Labs 01/02/25 06:41 01/02/25 06:41 Labs: Laboratory Results - last 24 hr 01/01/25 01/01/25 01/01/25 05:26 07:34 20:59 MCV MCH MCHC RDW Plt Count MPV Immature Gran % (Auto) Neut % (Auto) Lymph % (Auto) [place] % (Auto) Eos % (Auto) Baso % (Auto) Lymph # (Auto) [place] # (Auto) Eos # (Auto) Baso # (Auto) Abs Immat Gran (auto) Absolute Neuts (auto) Absolute Nucleated RBC Nucleated RBC % (auto) Smear Path Review SEE NOTE Anion Gap Estim Creat Clear Calc Estimated GFR Random Glucose Calcium Stool Occult Blood NEGATIVE Blood Type O Positive Antibody Screen NEGATIVE Crossmatch See Detail 01/02/25 06:41 MCV 78.1 L MCH 23.4 L MCHC 30.0 L RDW 14.6 Plt Count 215 MPV 9.7 Immature Gran % (Auto) 0.5 H Neut % (Auto) 66.9 Lymph % (Auto) 19.2 L [place] % (Auto) 9.2 Eos % (Auto) 3.4 Baso % (Auto) 0.8 Lymph # (Auto) 1.5 [place] # (Auto) 0.7 Eos # (Auto) 0.3 Baso # (Auto) 0.1 Abs Immat Gran (auto) 0.04 H Absolute Neuts (auto) 5.1 Absolute Nucleated RBC 0.000 Nucleated RBC % (auto) 0.0 Smear Path Review Anion Gap 9 L Estim Creat Clear Calc 47.7 Estimated GFR > 60 Random Glucose 105 Calcium 8.0 L Stool Occult Blood Blood Type Antibody Screen Crossmatch Microbiology Microbiology Results: Microbiology 12/31/24 02:35 Blood Culture - Preliminary Blood - Venous No growth after 48 hours. 12/31/24 02:19 Blood Culture - Preliminary Blood - Venous No growth after 48 hours. 12/31/24 Unknown Urine Culture - Preliminary Urine Other - Suprapubic Culture in progress. Assessment and Plan (1) Acute UTI: Status: Acute Plan Patient is an 89-year-old male with a past medical history significant for chronic suprapubic catheter secondary to neurogenic bladder, CHF, AFib on Eliquis, aortic stenosis and frequent UTIs, who presented to the ED after fall. subrapubic tube with purulent drainage, pt asx, UA + Acute UTI Failed recent outpt bactrim, culture now negaive ceftriaxone, prior cultures proteus in urine, change abx to ceftin at dc wbc is within normal anemia of chronic disease, Hgb lower <7, no active bleed ? phlebotomy related occult blood negative Iron low, B12 ok monitor CBC transfuse 1 unit yesterday, another unit today unlikely candidate for intervention but will get GI opinion continue eliquis for now, while closely monitoring H/H acute lactic acidosis, resolved ikely secondary to dehydration Fall with scalp lac briana placed in ED will need to f/u outpt for staple removal PT paroxysmal a fib eliquis and amiodarone chronic HFrEF, no acute exacerbation continue home meds med rec pending full code VTE prophy: lucho Possible dc later today Quality Stroke Does the patient have a stroke diagnosis?: No VTE Prior VTE?: No VTE Risk Level:: Medical - moderate - high VTE Device Contraindication: Treatment Not Indicated VTE Drug Contraindication: N/A - Med Ordered
--- NOTE | 2025-01-02 10:20 | P.CNGI_ITS ---
History of Present Illness Data of Consult Service Date: 01/02/25 Requesting physician: Guanako Romano Primary Care Provider: Unknown Physician HPI Reason for consult: anemia, conncern for gib 89 YM with chronic suprapubic catheter secondary to neurogenic bladder, CHF, AFib on Eliquis, aortic stenosis and frequent UTIs, admitted to [facility] on 12/31/24 after a fall. Pt is status post abdominal perineal resection after neoadjuvant chemotherapy and radiation for rectal cancer in 2016. The patient reported that he tripped over his walker and hit the back of his head. Pt denied headache, chest pain, shortness of breath, nausea, vomiting, abdominal pain. He reported that he was recently treated for UTI in the end of November and completed the antibiotics. GI consulted for acute in chronic anemia anemia of chronic disease, Hgb lower <7, no active bleed ? phlebotomy related Iron studies cw anemia of chronic disease, Vitamin B 12 low at 166 occult blood negative Pt was transfused 1 unit yesterday, and a 2nd unit is being transfused today PMFSH Past Medical History Medical History Wound drainage Hypotonic neurogenic bladder DVT (deep venous thrombosis) At risk for bleeding related to anticoagulants Pressure ulcer of back Soft tissue mass Incomplete emptying of bladder Dysuria Pyuria H/O urinary retention Rectal adenocarcinoma Melanoma Fibroma Skin cancer Fracture of right ankle Glaucoma Family History Family History Sister Lung cancer Maternal Aunt Breast cancer Mother Breast cancer Surgical History Surgical History History of surgery Hx of abdominoplasty Hx of tonsillectomy Hx of colonoscopy Social History Social History Household Members: None Housing: House Are you a primary child care worker to a significant other at home: No Do you presently have visiting nurse or other home services: Yes ([facility] services) Alcohol intake: former Patient Tobacco Use Status: Former Tobacco user Cigarette Packs Per Day: 3 Advance Directives Date on File: 01/26/24 service: No Current occupational status: retired Meds Allergies Allergy/AdvReac Type Severity Reaction Status Date / Time No Known Allergies (No Known Allergy Verified 12/31/24 01:55 Allergies*) Active Medications: Current Medications Acetaminophen (Acetaminophen 325 Mg Tablet) 650 mg PO Q6H PRN PRN Reason: Pain, Mild 1-3,fever,headache Amiodarone HCl (Amiodarone Hcl 200 Mg Tablet) 200 mg PO DAILY [facility] Last Admin: 01/02/25 08:19 Dose: 200 mg Apixaban (Apixaban 5 Mg Tablet) 5 mg PO BID [facility] Last Admin: 01/02/25 08:19 Dose: 5 mg Ascorbic Acid (Ascorbic Acid 500 Mg Tablet) 1,000 mg PO DAILY [facility] Last Admin: 01/02/25 08:18 Dose: 1,000 mg Calcium Carbonate (Calcium Carbonate 750 Mg Tab.Chew) 750 mg PO Q4H PRN PRN Reason: Heartburn Finasteride (Finasteride 5 Mg Tablet) 5 mg PO DAILY [facility] Last Admin: 01/02/25 08:19 Dose: 5 mg Furosemide (Furosemide 20 Mg Tablet) 20 mg PO DAILY PRN; Protocol PRN Reason: weight gain> 3lb or leg swelling Ceftriaxone Sodium 1 gm/ (Sodium Chloride) 50 mls @ 100 mls/hr IV Q24H [facility] Last Infusion: 01/02/25 03:03 Dose: Infused Latanoprost (Latanoprost 0.005 % Ophth Belkis 2.5 Ml Drops) 1 drop EYE-BOTH BEDTIME [facility] Last Admin: 01/01/25 20:17 Dose: 1 drop Magnesium Hydroxide (Milk Of Magnesia 30 Ml Oral.Susp) 30 ml PO DAILY PRN PRN Reason: Constipation Melatonin (Melatonin 3 Mg Tablet) 6 mg PO BEDTIME PRN PRN Reason: Insomnia Non-Formulary Medication (Brinzolamide-Brimonidine [Simbrinza]) 1 drop EYE-BOTH BID [facility] Ondansetron HCl (Ondansetron Hcl 4 Mg/2 Ml Vial) 4 mg IVPUSH Q8H PRN PRN Reason: Nausea and Vomiting Oxycodone HCl (Oxycodone Hcl Immed Release 5 Mg Tablet) 5 mg PO Q6H PRN PRN Reason: Pain, Severe (Pain Scale 7-10) Pravastatin Sodium (Pravastatin Sodium 40 Mg Tablet) 40 mg PO DAILY [facility] Last Admin: 01/02/25 08:19 Dose: 40 mg Sodium Chloride (0.9 % Sodium Chloride Flush 3 Ml Syringe) 3 ml IVFLUSH QSHIFT [facility] Last Admin: 01/02/25 08:19 Dose: 3 ml Timolol Maleate (Timolol Maleate 0.5 % Oph Belkis 5 Ml Drbtl) 1 drop EYE-BOTH BID [facility] Last Admin: 01/02/25 08:18 Dose: 1 drop Tramadol HCl (Tramadol Hcl 50 Mg Tablet) 50 mg PO Q6H PRN PRN Reason: Pain, Moderate(Pain Scale 4-6) Home Medications ?Medication ?Instructions ?Recorded ?Confirmed ?Last Taken ?Type latanoprost 0.005 % eye drops 1 drp ophthalmic (eye) B EDTIME 01/05/20 12/31/24 09/16/23 History (Xalatan) pravastatin 40 mg tablet 1 tab PO DAILY 01/05/2008/1912/30/24 History brinzolamide 1 %-brimonidine 0.2 % 1 drp ophthalmic (e ye) BID 08/24/20 12/31/24 12/30/24 History eye drops,suspension (Simbrinza) timolol maleate 0.5 % eye drops 1 drp ophthalmic (eye) BID 09/18/23 12/31/24 12/30/24 History finasteride 5 mg tablet 5 mg PO DAILY 12/31/2412/3112/30/24 History sulfamethoxazole 800 1 tab PO BID PRN catheter ch aki 12/31/24 12/31/24 12/17/24 History mg-trimethoprim 160 mg tablet (Bactrim DS) Physical Exam 2 Vital Signs: Vital Signs: Last Vital Signs Temp 98.2 F 01/02/25 07:46 Pulse 57 01/02/25 07:46 Resp 18 01/02/25 07:46 BP 117/56 L 01/02/25 07:46 Pulse Ox 95 01/02/25 07:46 O2 Del Method Room Air 01/02/25 07:46 BMI result Body Mass Index 22.6 Results Labs 01/02/25 06:41 01/02/25 06:41 Labs: Short CBC 01/02/25 Range/Units 06:41 WBC 7.7 (4.8-10.8) X10*3/uL Hgb 7.8 L (14.0-18.0) g/dl Hct 26.0 L (42.0-52.0) % Plt Count 215 (160-400) X10*3/uL BMP 01/02/25 06:41 Sodium 138 Potassium 3.7 Chloride 108 Carbon Dioxide 25 BUN 22 H Creatinine 1.05 Calcium 8.0 L Microbiology Microbiology Results: Microbiology 12/31/24 02:35 Blood - Venous Blood Culture - Preliminary No growth after 48 hours. 12/31/24 02:19 Blood - Venous Blood Culture - Preliminary No growth after 48 hours. 12/31/24 Unknown Urine Other - Suprapubic Urine Culture - Preliminary Culture in progress. Assessment and Plan (1) Anemia: Status: Acute Procedures Date of Service Date of Service: 01/02/25
[2025-01-02] MEDS: Latanoprost 0.005 % Ophth Sol 2.5 ML DROPS 1 DROP EYE-BOTH (20:04)
[2025-01-03 03:25] VITALS: BP 105/51; PULSE 62; RESP 18; TEMP 36.2; O2SAT 93
[2025-01-03 06:35] LABS: MANUAL DIFF FLAG NO
[2025-01-03 06:46] LABS: Hematocrit 27.4 % (42.0-52.0); Hemoglobin 8.3 g/dl (14.0-18.0); Imm Gran Abs Auto 0.06 X10*3/uL (0.00-0.03); Imm Gran Pct Auto 0.9 % (0.0-0.4); Lymphocytes Absolute Auto 1.5 X10*3/uL (1.2-4.9); Mean Corpuscular HGB Conc 30.3 g/dl (31.0-36.0); Mean Corpuscular Hemoglobin 23.9 pg (27.0-33.0); Mean Corpuscular Volume 78.7 fL (80.0-98.0); NRBC Abs Auto 0.000 X10*3/uL (0.0-0.012); NRBC Pct Auto 0.0 /100WBC (0.0-0.2); Platelet Count 218 X10*3/uL (160-400); Red Blood Count 3.48 X10*6/uL (4.60-5.80); White Blood Count 6.9 X10*3/uL (4.8-10.8)
[2025-01-03 07:00] LABS: Anion Gap 10 (12-20); Blood Urea Nitrogen 24 mg/dL (9-16); Calcium 8.1 mg/dL (8.4-10.2); Carbon Dioxide 26 mmol/L (22-29); Chloride 106 mmol/L (96-108); Creatinine Clr Calc Pharmacy 55.6; Estimated Glomerular Filt Rate > 60; Potassium 3.8 mmol/L (3.3-5.1); Sodium 138 mmol/L (135-145)
[2025-01-03 07:16] LABS: Ferritin 32 ng/mL (20-250)
[2025-01-03 07:41] VITALS: BP 109/52; PULSE 63; RESP 18; TEMP 36.4; O2SAT 96
--- NOTE | 2025-01-03 08:45 | P.DS_ITS ---
DS: Providers Provider Date of Service: 01/03/25 Date of admission: 12/31/24 06:31 Date of discharge: 01/03/25 Primary care physician: Unknown Physician Consults: 12/31/24 09:52 Consult to Wound Care Routine Consulting Provider: [facility] Reason for consultation: ? DTI to buttock 01/02/25 08:31 Consult to Gastroenterology Routine Consulting Provider: [facility] Reason for consultation: anemia, conncern for gib Has provider been notified: No DS: Diagnosis Discharge Diagnosis (1) Anemia: Status: Acute DS: Summary Hospital Course Hospital Course: Admission hpi Chief Complaint: fall Patient is an 89-year-old male with a past medical history significant for chronic suprapubic catheter secondary to neurogenic bladder, CHF, AFib on Eliquis, aortic stenosis and frequent UTIs, who presented to the ED after fall. The patient reported that he tripped over his walker and hit the back of his head. He denies any current complaints including headache, chest pain, shortness of breath, nausea, vomiting, abdominal pain. He denies any symptoms precipitating his fall. He reports that he was recently treated for UTI in the end of November and completed the antibiotics. Hosptal course: Patient is an 89-year-old male with a past medical history significant for chronic suprapubic catheter secondary to neurogenic bladder, CHF, AFib on Eliquis, aortic stenosis and frequent UTIs, who presented to the ED after fall. subrapubic tube with purulent drainage, pt was assymptomatic but UA +. Patient was admitted for further management of UTI, sepsis and hospital course was further complicated by Anemia that required transfusion. Acute UTI, treated with IV ceftriaxone, urine culture noted for Providencia rettgeri sensitive to Ceftriaxone. He is presently afebrile, normal WBC and assymptomatic and will transition to oral Ceftin for a total of 10 days. anemia of chronic disease, he presented with hemoglobin of 8.8 and dropped to 6.8 the next day, occult blood is negative. He has been transfused 2 units of RBC, and hemoglobin is now 8.3, eliquis is continue. GI was consulted and no intervention is planned at this time, he will need surveillance CBC and if hemoglobin and hematocrit continue to drop, EGD and/or colonoscopy may need to be revisited. Further testing have shown low B12, and will give given B12 replacement with IM in the hospital follow by oral 1000 mcg daily and outpatient follow up with Heme office, he has no neurological symptoms related to this, B12 deficiency maybe playing significant role in the the anemia. acute lactic acidosis, resolved ikely secondary to dehydration Fall with scalp lac briana placed in ED will need to f/u outpt for staple removal PT paroxysmal a fib eliquis and amiodarone chronic HFrEF, no acute exacerbation continue home meds Physical Exam Vital Signs: Vital Signs: Last Vital Signs Temp 97.6 F 01/03/25 07:41 Pulse 63 01/03/25 07:41 Resp 18 01/03/25 07:41 BP 109/52 L 01/03/25 07:41 Pulse Ox 96 01/03/25 07:41 O2 Del Method Room Air 01/03/25 07:41 BMI result Body Mass Index 22.6 DS: Data Data Completed and Pending Completed studies during hospitalization [Text1]: Procedures Destruction of Bladder, Via Natural or Artificial Opening Endoscopic (09/18/23) Drainage of Bladder with Drainage Device, Percutaneous Endoscopic Approach (09/18/23) Insertion of Intraluminal Device into Inferior Vena Cava, Percutaneous Approach (09/18/23) Introduction of Vasopressor into Peripheral Vein, Percutaneous Approach (01/25/24) Quaker of Cardiac Rhythm, Single (01/25/24) Ultrasonography of Heart with Aorta, Transesophageal (01/25/24) Labs on day of discharge: Laboratory Results - last 24 hr 01/01/25 01/03/25 07:34 05:22 WBC 6.9 RBC 3.48 L Hgb 8.3 L Hct 27.4 L MCV 78.7 L MCH 23.9 L MCHC 30.3 L RDW 15.2 Plt Count 218 MPV 9.9 Immature Gran % (Auto) 0.9 H Neut % (Auto) 63.4 Lymph % (Auto) 21.1 [place] % (Auto) 9.8 Eos % (Auto) 4.2 H Baso % (Auto) 0.6 Lymph # (Auto) 1.5 [place] # (Auto) 0.7 Eos # (Auto) 0.3 Baso # (Auto) 0.0 Abs Immat Gran (auto) 0.06 H Absolute Neuts (auto) 4.4 Absolute Nucleated RBC 0.000 Nucleated RBC % (auto) 0.0 Sodium 138 Potassium 3.8 Chloride 106 Carbon Dioxide 26 Anion Gap 10 L BUN 24 H Creatinine 0.90 Estim Creat Clear Calc 55.6 Estimated GFR > 60 Random Glucose 99 Calcium 8.1 L Ferritin 32 Blood Type O Positive Antibody Screen NEGATIVE Crossmatch See Detail Preliminary micro results at discharge 12/31/24 02:35 Blood Culture - Preliminary Blood - Venous No growth after 48 hours. 12/31/24 02:19 Blood Culture - Preliminary Blood - Venous No growth after 48 hours. Discharge Plan Discharge Anticipated Discharge Date/Time: 01/03/25 08:46 Patient Disposition: Home Health Service Discharge Diagnosis: Sepsis, UTI, anemia Referrals: Inna Little MD [Physician, Hematology & Oncology] - 1 Week Referral Note: B12 deficiency Physician,Ivette J [Primary Care Provider, Medical] - 1 Week Discharge Medications: New cyanocobalamin (vitamin B-12) 1,000 mcg capsule 1,000 mcg PO DAILY Qty: 60 0RF cefuroxime axetil 250 mg tablet 250 mg PO BID Qty: 12 0RF Continued amiodarone 200 mg tablet 200 mg PO DAILY Qty: 90 3RF latanoprost [Xalatan] 0.005 % drops 1 drp ophthalmic (eye) BEDTIME pravastatin 40 mg tablet 1 tab PO DAILY timolol maleate 0.5 % drops 1 drp ophthalmic (eye) BID finasteride 5 mg Tablet 5 mg PO DAILY Simbrinza 1-0.2 % drops,suspension 1 drp ophthalmic (eye) BID furosemide 20 mg tablet 20 mg PO DAILY PRN (Reason: weight gain> 3lb or leg swelling) Qty: 30 2RF Protocol: Hold for SBP< HOLD for SBP < : 90 Eliquis 5 mg tablet 5 mg PO BID Qty: 60 5RF methenamine hippurate 1 gram tablet 1 g PO DAILY 90 Days Qty: 90 1RF ascorbic acid (vitamin C) 1,000 mg tablet 1 g PO DAILY 90 Days Qty: 90 1RF Discontinued sulfamethoxazole-trimethoprim [Bactrim DS] 800-160 mg tablet 1 tab PO BID MDD 2 PRN (Reason: catheter change) Rx Instructions: Take 1 tablet in the morning and in the afternoon of suprapubic tube change x 1 day only on day of catheter change, which is done monthly Discharge Orders: Discharge Order (Routine); Ordered 01/03/25 Ordered By: Guanako Mlapah Diet: Advance to usual diet Activity on Discharge: As tolerated Stand Alone Forms: Patient Portal Discharge page Print Language: Finnish Other Ambulatory Orders: Complete Blood Count no Diff (Routine) Timeframe: [id number] Facility: [facility] - Location: Laboratory Ordered By: Guanako Romano Care Plan Goals: recovery from UTI, sepsis, anemia Health Concerns: UTI, anemia, sepsis Plan of Treatment: Take Cefuroxime as directed for UTI Take Vitamin B12 for deficiency and follow up with hematology clinic Follow up with your Doctor in a week Visiting nurse to remove briana in 2 to 3 days Assessment: see above
[2025-01-03] MEDS: timoloL maleate 0.5 % Oph Sol 5 ML DRBTL 1 DROP EYE-BOTH (09:14)
--- NOTE | 2025-01-03 12:39 | P.F2F_ITS ---
Service Date Service Date: 01/03/25 Encounter Date of encounter: 01/03/25 Reasons for Services Signs and symptoms assessed: weakness and fall Reason for residential: medication management, medication treatment and teach disease management Reason for physical therapy: therapeutic exercises and gait/transfer training Homebound: Leaving the home is medically contraindicated at this time without the asist of a device and/or another person due th the listed conditions above and below. Reason homebound: unsteady gait / fall risk Homebound supporting statement: Homebound due recent fall with laceration to scalp, weakness, anemia, uti with sepsis still recovering from this and therefore needs the assistance of another person Certification: Based on the above findings, I certify that this patient is confined to the home and needs intermittent residential care, physical therapy and/or speech therapy, or continues to need occupational therapy. The patient is under my care, and I have initiated the establishment of the plan of care. The patient will be followed by a physician who will periodically review the plan of care. Time Spent With Patient Time: Total time managing care of this patient today ____ minutes.
[2025-01-03 13:26] VITALS: BP 114/55; PULSE 68; RESP 18; TEMP 36.7; O2SAT 97
== END 2025-01-03 13:51 | disposition home health service (06) | DRG 699 ==
LOC: HO.ED 03:49 → HO.EDOVER 06:34 → HO.S3 19:42
PROVIDERS: Internal Medicine Gastroenterology; Physician Assistant; Admitting Provider Physician Assistant; Emergency Provider Emergency Medicine; Visit Provider Internal Medicine
DX: T83.518A Infection and inflammatory reaction due to other urinary catheter, initial encounter (principal); E87.21 Acute metabolic acidosis; N39.0 Urinary tract infection, site not specified; I50.22 Chronic systolic (congestive) heart failure; Y73.8 Miscellaneous gastroenterology and urology devices associated with adverse incidents, not elsewhere classified; N31.9 Neuromuscular dysfunction of bladder, unspecified; E86.0 Dehydration; D63.8 Anemia in other chronic diseases classified elsewhere; B96.89 Other specified bacterial agents as the cause of diseases classified elsewhere; S01.01XA Laceration without foreign body of scalp, initial encounter; W19.XXXA Unspecified fall, initial encounter; Z85.048 Personal history of other malignant neoplasm of rectum, rectosigmoid junction, and anus; Z87.891 Personal history of nicotine dependence; Z87.440 Personal history of urinary (tract) infections; Z79.01 Long term (current) use of anticoagulants; Z79.899 Other long term (current) drug therapy
CPT/HCPCS: 36415; 70450; 72125; 80048; 80053; 81001; 82272; 82607; 82728; 82746; 83540; 83605; 83921; 85025; 86850; 86900; 86901; 86923; 87040; 87086; 87088; 87186; 90656; 97162; 99285; J0696; J3420; J7120; P9016

== ENCOUNTER → 2024-12-31 03:20 | Outpatient (BNV) | payer MEDICARE, SELFPAY | PROVIDERS: Emergency Provider Emergency Medicine; Visit Provider Radiology Vascular & Interventional Radiology | DX: S09.90XA Unspecified injury of head, initial encounter (principal); M47.812 Spondylosis without myelopathy or radiculopathy, cervical region; S00.03XA Contusion of scalp, initial encounter; Z04.3 Encounter for examination and observation following other accident | CPT/HCPCS: 70450; 72125 ==

== ENCOUNTER → 2024-12-31 06:31 | Outpatient (BNV) | payer MEDICARE, SELFPAY | PROVIDERS: Admitting Provider Physician Assistant; Emergency Provider Emergency Medicine; Visit Provider Internal Medicine | DX: N39.0 Urinary tract infection, site not specified (principal) | CPT/HCPCS: 99222; 99232; 99499 ==

== ENCOUNTER 2025-02-16 14:53 | Outpatient (AMB) | payer MEDICARE, SELFPAY ==
--- OUTSIDE RECORDS SUMMARY | 2015-07-12 23:00 | XMS_ITS | Encounter Summary ---
Author Organization [facility] Address [address] [facility] [address] [place] [address] Phone Care Team Providers Care Septic Tank Setter Name Role Phone Unavailable Primary Care Provider Unavailabl e Reason for Visit * MRI/CAT Scan - Closed Specialty Diagnoses / Procedures Referred By Gopi t Referred To Contact Procedures CT Abdomen Outside (No Interpretation) Albert Butler MD Referral ID Status Reason Start Date Expiration Date Visits Re quested Visits Authorized [id number] Closed 01/06/2016 01/05/2017 1 1 Encounter Details Date Type Department Care Team (Late st Contact Info) Description 07/13/2015 Hospital Encounter [facility] [address] [place] [address] Albert Butler MD Social History Tobacco Use Types Packs/Day Years Used Date Smoking Tobacco: Former Comments:Quit 30 years ago Education Answer Date Recorded Are you interested in more education? Not on amie e 06/22/2022 Are you concerned about learning? Not on file 06/22/2022 No 06/22/2022 No 06/22/2022 Digital Access Answer Date Recorded No 07/23/2022 No 07/23/2022 No 07/23/2022 Reliable internet access at home? Not on file 07/23/2022 Device with a working camera? Not on file Sex and Gender Information Value Date Recorded Sex Assigned at Not on file Legal Sex Male 11:31 AM EDT Gender Identity Not on file Sexual Orientation Not on file documented as of this encounter Plan of Treatment Not on file documented as of this encounter Procedures Procedure Name Priority Date/Time Associated Diagnosis Comments CT ABDOMEN OUTSIDE (NO INTERPRETATION) Routine 07/13/2015 12:00 AM EDT documented in this encounter Results * CT Abdomen Outside (No Interpretation) (07/13/2015 12:00 AM EDT) Narrative [facility] IMG INTERFACES - 01/06/2016 11:48 AM EST This study is for PACS storage only and not for interpretation. us Albert Butler MD IMG OUTSIDE IMAGING W/O UT INTERPRETATION Final Result [facility] IMG INTERFACES documented in this encounter Visit Diagnoses Not on filedocumented in this encounter Additional Source Comments The information contained in this document represents components of the legal health record. It is not the complete legal health record.[facility]
--- OUTSIDE RECORDS SUMMARY | 2015-07-12 23:15 | XMS_ITS | Encounter Summary ---
Author Organization [facility] Address [address] [facility] [address] [place] [address] Phone Care Team Providers Care Direct Care Provider Name Role Phone Unavailable Primary Care Provider Unavailabl e Reason for Visit * MRI/CAT Scan - Closed Specialty Diagnoses / Procedures Referred By Gopi t Referred To Contact Procedures CT Abdomen Outside (No Interpretation) Albert Butler MD Referral ID Status Reason Start Date Expiration Date Visits Re quested Visits Authorized [id number] Closed 01/06/2016 01/05/2017 1 1 Encounter Details Date Type Department Care Team ([facility] st Contact Info) Description 07/13/2015 12:15 AM EDT Hospital Encounter [facility] Imaging [address] [place] [address] Albert Butler MD Social History Tobacco Use [...] CT ABDOMEN OUTSIDE (NO INTERPRETATION) Routine 07/13/2015 12:15 AM EDT documented in this encounter Results * CT Abdomen Outside (No Interpretation) (07/13/2015 12:15 AM EDT) Narrative [facility] IMG INTERFACES - 01/06/2016 11:48 AM EST This study is for PACS storage only and not for interpretation. us Albert Butler MD IMG OUTSIDE IMAGING W/O UT INTERPRETATION Final Result [facility] IMG INTERFACES documented in this encounter Visit Diagnoses Not on filedocumented in this encounter Additional Source Comments The information contained in this document represents components of the legal health record. It is not the complete legal health record.[facility]
--- OUTSIDE RECORDS SUMMARY | 2015-07-19 23:00 | XMS_ITS | Encounter Summary ---
Author Organization [facility] Address [address] [facility] [address] [place] [address] Phone Care Team Providers Care Foreclosure Home Inspector Name Role Phone Unavailable Primary Care Provider Unavailabl e Encounter Details Date Type Department Care Team (Late st Contact Info) Description 07/20/2015 Hospital Encounter [facility] [address] [place] [address] Albert Butler MD Social History Tobacco Use [...] Procedure Name Priority Date/Time Associated Diagnosis Comments XR UPPER EXTREMITY OUTSIDE (NO INTERPRETATION) Routine 07/20/2015 12:00 AM EDT documented in this encounter Results * XR Upper Extremity Outside (No Interpretation) (07/20/2015 12:00 AM EDT) Narrative [facility] IMG INTERFACES - 01/06/2016 11:48 AM EST This study is for PACS storage only and not for interpretation. us Albert Butler MD IMG OUTSIDE IMAGING W/O UT INTERPRETATION Final Result [facility] IM INTERFACES documented in this encounter Visit Diagnoses Not on filedocumented in this encounter Additional Source Comments The information contained in this document represents components of the legal health record. It is not the complete legal health record.[facility]
--- OUTSIDE RECORDS SUMMARY | 2015-07-19 23:15 | XMS_ITS | Encounter Summary ---
Author Organization [facility] Address [address] [facility] [address] [place] [address] Phone Care Team Providers Care Call Person Name Role Phone Unavailable Primary Care Provider Unavailabl e Reason for Visit * MRI/CAT Scan - Closed Specialty Diagnoses / Procedures Referred By Gopi villarreal Referred To Contact Procedures MRI Lower Extremity Outside (No Interpretation) Albert Butler MD Referral ID Status Reason Start Date Expiration Date Visits Re quested Visits Authorized [id number] Closed 01/06/2016 01/05/2017 1 1 Encounter Details Date Type Department Care Team (Late st Contact Info) Description 07/20/2015 12:15 AM EDT Hospital Encounter [facility] Imaging [address] [place] [address] Albert Butler MD Social History Tobacco Use [...] Procedure Name Priority Date/Time Associated Diagnosis Comments MRI LOWER EXTREMITY OUTSIDE (NO INTERPRETATION) Routine 07/20/2015 12:15 AM EDT documented in this encounter Results * MRI Lower Extremity Outside (No Interpretation) (07/20/2015 12:15 AM EDT) Narrative [facility] [place] - 01/06/2016 11:48 AM EST This study is for PACS storage only and not for interpretation. Albert Butler MD IMG OUTSIDE IMAGING W/O UT INTERPRETATION Final Result [facility] [place] [place] documented in this encounter Visit Diagnoses Not on filedocumented in this encounter Additional Source Comments The information contained in this document represents components of the legal health record. It is not the complete legal health record.[facility]
--- OUTSIDE RECORDS SUMMARY | 2015-08-02 23:00 | XMS_ITS | Encounter Summary ---
Author Organization [facility] Address [address] [facility] [address] [place] [phone] Phone Care Team Providers Care Pta Name Role Phone Unavailable Primary Care Provider Unavailabl e Reason for Visit * MRI/CAT Scan - Closed Specialty Diagnoses / Procedures Referred By Gopi villarreal Referred To Contact Procedures NM PET Brain Outside (No Interpretation) Albert Butler MD Referral ID Status Reason Start Date Expiration Date Visits Re quested Visits Authorized [id number] Closed 01/06/2016 01/05/2017 1 1 Encounter Details Date Type Department Care Team (Late st Contact Info) Description 08/03/[address] [facility] [address] [place] [address] Albert Butler MD Social History Tobacco Use [...] (No Interpretation) (08/03/2015 12:00 AM EDT) Narrative [facility]G INTERFACES - 01/06/2016 11:47 AM EST This study is for PACS storage only and not for interpretation. us Albert Butler MD IMG OUTSIDE IMAGING W/O UT INTERPRETATION Final Result [facility]AC[facility] documented in this encounter Visit Diagnoses Not on filedocumented in this encounter Additional Source Comments The information contained in this document represents components of the legal health record. It is not the complete legal health record.[facility]
--- OUTSIDE RECORDS SUMMARY | 2015-08-02 23:15 | XMS_ITS | Encounter Summary ---
Author Organization [facility] Address [address] [facility] [address] [place] [phone] Phone Care Team Providers Care Investment Associate Name Role Phone Unavailable Primary Care Provider Unavailabl e Reason for Visit * MRI/CAT Scan - Closed Specialty Diagnoses / Procedures Referred By Gopi villarreal Referred To Contact Procedures NM PET Brain Outside (No Interpretation) Albert Butler MD Referral ID Status Reason Start Date Expiration Date Visits Re quested Visits Authorized [id number] Closed 01/06/2016 01/05/2017 1 1 Encounter Details Date Type Department Care Team (Late st Contact Info) Description 08/03/2015 12:15 AM EDT Hospital Encounter [facility] Imaging [address] [place] [address] Albert Butler MD Social History Tobacco Use [...] PET BRAIN OUTSIDE (NO INTERPRETATION) Routine 08/03/2015 12:15 AM EDT documented in this encounter Results * NM PET Brain Outside (No Interpretation) (08/03/2015 12:15 AM EDT) Narrative [facility] [place] - 01/06/2016 11:47 AM EST This study is for PACS storage only and not for interpretation. Albert Butler MD IMG OUTSIDE IMAGING W/O UT INTERPRETATION Final Result [facility] [place] documented in this encounter Visit Diagnoses Not on filedocumented in this encounter Additional Source Comments The information contained in this document represents components of the legal health record. It is not the complete legal health record.[facility]
--- OUTSIDE RECORDS SUMMARY | 2015-11-14 23:00 | XMS_ITS | Encounter Summary ---
Author Organization [facility] Address [address] [facility] [address] [place] [address] Phone Care Team Providers Care Application Processor Name Role Phone Unavailable Primary Care Provider Unavailabl e Reason for Visit * MRI/CAT Scan - Closed Specialty Diagnoses / Procedures Referred By Gopi villarreal Referred To Contact Procedures MRI Brain Outside (No Interpretation) Albert Butler MD Referral ID Status Reason Start Date Expiration Date Visits Re quested Visits Authorized [id number] Closed 01/06/2016 01/05/2017 1 1 Encounter Details Date Type Department Care Team (Late st Contact Info) Description 11/15/2015 Hospital Encounter [facility] Imaging [address] [place] [address] Albert Butler MD Social History Tobacco Use [...] Name Priority Date/Time Associated Diagnosis Comments MRI BRAIN OUTSIDE (NO INTERPRETATION) Routine 11/15/2015 12:00 AM EDT documented in this encounter Results * MRI Brain Outside (No Interpretation) (11/15/2015 12:00 AM EDT) Narrative [facility] - 01/06/2016 11:46 AM EST This study is for PACS storage only and not for interpretation. us Albert Butler MD IMG OUTSIDE IMAGING W/O UT INTERPRETATION Final Result [facility] [place] documented in this encounter Visit Diagnoses Not on filedocumented in this encounter Additional Source Comments The information contained in this document represents components of the legal health record. It is not the complete legal health record.[facility]
--- OUTSIDE RECORDS SUMMARY | 2015-11-15 23:00 | XMS_ITS | Encounter Summary ---
Author Organization [facility] Address [address] [facility] [address] [place] [address] Phone Care Team Providers Care Fire Protection Designer Name Role Phone Unavailable Primary Care Provider Unavailabl e Reason for Visit * MRI/CAT Scan - Closed Specialty Diagnoses / Procedures Referred By Gopi t Referred To Contact Procedures CT Head Outside (No Interpretation) Albert Butler MD Referral ID Status Reason Start Date Expiration Date Visits Re quested Visits Authorized [id number] Closed 01/06/2016 01/05/2017 1 1 Encounter Details Date Type Department Care Team (Late st Contact Info) Description 11/16/2015 Hospital Encounter [facility] Imaging [address] [place] [address] Albert Butler MD Social History Tobacco Use [...] (No Interpretation) (11/16/2015 12:00 AM EDT) Narrative [facility] [place] - 01/06/2016 11:35 AM EST This study is for PACS storage only and not for interpretation. us Albert Butler MD IMG OUTSIDE IMAGING W/O UT INTERPRETATION Final Result [facility] [place] [facility] [place] documented in this encounter Visit Diagnoses Not on filedocumented in this encounter Additional Source Comments The information contained in this document represents components of the legal health record. It is not the complete legal health record.[facility]
--- OUTSIDE RECORDS SUMMARY | 2015-11-15 23:15 | XMS_ITS | Encounter Summary ---
Author Organization [facility] Address [address] [facility] [address] [place] [address] Phone Care Team Providers Care Gas Plant Repairer Name Role Phone Unavailable Primary Care Provider Unavailabl e Reason for Visit * MRI/CAT Scan - Closed Specialty Diagnoses / Procedures Referred By Gopi t Referred To Contact Procedures CT Chest Outside (No Interpretation) Albert Butler MD Referral ID Status Reason Start Date Expiration Date Visits Re quested Visits Authorized [id number] Closed 01/06/2016 01/05/2017 1 1 Encounter Details Date Type Department Care Team ([facility] st Contact Info) Description 11/16/2015 12:15 AM EDT Hospital Encounter [facility] General Imaging [address] [place] [address] Albert Butler MD Social History Tobacco Use [...] (No Interpretation) (11/16/2015 12:15 AM EDT) Narrative [facility] [place] - 01/06/2016 11:35 AM EST This study is for PACS storage only and not for interpretation. Albert Butler MD IMG OUTSIDE IMAGING W/O UT INTERPRETATION Final Result [facility] [place] [place] [place] documented in this encounter Visit Diagnoses Not on filedocumented in this encounter Additional Source Comments The information contained in this document represents components of the legal health record. It is not the complete legal health record.[facility]
--- OUTSIDE RECORDS SUMMARY | 2015-11-15 23:30 | XMS_ITS | Encounter Summary ---
Author Organization [facility] Address [address] [facility] [address] [place] [address] Phone Care Team Providers Care Historical Society Director Name Role Phone Unavailable Primary Care Provider Unavailabl e Reason for Visit * MRI/CAT Scan - Closed Specialty Diagnoses / Procedures Referred By Gopi t Referred To Contact Procedures CT Abdomen Outside (No Interpretation) Albert Butler MD Referral ID Status Reason Start Date Expiration Date Visits Re quested Visits Authorized [id number] Closed 01/06/2016 01/05/2017 1 1 Encounter Details Date Type Department Care Team ([facility] st Contact Info) Description 11/16/2015 12:30 AM EDT Hospital Encounter [facility] General Imaging [address] [place] [address] Albert Butler MD Social History Tobacco Use [...] Comments CT ABDOMEN OUTSIDE (NO INTERPRETATION) Routine 11/16/2015 12:30 AM EDT documented in this encounter Results * CT Abdomen Outside (No Interpretation) (11/16/2015 12:30 AM EDT) Narrative [facility] [place] [place] - 01/06/2016 11:40 AM EST This study is for PACS [...] is not the complete legal health record.[facility]
[2025-02-16 14:57] VITALS: BP 90/52; PULSE 58
--- NOTE | 2025-02-16 14:57 | A.OFFVIS_ITS ---
Vital Signs 02/16/25 14:57 Height 5 ft 9 in BP 90/52 L Blood Pressure Location Lt brachial Position Sitting Pulse 58 Pulse Source Monitor Intake Visit Reasons: 4 mth f/up Trim Technician Required: No Food Processing Plant Manager: Food Processing Plant Manager Present Allergies No Known Allergies (No Known Allergies*) Allergy (Verified 02/16/25 15:01) Medication List - Last Reconciled 02/16/25 by JANNA Felton amiodarone 200 mg PO DAILY apixaban (Eliquis) 5 mg PO BID ascorbic acid (vitamin C) 1 g PO DAILY 90 days brinzolamide-brimonidine 1-0.2 % (Simbrinza) 1 drp ophthalmic (eye) BID cefixime (Suprax) 400 mg PO DAILY 7 days cyanocobalamin (vitamin B-12) 1,000 mcg PO DAILY ferrous sulfate (iron) 325 mg PO ONCE finasteride 5 mg PO DAILY furosemide 20 mg See Protocol PO DAILY PRN latanoprost 0.005% (Xalatan) 1 drp ophthalmic (eye) BEDTIME methenamine hippurate 1 g PO DAILY 90 days pravastatin 1 tab PO DAILY sulfamethoxazole-trimethoprim 800-160 mg 1 tab PO BID timolol maleate 0.5% 1 drp ophthalmic (eye) BID HPI HPI 4 mth f/up: Details: Edgar is an 89-year-old male with past medical history of PAF 01/2024 that required MARCELINO cardioversion and was put on amiodarone for rhythm control. His initial echo had showed EF 15- 20% with moderate to severe . At the time of his MARCELINO his EF was 25-30%. He did have some decompensated heart failure and was put on furosemide. He was started on Eliquis for anticoagulation and losartan for neurohormonal modulation. On follow-up visit his blood pressure was low, Lasix was made p.r.n. and then losartan was placed on hold. A repeat echocardiogram in February showed EF 50-55%, moderate to severe . Echo 09/17/2024 also showed EF 50-55%, moderate to severe aortic stenosis. He was hospitalized with significant anemia 12/2024 requiring blood transfusions. He was continued on Eliquis and is followed by GI. Today he states he has been feeling well since his last hospital discharge. He denies any concerning symptoms. He is mostly sedentary and ambulates only short distances with a walker. He is sitting for in a wheelchair at this visit. He denies chest discomfort at rest or during activity. No concerning shortness of breath, PND, orthopnea or edema. No heart palpitations, presyncope, syncope, falls. No bleeding issues reported. He still has visiting nurses 2 times weekly. His daughter is present. She is a cardiac nurse and she helps him with his medications. [facility] Medical History Wound drainage Hypotonic neurogenic bladder DVT (deep venous thrombosis) At risk for bleeding related to anticoagulants Pressure ulcer of back Soft tissue mass Incomplete emptying of bladder Dysuria Pyuria H/O urinary retention Rectal adenocarcinoma Melanoma Fibroma Skin cancer Fracture of right ankle Glaucoma Surgical History History of surgery Hx of abdominoplasty Hx of tonsillectomy Hx of colonoscopy Family History Sister Lung cancer Maternal Aunt Breast cancer Mother Breast cancer Social History Household Members: None Housing: House Are you a primary animal care service worker to a significant other at home: No Do you presently have visiting nurse or other home services: Yes ([facility] services) Alcohol intake: former Patient Tobacco Use Status: Former Tobacco user Cigarette Packs Per Day: 3 Advance Directives Date on File: 01/26/24 service: No Current occupational status: retired Review of Systems Const All systems reviewed & are unremarkable except as noted in HPI and below ENT Denies dizziness Card Denies chest pain, Denies chest pain at rest, Denies chest pain with activity, Denies rapid heart rate, Denies pedal edema, Denies edema, Denies leg edema, Denies lightheadedness, Denies palpitations, Denies dyspnea, Denies dyspnea on exertion and Denies orthopnea Resp Denies cough, Denies dyspnea and Denies dyspnea on exertion GI Denies hematochezia and Denies change in stool character Musc Reports abnormal gait, Denies limited range of motion, Denies muscle cramps, Reports muscle weakness, Denies numbness, Denies radiating pain into limb, Denies stiffness and Denies tingling Neuro Reports abnormal gait, Denies dizziness, Denies numbness and Denies tingling Endo Denies palpitations Physical Exam Const General: cooperative, healthy appearing, comfortable and no acute distress Orientation/consciousness: patient oriented x3 Neck Neck: Yes normal visual inspection Resp Effort & Inspection: normal respiratory effort Auscultation: clear to auscultation bilaterally, no rales, no rhonchi and no wheezes Cardio Rate: regular rate Rhythm: regular rhythm Heart sounds: S1 normal heart sound present, S2 normal heart sound present, no gallops, no murmurs and no rubs Skin General skin exam: no rashes or lesions noted Neuro General: patient oriented x3 Extrem General: Yes normal to inspection, No no pedal edema and No calf tenderness Psych Appearance: grossly normal Mental Status: mental status grossly normal Speech and movement: Normal speech and movement present Office Procedures EKG Details: Today, read by me, sinus bradycardia, low-voltage QRS, can not rule out anterior infarct, rate 58, QTC 449 milliseconds [id number], Complete Assessment & Plan Assessment & Plan (1) Atrial fibrillation: Code(s): I48.91 - Unspecified atrial fibrillation Category: Medical Plan: History of atrial fibrillation status post MARCELINO cardioversion and on amiodarone for rhythm control. EKG done today showing sinus bradycardia, rate 58. He is on Eliquis for anticoagulation. Recent admission for anemia requiring transfusion. Following with GI. Continues on Eliquis without reported bleeding at this time. Labs 01/07/2025 showed hematocrit 32.7, labs 01/03/2025 showed creatinine 0.9, recent LFTs normal, last TSH normal at 1.56 on 04/24/2024. Will update labs for amiodarone monitoring prior to next visit. . (2) Cardiomyopathy: Code(s): I42.9 - Cardiomyopathy, unspecified Category: Medical Plan: Cardiomyopathy as described above with EF as low as 15-20% in setting of afib RVR. Most recent echo showing EF 50-55%. CMP Most likely related to AFib with uncontrolled heart rates. Ischemia has not been ruled out. He has no known cardiac history prior to that admission. In the absence of symptoms will Hold off on nuclear stress test at this time. He does have aortic stenosis and may need cardiac catheterization going forward. He is currently not on neurohormonal modulation due to low blood pressures. She was previously on losartan and daily Lasix which were both stopped. He does have Lasix he can use p.r.n. for edema or weight gain. Signs and symptoms of heart failure discussed. (3) Aortic stenosis: Code(s): I35.0 - Nonrheumatic aortic (valve) stenosis Category: Medical Plan: Known aortic stenosis. Appears to be moderate to severe. Murmur is noted on exam. Diagnosis of atrial stenosis and Cardinal signs of severe reviewed with him. Will plan a repeat echocardiogram 8 months from last due 04/2024. (4) Acute on chronic HFrEF (heart failure with reduced ejection fraction): Code(s): I50.23 - Acute on chronic systolic (congestive) heart failure Category: Medical Plan: As above. Compensated at this time. (5) Low BP: Code(s): I95.9 - Hypotension, unspecified Category: Medical Plan: Blood pressure low today, asymptomatic. Need for good hydration reviewed, also use caution when going sitting to standing. Plan - Schedule a heart ultrasound (echocardiogram) before your next visit. - On the same day as your ultrasound, please have blood work done to monitor your amiodarone medication. - Continue your current medications as prescribed. You do not need to take the Lasix (water pill) unless you develop swelling. - To help with your low blood pressure, be sure to drink plenty of fluids and you may add some salt to your diet. - Please call our office if you develop any new symptoms, such as chest pain, shortness of breath, dizziness, or a racing heart. - We will schedule your next follow-up appointment in four months. Patient was informed and verbally consented to the use of an ambient scribe for clinic note documentation during this visit. Visit time spent on chart review, interview, assessment, orders, documentation. Orders: Orders CA echo transthoracic complete 3 Months JANNA Felton I35.0 - Nonrheumatic aortic (valve) stenosis, I48.91 - Unspecified atrial fibrillation, I50.23 - Acute on chronic systolic (congestive) heart failure Comprehensive Met. Panel Today JANNA Felton I48.91 - Unspecified atrial fibrillation TSH reflex Free T4 Today Lucero M Jefferson, ACTIVATED SLUDGE OPERATOR-C I48.91 - Unspecified atrial fibrillation Medications: Changed From ferrous sulfate (iron) 325 mg PO BID 60 tabs 3RF To ferrous sulfate (iron) 325 mg PO ONCE Inna Little MD Coding Level of Care Code Est Pt Level 4 (58824) Add On Problem Visit Only Diagnoses Atrial fibrillation I48.91 Cardiomyopathy I42.9 Aortic stenosis I35.0 Acute on chronic HFrEF (heart failure with reduced ejection fraction) I50.23 Low BP I95.9 CPT Codes EKG - CPT: 72728-[id number], Complete ([id number]) Time Spent (min) 28
--- OUTSIDE RECORDS SUMMARY | 2025-02-16 16:10 | XMS_ITS | Encounter Summary ---
Author Organization [facility] Address [address] [place] [address] Phone Care Team Providers Care Special Delivery Carrier Name Role Phone Travis Gottlieb MD Primary Care Provider [phone] Encounter Details Date Type Department Care Team (Late st Contact Info) Description 01/06/2016 Procedure Pass [facility] [address] [place] [address] Social History Tobacco Use Types Packs/Day Years [...] on filedocumented in this encounter Care Teams Special Delivery Carrier Relationship Specialty Start Date End Date Travis Gottlieb MD PCP - General Family Medicine 12/28/15 documented as of this encounter Additional Source Comments The information contained in this document represents components of the legal health record. It is not the complete legal health record.[facility]
--- OUTSIDE RECORDS SUMMARY | 2025-02-16 16:10 | XMS_ITS | Encounter Summary ---
Author Organization [facility] Address [address] [facility] [address] [place] [address] Phone Care Team Providers Care Neurology Professor Name Role Phone Travis Gottlieb MD Primary Care Provider [phone] [phone] Encounter Details Date Type Department Care Team (Late st Contact Info) Description 01/06/2016 Procedure Pass [facility] [address] [place] [address] Social History Tobacco Use Types Packs/Day Years [...] on filedocumented in this encounter Care Teams Neurology Professor Relationship Specialty Start Date End Date Travis Gottlieb MD PCP - General Family Medicine 12/28/15 documented as of this encounter Additional Source Comments The information contained in this document represents components of the legal health record. It is not the complete legal health record.[facility]
--- OUTSIDE RECORDS SUMMARY | 2025-02-16 16:10 | XMS_ITS | Encounter Summary ---
Author Organization [facility] Address [address] [facility] [address] [place] [address] Phone Care Team Providers Care Dance Studio Manager Name Role Phone Travis Gottlieb MD Primary Care Provider [phone] [phone] Encounter Details Date Type Department Care Team (Late st Contact Info) Description 01/06/2016 Procedure Pass [facility] [address] [place] [address] Social History Tobacco Use Types Packs/Day Years [...] on filedocumented in this encounter Care Teams Dance Studio Manager Relationship Specialty Start Date End Date Travis Gottlieb MD PCP - General Family Medicine 12/28/15 documented as of this encounter Additional Source Comments The information contained in this document represents components of the legal health record. It is not the complete legal health record.[facility]
--- OUTSIDE RECORDS SUMMARY | 2025-02-16 16:11 | XMS_ITS | Encounter Summary ---
Author Organization [facility] Address [address] [facility] [address] [place] [address] Phone Care Team Providers Care Receiving Teller Name Role Phone Travis Gottlieb MD Primary Care Provider [phone] Encounter Details Date Type Department Care Team (Late st Contact Info) Description 01/06/[address] [facility] Imaging [address] [place] [address] Social History Tobacco Use Types Packs/Day Years [...] on filedocumented in this encounter Care Teams Receiving Teller Relationship Specialty Start Date End Date Travis Gottlieb MD PCP - General Family Medicine 12/28/15 documented as of this encounter Additional Source Comments The information contained in this document represents components of the legal health record. It is not the complete legal health record.[facility]
--- OUTSIDE RECORDS SUMMARY | 2025-02-16 16:11 | XMS_ITS | Patient Health Record ---
Author Organization [facility] Address [address] [place] [address] Care Team Providers Care Hotel Assistant General Manager Name Role Phone Travis Gottlieb Primary Care Provider Unavaillatricia e Octavio Foreman Unavailable [phone] Reason For Referral No Information Medications Medication SIG (Take, Route, Fr equency, Duration) Notes Start Date End Date Status Latanoprost Active Dorzolamide-Timolol Active Nattokinase Active Co Q 10 Active Zinc Active Arthro-Complex Activ e Multivitamin & Mineral Active Social History Social History Additional Details Category Social Info Options Details Miscellaneous: Marital status: Occupation: retired Section Notes: Nonsmoker > 40 yrs; no alcoh ol Nonsmoker > 40 yrs; no alcoh ol Problems Problem Type SNOMED Code ICD Code Onset Dates Problem Status W/U Status Risk Notes Problem Blood in stool (999110482) Blood in stool (K92.1) Active confirmed Problem Altered bowel function (30814849) Change in bowel function (R19.4) Active confirmed Problem Abnormal feces (293103391) Heme positive stool (R19.5) Active confirmed Problem Malignant tumor of rectum (953690258) Rectal adenocarcinoma (C20) Active confirmed Plan Of Treatment Future Test Test Name Order Date COLONOSCOPY 06/16/2015 Insurance Providers Payer Name Payer Address Payer Phone Subscriber Number Group Number Insured Name Patient Relationship to Insured Coverage Start Date Coverage End Date [employer] PREF[employer]ED [address] [place] [phone] [id number] COURTNEY GONZALES Self - patient is the insured Medical (General) History Medical History History ICD Code Denies MT,DM,CVA,Lung disease,renal dise ase Negative colonoscopy approx 2005 by his report Glaucoma Colonoscopy in 06/2015 with t he finding of a large rectal mass with biopsies revealing adenocarcinoma Surgical History Surgery Date(Month/Year) broken right ankle tonsillectomy
--- OUTSIDE RECORDS SUMMARY | 2025-02-16 16:11 | XMS_ITS | Encounter Summary ---
Author Organization [facility] Address [address] [place] [address] Phone Care Team Providers Care Senior Grants Officer Name Role Phone Travis Gottlieb MD Primary Care Provider [phone] [phone] Encounter Details Date Type Department Care Team (Late st Contact Info) Description 01/06/2016 Procedure Pass [facility] [address] [place] [address] Social History Tobacco Use Types Packs/Day Years [...] on filedocumented in this encounter Care Teams Senior Grants Officer Relationship Specialty Start Date End Date Travis Gottlieb MD PCP - General Family Medicine 12/28/15 documented as of this encounter Additional Source Comments The information contained in this document represents components of the legal health record. It is not the complete legal health record.[facility]
--- OUTSIDE RECORDS SUMMARY | 2025-02-16 16:11 | XMS_ITS | Encounter Summary ---
Author Organization [facility] Address [address] [facility] [address] [place] [address] Phone Care Team Providers Care Bag Repairer Name Role Phone Travis Gottlieb MD Primary Care Provider [phone] [phone] Encounter Details Date Type Department Care Team (Late st Contact Info) Description 01/06/2016 Procedure Pass [facility] [address] [place] [address] Social History Tobacco Use Types Packs/Day Years [...] on filedocumented in this encounter Care Teams Bag Repairer Relationship Specialty Start Date End Date Travis Gottlieb MD PCP - General Family Medicine 12/28/15 documented as of this encounter Additional Source Comments The information contained in this document represents components of the legal health record. It is not the complete legal health record.[facility]
--- OUTSIDE RECORDS SUMMARY | 2025-02-16 16:11 | XMS_ITS | Encounter Summary ---
Author Organization [facility] Address [address] [place] [address] Phone Care Team Providers Care Ios Architect Name Role Phone Travis Gottlieb MD Primary Care Provider [phone] [phone] Encounter Details Date Type Department Care Team (Late st Contact Info) Description 01/06/2016 Procedure Pass [facility] [address] [place] [address] Social History Tobacco Use Types Packs/Day Years [...] on filedocumented in this encounter Care Teams Ios Architect Relationship Specialty Start Date End Date Travis Gottlieb MD PCP - General Family Medicine 12/28/15 documented as of this encounter Additional Source Comments The information contained in this document represents components of the legal health record. It is not the complete legal health record.[facility]
--- OUTSIDE RECORDS SUMMARY | 2025-02-16 16:11 | XMS_ITS | Clinical Summary ---
Author Organization [facility] Address [address] [place] [address] Phone Care Team Providers Care Health Careers Instructor Name Role Phone Travis Gottlieb MD Primary Care Provider [phone] [phone] Allergies No known active allergies Medications vitamins A,C,E-zinc-francy er (PRESERVISION AREDS) 14,320226-200 anxd-si-sfar Cap Take 2 capsules by mouth daily. Active coenzyme Q10 100 mg capsule Take 100 mg by mouth daily. Active zinc sulfate 220 mg Tab Take 220 mg by mouth daily. Active UBIDECAR/FISH OIL/OMEGA-3/VIT E (CO Z09-WVAN OIL-OMEGA 3-E ORAL) Take 1 capsule by [...] [employer] P[employer] H[employer] REPLAC[employer] Care Teams Health Careers Instructor Relationship Specialty Start Date End Date Travis Gottlieb MD PCP - General Family Medicine 12/28/15 Additional Source Comments The information contained in this document represents components of the legal health record. It is not the complete legal health record.[facility]
== END 2025-02-16 15:31 | disposition home or self-care (01) ==
LOC: HO.HCS 14:54
PROVIDERS: Visit Provider Nurse Practitioner Family
DX: I48.91 Unspecified atrial fibrillation (principal); I42.9 Cardiomyopathy, unspecified; I35.0 Nonrheumatic aortic (valve) stenosis; I50.23 Acute on chronic systolic (congestive) heart failure; I95.9 Hypotension, unspecified
CPT/HCPCS: 93010; 99214; G2211

== ENCOUNTER → 2025-02-16 14:53 | Outpatient (BNVA) | payer MEDICARE, SELFPAY | PROVIDERS: Visit Provider Nurse Practitioner Family | DX: I35.0 Nonrheumatic aortic (valve) stenosis (principal); I11.0 Hypertensive heart disease with heart failure; I50.23 Acute on chronic systolic (congestive) heart failure; I48.91 Unspecified atrial fibrillation; I42.9 Cardiomyopathy, unspecified; I95.9 Hypotension, unspecified; Z87.891 Personal history of nicotine dependence; Z98.890 Other specified postprocedural states | CPT/HCPCS: 93005; 99212 ==